=== PATIENT | female | born 1965 | race Caucasian/White ===

== ENCOUNTER → 2017-10-30 14:42 | Outpatient (CLI) | payer BC, SELFPAY ==
[2017-10-30 15:49] LABS: Absolute Lymphocyte Count 0.53 X10^3/ul (0.83-4.51); Absolute Neutrophil Count 2.2 X10^3/uL (2.0-7.7); Basophil# 0.01 X10^3/uL; Basophil% 0.3 % (0-1); Eosinophil# 0.11 X10^3/uL; Eosinophils% 3.4 % (0-5); Hematocrit 33.5 % (37-47); Hemoglobin 11.3 g/dl (12.0-15.0); Lymphocyte # 0.53 X10^3/ul (4.0); Lymphocyte % 16.2 % (19-41); Mean Corp Hgb Conc 33.7 g/gl (32-36); Mean Corpuscular Hgb 33.9 pg (27.0-32.0); Mean Corpuscular Volume 100.6 fL (81-99); Mean Platelet Vol. 9.5 fl (6.2-12.0); Monocyte# 0.46 X10^3/uL; Monocyte% 14.1 % (0-10); Neutrophil # 2.15 X10^3/uL (2.7-7.7); Neutrophil % 65.7 % (47-70); Platelet Count 201 K/mm3 (150-450); RBC Distribution Width CV 12.7 % (11.6-14.6); RBC Distribution Width SD 45.1 fl (35.1-43.9); Red Blood Count 3.33 M/mm3 (4.2-5.4); White Blood Count 3.3 K/mm3 (4.4-11.0)
[2017-10-30 15:51] LABS: Differential Indicated SCAN CRITERIA MET; POSITIVE COUNT NO; POSITIVE DIFFERENTIAL YES; POSITIVE MORPHOLOGY NO
[2017-10-30 15:58] LABS: Color, Urine Yellow (Yellow); Glucose, Dipstick Normal (Normal); Ketone-Dipstick Negative (Negative); Leukocyte Esterase-Dipstick 100 /ul (Negative); Nitrite-Dipstick Negative (Negative); Occult Blood-Urine Negative /ul (Negative); Protein-Dipstick Negative (Negative); Specific Gravity, Urine 1.005 (1.002-1.030); Urine Bilirubin Dipstick Negative (Negative); Urine Clarity Clear (Clear); Urine Urobilinogen Normal (Normal); Urine pH 6.5 (5.0 - 8.0)
[2017-10-30 16:19] LABS: AST(SGOT) 23 U/L (15-37); Alanine Aminotransfer ALT/SGPT 26 U/L (13-56); Albumin, Serum 4.1 g/dL (3.2-5.0); Alkaline Phosphatase 95 U/L (45-117); Anion Gap 8 (5-15); BUN 16 mg/dL (7-18); BUN/Creat Ratio 16.9 RATIO (10-20); Chloride 106 mmol/L (98-107); Creatinine, Serum 0.94 mg/dL (0.55-1.02); EST Glomerular Filtration Rate 66 mL/min (>60); Est Glom Filt Rate - Afr Amer 79 mL/min (>60); Globulin 4.2 g/dL (2.2-4.2); Glucose 93 mg/dL (74-106); Potassium 3.8 mmol/L (3.5-5.1); Protein, Total 8.3 g/dL (6.4-8.2); Rheumatoid Factor < 10.0 IU/mL (<15); Sodium Level 139 mmol/L (136-145)
[2017-10-30 16:35] LABS: Protein, Urine (Random) 7.7 mg/dL (<11.9); Protein:Creat Ratio 344 mg/g CRE (0-200)
[2017-11-03 16:07] LABS: Anti-Centromere B Ab <0.2 AI (0.0-0.9); Anti-Jo <0.2 AI (0.0-0.9); Anti-Scleroderma-70 AB <0.2 AI (0.0-0.9); RNP Ab 7.1 AI (0.0-0.9); SJOGREN'S Anti-SS-A test < 0.2 AI (0.0-0.9); SJOGREN'S Anti-SS-B test < 0.2 AI (0.0-0.9); Smith Ab <0.2 AI (0.0-0.9)
[2017-11-05 07:07] LABS: Complement C3 100 mg/dL (82-167); Dilute Prothrombin Time (dPT) 44.7 sec (0.0-55.0); Dilute Russell Viper Venom 45.8 sec (0.0-47.0); PTT-LA 53.6 sec (0.0-51.9); QNTFERON TB Ag Minus Nil Value 0 IU/mL (.); QNTFERON TB Ag Value 0.04 IU/mL (.); QNTFERON TB Mitogen Value 0.07 IU/mL (.); QNTFERON TB Nil Value 0.04 IU/mL (.); Thrombin Time 16.6 sec (0.0-23.0); dPT Confirm Ratio 1.13 Ratio (0.00-1.40)
[2017-11-05 09:50] LABS: CCP IgG Antibodies 7 units (0-19); HEPATITIS B SURFACE AG Negative (Negative); Hep B Surface Antibodies Non Reactive (.); Hexagonal Phase Phospholipid 2 14 sec (0-11); Interpretation Comment: (.); QNTIFERON TB Gold Indeterminate (Negative)
[2017-11-05 10:35] LABS: ANTINUCLEAR ANTIBODIES DIRECT Positive (Negative); Anti-dsDNA Ab 2 IU/mL (0-9)
== END ==
PROVIDERS: Family Provider Family Medicine; PCP Family Medicine; Visit Provider Internal Medicine Rheumatology
DX: M06.4 Inflammatory polyarthropathy (principal); M79.7 Fibromyalgia; M35.00 Sjogren syndrome, unspecified
CPT/HCPCS: 36415; 80053; 81002; 82570; 84156; 85025; 86038; 86160; 86200; 86225; 86235; 86431; 86480; 86706; 87340

== ENCOUNTER → 2017-11-23 12:37 | Outpatient (CLI) | payer BC, SELFPAY ==
--- NOTE | 2017-11-23 12:39 | BI_ITS ---
MAMMOGRAPHY - BILATERAL SCREENING REASON FOR EXAM: Female, 52 years old. Routine annual screening examination. PERTINENT HISTORY: Non-contributory. TECHNIQUE: Digital bilateral breast zion (3D mammographic acquisition) in the CC and MLO projections. 2-D mediolateral oblique (MLO) and craniocaudad (CC) views of both breasts were obtained. CAD: Full Field Digital Mammography with Computer Added Detection was performed. COMPARISON: Comparison is made with prior study dated October 30, 2016 and October 16, 2015. FINDINGS: Breast Composition: The breasts are heterogeneously dense, which may obscure small masses. There are no dominant masses or suspicious calcifications. There is asymmetry of breast tissue were more breast tissue is seen in the upper aspect of the right breast as compared to the left side. Correlation with ultrasound is recommended. No other significant abnormalities are identified. BI/SCREENING MAMM (CAD), BILAT IMPRESSION: Asymmetry of breast tissue with more breast tissue is seen in the upper outer quadrant of the right breast as compared to the left side. Correlation with ultrasound is recommended. ASSESSMENT CATEGORY: BIRADS Category 0: Incomplete. Need additional imaging evaluation. A letter regarding these results will be sent to the patient by the facility within 30 days. Approximately 10% of breast cancers are not detected by mammography. A normal mammogram should not delay biopsy of a clinically suspicious abnormality. [id number] Electronically Signed: Lior Bronson MD at 10:15 EDT Tel [phone], Service support ,
== END ==
PROVIDERS: Family Provider Family Medicine; PCP Family Medicine; Visit Provider Obstetrics & Gynecology
DX: Z12.31 Encounter for screening mammogram for malignant neoplasm of breast (principal)
CPT/HCPCS: 77063; 77067

== ENCOUNTER → 2017-12-02 13:57 | Outpatient (CLI) | payer BC, SELFPAY ==
--- NOTE | 2017-12-02 14:05 | US_ITS ---
STUDY: ULTRASOUND BREAST - RIGHT REASON FOR EXAM: Female, 52 years old. Abnormal screening mammogram. TECHNIQUE: Axial and longitudinal images of the RIGHT breast were performed with a high resolution ultrasound transducer. COMPARISON: Comparison is made with prior mammogram dated November 23, 2017. FINDINGS: RIGHT Breast: There is a 4 mm x 3 mm x 2 mm cyst at the 11:00 position of the breast at 3 cm from the nipple. This also evidence of a dilated subareolar ducts. US/Breast Limited Unilateral IMPRESSION: 4 mm x 3 mm x 2 mm cyst at the 11:00 position in the breast at 3 cm from nipple. Mild dilatation of the subareolar ducts. ASSESSMENT CATEGORY: BIRADS Category 2: Benign. A letter regarding these results will be sent to the patient by the facility within 30 days. Electronically Signed: Lior Bronson MD at 15:30 EDT Tel [phone], Service support ,
== END ==
PROVIDERS: Family Provider Family Medicine; PCP Family Medicine; Visit Provider Obstetrics & Gynecology
DX: R92.8 Other abnormal and inconclusive findings on diagnostic imaging of breast (principal)
CPT/HCPCS: 76642

== ENCOUNTER 2018-01-20 08:56 | Day surgery (SDC) | payer BC, SELFPAY ==
[2018-01-20] VITALS (7 sets, daily range): BP systolic 92–143; BP diastolic 43–75; PULSE 63–79; RESP 16–18; TEMP 36.3–36.6; O2SAT 95–100; BMI 27.6
--- NOTE | 2018-01-20 10:38 | PCM.OPRPT ---
Report of Operation Date of Procedure: 01/20/18 Pre-Operative Diagnosis: Screening for colon cancer Post-Operative Diagnosis: Internal and external hemorrhoids mild Surgery/Procedure Performed:: Colonoscopy for screening Type of Anesthesia:: MAC Anesthesiologist: Jarocho Stafford Specimen's removed: None Estimated Blood Loss (mL): None Description of Procedure: Procedure: Colonoscopy After reviewing the risks benefits, the patient was deemed in satisfactory condition to undergo procedure. After obtaining informed consent, the scope was passed under direct visualization. Throughout the procedure, the patient's blood pressure pulse and position saturations were monitored continuously anesthesia. The colonoscope was introduced through the anus and advanced to the cecum, identified by the appendiceal orifice, IC valve and transillumination. The colonoscopy was performed without difficulty. The patient tolerated procedure well. Quality of bowel prep was good. Findings: The perianal and digital rectal exam were revealed circumferential external hemorrhoids as well as mild internal hemorrhoids. The colon (entire examined portion) appeared normal. Retroflexed view of the distal rectum and anal verge grade 1 internal hemorrhoids Impression: 1. The entire colon is normal. 2. External hemorrhoids and grade 1 internal hemorrhoids Recommendations: Repeat colonoscopy in 10 years for screening purposes - Complications none
== END 2018-01-20 11:34 | disposition home or self-care (01) ==
LOC: EN 08:56 → AC 08:58
PROVIDERS: Family Provider Family Medicine; PCP Family Medicine; Visit Provider Surgery
PROC: 0DJD8ZZ Inspection of Lower Intestinal Tract, Via Natural or Artificial Opening Endoscopic (ICD-10-PCS; CPT 45378; principal; 2018-01-20 09:55)
DX: Z12.11 Encounter for screening for malignant neoplasm of colon (principal); K21.9 Gastro-esophageal reflux disease without esophagitis; I10 Essential (primary) hypertension; K64.4 Residual hemorrhoidal skin tags; M32.9 Systemic lupus erythematosus, unspecified; F32.9 Major depressive disorder, single episode, unspecified; K64.8 Other hemorrhoids; Z87.891 Personal history of nicotine dependence
CPT/HCPCS: 45378; J7120

== ENCOUNTER → 2018-04-21 12:35 | Outpatient (CLI) | payer BC, SELFPAY ==
[2018-04-21 14:24] LABS: Anion Gap 9 (5-15); BUN 15 mg/dL (7-18); BUN/Creat Ratio 16.3 RATIO (10-20); Calcium,Total 8.7 mg/dL (8.5-10.1); Chloride 105 mmol/L (98-107); Creatinine, Serum 0.92 mg/dL (0.55-1.02); EST Glomerular Filtration Rate 67 mL/min (>60); Est Glom Filt Rate - Afr Amer 82 mL/min (>60); Glucose 72 mg/dL (74-106); Sodium Level 138 mmol/L (136-145)
== END ==
PROVIDERS: Family Provider Family Medicine; PCP Family Medicine; Referring Provider Family Medicine; Visit Provider Family Medicine
DX: E87.5 Hyperkalemia (principal)
CPT/HCPCS: 36415; 80048

== ENCOUNTER → 2018-07-12 13:52 | Outpatient (CLI) | payer BC, SELFPAY ==
[2018-01-20 09:19] VITALS: BMI 27.6
[2018-07-12 15:35] LABS: ALB/GLOB Ratio 1.1 RATIO (0.9-2.4); AST(SGOT) 22 U/L (15-37); Alanine Aminotransfer ALT/SGPT 40 U/L (13-56); Albumin, Serum 3.7 g/dL (3.2-5.0); Alkaline Phosphatase 72 U/L (45-117); Anion Gap 10 (5-15); BUN 13 mg/dL (7-18); BUN/Creat Ratio 12.4 RATIO (10-20); Calcium,Total 8.4 mg/dL (8.5-10.1); Chloride 107 mmol/L (98-107); Creatinine, Serum 1.05 mg/dL (0.55-1.02); EST Glomerular Filtration Rate 58 mL/min (>60); Est Glom Filt Rate - Afr Amer 70 mL/min (>60); Globulin 3.3 g/dL (2.2-4.2); Glucose 93 mg/dL (74-106); Potassium 3.9 mmol/L (3.5-5.1); Sodium Level 143 mmol/L (136-145)
[2018-07-12 15:36] LABS: Absolute Lymphocyte Count 0.38 X10^3/ul (0.83-4.51); Absolute Neutrophil Count 1.7 X10^3/uL (2.0-7.7); Basophil# 0.01 X10^3/uL; Basophil% 0.4 % (0-1); Differential Indicated SCAN CRITERIA MET; Eosinophil# 0.11 X10^3/uL; Eosinophils% 4.2 % (0-5); Hematocrit 26.7 % (37-47); Hemoglobin 8.1 g/dl (12.0-15.0); Lymphocyte # 0.38 X10^3/ul (4.0); Lymphocyte % 14.7 % (19-41); Mean Corp Hgb Conc 30.3 g/gl (32-36); Mean Corpuscular Hgb 33.5 pg (27.0-32.0); Mean Corpuscular Volume 110.3 fL (81-99); Monocyte# 0.42 X10^3/uL; Monocyte% 16.2 % (0-10); Neutrophil # 1.65 X10^3/uL (2.7-7.7); Neutrophil % 63.7 % (47-70); POSITIVE COUNT NO; POSITIVE DIFFERENTIAL YES; POSITIVE MORPHOLOGY NO; Platelet Count 204 K/mm3 (150-450); RBC Distribution Width CV 15.4 % (11.6-14.6); RBC Distribution Width SD 57.2 fl (35.1-43.9); Red Blood Count 2.42 M/mm3 (4.2-5.4); White Blood Count 2.6 K/mm3 (4.4-11.0)
[2018-07-12 15:45] LABS: Differential Comment SCANNED
== END ==
PROVIDERS: Family Provider Family Medicine; PCP Family Medicine; Referring Provider Internal Medicine Rheumatology; Visit Provider Internal Medicine Rheumatology
DX: M06.4 Inflammatory polyarthropathy (principal); Z79.899 Other long term (current) drug therapy; M79.7 Fibromyalgia; M35.00 Sjogren syndrome, unspecified; M35.1 Other overlap syndromes; I10 Essential (primary) hypertension; F32.89 Other specified depressive episodes
CPT/HCPCS: 36415; 80053; 85025

== ENCOUNTER → 2018-10-11 13:08 | Outpatient (CLI) | payer BC, SELFPAY ==
[2018-01-20 09:19] VITALS: BMI 27.6
[2018-10-11 13:55] LABS: Absolute Lymphocyte Count 0.72 X10^3/ul (0.83-4.51); Absolute Neutrophil Count 2.4 X10^3/uL (2.0-7.7); Basophil# 0.01 X10^3/uL; Basophil% 0.3 % (0-1); Eosinophil# 0.07 X10^3/uL; Eosinophils% 1.9 % (0-5); Hematocrit 32.4 % (37-47); Hemoglobin 10.5 g/dl (12.0-15.0); Lymphocyte # 0.72 X10^3/ul (4.0); Lymphocyte % 19.6 % (19-41); Mean Corp Hgb Conc 32.4 g/gl (32-36); Mean Corpuscular Hgb 32.7 pg (27.0-32.0); Mean Corpuscular Volume 100.9 fL (81-99); Mean Platelet Vol. 9.5 fl (6.2-12.0); Monocyte# 0.45 X10^3/uL; Monocyte% 12.3 % (0-10); Neutrophil # 2.41 X10^3/uL (2.7-7.7); Neutrophil % 65.6 % (47-70); Platelet Count 188 K/mm3 (150-450); RBC Distribution Width CV 13.8 % (11.6-14.6); Red Blood Count 3.21 M/mm3 (4.2-5.4); White Blood Count 3.7 K/mm3 (4.4-11.0)
[2018-10-11 14:00] LABS: POSITIVE COUNT NO; POSITIVE DIFFERENTIAL NO; POSITIVE MORPHOLOGY NO
[2018-10-11 14:34] LABS: ALB/GLOB Ratio 1.1 RATIO (0.9-2.4); AST(SGOT) 22 U/L (15-37); Alanine Aminotransfer ALT/SGPT 30 U/L (13-56); Albumin, Serum 3.7 g/dL (3.2-5.0); Alkaline Phosphatase 64 U/L (45-117); Anion Gap 5 (5-15); BUN 16 mg/dL (7-18); BUN/Creat Ratio 16.1 RATIO (10-20); Calcium,Total 8.8 mg/dL (8.5-10.1); Chloride 109 mmol/L (98-107); Creatinine, Serum 0.99 mg/dL (0.55-1.02); EST Glomerular Filtration Rate 62 mL/min (>60); Est Glom Filt Rate - Afr Amer 75 mL/min (>60); Globulin 3.5 g/dL (2.2-4.2); Glucose 70 mg/dL (74-106); Potassium 3.4 mmol/L (3.5-5.1); Protein, Total 7.2 g/dL (6.4-8.2); Sodium Level 141 mmol/L (136-145)
== END ==
LOC: MTRAD 13:10 → MTLAB 13:24
PROVIDERS: Family Provider Family Medicine; PCP Family Medicine; Referring Provider Internal Medicine Rheumatology; Visit Provider Internal Medicine Rheumatology
DX: M06.4 Inflammatory polyarthropathy (principal); Z79.899 Other long term (current) drug therapy; M79.7 Fibromyalgia; M35.00 Sjogren syndrome, unspecified; M35.1 Other overlap syndromes; I10 Essential (primary) hypertension; F32.89 Other specified depressive episodes
CPT/HCPCS: 36415; 80053; 85025

== ENCOUNTER → 2019-02-17 17:11 | Outpatient (CLI) | payer BC, SELFPAY | PROVIDERS: Referring Provider Family Medicine; Visit Provider Family Medicine | DX: R30.0 Dysuria (principal) | CPT/HCPCS: 87077; 87086; 87088; 87186 ==

== ENCOUNTER → 2019-02-24 14:44 | Outpatient (CLI) | payer BC, SELFPAY ==
--- NOTE | 2019-02-24 14:47 | BI_ITS ---
MAMMOGRAPHY - BILATERAL SCREENING REASON FOR EXAM: Female, 53 years old. Routine annual screening examination. PERTINENT HISTORY: Non-contributory. TECHNIQUE: Digital bilateral breast meagan (3D mammographic acquisition) in the CC and MLO projections. 2-D mediolateral oblique (MLO) and craniocaudad (CC) views of both breasts were obtained. CAD: Full Field Digital Mammography with Computer Added Detection was performed. COMPARISON: Comparison is made with prior examination dated November 23, 2017 and October 30, 2016. FINDINGS: Breast Composition: The breasts are heterogeneously dense, which may obscure small masses. There are no dominant masses or suspicious calcifications. Stable appearance of the fat-containing axillary lymph nodes. No other significant abnormalities are identified. There has been no significant change since the prior study. BI/SCREEN MAMM (CAD) W/MEAGAN BILAT IMPRESSION: Stable bilateral screening mammogram. Yearly follow-up mammogram recommended. (A) ASSESSMENT CATEGORY: BIRADS Category 2: Benign. A letter regarding these results will be sent to the patient by the facility within 30 days. Approximately 10% of breast cancers are not detected by mammography. A normal mammogram should not delay biopsy of a clinically suspicious abnormality. [id number] Electronically Signed: Lior Bronson, at 15:29 EDT , Service support ,
== END ==
PROVIDERS: Family Provider Family Medicine; PCP Family Medicine; Referring Provider Family Medicine; Visit Provider Family Medicine
DX: Z12.31 Encounter for screening mammogram for malignant neoplasm of breast (principal)
CPT/HCPCS: 77063; 77067

== ENCOUNTER → 2019-04-05 15:53 | Outpatient (CLI) | payer BC, SELFPAY ==
[2018-01-20 09:19] VITALS: BMI 27.6
== END ==
PROVIDERS: Visit Provider Obstetrics & Gynecology
DX: N39.0 Urinary tract infection, site not specified (principal)
CPT/HCPCS: 87077; 87086; 87088; 87186

== ENCOUNTER → 2019-08-19 09:40 | Outpatient (CLI) | payer BC, SELFPAY ==
[2018-01-20 09:19] VITALS: BMI 27.6
[2019-08-19 12:35] LABS: Absolute Lymphocyte Count 1.04 X10^3/uL (0.83-4.51); Absolute Neutrophil Count 1.1 X10^3/uL (2.0-7.7); Eosinophil# 0.04 X10^3/uL; Eosinophils% 1.5 % (0-5); Hematocrit 26.5 % (37-47); Hemoglobin 7.9 g/dL (12.0-15.0); Lymphocyte # 1.04 X10^3/ul (4.0); Lymphocyte % 39.5 % (19-41); Mean Corp Hgb Conc 29.8 g/dL (32-36); Mean Corpuscular Hgb 29.7 pg (27.0-32.0); Mean Corpuscular Volume 99.6 fL (81-99); Mean Platelet Vol. 9.8 fl (6.2-12.0); Monocyte# 0.43 X10^3/uL; Monocyte% 16.3 % (0-10); NRBC Flagged by Analyzer 0 % (0-5); Neutrophil # 1.09 X10^3/uL (2.7-7.7); Neutrophil % 41.6 % (47-70); POSITIVE MORPHOLOGY YES; Platelet Count 211 K/mm3 (150-450); RBC Distribution Width CV 14.9 % (11.6-14.6); RBC Distribution Width SD 54.1 fl (35.1-43.9); Red Blood Count 2.66 M/mm3 (4.2-5.4); White Blood Count 2.6 K/mm3 (4.4-11.0)
[2019-08-19 12:37] LABS: Differential Indicated SCAN CRITERIA MET
[2019-08-19 13:20] LABS: Anisocytosis 1+; Atypical Lymphocyte 1+ %; Platelet Estimate ADEQUATE (ADEQ); Red Cell Morphology N CHROM NORMAL (NORM C&C)
[2019-08-19 13:24] LABS: ALB/GLOB Ratio 0.8 RATIO (0.9-2.4); AST(SGOT) 25 U/L (15-37); Alanine Aminotransfer ALT/SGPT 23 U/L (13-56); Albumin, Serum 3.6 g/dL (3.2-5.0); Alkaline Phosphatase 78 U/L (45-117); Anion Gap 10 (5-15); BUN 12 mg/dL (7-18); BUN/Creat Ratio 11.8 RATIO (10-20); Calcium,Total 9.1 mg/dL (8.5-10.1); Chloride 107 mmol/L (98-107); Cholesterol 130 mg/dL (200); Creatinine, Serum 1.02 mg/dL (0.55-1.02); EST Glomerular Filtration Rate 60 mL/min (>60); Est Glom Filt Rate - Afr Amer 72 mL/min (>60); Ferritin 11 ng/mL (8-252); Globulin 4.5 g/dL (2.2-4.2); Glucose 63 mg/dL (74-106); High Density Lipoprotein 37 mg/dL; Iron Binding Capacity,Total 367 ug/dL (250-450); Potassium 3.7 mmol/L (3.5-5.1); Protein, Total 8.1 g/dL (6.4-8.2); Sodium Level 139 mmol/L (136-145); Triglycerides 151 mg/dL; Very Low Density Lipoprotein 30 mg/dL (5-40)
== END ==
PROVIDERS: PCP Family Medicine; Referring Provider Family Medicine; Visit Provider Family Medicine
DX: I10 Essential (primary) hypertension (principal); D64.9 Anemia, unspecified
CPT/HCPCS: 36415; 80053; 80061; 82728; 83550; 85025

== ENCOUNTER → 2019-12-08 12:07 | Outpatient (CLI) | payer BC, SELFPAY ==
[2018-01-20 09:19] VITALS: BMI 27.6
[2019-12-08 15:43] LABS: Ferritin 11 ng/mL (8-252); Iron 35 ug/dL (50-170); Iron Binding Capacity,Total 354 ug/dL (250-450); PERCENT IRON SATURATION 9.9 % (15.0-55.0)
[2019-12-08 17:48] LABS: Absolute Lymphocyte Count 0.83 X10^3/uL (0.83-4.51); Absolute Neutrophil Count 1.3 X10^3/uL (2.0-7.7); Basophil# 0.01 X10^3/uL; Basophil% 0.4 % (0-1); Eosinophil# 0.07 X10^3/uL; Eosinophils% 2.7 % (0-5); Hemoglobin 7.6 g/dL (12.0-15.0); Lymphocyte # 0.83 X10^3/ul (4.0); Mean Corp Hgb Conc 29.2 g/dL (32-36); Mean Corpuscular Hgb 28.3 pg (27.0-32.0); Mean Corpuscular Volume 96.7 fL (81-99); Mean Platelet Vol. 9.8 fl (6.2-12.0); Monocyte# 0.33 X10^3/uL; Monocyte% 12.7 % (0-10); NRBC Flagged by Analyzer 0 % (0-5); Neutrophil # 1.34 X10^3/uL (2.7-7.7); Neutrophil % 51.8 % (47-70); Platelet Count 191 K/mm3 (150-450); RBC Distribution Width CV 16.5 % (11.6-14.6); RBC Distribution Width SD 57.5 fl (35.1-43.9); RET-HE 29.6 pg (30-35); Red Blood Count 2.69 M/mm3 (4.2-5.4); Reticulocyte Count 1.91 % (0.5-1.5); White Blood Count 2.6 K/mm3 (4.4-11.0)
== END ==
PROVIDERS: PCP Family Medicine; Visit Provider Internal Medicine Hematology & Oncology
DX: D64.9 Anemia, unspecified (principal)
CPT/HCPCS: 36415; 82728; 83540; 83550; 85025; 85045

== ENCOUNTER → 2019-12-08 12:32 | Outpatient (CLI) | payer BC, SELFPAY ==
[2018-01-20 09:19] VITALS: BMI 27.6
[2019-12-08 12:44] VITALS: BP 111/38; PULSE 66; RESP 16; TEMP 36.8; BMI 26.9
[2019-12-08] MEDS: 0.9% NaCl Peripheral Flush Adult/Peds IV (12:55)
[2019-12-08] MEDS: 0.9% NaCl IVPB Med Flush (250 mL) 15 ML IV (12:55)
== END ==
PROVIDERS: PCP Family Medicine; Referring Provider Family Medicine; Visit Provider Family Medicine
DX: D64.9 Anemia, unspecified (principal)
CPT/HCPCS: 96365; J1756; J7050; A4216

== ENCOUNTER 2020-01-11 09:19 | Day surgery (SDC) | payer BC, SELFPAY ==
--- NOTE | 2020-01-05 04:23 | HP_ITS ---
Intake Vital Signs 01/05/20 Height 5 ft 2 in 01/05/20 Weight: 147 lb 01/05/20 BP 122/73 H 01/05/20 Blood Pressure Location Rt brachial 01/05/20 Position Sitting 01/05/20 Respiration 16 01/05/20 Pulse 76 01/05/20 Pulse Source Monitor 01/05/20 Temp 98.1 F 01/05/20 Temp Source Temporal 01/05/20 Pulse Oximetry (%) 99 01/05/20 Oxygen Delivery Method room air 01/05/20 BMI 26.9 Intake Visit Reasons: EGD Chief Complaint: EGD Coding File Clerk Required: No Is patient in pain?: No Allergies amoxicillin trihydrate [From Augmentin] Allergy (Verified 01/05/20 14:54) Unknown diflunisal [From Dolobid] Allergy (Verified 01/05/20 14:54) Unknown Penicillins Allergy (Verified 01/05/20 14:54) Rash potassium clavulanate [From Augmentin] Allergy (Verified 01/05/20 14:54) Unknown sulfamethoxazole [From Septra] Allergy (Verified 01/05/20 14:54) Rash trimethoprim [From Septra] Allergy (Verified 01/05/20 14:54) Rash aripiprazole [From Abilify] Adverse Reaction (Verified 01/05/20 14:54) Other fluoxetine HCl [From Prozac] Adverse Reaction (Verified 01/05/20 14:54) Other sertraline HCl [From Zoloft] Adverse Reaction (Verified 01/05/20 14:54) Other venlafaxine HCl [From Effexor] Adverse Reaction (Verified 01/05/20 14:54) Other ARTIFICIAL SUGARS Adverse Reaction (Uncoded 01/05/20 14:54) Other Medications Calcium Carb/Vitamin D [Caltrate-600 With Vit D Tab] 1 tab PO DAILY@0800 06/06/14 [History Confirmed 01/05/20] Cholecalciferol (VIT D3) [Vitamin D3] 1,000 unit PO DAILY 06/06/14 [History Confirmed 01/05/20] Duloxetine Hcl [Cymbalta] 120 mg PO DAILY 06/06/14 [History Confirmed 01/05/20] Glucosa Abbasi 2Kcl/Chondroitin Abbasi [Glucosamine-Chondroitin Cap] 1 ea PO BID 06/06/14 [History Confirmed 01/05/20] Lactobacillus Acidophilus [Acidophilus] 1 ea PO DAILY 06/06/14 [History Confirmed 01/05/20] Lisinopril [Zestril] 10 mg PO DAILY 06/06/14 [History Confirmed 01/05/20] Multivitamins,Therapeutic [Multivitamin] 1 tab PO DAILY 06/06/14 [History Confirmed 01/05/20] Omeprazole [Prilosec] 40 mg PO DAILY 06/06/14 [History Confirmed 12/08/19] gabapentin 300 mg capsule 300 mg PO BID cap 01/05/20 [History Confirmed 01/05/20] pantoprazole 40 mg tablet,delayed release 40 mg PO DAILY tab 01/05/20 [History Confirmed 01/05/20] PFSH Medical History Hemorrhoids (Acute) Acid reflux (Acute) Blood in stool (Acute) Constipation (Acute) Abdominal pain (Acute) Anxiety (Acute) Anemia (Acute) Lupus (Acute) Back problem (Acute) Fatigue (Acute) Depression (Chronic) Benign essential HTN (Chronic) Anemia (Chronic) Surgical History Hx of colonoscopy (Acute) Hx of hysterectomy (Acute) History of (Acute) Family History Mother Cancer COPD (chronic obstructive pulmonary disease) Brother Myocardial infarction Social History (Updated 01/05/20 @ 16:[address] Tripp Gilmore MD) Smoking Status: Former smoker second hand exposure: No alcohol intake: never substance use type: does not use caffeine: Yes what type of physical activity do you participate in: none frequency: does not exercise HPI HPI Surgical H&P: Yes HPI: DEMI DEJESUS, is a 54 F who presents to the office today for Evaluation of GERD. Patient has been having problems with GERD over the last 4 to 5 years. Over the last several months it is gotten progressively worse she is currently on omeprazole but at night times many times she needs to take an extra Tagamet. She has a bitter taste in her mouth at nighttime. This is particularly present when she uses an antihistamine or needs to take some form of nonsteroidal anti- inflammatories for discomfort. The patient has no previous EGD. She does not sleep with her head elevated. Patient has had a colonoscopy in 2019 which was negative. In addition the patient does have a diagnosis of anemia ROS General General: Yes fatigue; no weight change, appetite, colon cancer, breast cancer or weakness HEENT HEENT: No difficulty swallowing, eye injury, eye surgery, swollen glands or hoarseness Endo Endocrine: No thyroid disease, diabetes mellitus, thyroid cancer, Hair loss, heat intolerance or cold intolerance Skin Skin: Yes rash; no changing moles Musc Musculoskeletal: Yes back problems; no arthritis, rheumatoid arthritis, gout or joint pain Cardio Cardiovascular: Yes high blood pressure; no murmur, pacemaker, heart disease, atrial fibrillation, heart attack, heart stent, palpitations, shortness of breat with exertion or chest pain Psych Psychiatric: Yes depression and anxiety; no hearing voices Resp Respiratory: No shortness of breath, No sleep apnea, No cough, No COPD, No asthma, No emphysema, No wheezing Gastro Gastrointestinal: Yes abdominal pain, No nausea or vomiting, No diarrhea, Yes constipation, Yes blood in stool, Yes acid reflux, Yes hemorrhoids, No ulcers, No gallbladder problem, No black,tarry stools Jona Hematologic: No blood thinners, Yes blood disorders, Yes bleeding, Yes anemia, No blood clots Neuro Neurologic: No system reviewed and no additional complaints, except as docu, No as per HPI, No abnormal walking, No abnormal hearing, No abnormal movements, No abnormal speech, No behavioral changes, No burning sensations, No confusion, No seizure-like activity, No unsteadiness, No dizziness, No localized weakness, No frequent falls, No headache(s), No lack of coordination, No loss of vision, No memory loss, No numbness, No other visual disturbances, No radiating pain, No restless legs, No sensory deficit, No fainting, No tingling, No tremor(s), No weakness, No other Exam Const General: no acute distress, well developed, well hydrated Orientation: oriented to person, oriented to place, oriented to time [facility] Head: normocephalic, atraumatic Ears: external ears normal Mouth: moist mucous membranes Eyes Sclera: sclerae normal Pupils: normal by confrontation Neck Neck: no lymphadenopathy noted Neck mass: No Thyroid: thyroid normal, symmetrical Chest Chest palpation & inspection: normal inspection of the chest Resp Effort & Inspection: normal respiratory effort Auscultation: clear to auscultation bilaterally Percussion: percussion normal Cardio Rate: regular rate Rhythm: regular rhythm Heart Sounds: no murmurs GI Palpation: soft, no hepatosplenomegaly, no masses, nontender Rectal Exam: other Other: Rectal exam deferred. Extrem General: normal to inspection, no clubbing, cyanosis or edema Assessment & Plan Problems 1. Gastroesophageal reflux disease, esophagitis presence not specified K21.9 2. Anemia, unspecified type D64.9 Plan I have discussed the above with the patient. I have offered the patient esophagogastroduodenoscopy for evaluation. I have explained the risks/benefits of the procedure and described the procedure. I have discussed the risks with the patient, including but not limited to: infection, bleeding, perforation of the GI tract requiring emergency surgery, inability to complete the procedure, injury to any internal organs, complications of anesthesia, etc. - the patient understands and agrees to proceed. I have answered all the patient's questions to the patient's satisfaction and the patient has no further questions. The patient has been given instructions for the colon cleansing preparation. Coding Level of Care Code Off vis,new,level 3 Diagnoses Gastroesophageal reflux disease, esophagitis presence not specified K21.9 ??Esophagitis presence: esophagitis presence not specified Anemia, unspecified type D64.9 ??Anemia type: unspecified type COVID (Procedure Consent) Procedure Criteria Procedure Criteria: Yes Elective The surgeon/proceduralist and patient have discussed in detail the risk of exposure to and/or potential harm posed by the COVID-19 virus with having a surgery/procedure at this time versus the risk of? delaying the surgery/procedure. It is not possible to know either the risk of delaying the surgery or procedure or chance of getting an infection with perfect accuracy, but a joint decision was made between the patient and the surgeon/proceduralist ?to proceed at this time with the scheduled surgery/procedure as indicated on the consent form. 01/05/20 0332 <Electronically signed by Tripp juarez MD> Date _ Tripp Gilmore MD I have re-examined the patient. There are no clinical changes since date of exam.
[2020-01-05 14:53] VITALS: BMI 26.9
[2020-01-06 22:46] LABS: Probe Check PASS; Specimen Processing Control PASS
[2020-01-11] VITALS (9 sets, daily range): BP systolic 93–112; BP diastolic 47–59; PULSE 63–73; RESP 16; TEMP 36.6–37.1; O2SAT 97–100; BMI 27.9
[2020-01-11] MEDS: Lactated Ringers 1,000 ML 100 ML IV (09:50)
--- NOTE | 2020-01-11 10:15 | IMM_PTH ---
PATIENT: DEMI DEJESUS LOC: EN U#:[id number] AGE/SX: 54/F ROOM: RE01/11/[address]: Dr. Tripp Gilmore MD : 1965 BED: DIS: 01/11/2020 SPEC #: [id number] RECD: 01/12/20 09:14 STATUS: MELISSA REGilles #: [id number] HAM: 01/11/20 10:[address]: Tripp Gilmore DEPT: IMMUNOHISTOCHEMISTRY RECD BY: Vida Martinez ENTERED: 01/12/20 09:15 SP TYPE: IMMUNO OTHR DR: Dr. Andres Small MD Tissues: Stomach, NOS Procedures: H Pylori (initial) PHYSICIAN & INSTITUTION [place] [id number] SPECIMEN INFORMATION: Tissue Source: Antrum biopsy Clinical Info: GERD, abdomen pain Specimen Number: [id number] CPT code: 44195 METHODOLOGY: Deparaffinized sections of prefer/formalin-fixed tissue or PAP/DQ stained slides are incubated with monoclonal/polyclonal antibodies/oligonucleotide probes. Localization is made via biotin free immunoperoxidase method. Appropriate controls are performed and reacted as expected. Results on target cell population are indicated in the following table: RESULTS: ANTIBODY / CLONE RESULT H Pylori (polyclonal) negative These tests were developed and their performance characteristics determined by [facility]. They may not have been cleared or approved by the U.S. Food and Drug Administration. The FDA has determined that such clearance or approval is not necessary. INTERPRETATION: Antrum biopsy: Negative for Helicobacter pylori organisms. AM:isabel 01/13/20
--- NOTE | 2020-01-11 10:15 | EGD_PTH ---
PATIENT: DEMI DEJESUS LOC: EN U#:[id number] AGE/SX: 54/F ROOM: RE01/11/[address]: Dr. Tripp Gilmore MD : 1965 BED: DIS: 01/11/2020 SPEC #: [id number] RECD: 01/11/20 12:47 STATUS: MELISSA EZIO #: [id number] HAM: 01/11/20 10:[address]: Tripp Gilmore DEPT: SURGICAL PATHOLOGY RECD BY: Brooke Beltran ENTERED: 01/12/20 09:40 SP TYPE: EGD BIOPSY OTHR DR: Dr. Andres Small MD Tissues: Gastric mucous membrane Procedures: Surgery Specimen Level IV HEADER OPERATION: EGD ([facility] [place]) PRE-OP DIAGNOSIS: GERD, abdomen pain TISSUE SUBMITTED: Antrum biopsy for histo and H. pylori MICROSCOPIC DIAGNOSIS Gastric antrum, biopsy: Mild chronic gastritis. See comment. AM:isabel 01/13/20 COMMENT The results of immunohistochemistry for Helicobacter pylori will be reported separately ([id number]). MICROSCOPIC DESCRIPTION Slides are reviewed. GROSS DESCRIPTION Received in fixative is one container labeled with the patient's name and designated antrum biopsy. The specimen consists of one irregular fragment of light blanchard soft tissue that measures 0.6 x 0.2 x 0.1 cm. The specimen is totally submitted in one cassette. / AM:isabel 01/12/20 TC:3 CPT: 11591
--- NOTE | 2020-01-11 10:22 | OP.CCLET_ITS ---
01/11/2020 Andres Small Md Re : Upper GI endoscopy procedure for Kelsea Field Dear Staci This procedure was performed on Saturday, January 11, 2020. My impressions and recommendations are as follows: Impressions : - Normal esophagus. - Normal stomach. Biopsied. - Normal examined duodenum. No specimens collected. Recommendations : - Discharge patient to home. - Resume previous diet. - Continue present medications. - Await pathology results. - Repeat upper endoscopy (date not yet determined) for surveillance. - Return to my office in 1 week. My findings are described in the full procedure note, which is enclosed. If I can be of further assistance, please feel free to contact me at Doctor phone number(s): , Fax: [phone], Work: . Sincerely, MD Tripp Ceja MD 01/11/2020 10:21:30 AM This report has been signed electronically.
--- NOTE | 2020-01-11 10:22 | OP.EGD_ITS ---
Patient Name: Kelsea Field Procedure Date: 01/11/2020 10:02 AM Date of : 1965 Age: 54 Procedure: Upper GI endoscopy Indications: Iron deficiency anemia, Gastro-esophageal reflux disease Providers: Tirpp Gilmore MD Referring MD: Andres Small Md Medicines: See the Anesthesia note for documentation of the administered medications Patient Profile: This is a 54 year old female. Refer to note in patient chart for documentation of history and physical. Complications: No immediate complications. Procedure: Pre-Anesthesia Assessment: - Prior to the procedure, a History and Physical was performed, and patient medications and allergies were reviewed. The patient's tolerance of previous anesthesia was also reviewed. The risks and benefits of the procedure and the sedation options and risks were discussed with the patient. All questions were answered, and informed consent was obtained. Prior Anticoagulants: The patient has taken no previous anticoagulant or antiplatelet agents. ASA Grade Assessment: II - A patient with mild systemic disease. After reviewing the risks and benefits, the patient was deemed in satisfactory condition to undergo the procedure. After obtaining informed consent, the endoscope was passed under direct vision. Throughout the procedure, the patient's blood pressure, pulse, and oxygen saturations were monitored continuously. The gastroscope was introduced through the mouth, and advanced to the second part of duodenum. The upper GI endoscopy was accomplished without difficulty. The patient tolerated the procedure well. Scope In: 10:12:21 AM Scope Out: 10:15:52 AM Total Procedure Duration Time 0 hours 3 minutes 31 seconds Findings: The examined esophagus was normal. The entire examined stomach was normal. Biopsies were taken with a cold forceps for Helicobacter pylori testing. The examined duodenum was normal. No biopsies or other specimens were collected for this exam. Impression: - Normal esophagus. - Normal stomach. Biopsied. - Normal examined duodenum. No specimens collected. Recommendation: - Discharge patient to home. - Resume previous diet. - Continue present medications. - Await pathology results. - Repeat upper endoscopy (date not yet determined) for surveillance. - Return to my office in 1 week. Procedure Code(s): --- Professional --- 76837, Esophagogastroduodenoscopy, flexible, transoral; with biopsy, single or multiple Diagnosis Code(s): --- Professional --- D50.9, Iron deficiency anemia, unspecified K21.9, Gastro-esophageal reflux disease without esophagitis CPT copyright 2017 [employer]. All rights reserved. The codes documented in this report are preliminary and upon radio communications mechanician review may be revised to meet current compliance requirements. MD Tripp Ceja MD 01/11/2020 10:21:30 AM This report has been signed electronically. Number of Addenda: 0 Note Initiated On: 01/11/2020 10:02 AM
== END 2020-01-11 11:25 | disposition home or self-care (01) ==
LOC: EN 09:19 → AC 09:22
PROVIDERS: Anesthesiology; PCP Family Medicine; Referring Provider Family Medicine; Visit Provider Surgery
PROC: 0DJ08ZZ Inspection of Upper Intestinal Tract, Via Natural or Artificial Opening Endoscopic (ICD-10-PCS; CPT 43235; principal; 2020-01-11 10:10)
DX: D50.9 Iron deficiency anemia, unspecified (principal); K21.9 Gastro-esophageal reflux disease without esophagitis; Z87.891 Personal history of nicotine dependence; Z88.0 Allergy status to penicillin; Z88.1 Allergy status to other antibiotic agents; Z88.2 Allergy status to sulfonamides; I10 Essential (primary) hypertension; F32.9 Major depressive disorder, single episode, unspecified
CPT/HCPCS: 43239; 87635; 88305; 88342; 94799; J7120; U0003

== ENCOUNTER → 2020-03-02 12:32 | Outpatient (CLI) | payer BC, SELFPAY ==
[2020-01-24 16:50] VITALS: BMI 27.9
--- NOTE | 2020-03-02 12:48 | BI_ITS ---
MAMMOGRAPHY - BILATERAL SCREENING REASON FOR EXAM: Female, 54 years old. Routine annual screening examination. PERTINENT HISTORY: Mother with breast cancer. TECHNIQUE: Digital bilateral breast meagan (3D mammographic acquisition) in the CC and MLO projections. 2-D mediolateral oblique (MLO) and craniocaudad (CC) views of both breasts were obtained. CAD: Full Field Digital Mammography with Computer Added Detection was performed. COMPARISON: Comparison is made with prior study dated 02/24/2019 and 11/23/2017. FINDINGS: Breast Composition: The breasts are heterogeneously dense, which may obscure small masses. There are no dominant masses or suspicious calcifications. Stable small benign-appearing bilateral axillary lymph nodes. No other significant abnormalities are identified. There has been no significant change since the prior study. BI/SCREEN MAMM (CAD) W/MEAGAN BILAT IMPRESSION: Stable bilateral screening mammogram. Yearly follow-up mammogram recommended. (A) ASSESSMENT CATEGORY: BIRADS Category 2: Benign. A letter regarding these results will be sent to the patient by the facility within 30 days. Approximately 10% of breast cancers are not detected by mammography. A normal mammogram should not delay biopsy of a clinically suspicious abnormality. [id number] Electronically Signed: Lior Bronson, at 14:23 EDT , Service support ,
== END ==
PROVIDERS: PCP Family Medicine; Referring Provider Family Medicine; Visit Provider Family Medicine
DX: Z12.31 Encounter for screening mammogram for malignant neoplasm of breast (principal); Z80.3 Family history of malignant neoplasm of breast; R30.0 Dysuria
CPT/HCPCS: 77063; 77067; 87077; 87086; 87088; 87186

== ENCOUNTER → 2021-03-04 13:22 | Outpatient (CLI) | payer BC, SELFPAY ==
[2020-01-24 16:50] VITALS: BMI 27.9
--- NOTE | 2021-03-04 13:25 | BI_ITS ---
MAMMOGRAPHY - BILATERAL SCREENING REASON FOR EXAM: Female, 55 years old. Routine annual screening examination. PERTINENT HISTORY: Mother with breast cancer. TECHNIQUE: Digital bilateral breast meagan (3D mammographic acquisition) in the CC and MLO projections. 2-D mediolateral oblique (MLO) and craniocaudad (CC) views of both breasts were obtained. CAD: Full Field Digital Mammography with Computer Added Detection was performed. COMPARISON: Comparison is made with prior examination of 03/02/2020 and 02/24/2019. FINDINGS: Breast Composition: The breasts are heterogeneously dense, which may obscure small masses. There are no dominant masses or suspicious calcifications. Stable benign-appearing bilateral axillary lymph nodes. No other significant abnormalities are identified. There has been no significant change since the prior study. BI/SCRN MAMM (CAD)W/MEAGAN BILAT IMPRESSION: Stable bilateral screening mammogram. Yearly follow-up mammogram recommended. (A) ASSESSMENT CATEGORY: BIRADS Category 2: Benign. A letter regarding these results will be sent to the patient by the facility within 30 days. Approximately 10% of breast cancers are not detected by mammography. A normal mammogram should not delay biopsy of a clinically suspicious abnormality. [id number] Electronically Signed: Lior Bronson MD at 14:27 EDT , Service support ,
== END ==
PROVIDERS: PCP Family Medicine; Referring Provider Family Medicine; Visit Provider Family Medicine
DX: Z12.31 Encounter for screening mammogram for malignant neoplasm of breast (principal); Z80.3 Family history of malignant neoplasm of breast
CPT/HCPCS: 77063; 77067

== ENCOUNTER 2021-07-19 12:22 | Outpatient (CLI) | payer SELFPAY ==
[2021-07-19 15:35] LABS: Anion Gap 5 (5-15); BUN 16 mg/dL (7-18); BUN/Creat Ratio 15.4 RATIO (10-20); Calcium,Total 8.7 mg/dL (8.5-10.1); Chloride 106 mmol/L (98-107); Creatinine, Serum 1.04 mg/dL (0.55-1.02); EST Glomerular Filtration Rate 58 mL/min (>60); Est Glom Filt Rate - Afr Amer 70 mL/min (>60); Glucose 92 mg/dL (74-106); Potassium 4.4 mmol/L (3.5-5.1); Sodium Level 136 mmol/L (136-145)
[2021-07-19 15:59] LABS: Microalbumin,Random Urine 47.1 mg/L (NO RANGE EST.); Microalbumin:Creatinine Ratio 34.6 mg/g CRE (<30 mg/g CRE)
== END 2021-07-19 23:59 | disposition home or self-care (01) ==
PROVIDERS: PCP Family Medicine; Referring Provider Family Medicine; Visit Provider Family Medicine
DX: I10 Essential (primary) hypertension (principal)
CPT/HCPCS: 36415; 80048; 82043; 82570

== ENCOUNTER 2021-09-10 10:40 | Outpatient (CLI) | payer BC, SELFPAY | END 2021-09-10 23:59 | disposition home or self-care (01) | PROVIDERS: PCP Family Medicine; Visit Provider Family Medicine | DX: N39.0 Urinary tract infection, site not specified (principal) | CPT/HCPCS: 87086; 87088; 87186 ==

== ENCOUNTER → 2021-11-28 | Outpatient (CLI) | payer BC, SELFPAY ==
--- NOTE | 2021-11-28 11:50 | RAD_ITS ---
EXAM: XR CHEST, 2 VIEWS CLINICAL INDICATION: COUGH TECHNIQUE: Frontal and lateral views of the chest. This report was created using [employer] report generation technology. COMPARISON: 06/06/2014.. FINDINGS: LUNGS AND PLEURAL SPACES: Unremarkable. No consolidation or edema. No pneumothorax. No effusion. HEART: Unremarkable. Cardiac silhouette not enlarged. MEDIASTINUM: Central airways and mediastinal contour are unremarkable. BONES/JOINTS: Unremarkable. SOFT TISSUES: Unremarkable. RAD/Chest PA and Lateral IMPRESSION: No radiographic evidence of acute cardiopulmonary disease. Electronically Signed: Felipe Weston MD at 3:48 EDT ,
== END | disposition home or self-care (01) ==
PROVIDERS: PCP Family Medicine; Referring Provider Family Medicine; Visit Provider Family Medicine
DX: R05.9 Cough, unspecified (principal)
CPT/HCPCS: 71046

== ENCOUNTER → 2022-02-13 | Outpatient (CLI) | payer SELFPAY | END | disposition home or self-care (01) | LOC: LABSPEC 16:18 | PROVIDERS: PCP Family Medicine; Visit Provider Family Medicine | DX: N39.0 Urinary tract infection, site not specified (principal) | CPT/HCPCS: 87086; 87088; 87186 ==

== ENCOUNTER → 2022-07-28 | Outpatient (CLI) | payer MEDICARE, SELFPAY ==
--- NOTE | 2022-07-28 14:27 | BI_ITS ---
MAMMOGRAPHY - BILATERAL SCREENING REASON FOR EXAM: Female, 57 years old. Routine annual screening examination. PERTINENT HISTORY: Mother with breast cancer. TECHNIQUE: Digital bilateral breast meagan (3D mammographic acquisition) in the CC and MLO projections. 2-D mediolateral oblique (MLO) and craniocaudad (CC) views of both breasts were obtained. CAD: Full Field Digital Mammography with Computer Added Detection was performed. COMPARISON: Comparison is made with prior study dated 03/04/2021 and 03/02/2020. FINDINGS: Breast Composition: The breasts are heterogeneously dense, which may obscure small masses. There are no dominant masses or suspicious calcifications. Stable small benign-appearing bilateral axillary lymph nodes. No other significant abnormalities are identified. There has been no significant change since the prior study. BI/SCRN MAMM (CAD)W/MEAGAN BILAT IMPRESSION: Stable bilateral screening mammogram. Yearly follow-up mammogram recommended. (A) ASSESSMENT CATEGORY: BIRADS Category 2: Benign. A letter regarding these results will be sent to the patient by the facility within 30 days. Approximately 10% of breast cancers are not detected by mammography. A normal mammogram should not delay biopsy of a clinically suspicious abnormality. [id number] Electronically Signed: Lior Bronson MD at 15:34 EST ,
== END | disposition home or self-care (01) ==
PROVIDERS: PCP Family Medicine; Referring Provider Family Medicine; Visit Provider Family Medicine
DX: Z12.31 Encounter for screening mammogram for malignant neoplasm of breast (principal)
CPT/HCPCS: 77063; 77067

== ENCOUNTER → 2022-08-18 | Outpatient (CLI) | payer MEDICARE, SELFPAY ==
[2022-08-18 12:34] LABS: ALB/GLOB Ratio 0.7 RATIO (0.9-2.4); AST(SGOT) 23 U/L (15-37); Alanine Aminotransfer ALT/SGPT 19 U/L (13-56); Albumin, Serum 3.4 g/dL (3.2-5.0); Alkaline Phosphatase 74 U/L (45-117); Anion Gap 5 (5-15); BUN 17 mg/dL (7-18); BUN/Creat Ratio 16.3 RATIO (10-20); Calcium,Total 9.3 mg/dL (8.5-10.1); Chloride 110 mmol/L (98-107); Cholesterol 154 mg/dL (200); Creatinine, Serum 1.04 mg/dL (0.55-1.02); EST Glomerular Filtration Rate 58 mL/min (>60); Est Glom Filt Rate - Afr Amer 70 mL/min (>60); Glucose 105 mg/dL (74-106); High Density Lipoprotein 33 mg/dL; Potassium 4.5 mmol/L (3.5-5.1); Protein, Total 8.4 g/dL (6.4-8.2); Sodium Level 139 mmol/L (136-145); Triglycerides 279 mg/dL; Very Low Density Lipoprotein 56 mg/dL (5-40)
[2022-08-18 12:46] LABS: Hematocrit 31.6 % (37-47); Mean Corp Hgb Conc 31.6 g/dL (32-36); Mean Corpuscular Hgb 33.1 pg (27.0-32.0); Mean Corpuscular Volume 104.6 fL (81-99); Platelet Count 173 K/mm3 (150-450); RBC Distribution Width CV 13.5 % (11.6-14.6); RBC Distribution Width SD 51.8 fl (35.1-43.9); Red Blood Count 3.02 M/mm3 (4.2-5.4); White Blood Count 3.1 K/mm3 (4.4-11.0)
[2022-08-21 10:49] LABS: Hemoglobin A1c 5.1 % (3.8-5.6)
== END | disposition home or self-care (01) ==
LOC: MTLAB 10:37
PROVIDERS: PCP Family Medicine; Referring Provider Nurse Practitioner Family; Visit Provider Nurse Practitioner Family
DX: I10 Essential (primary) hypertension (principal); R73.09 Other abnormal glucose; E78.5 Hyperlipidemia, unspecified
CPT/HCPCS: 36415; 80053; 80061; 83036; 85027

== ENCOUNTER → 2022-09-01 | Outpatient (CLI) | payer MEDICARE, SELFPAY ==
--- NOTE | 2022-09-01 14:47 | CT_ITS ---
STUDY: LOW DOSE CT LUNG CANCER SCREENING REASON FOR EXAM: Female, 57 years old. screening. Former smoker 37 year x 1/2 PPD. Quit Jan 2022. HTN RADIATION DOSAGE (If Supplied By Facility): CTDIvol = ( 1.59 ) mGy, DLP = ( 49.83 ) mGycm TECHNIQUE: No contrast was administered. Low dose technique was utilized (average mAS-38 and kVp 120). 1.25 mm axial source images with a slice interval of 1.25-mm were reconstructed in lung windows. 2.5 mm axial source images with a slice interval of 2.5-mm were reconstructed in lung windows. 5.0 mm axial source images with a slice interval of 5.0-mm were reconstructed in soft tissue windows. COMPARISON: October 04, 2014. NODULES: Nodule #: 1 Density: Solid Lung location: Posterior left upper lobe lobe: 0.5 cm from pleura Location in series: Series Number: 2 Image: 41 Size - D1 x D2 mm: 2.5 mm: average diameter Margin: Circumscribed Shape: round Calcification: None Fat: None Temporal comparison: new from 10/04/2014 Nodule #: 2 Density: Solid Lung location: Posterior medial left upper lobe pleural-based nodule Location in series: Series Number: 2 Image: 50 Size - D1 x D2 mm: 2.5 mm: average diameter Margin: Circumscribed Shape: Round Calcification: None Fat: None Temporal comparison: New from 6 10/04/2014 Nodule #: 3 Density: Solid Lung location: Posterior lateral left lower lobe pleural-based nodule Location in series: Series Number: 2 Image: 138 Size - D1 x D2 mm: 2 mm: average diameter Margin: Circumscribed Shape: Round Calcification: None Fat: None Temporal comparison: Increased from 1 mm 10/04/2014 Total lung nodules (excluding granulomas): 3 Emphysema: Right middle lobe 2.7 cm bulla. Scattered subsegmental atelectasis in lung bases. No focal consolidation effusion or pneumothorax. Endobronchial lesion: None Aorta: No aortic ectasia. CORONARY ARTERIES: Severe multivessel coronary atherosclerosis most prominent in the LAD. Heart: No cardiomegaly or pericardial effusion. Coarse mitral annular calcifications. Pulmonary artery: No gross pulmonary arterial enlargement. Mediastinal nodes: Scattered subcentimeter mediastinal lymph nodes, nonpathologic by size criteria. Other chest and abdominal findings: Chronic layering fluid in the nondistended esophagus suggestive of gastroesophageal reflux. CT/Low Dose CT Lung Screening IMPRESSION: IMPORTANT NOTES FOR USE: ACR Lung-RADS Version 1.1 Assessment Categories Release Date: 2018 Category: Coded 0-4 bases on nodule(s) with highest degree of suspicion. Negative screen is defined as categories 1 and 2; a positive screen is defined as categories 3 and 4. Category 3 and 4A nodules that are unchanged on interval CT should be coded as category 2, and individuals returned to screening in 12 months. Category 4X: Category 3 or 4 nodules with additional imaging findings that increase the suspicion of lung cancer, such as spiculation, GGN that doubles in size in 1 year, enlarged lymph notes, etc. Category Modifiers: S (significant finding unrelated to lung cancer) Electronically Signed: Jonathan Wolfe MD at 12:20 EDT ,
== END | disposition home or self-care (01) ==
LOC: CT 14:46
PROVIDERS: PCP Family Medicine; Referring Provider Nurse Practitioner Family; Visit Provider Nurse Practitioner Family
DX: Z87.891 Personal history of nicotine dependence (principal)
CPT/HCPCS: 71271

== ENCOUNTER 2023-02-24 14:35 | Outpatient (CLI) | payer MEDICARE, SELFPAY ==
[2023-02-24 15:42] LABS: EXAGEN MAILED SPECIMEN
[2023-02-24 17:43] LABS: Absolute Lymphocyte Count 0.73 X10^3/uL (0.83-4.51); Absolute Neutrophil Count 3.3 X10^3/uL (2.0-7.7); Basophil# 0.02 X10^3/uL; Basophil% 0.4 % (0-1); Eosinophil# 0.04 X10^3/uL; Eosinophils% 0.9 % (0-5); Hemoglobin 9.8 g/dL (12.0-15.0); Lymphocyte # 0.73 X10^3/ul (0.83-4.51); Lymphocyte % 15.9 % (19-41); Mean Corp Hgb Conc 30.6 g/dL (32-36); Mean Corpuscular Hgb 31.7 pg (27.0-32.0); Mean Corpuscular Volume 103.6 fL (81-99); Mean Platelet Vol. 9.7 fl (6.2-12.0); Monocyte# 0.45 X10^3/uL; Monocyte% 9.8 % (0-10); NRBC Flagged by Analyzer 0 % (0-5); Neutrophil # 3.33 X10^3/uL (2.7-7.7); Neutrophil % 72.8 % (47-70); Platelet Count 148 K/mm3 (150-450); RBC Distribution Width CV 15.2 % (11.6-14.6); RBC Distribution Width SD 58.4 fl (35.1-43.9); Red Blood Count 3.09 M/mm3 (4.2-5.4); White Blood Count 4.6 K/mm3 (4.4-11.0)
[2023-02-24 17:44] LABS: Color, Urine Yellow (Yellow); Glucose, Dipstick Normal (Normal); Ketone-Dipstick Negative (Negative); Leukocyte Esterase-Dipstick Negative /ul (Negative); Nitrite-Dipstick Negative (Negative); Occult Blood-Urine Negative /ul (Negative); Protein-Dipstick 15 mg/dl (Negative); Urine Bilirubin Dipstick Negative (Negative); Urine Clarity Clear (Clear); Urine Urobilinogen Normal (Normal); Urine pH 6.5 (5.0 - 8.0)
[2023-02-24 18:23] LABS: ALB/GLOB Ratio 0.7 RATIO (0.9-2.4); AST(SGOT) 26 U/L (15-37); Alanine Aminotransfer ALT/SGPT 34 U/L (13-56); Albumin, Serum 2.9 g/dL (3.2-5.0); Alkaline Phosphatase 83 U/L (45-117); Anion Gap 4 (5-15); BUN 18 mg/dL (7-18); Calcium,Total 8.5 mg/dL (8.5-10.1); Chloride 111 mmol/L (98-107); EST Glomerular Filtration Rate 60 mL/min (>60); Est Glom Filt Rate - Afr Amer 73 mL/min (>60); Globulin 4.3 g/dL (2.2-4.2); Glucose 88 mg/dL (74-106); Potassium 4.6 mmol/L (3.5-5.1); Protein, Total 7.2 g/dL (6.4-8.2); Sodium Level 138 mmol/L (136-145)
[2023-02-24 18:38] LABS: Protein, Urine (Random) 19.7 mg/dL (<11.9); Protein:Creat Ratio 706 mg/g CRE (0-200)
[2023-02-24 19:14] LABS: Hepatitis B Surface Antibody Non-Reactive; Hepatitis B Surface Antigen Non-Reactive (Nonreactive); Hepatitis C Antibody Non-Reactive (Nonreactive)
[2023-02-25 08:13] LABS: Erythrocyte Sedimentation Rate 18 mm/hr (0-30)
[2023-03-17 16:26] LABS: Dilute Prothrombin Time (dPT) 55.2 sec (0.0-47.6); Hexagonal Phase Phospholipid 54 sec (0-11); Hexagonal Phase Phospholipid 2 54 sec (0-11); Interpretation Comment: (.); PTT-LA 108.4 sec (0.0-43.5); PTT-LA Mix 100.3 sec (0.0-40.5); Thrombin Time 17.1 sec (0.0-23.0); dPT Confirm Ratio 1.14 Ratio (0.00-1.34)
[2023-03-17 16:28] LABS: Dilute Russell Viper Venom 94.6 sec (0.0-47.0)
== END 2023-02-24 23:59 | disposition home or self-care (01) ==
PROVIDERS: PCP Family Medicine; Referring Provider Internal Medicine Rheumatology; Visit Provider Internal Medicine Rheumatology
DX: R76.8 Other specified abnormal immunological findings in serum (principal); M06.4 Inflammatory polyarthropathy; M35.00 Sjogren syndrome, unspecified; M35.1 Other overlap syndromes; M79.7 Fibromyalgia; I10 Essential (primary) hypertension; F32.89 Other specified depressive episodes
CPT/HCPCS: 36415; 80053; 81002; 82570; 84156; 85025; 85598; 85610; 85652; 85670; 86140; 86706; 86803; 87340

== ENCOUNTER → 2023-02-26 | Outpatient (CLI) | payer MEDICARE, SELFPAY ==
--- NOTE | 2023-02-26 13:55 | RAD_ITS ---
STUDY: X-RAY CHEST REASON FOR EXAM: Female, 57 years old. Eval for PTX TECHNIQUE: Frontal and lateral views of the chest. COMPARISON: 11/28/2021. FINDINGS: Normal lung volumes. No pneumothorax. Streaky density in both lung bases most suggestive of fibrotic changes/scarring. No definite infiltrates. No effusions. Normal size heart. Normal mediastinum and rodger. Normal visualized pulmonary arteries. Normal visualized aortic arch and descending thoracic aorta. Normal visualized thoracic spine. Normal visualized ribs, clavicles, and shoulders. There is no demonstrated abnormality of the visualized soft tissue structures of the upper abdomen. RAD/Chest PA and Lateral IMPRESSION: No pneumothorax. Streaky density in both lung bases most suggestive of fibrotic changes/scarring. Electronically Signed: Didier Chavis MD at 23:02 EDT ,
== END | disposition home or self-care (01) ==
LOC: RAD 13:39
PROVIDERS: PCP Family Medicine; Referring Provider Internal Medicine Critical Care Medicine; Visit Provider Internal Medicine Critical Care Medicine
DX: R06.02 Shortness of breath (principal)
CPT/HCPCS: 71046

== ENCOUNTER → 2023-03-17 | Outpatient (CLI) | payer MEDICARE, SELFPAY ==
--- NOTE | 2023-03-17 12:37 | ECHOD_ITS ---
Reason For Study: PHTN, SOB Procedure This was a 2D Doppler, Color Flow transthoracic echocardiogram. Exam performed in department. Left Ventricle Normal LV size. Mild concentric left ventricular hypertrophy. D shaped septum in systole and diastole. The estimated ejection fraction is 55 %. Stage 1 diastolic dysfunction. No regional wall motion abnormalities noted. Right Ventricle Moderately dilated right ventricle. Moderate global right ventricular systolic dysfunction. Mitral Valve Mild (1+) eccentric mitral valve insufficiency. Tricuspid Valve Normal tricuspid valve. Moderate (2+) tricuspid valve insufficiency. Pulmonary artery systolic pressure is 78 mmHg. Severe pulmonary hypertension. Aortic Valve Trisinus/trileaflet aortic valve. Mild diffuse aortic valve thickening. Mild (1+) aortic valve insufficiency. Pulmonic Valve Normal pulmonic valve. Mild (1+) pulmonic valve insufficiency. Great Vessels Normal aortic root. The pulmonary artery is normal size. Normal inferior vena cava. Pericardium/Pleural No pericardial effusion. MMode/2D Measurements & Calculations LVIDd: 3.9 cm IVSd: 1.3 cm Ao root diam: 2.7 cm LVIDs: 2.7 cm LVPWd: 1.3 cm RVDd: 4.0 cm FS: 30.4 % LAV(MOD-bp): 44.7 ml LVAd ap4: 21.6 cm2 SV(MOD-sp4): 32.7 ml LAV(MOD-bp) Indexed: 26.9 ml/m2 LVLd ap4: 7.6 cm LAV(MOD-sp2): 45.5 ml EDV(MOD-sp4): 50.4 ml LAV(MOD-sp4): 42.4 ml EDV(sp4-el): 52.0 ml LVAs ap4: 11.4 cm2 LVLs ap4: 6.1 cm ESV(MOD-sp4): 17.6 ml ESV(sp4-el): 18.0 ml EF(MOD-sp4): 65.0 % EF(sp4-el): 65.4 % SV(sp4-el): 34.0 ml LA dimension(2D): 3.5 cm LA A4 area: 15.9 cm2 RA A4 area: 17.6 cm2 Time Measurements MV dec time: 0.13 sec Doppler Measurements & Calculations MV E max jose: 70.2 cm/sec Lat Peak E' Jose: 6.0 cm/sec Med Peak E' Jose: 4.6 cm/sec MV A max jose: 156.7 cm/sec E/E' lat: 11.6 E/E' med: 15.2 MV E/A: 0.45 Ao V2 max: 191.5 cm/sec LV V1 max: 124.2 cm/sec PA V2 max: 70.3 cm/sec Ao max P.7 mmHg LV V1 max P.2 mmHg TR max jose: 420.1 cm/sec TR max P.6 mmHg ECHO/Echo Complete Interpretation Summary Normal LV size. Mild concentric left ventricular hypertrophy. The estimated ejection fraction is 55 %. Stage 1 diastolic dysfunction. Pulmonary artery systolic pressure is 78 mmHg. Moderately dilated right ventricle. Severe pulmonary hypertension. Ordering Physician: Siddhartha Evans Referring Physician: TENZIN GILL Performed By: Lalitha Tee RDCS
== END | disposition home or self-care (01) ==
LOC: CVS 12:36
PROVIDERS: PCP Family Medicine; Referring Provider Internal Medicine Critical Care Medicine; Visit Provider Internal Medicine Critical Care Medicine
DX: R06.02 Shortness of breath (principal)
CPT/HCPCS: 93306

== ENCOUNTER → 2023-03-19 | Outpatient (CLI) | payer MEDICARE, SELFPAY ==
[2023-03-19 13:37] VITALS: PULSE 101; PULSE 111; PULSE 113; PULSE 116; PULSE 117; PULSE 88; PULSE 92; PULSE 95; O2SAT 87; O2SAT 88; O2SAT 90; O2SAT 91; O2SAT 93; O2SAT 95; O2SAT 96
--- NOTE | 2023-03-19 13:40 | CPS ---
pt arrived on room air. Pt did complain of SOB before test. At 5 min she dropped to 87%. I placed her on 2L O2. sats increased to 96%. We continued walking sats then dropped to 88% and i placed her on 3L. Sats increased to 93%on 3L . 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
--- NOTE | 2023-03-20 11:30 | PCM.PSN.6M ---
PSN 6 Minute Walk Test 6 Minute Walk Test 6 Minute Walk Test: 6 Minute Walk Test PSN:6-Minute Walk Test Start: 03/19/23 13:37 Freq: Status: Active Protocol: [id number].[id number] Document 03/19/23 13:37 EW (Rec: 03/19/23 13:45 EW Desktop) 6 Minute Walk Test Date Performed 03/19/23 Time Performed 13:00 Height 5 ft 2 in Weight: 65.317 kg Weight in Pounds 144.[address]: Siddhartha Evans Assistive device used: None Pre-test Oxygen Delivery Method Room Air Pulse Ox 96 Pulse Rate (60-100) 88 Dyspnea Blake Scale (0-10) 2 Exertion Blake Scale (6-20) 11 1st minute Oxygen Delivery Method Room Air Pulse Ox 93 Pulse Rate (60-100) 101 H 2nd minute Oxygen Flow Rate (L/min) 2 Oxygen Delivery Method Nasal Cannula Pulse Ox 90 Pulse Rate (60-100) 113 H 3rd minute Oxygen Flow Rate (L/min) 2 Oxygen Delivery Method Nasal Cannula Pulse Ox 91 Pulse Rate (60-100) 116 H 4th minute Oxygen Flow Rate (L/min) 2 Oxygen Delivery Method Nasal Cannula Pulse Ox 90 Pulse Rate (60-100) 111 H 5th minute Oxygen Flow Rate (L/min) 2 Oxygen Delivery Method Nasal Cannula Pulse Ox 87 Pulse Rate (60-100) 117 H 6th minute Oxygen Flow Rate (L/min) 3 Oxygen Delivery Method Nasal Cannula Pulse Ox 88 Pulse Rate (60-100) 95 Reported Symptoms Increased Work of Breathing Post-test Oxygen Flow Rate (L/min) 3 Oxygen Delivery Method Nasal Cannula Pulse Ox 95 Pulse Rate (60-100) 92 Dyspnea Blake Scale (0-10) 5 Exertion Blake Scale (6-20) 14 Reported Symptoms Increased Work of Breathing, Dizziness Full Laps Walked 10 Partial Lap, Number of Tiles Walked 0 Total Distance Walked (ft) 590 03/19/23 13:40 Cardiopulmonary Services by Soni Ayers pt arrived on room air. Pt did complain of SOB before test. At 5 min she dropped to 87%. I placed her on 2L O2. sats increased to 96%. We continued walking sats then dropped to 88% and i placed her on 3L. Sats increased to 93%on 3L . 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 Initialized on 03/19/23 13:40 - END OF NOTE Interpretation Interpretation: The patient was noted to be 96% at rest, but rapidly desaturated down to 87% in the fifth minute requiring 2 L nasal cannula. Patient required up to 3 L/min to maintain saturations throughout testing. Patient did have significant tachycardia as high as 117 bpm. In total, the patient traveled 590 feet over the course of 6 minutes with no assistive devices or breaks. These findings are consistent with pulmonary hypertension as a limitation to exercise tolerance.
== END | disposition home or self-care (01) ==
LOC: PSN 13:00
PROVIDERS: PCP Family Medicine; Referring Provider Internal Medicine Critical Care Medicine; Visit Provider Internal Medicine Critical Care Medicine
DX: R06.02 Shortness of breath (principal)
CPT/HCPCS: 94618

== ENCOUNTER → 2023-03-23 | Outpatient (CLI) | payer MEDICARE, SELFPAY ==
--- NOTE | 2023-03-24 12:22 | PFT ---
INTRODUCTION: The patient is a 58-year-old female who presents for pulmonary function studies secondary to a diagnosis of shortness of breath. Respiratory therapy reported good patient effort. Bronchodilators were used during testing. INTERPRETATION: Forced expiration spirometry demonstrates the presence of a moderate large airways obstructive ventilatory defect. There was no significant response to aerosolized bronchodilators. Body plethysmography was performed and revealed lung volumes to be within normal limits. Diffusing capacity by single breath CO was significantly reduced at 40% of predicted. IMPRESSION: Irreversible moderate large airways obstructive ventilatory defect with preserved lung volumes and disproportionate reduction in diffusing capacity.
== END | disposition home or self-care (01) ==
LOC: PSN 10:15
PROVIDERS: PCP Family Medicine; Referring Provider Family Medicine; Visit Provider Family Medicine
DX: R06.02 Shortness of breath (principal)
CPT/HCPCS: 94060; 94726; 94729

== ENCOUNTER → 2023-04-27 | Outpatient (CLI) | payer MEDICARE, SELFPAY ==
--- NOTE | 2023-04-27 12:57 | NM_ITS ---
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 VENTILATION-PERFUSION LUNG SCINTIGRAPHY COMPARISON: None available FINDINGS: The patient was administered 49.2 mCi 99m Tc DTPA aerosol. The aerosol ventilation study demonstrates heterogeneous ventilation identified throughout the bilateral lung sandoval Central clumping of the aerosol is noted in the bilateral hemithorax. Following the intravenous administration of 5.2 mCi of 99m Tc MAA the pulmonary perfusion study reveals uniform perfusion throughout both lung sandoval. There are no segmental or subsegmental perfusion defects identified. There are no ventilation-perfusion mismatches observed. NM/Quant Lung Vent/Perf Scan IMPRESSION: 1. NORMAL 99m Tc MAA pulmonary perfusion imaging examination, according to PIOPED II interpretive criteria. (Sotsman et al, Radiology 246: 941, 2008 Soreginald et al, J Nucl Med 49: 1741, 2008). 2. Central clumping of the aerosol may be secondary to obstructive airway mechanics and or clinical tachypnea. 3. Patients with documented pulmonary hypertension and the presence of low probability, very low probability and normal ventilation-perfusion lung scintigraphy are associated with a LOW likelihood of thromboembolic pulmonary hypertension. (Zeus et al, Chest 84: 679, 1983 Lisbon[place] et al, AJR 144: 27, 1985). Electronically Signed: Germán Mortensen DO at 15:43 EST ,
== END | disposition home or self-care (01) ==
LOC: NM 12:56
PROVIDERS: PCP Family Medicine; Referring Provider Nurse Practitioner Acute Care; Visit Provider Nurse Practitioner Acute Care
DX: I27.20 Pulmonary hypertension, unspecified (principal)
CPT/HCPCS: 78598; A9540; A9567

== ENCOUNTER → 2023-05-05 | Outpatient (CLI) | payer MEDICARE, SELFPAY ==
[2023-05-05 16:03] LABS: Protein, Urine (Random) 49.3 mg/dL (<11.9); Protein:Creat Ratio 1245 mg/g CRE (0-200)
== END | disposition home or self-care (01) ==
PROVIDERS: PCP Family Medicine; Visit Provider Internal Medicine Nephrology
DX: R80.9 Proteinuria, unspecified (principal)
CPT/HCPCS: 82570; 84156

== ENCOUNTER → 2023-05-11 | Outpatient (CLI) | payer MEDICARE, SELFPAY ==
[2023-05-11 15:35] LABS: Color, Urine Yellow (Yellow); Glucose, Dipstick Normal (Normal); Ketone-Dipstick Negative (Negative); Leukocyte Esterase-Dipstick Negative /ul (Negative); Nitrite-Dipstick Negative (Negative); Occult Blood-Urine Negative /ul (Negative); Protein-Dipstick 100 mg/dl (Negative); Specific Gravity, Urine 1.015 (1.002-1.030); Urine Bilirubin Dipstick Negative (Negative); Urine Clarity Sl. Cloudy (Clear); Urine Urobilinogen Normal (Normal); Urine pH 6.5 (5.0 - 8.0)
[2023-05-11 15:38] LABS: Protein, Urine (Random) 97.5 mg/dL (<11.9); Protein:Creat Ratio 1639 mg/g CRE (0-200)
[2023-05-11 15:45] LABS: Absolute Lymphocyte Count 0.99 X10^3/uL (0.83-4.51); Absolute Neutrophil Count 2.6 X10^3/uL (2.0-7.7); Basophil# 0.03 X10^3/uL; Basophil% 0.7 % (0-1); Eosinophil# 0.02 X10^3/uL; Eosinophils% 0.5 % (0-5); Hematocrit 36.3 % (37-47); Hemoglobin 11.3 g/dL (12.0-15.0); Lymphocyte # 0.99 X10^3/ul (0.83-4.51); Lymphocyte % 23.8 % (19-41); Mean Corp Hgb Conc 31.1 g/dL (32-36); Mean Corpuscular Hgb 31.7 pg (27.0-32.0); Mean Platelet Vol. 10.5 fl (6.2-12.0); NRBC Flagged by Analyzer 0 % (0-5); Neutrophil % 62.5 % (47-70); Platelet Count 208 K/mm3 (150-450); RBC Distribution Width CV 13.8 % (11.6-14.6); RBC Distribution Width SD 51.9 fl (35.1-43.9); Red Blood Count 3.56 M/mm3 (4.2-5.4); White Blood Count 4.2 K/mm3 (4.4-11.0)
[2023-05-11 16:14] LABS: ALB/GLOB Ratio 0.5 RATIO (0.9-2.4); AST(SGOT) 35 U/L (15-37); Alanine Aminotransfer ALT/SGPT 22 U/L (13-56); Albumin, Serum 2.9 g/dL (3.2-5.0); Alkaline Phosphatase 101 U/L (45-117); Anion Gap 5 (5-15); BUN 15 mg/dL (7-18); BUN/Creat Ratio 13.5 RATIO (10-20); Calcium,Total 8.6 mg/dL (8.5-10.1); Chloride 107 mmol/L (98-107); Creatinine, Serum 1.11 mg/dL (0.55-1.02); EST Glomerular Filtration Rate 53 mL/min (>60); Est Glom Filt Rate - Afr Amer 64 mL/min (>60); Globulin 5.8 g/dL (2.2-4.2); Glucose 91 mg/dL (74-106); Phosphorus 3.9 mg/dL (2.5-4.9); Potassium 4.5 mmol/L (3.5-5.1); Protein, Total 8.7 g/dL (6.4-8.2); Sodium Level 136 mmol/L (136-145)
[2023-05-13 12:09] LABS: ANTINUCLEAR ANTIBODIES DIRECT Positive (Negative); Anti-dsDNA Ab 4 IU/mL (0-9)
[2023-05-13 20:07] LABS: Complement C3 76 mg/dL (82-167); QNTFERON TB Mitogen Value 0.24 IU/mL (.); QNTFERON TB Nil Value 0.38 IU/mL (.); QNTFERON TB1+ Ag Value 0.29 IU/mL (.); QNTFERON TB2+ Ag Value 0.33 IU/mL (.); QNTIFERON TB Positive Criteria Indeterminate (Negative)
== END | disposition home or self-care (01) ==
LOC: MTLAB 11:41
PROVIDERS: PCP Family Medicine; Referring Provider Internal Medicine Nephrology; Visit Provider Internal Medicine Nephrology
DX: M06.4 Inflammatory polyarthropathy (principal); M32.9 Systemic lupus erythematosus, unspecified; Z79.899 Other long term (current) drug therapy; M79.7 Fibromyalgia; R80.9 Proteinuria, unspecified; D64.9 Anemia, unspecified
CPT/HCPCS: 36415; 80053; 81002; 82570; 84100; 84156; 85025; 86038; 86160; 86225; 86480

== ENCOUNTER → 2023-05-26 | Outpatient (CLI) | payer MEDICARE, SELFPAY ==
[2023-05-26 17:39] LABS: Color, Urine Yellow (Yellow); Glucose, Dipstick Normal (Normal); Ketone-Dipstick Negative (Negative); Leukocyte Esterase-Dipstick 25 /ul (Negative); Nitrite-Dipstick Negative (Negative); Occult Blood-Urine 10 /ul (Negative); Protein-Dipstick 100 mg/dl (Negative); Specific Gravity, Urine 1.015 (1.002-1.030); Urine Bilirubin Dipstick Negative (Negative); Urine Clarity Clear (Clear); Urine Urobilinogen Normal (Normal)
[2023-05-26 17:46] LABS: Absolute Lymphocyte Count 1.08 X10^3/uL (0.83-4.51); Absolute Neutrophil Count 3.2 X10^3/uL (2.0-7.7); Basophil# 0.02 X10^3/uL; Basophil% 0.4 % (0-1); Eosinophil# 0.02 X10^3/uL; Eosinophils% 0.4 % (0-5); Hematocrit 34.6 % (37-47); Hemoglobin 10.5 g/dL (12.0-15.0); Lymphocyte # 1.08 X10^3/ul (0.83-4.51); Lymphocyte % 21.9 % (19-41); Mean Corp Hgb Conc 30.3 g/dL (32-36); Mean Corpuscular Hgb 30.2 pg (27.0-32.0); Mean Corpuscular Volume 99.4 fL (81-99); Mean Platelet Vol. 10.8 fl (6.2-12.0); Monocyte# 0.57 X10^3/uL; Monocyte% 11.5 % (0-10); NRBC Flagged by Analyzer 0 % (0-5); Neutrophil # 3.23 X10^3/uL (2.7-7.7); Neutrophil % 65.4 % (47-70); Platelet Count 199 K/mm3 (150-450); RBC Distribution Width SD 50.6 fl (35.1-43.9); Red Blood Count 3.48 M/mm3 (4.2-5.4); White Blood Count 4.9 K/mm3 (4.4-11.0)
[2023-05-26 17:48] LABS: Protein, Urine (Random) 204.4 mg/dL (<11.9); Protein:Creat Ratio 2393 mg/g CRE (0-200)
[2023-05-26 17:57] LABS: ALB/GLOB Ratio 0.5 RATIO (0.9-2.4); AST(SGOT) 38 U/L (15-37); Alanine Aminotransfer ALT/SGPT 25 U/L (13-56); Alkaline Phosphatase 91 U/L (45-117); Anion Gap 7 (5-15); BUN 19 mg/dL (7-18); BUN/Creat Ratio 16.4 RATIO (10-20); Calcium,Total 8.9 mg/dL (8.5-10.1); Chloride 108 mmol/L (98-107); Creatinine, Serum 1.16 mg/dL (0.55-1.02); EST Glomerular Filtration Rate 51 mL/min (>60); Est Glom Filt Rate - Afr Amer 61 mL/min (>60); Globulin 5.7 g/dL (2.2-4.2); Glucose 99 mg/dL (74-106); Protein, Total 8.7 g/dL (6.4-8.2); Sodium Level 137 mmol/L (136-145)
[2023-05-28 12:08] LABS: Anti-dsDNA Ab 5 IU/mL (0-9)
[2023-05-28 21:07] LABS: Complement C3 81 mg/dL (82-167); QNTFERON TB Nil Value 1.19 IU/mL (.); QNTFERON TB1+ Ag Value 0.38 IU/mL (.); QNTFERON TB2+ Ag Value 0.42 IU/mL (.); QNTIFERON TB Positive Criteria Indeterminate (Negative)
== END | disposition home or self-care (01) ==
LOC: MTLAB 14:40
PROVIDERS: PCP Family Medicine; Referring Provider Internal Medicine Rheumatology; Visit Provider Internal Medicine Rheumatology
DX: M06.4 Inflammatory polyarthropathy (principal); M35.00 Sjogren syndrome, unspecified; M35.1 Other overlap syndromes; R76.8 Other specified abnormal immunological findings in serum; M79.7 Fibromyalgia
CPT/HCPCS: 36415; 80053; 81002; 82570; 84156; 85025; 86160; 86225; 86480

== ENCOUNTER → 2023-05-29 | Outpatient (CLI) | payer MEDICARE, SELFPAY ==
[2023-06-02 12:07] LABS: Anti-Scleroderma-70 AB <0.2 AI (0.0-0.9)
== END | disposition home or self-care (01) ==
LOC: MTLAB 14:59
PROVIDERS: PCP Family Medicine; Referring Provider Dermatology; Visit Provider Dermatology
DX: I73.00 Raynaud's syndrome without gangrene (principal); L98.499 Non-pressure chronic ulcer of skin of other sites with unspecified severity; K13.0 Diseases of lips
CPT/HCPCS: 36415; 86235

== ENCOUNTER 2023-06-02 14:32 | Emergency (ER) | payer MEDICARE, SELFPAY ==
[2023-06-02 14:34] VITALS: BP 82/47; PULSE 76; RESP 20; TEMP 35.9; O2SAT 92
--- NOTE | 2023-06-02 15:10 | EKG12_ITS ---
Test Reason : DYSRHYTHMIA Blood Pressure : / mmHG Vent. Rate : 088 BPM Atrial Rate : 088 BPM P-R Int : 172 ms QRS Dur : 102 ms QT Int : 384 ms P-R-T Axes : 008 155 -30 degrees QTc Int : 464 ms Normal sinus rhythm Right axis deviation Incomplete right bundle branch block Right ventricular hypertrophy with repolarization abnormality Anterior infarct , age undetermined Abnormal ECG Confirmed by GERRY BLACKWELL MD ([id number]), social media editor ARNALDO HARRIS ([id number]) on 06/09/2023 8:13:51 AM Referred By: INDERJIT Confirmed By:GERRY BLACKWELL MD
--- NOTE | 2023-06-02 15:10 | RAD_ITS ---
STUDY: X-RAY - RIGHT HAND REASON FOR EXAM: Female, 58 years old. Pain. TECHNIQUE: 4 view(s) of the hand. COMPARISON: None. FINDINGS: Osteopenia. Normal radiocarpal articulation. Normal distal radioulnar joint. Normal visualized carpal bones. Normal carpal articulations Mild arthrosis of the radial carpal row. Mild arthrosis of the first CMC joint. Mild arthrosis of the MCP and IP joints. Normal soft tissues. RAD/Hand Min 3 Views IMPRESSION: Osteopenia with mild osteoarthrosis as described. No other abnormality. Electronically Signed: Bon Oliver MD at 15:36 EST ,
--- NOTE | 2023-06-02 15:14 | EX.ED.DYSGE1 ---
HPI History of Present Illness Chief Complaint: Shortness of Breath Narrative Narrative: 58-year-old for male past medical history of lupus, Raynaud's, anemia, presents with multiple somatic complaints, but mainly pain and throbbing of the fingertips on her right hand. She is a former smoker but quit in January of last year. For her Raynaud's, she takes baby aspirin but no other blood thinners. While she states that the tips of her fingers are always discolored, over the last few days, they have been more purple and throbbing, especially the middle finger where she had removed a hangnail, but taken off a large amount of skin. She denies any fevers or chills, no nausea or vomiting, but she has had diarrhea and watery stool without abdominal pain. She has been gabapentin and Tylenol for her pain and throbbing in her fingertips, which has improved. [facility] Medical History Abdominal pain Abnormal echocardiogram Acid reflux Anemia Anxiety Back problem Benign essential HTN Bilateral pneumonia Blood in stool Chronic ITP (idiopathic thrombocytopenia) Constipation COPD (chronic obstructive pulmonary disease) Depression Fatigue Hemorrhoids Lupus Pulmonary hypertension Raynauds disease Wheeze Home Medications calcium carbonate 600 mg-vitamin D3 20 mcg (800 unit) tablet 2 tab PO DAILY@0800 06/06/14 [History Last Taken Unknown] duloxetine 60 mg capsule,delayed release 120 mg PO DAILY 06/06/14 [History Last Taken 01/11/20] multivitamin with folic acid 400 mcg tablet 1 tab PO DAILY 06/06/14 [History Last Taken Unknown] mecobalamin (vitamin B12) 5,000 mcg chewable tablet 5,000 mcg PO DAILY 05/14/23 [History Last Taken Unknown] budesonide-formoterol HFA 160 mcg-4.5 mcg/actuation aerosol inhaler (Symbicort) 2 puff inhalation BID 05/20/23 [History Last Taken Unknown] hydroxychloroquine 200 mg tablet 200 mg PO DAILY 05/20/23 [History Last Taken Unknown] lisinopril 30 mg tablet 30 mg PO DAILY 05/20/23 [History Last Taken Unknown] omeprazole 40 mg capsule,delayed release 40 mg PO DAILY 05/20/23 [History Last Taken Unknown] psyllium husk 0.4 gram capsule (Metamucil) 0.4 g PO QHS 05/20/23 [History Last Taken Unknown] oxycodone-acetaminophen 5 mg-325 mg tablet (Percocet) 1 tab PO Q8H PRN pain 3 days #12 tabs 06/02/23 [Rx Last Taken Unknown] Allergy/AdvReac Type Severity Reaction Status Date / Time amoxicillin trihydrate Allergy Unknown Verified 06/02/23 14:34 [From Augmentin] diflunisal [From Dolobid] Allergy Unknown Verified 06/02/23 14:34 Penicillins Allergy Rash Verified 06/02/23 14:34 potassium clavulanate Allergy Unknown Verified 06/02/23 14:34 [From Augmentin] sulfamethoxazole Allergy Rash Verified 06/02/23 14:34 [From Septra] trimethoprim [From Septra] Allergy Rash Verified 06/02/23 14:34 aripiprazole [From Abilify] AdvReac Other Verified 06/02/23 14:34 fluoxetine HCl [From Prozac] AdvReac Other Verified 06/02/23 14:34 sertraline HCl [From Zoloft] AdvReac Other Verified 06/02/23 14:34 venlafaxine HCl AdvReac Other Verified 06/02/23 14:34 [From Effexor] Family History Mother Cancer Pancreatic COPD (chronic obstructive pulmonary disease) Brother Myocardial infarction CAD (coronary artery disease) Stent Surgical History History of History of hysterectomy Hx of colonoscopy Social History Smoking Status: Former smoker Tobacco: How many years used: 10 second hand exposure: No alcohol intake: never substance use type: does not use caffeine: Yes Type: carbonated beverages and tea what type of physical activity do you participate in: none frequency: does not exercise ROS ROS ED ROS Narrative Constitutional: No fever, no chills. HEENT: No sore throat. No neck pain. No loss of vision. No rhinorrhea. Cardiovascular: No chest pain. No palpitations. No pedal edema. Respiratory: No cough, no shortness of breath. Abdominal: No abdominal pain. No nausea. No vomiting. Positive diarrhea stools. Genitourinary: No dysuria. No hematuria. Musculoskeletal: No myalgias. Discoloration of fingertips on right hand, purple over the last few days. Positive throbbing in fingertips of right hand. Neurologic: No headaches. No dizziness. No lightheadedness. Skin: No rash. No change in color. Psychiatric: No depression. No anxiety. EXAM Physical Exam Narrative Exam Narrative: Afebrile. Vital signs noted. HEENT: Normocephalic. Atraumatic. PERRL, EOMI. Neck soft and supple. No point tenderness or step off. Cardiovascular: Regular rate and rhythm. No murmurs, rubs, or gallops appreciated. Respiratory: No tachypnea. Lungs clear to auscultation bilaterally. Gastrointestinal: Abdomen soft, nontender, with normoactive bowel sounds. No rebound or guarding. Neurological: Awake. Alert. Nonfocal, nonlateralizing. Skin: No rash. Normal color. No pallor. Musculoskeletal: No pedal edema. Full range of motion extremities. Const Vital Signs: 06/02/23 14:34 06/02/23 15:30 06/02/23 15:30 Temperature 96.7 F L Temperature Source Temporal Pulse Rate 76 Respiratory Rate 20 H Respiratory Effort Short of Breath Respiratory Depth Normal Respiratory Pattern Normal Blood Pressure 82/47 L Blood Pressure Mean 58 Pulse Ox 92 Oxygen Delivery Method Room Air Room Air 06/02/23 16:35 Temperature Temperature Source Pulse Rate 84 Respiratory Rate Respiratory Effort Respiratory Depth Respiratory Pattern Blood Pressure 107/73 Blood Pressure Mean Pulse Ox Oxygen Delivery Method MDM MDM MDM Narrative Medical decision making narrative: Comprehensive workup was pursued. Patient is mainly here for the pain in her hand that waxes and wanes. In the differential diagnosis is Raynaud's exacerbation/fingertip ischemia from microvascular occlusion versus vasospasm. I have low concern for necrotizing fasciitis, as there is no crepitance in the fingertips. I do not see signs of infection on the tips of her fingers although there may be more of a larger ulcer from her hangnail as given her history of Raynaud's, I there is prolonged healing time. I reviewed her laboratory work and she has normal white count of 10.6, hemoglobin stable at 10.8, platelet count normal at 197, chloride is slightly elevated at 111 which I think is nonspecific, BUN of 40 with a creatinine of 1.6, but she does have a history of chronic kidney injury. Lactic acid is normal at 1.4, x-rays of the right hand obtained in 3 views and interpreted by myself independently shows no evidence of an acute process, no fracture, no gas in the tissue. Patient began complaining of increased pain and throbbing in her hand. She had been given fentanyl 50 mcg initially. Nitropaste was then applied which controlled her throbbing sensation. I do feel that this is her Raynaud's. She was told to wear gloves at home even inside, and she states that she does. She will continue to refrain from smoking. I referred her to vascular surgery, and she will continue her aspirin. At this point in time, I do not feel she requires admission. I discussed with her the use of narcotic pain medication to help control her pain. She was written a prescription for Percocet which she has taken in the past, and was warned of the risk of nausea, vomiting, constipation, drowsiness, and addiction, and acknowledges an understanding. Additionally, she was told that in the future she may need referral to pain management, and that this may be progression of her Raynaud's leading to continued ischemia of her fingertips. Disposition is discharged home in stable condition. History & Record Review Discussion w/independent historian: Patient and Family Additional record(s) reviewed:: Prior ED visit and Prior labs Lab Data Attestation: I reviewed the patient's lab results. Labs: Laboratory Results - last 24 hr 06/02/23 15:25 WBC 10.6 RBC 3.48 L Hgb 10.8 L Hct 34.5 L MCV 99.1 H MCH 31.0 MCHC 31.3 L RDW Std Deviation 51.6 H RDW Coeff of Tristen 14.6 Plt Count 197 MPV 9.5 Immature Gran % (Auto) 0.400 Neut % (Auto) 83.3 H Lymph % (Auto) 10.6 L [place] % (Auto) 5.5 Eos % (Auto) 0.1 Baso % (Auto) 0.1 Absolute Neuts (auto) 8.8 H Absolute Lymphs (auto) 1.12 Nucleated RBC % 0 Sodium 136 Potassium 4.6 Chloride 111 H Carbon Dioxide 20.0 L Anion Gap 5 BUN 40 H Creatinine 1.63 H Est GFR (MDRD) Af Amer 41 L Est GFR (MDRD) Non-Af 34 L BUN/Creatinine Ratio 24.5 H Glucose 114 H Lactic Acid 1.4 Calcium 8.2 L Radiography Diagnostic Testing: Clinical Impression(s) from Imaging Studies Hand X-Ray 06/02/23 15:10 IMPRESSION: Osteopenia with mild osteoarthrosis as described. No other abnormality. Electronically Signed: Bon Oliver MD at 15:36 EST , Chest X-Ray 06/02/23 15:20 IMPRESSION: Stable borderline cardiomegaly with hyperinflation and no acute or active cardiopulmonary disease. Electronically Signed: Bon Oliver MD at 15:38 EST , Discharge Plan Triage Chief Complaint: Shortness of Breath ED Provider: Juan Norwood Dx/Rx/DC Orders Clinical Impression: Ischemic finger ulcer, Shortness of breath, Raynauds disease Instructions: Raynaud Disease, ED Dyspnea, ED Peripheral Artery Disease (PAD) Prescriptions: New oxycodone-acetaminophen [Percocet] 5-325 mg tablet 1 tab PO Q8H PRN (Reason: pain) 3 Days Qty: 12 0RF No Action hydroxychloroquine 200 mg tablet 200 mg PO DAILY budesonide-formoterol [Symbicort] 160-4.5 mcg/actuation HFA aerosol inhaler 2 puff inhalation BID Rx Instructions: administer with spacer, rinse mouth after each use omeprazole 40 mg capsule,delayed release(DR/EC) 40 mg PO DAILY lisinopril 30 mg tablet 30 mg PO DAILY psyllium husk [Metamucil] 0.4 gram capsule 0.4 g PO QHS mecobalamin (vitamin B12) 5,000 mcg tablet,chewable 5,000 mcg PO DAILY duloxetine 60 MG capsule 120 mg PO DAILY Patient Comments: mood multivitamin with folic acid 1 TABLET tablet 1 tab PO DAILY Patient Comments: supplement calcium carbonate-vitamin D3 1 TAB tablet 2 tab PO DAILY@0800 Patient Comments: supplement Primary Care Provider: Judy Pinto Referrals: Roc Harrison MD [Med Staff - Active Staff] - As soon as possible Judy Pinto, [Primary Care Provider] - 1-2 Days if not improving Activity Restrictions/Additional Instructions: Follow-up with your physicians regarding your Raynaud's disease. Call vascular surgery for an appointment as well. Disposition Disposition: Home, Self Care
--- NOTE | 2023-06-02 15:20 | RAD_ITS ---
STUDY: X-RAY CHEST REASON FOR EXAM: Female, 58 years old. Shortness of breath. TECHNIQUE: Single frontal view of the chest. COMPARISON: February 26, 2023 FINDINGS: Mild hyperinflation unchanged. There is no demonstrated pleural abnormality. Borderline cardiomegaly unchanged. Stable mitral annulus calcification. Normal mediastinum and rodger. Normal visualized pulmonary arteries. Normal visualized aortic arch and descending thoracic aorta. Normal visualized thoracic spine. Normal visualized ribs, clavicles, and shoulders. No abnormality of the visualized soft tissue structures of the upper abdomen. RAD/Chest 1 View (Portable) IMPRESSION: Stable borderline cardiomegaly with hyperinflation and no acute or active cardiopulmonary disease. Electronically Signed: Bon Oliver MD at 15:38 EST ,
[2023-06-02] MEDS: 0.9% Normal Saline (1000mL) 1,000 ML 999 ML IV (15:39)
[2023-06-02 15:46] LABS: Absolute Lymphocyte Count 1.12 X10^3/uL (0.83-4.51); Absolute Neutrophil Count 8.8 X10^3/uL (2.0-7.7); Basophil# 0.01 X10^3/uL; Basophil% 0.1 % (0-1); Eosinophil# 0.01 X10^3/uL; Eosinophils% 0.1 % (0-5); Hematocrit 34.5 % (37-47); Hemoglobin 10.8 g/dL (12.0-15.0); Lymphocyte # 1.12 X10^3/ul (0.83-4.51); Lymphocyte % 10.6 % (19-41); Mean Corp Hgb Conc 31.3 g/dL (32-36); Mean Corpuscular Volume 99.1 fL (81-99); Mean Platelet Vol. 9.5 fl (6.2-12.0); Monocyte# 0.58 X10^3/uL; Monocyte% 5.5 % (0-10); NRBC Flagged by Analyzer 0 % (0-5); Neutrophil % 83.3 % (47-70); Platelet Count 197 K/mm3 (150-450); RBC Distribution Width CV 14.6 % (11.6-14.6); RBC Distribution Width SD 51.6 fl (35.1-43.9); Red Blood Count 3.48 M/mm3 (4.2-5.4); White Blood Count 10.6 K/mm3 (4.4-11.0)
[2023-06-02 16:04] LABS: Anion Gap 5 (5-15); BUN 40 mg/dL (7-18); BUN/Creat Ratio 24.5 RATIO (10-20); Calcium,Total 8.2 mg/dL (8.5-10.1); Chloride 111 mmol/L (98-107); Creatinine, Serum 1.63 mg/dL (0.55-1.02); EST Glomerular Filtration Rate 34 mL/min (>60); Est Glom Filt Rate - Afr Amer 41 mL/min (>60); Glucose 114 mg/dL (74-106); Potassium 4.6 mmol/L (3.5-5.1); Sodium Level 136 mmol/L (136-145)
[2023-06-02 16:13] LABS: Lactic Acid 1.4 mmol/L (0.4-1.9)
[2023-06-02 16:33] VITALS: BP 100/47; PULSE 93; RESP 19; O2SAT 92
[2023-06-02 16:35] VITALS: BP 107/73; PULSE 84
[2023-06-02] MEDS: Nitroglycerin Oint 1 INCH PACKET TD (16:35)
[2023-06-02 17:19] VITALS: BP 107/55; PULSE 92; RESP 15; O2SAT 95
[2023-06-02] MEDS: 0.9% Normal Saline (500mL Bag) 500 ML 999 ML IV (17:26)
== END 2023-06-02 18:06 | disposition home or self-care (01) ==
PROVIDERS: Emergency Provider Emergency Medicine; PCP Family Medicine; Visit Provider Emergency Medicine
DX: L98.499 Non-pressure chronic ulcer of skin of other sites with unspecified severity (principal); J44.9 Chronic obstructive pulmonary disease, unspecified; Z87.891 Personal history of nicotine dependence; I73.00 Raynaud's syndrome without gangrene; Z79.82 Long term (current) use of aspirin; R06.02 Shortness of breath; F32.A Depression, unspecified; F41.9 Anxiety disorder, unspecified; Z90.710 Acquired absence of both cervix and uterus
CPT/HCPCS: 71045; 73130; 80048; 83605; 85025; 93005; 96360; 96361; 99284; J7030; A4216

== ENCOUNTER 2023-06-24 12:48 | Outpatient (CLI) | payer MEDICARE, SELFPAY ==
--- OUTSIDE RECORDS SUMMARY | 2023-06-24 13:13 | XMS RPT_ITS | CCD ---
Author Name Unknown Address [address] [place] [address] Organization [facility] Care Team Providers Care Candy Packer Name Role Phone HOLLAND VILLARREAL MD Unavailable Unavailable HOLLAND VILLARREAL MD Unavailable Unavailable Results Test Name Value Interpretation Reference Range Facil ity Encounters Encounter Date Encounter Type Care Provider Facility Start: 02-02-2017 End: 02-02-2017 Ambulatory HOLLAND VILLARREAL [facility] Start: 12-05-2016 End: 12-05-2016 Ambulatory HOLLAND VILLARREAL [facility] Payers Date Payer Category Payer Policy ID [facility] [id number] Summary Purpose Family History No Family History [...] BE BASED ON THE PRIMARY CLINICAL RECORDS. [email or web address] [facility]. provides no warranty or guarantee of the accuracy or completeness of information in this document.
[2023-06-24 15:20] LABS: Hematocrit 37.5 % (37-47); Hemoglobin 11.7 g/dL (12.0-15.0); Mean Corp Hgb Conc 31.2 g/dL (32-36); Mean Corpuscular Hgb 31.5 pg (27.0-32.0); Mean Corpuscular Volume 101.1 fL (81-99); Mean Platelet Vol. 9.1 fl (6.2-12.0); Platelet Count 318 K/mm3 (150-450); RBC Distribution Width CV 14.1 % (11.6-14.6); RBC Distribution Width SD 52.4 fl (35.1-43.9); Red Blood Count 3.71 M/mm3 (4.2-5.4); White Blood Count 7.9 K/mm3 (4.4-11.0)
[2023-06-24 15:34] LABS: Erythrocyte Sedimentation Rate 11 mm/hr (0-30)
[2023-06-24 15:44] LABS: Partial Thromboplast Time 41.8 Seconds (24.1-36.2)
[2023-06-24 15:49] LABS: Prothrombin Time (Protime)PT. 13.2 SECONDS (11.7-14.9)
[2023-06-24 16:17] LABS: BUN 22 mg/dL (7-18); BUN/Creat Ratio 20.6 RATIO (10-20); Calcium,Total 8.7 mg/dL (8.5-10.1); Chloride 107 mmol/L (98-107); Creatinine, Serum 1.07 mg/dL (0.55-1.02); EST Glomerular Filtration Rate 56 mL/min (>60); Est Glom Filt Rate - Afr Amer 67 mL/min (>60); Glucose 102 mg/dL (74-106); Phosphorus 3.7 mg/dL (2.5-4.9); Potassium 3.7 mmol/L (3.5-5.1); Sodium Level 138 mmol/L (136-145)
== END 2023-06-24 23:59 | disposition home or self-care (01) ==
LOC: MTLAB 12:48
PROVIDERS: PCP Family Medicine; Referring Provider Internal Medicine Nephrology; Visit Provider Internal Medicine Nephrology
DX: Z01.812 Encounter for preprocedural laboratory examination (principal); M32.9 Systemic lupus erythematosus, unspecified
CPT/HCPCS: 36415; 80069; 85027; 85610; 85652; 85730

== ENCOUNTER → 2023-06-29 | Outpatient (CLI) | payer MEDICARE, SELFPAY ==
[2023-06-29] VITALS (16 sets, daily range): BP systolic 80–138; BP diastolic 46–105; PULSE 72–96; RESP 13–116; TEMP 36.5; O2SAT 94–100; BMI 25.2
--- NOTE | 2023-06-29 | KI_PTH ---
PATHOLOGY RESULTS PATIENT: DEMI DEJESUS LOC: [place] U#:[id number] AGE/SX: 58/F ROOM: RE06/29/[address]: Dr. Nahomi Lobato DO : 1965 BED: DIS: 06/29/2023 SPEC #: [id number] RECD: 06/29/23 10:36 STATUS: MELISSA REGilles #: [id number] HAM: 06/29/23 00:[address]: Nahomi Lobato DEPT: SURGICAL PATHOLOGY RECD BY: Jenifer Durand ENTERED: 06/29/23 10:53 SP TYPE: KIDNEY BX OTHR DR: Judy Pinto DO Tissues: Kidney, NOS Procedures: Electron Microscopy (ACH) Fluorescent Antibody (ACH) Sp St Grp II Kidney (ACH) Kidney Biopsy (ACH) Fluorescent antibody (ACH) add'l HEADER OPERATION: CT-guided right kidney biopsy PRE-OP DIAGNOSIS: Lupus TISSUE SUBMITTED: Right kidney 18-gauge x4 MICROSCOPIC DIAGNOSIS Kidney, right, needle biopsy: Hypertensive changes, including moderate arteriosclerosis and severe arteriosclerosis. Extensive thyroidization of tubules. COMMENT Taken together, the light, immunofluorescence and electron microscopy findings highlight hypertensive changes and thyroidization of tubules as the primary findings. The tubular thyroidization is indicative of tubular atrophy, and can also be attributed to chronic vascular changes, amongst others. The pattern of the tubular atrophy seen here is supportive of, but not definitively diagnostic for, a vascular etiology. The trace to 1+ granular membranous staining on immunofluorescence for IgA, IgM, C3 and kappa and lambda light chains is not supported by electron microscopy evidence, and notably IgG and C1q are negative; therefore, the granular staining is interpreted as nonspecific, particular in context of the otherwise relatively unremarkable glomeruli. There is no definitive evidence of immune complex deposition or lupus nephritis. Clinical correlation is recommended. MICROSCOPIC DESCRIPTION A needle biopsy is available for review. There are approximately fifty glomeruli present, two of which are globally sclerotic. Glomeruli show no evidence of crescent formation, segmental scars, necrosis, thrombosis or inflammation. PAS, silver and trichrome stains show no evidence of glomerular basement membrane duplication, spoke or fuchsinophilic immune-type deposits. Trichrome stain highlights minimal interstitial fibrosis. In large, wide portions of the interstitium, tubules show extensive thyroidization with dilation of tubules filled with hyaline casts. Other areas appear relatively unaffected by tubular atrophy. There is mild to focally moderate interstitial inflammation composed predominantly of lymphocytes and plasma cells. A Congo Red stain for amyloid is negative. Arteries show moderate arteriosclerosis and arterioles show severe arteriosclerosis. The tissue submitted for immunofluorescence studies contains seven glomeruli, two of which are globally sclerotic. IgA and kappa and lambda light chains show face granular membranous staining and staining in casts. IgM and C3 show 1+ granular staining and staining in casts. IgG, C1q, albumin, fibrinogen are negative. No mesangial staining is appreciated. The tissue submitted for electron microscopy studies contains two glomeruli, one of which is globally sclerotic. The non-sclerotic glomerulus shows that the glomerular capillary loops are partially compressed by a mild increase in mesangial matrix material and cellularity. The glomerular basement membrane caliber is variable. There is no evidence of basement membrane duplication. The visceral epithelial foot processes show effacement over approximately 25% of the glomerular capillary loop surface area. There is no evidence of electron-dense immune-type deposits either in the mesangium or in subendothelial or subepithelial locations. Tubules appear unremarkable. There is no evidence of tubuloreticular bodies. GROSS DESCRIPTION The specimen is sent entirely to [facility] for diagnosis. Received within transport media labeled with the patient's name and right kidney biopsy are four fragmented cores of blanchard-pink soft tissue, ranging in size from 0.3 to 1.8 cm in length and averaging 0.1 cm in diameter. Tissue is submitted fresh for immunofluorescence, in glutaraldehyde for electron microscopy and the remaining in formalin for light microscopy (cassette A1).
[2023-06-29] MEDS: 0.9% Normal Saline (250mL Bag) 250 ML 15 ML IV (10:00)
[2023-06-29] MEDS: Midazolam 2 MG/2 ML Syringe IV (10:03)
[2023-06-29] MEDS: fentaNYL 100 MCG/2 ML Ampul IV (10:03)
[2023-06-29] MEDS: Lidocaine 2% (20 ml mdv) 20 ML Vial INFILT (10:15)
--- NOTE | 2023-06-29 10:53 | PCM.OP.PRO ---
Procedure Report Date of Procedure: 06/29/23 Assessment & Plan Assessment/Plan (1) Lupus: PLAN: PROCEDURE: CT GUIDED RIGHT PERCUTANEOUS KIDNEY BIOPSY. ORDERING PROVIDER: Dr. Nahomi Lobato INDICATION: Female, 58 years old. Lupus. PROVIDER: ROSE Butt CONSENT: Written informed consent was obtained having explained the risks, benefits and alternatives in detail with the patient. The specific risk of hemorrhage requiring further treatment or intervention was detailed and accepted. The patient accepted the risks and agreed to proceed. Laboratory review and clinical assessment was performed. PRE-PROCEDURE SEDATION ASSESSMENT: Current history and physical dictated by referring provider and reviewed. No clinical changes since date of exam. Patient has an ASA Class of 2. PROCEDURAL SEDATION PROTOCOL: The Drugs used were: 2 mg Versed, IV, and 50 mcg Fentanyl, IV. The sedation time was: 17 minutes, starting at 1003 and terminated at 1020. The procedural sedation protocol was independently monitored by the department nurse. RADIATION DOSAGE (If Supplied By Facility): CTDIvol = 14.46 mGy, DLP = 193.66 mGycm Individualized dose optimization techniques were used for this CT. TECHNIQUE: The patient was placed on the CT table in the prone position. Multiple axial images were obtained from the lung base through the caudal extent of the kidneys. An appropriate entry site was identified and a jazmine made on the skin. The skin overlying the right posterior flank was prepped and draped in sterile fashion. 2% lidocaine was administered subcutaneously for local anesthesia. Using CT guidance, an 18-gauge coaxial biopsy device was advanced to Brodel's avascular plane of the right kidney. A total of 4 core specimens were obtained. Specimens were microscopically reviewed by pathology in the CT suite and placed in formalin solution for further analysis. The needle was withdrawn. Hemostasis was achieved with manual compression and a sterile dressing was applied. The patient tolerated the procedure well without immediate complications. The patient returned to the holding bay in stable condition for nursing monitoring, per protocol. IMPRESSION: 1. Successful CT guided percutaneous right kidney biopsy. Pathology results are pending. 2. Procedural Sedation protocol utilized with independent monitoring by the department nurse. Procedures Radiology Radiology CT Procedures: 13583 Biopsy Kidney
== END | disposition home or self-care (01) ==
PROVIDERS: PCP Family Medicine; Referring Provider Internal Medicine Nephrology; Visit Provider Internal Medicine Nephrology
DX: M32.9 Systemic lupus erythematosus, unspecified (principal)
CPT/HCPCS: 50200; 77012; 88305; 88313; 88346; 88348; 88350; 99156; J7050

== ENCOUNTER → 2023-07-14 | Outpatient (CLI) | payer MEDICARE, SELFPAY ==
[2023-07-14 15:01] LABS: Hematocrit 33.8 % (37-47); Hemoglobin 10.7 g/dL (12.0-15.0); Mean Corp Hgb Conc 31.7 g/dL (32-36); Mean Corpuscular Hgb 31.1 pg (27.0-32.0); Mean Corpuscular Volume 98.3 fL (81-99); Platelet Count 302 K/mm3 (150-450); RBC Distribution Width CV 13.4 % (11.6-14.6); Red Blood Count 3.44 M/mm3 (4.2-5.4); White Blood Count 8.5 K/mm3 (4.4-11.0)
[2023-07-14 15:20] LABS: BUN 20 mg/dL (7-18); BUN/Creat Ratio 20.7 RATIO (10-20); Chloride 107 mmol/L (98-107); Creatinine, Serum 0.96 mg/dL (0.55-1.02); EST Glomerular Filtration Rate 63 mL/min (>60); Est Glom Filt Rate - Afr Amer 76 mL/min (>60); Glucose 109 mg/dL (74-106); Phosphorus 3.2 mg/dL (2.5-4.9); Potassium 3.8 mmol/L (3.5-5.1); Sodium Level 134 mmol/L (136-145)
[2023-07-14 17:42] LABS: Protein, Urine (Random) 52.8 mg/dL (<11.9); Protein:Creat Ratio 3826 mg/g CRE (0-200)
== END | disposition home or self-care (01) ==
LOC: MTLAB 13:10
PROVIDERS: PCP Family Medicine; Referring Provider Internal Medicine Nephrology; Visit Provider Internal Medicine Nephrology
DX: R80.9 Proteinuria, unspecified (principal); D64.9 Anemia, unspecified; R76.8 Other specified abnormal immunological findings in serum
CPT/HCPCS: 36415; 80069; 82570; 84156; 85027

== ENCOUNTER → 2023-07-14 | Outpatient (CLI) | payer MEDICARE, SELFPAY ==
--- OUTSIDE RECORDS SUMMARY | 2023-06-22 07:00 | XMS RPT_ITS | CCD ---
Author Name Unknown Address [address] [place] [address] Organization [facility] Care Team Providers Care Ichthyology Teacher Name Role Phone HOLLAND VILLARREAL MD Unavailable Unavailable HOLLAND VILLARREAL MD Unavailable Unavailable Results Test Name Value Interpretation Reference Range Facil ity Encounters Encounter Date Encounter Type Care Provider Facility Start: 02-02-2017 End: 02-02-2017 Ambulatory HOLLAND VILLARREAL [facility] Start: 12-05-2016 End: 12-05-2016 Ambulatory HOLLAND VILLARREAL [facility] Payers Date Payer Category Payer Policy ID [facility] [id number] Summary Purpose Family History No Family History Records Found Advance Directives No Advanced Directives Records Found Additional Source Comments INFORMATION SOURCE (unrecogn ized section and content) FOR RECORDS PERTAINING TO PATIENTS WHO ARE OR HAVE BEEN ENROLLED IN A CHEMICAL DEPENDENCY/SUBSTANCEABUSE PROGRAM, SOME INFORMATION MAY BE OMITTED. This clinical summary was aggregated from multiple sources. Caution should be exercised in using it in the provision of clinical care. This summary normalizes information from multiple sources, and as a consequence, information in this document may materially change the coding, format and clinical context of patient data. In addition, data may be omitted in some cases. CLINICAL DECISIONS SHOULD BE BASED ON THE PRIMARY CLINICAL RECORDS. [employer] [facility]. provides no warranty or guarantee of the accuracy or completeness of information in this document.
--- OUTSIDE RECORDS SUMMARY | 2023-07-14 06:56 | XMS RPT_ITS | CCD ---
Author Name Unknown Address [address] [place] [address] Organization [facility] Care Team Providers Care Blueprint Cutter Name Role Phone HOLLAND VILLARREAL MD Unavailable Unavailable HOLLAND VILLARREAL MD Unavailable Unavailable Results Test Name Value Interpretation Reference Range Facil ity Encounters Encounter Date Encounter Type Care Provider Facility Start: 02-02-2017 End: 02-02-2017 Ambulatory HOLLAND VILLARREAL [facility] Start: 12-05-2016 End: 12-05-2016 Ambulatory HOLLAND VILLARREAL [facility] Payers Date Payer Category Payer Policy ID [facility] [id number] Summary Purpose Family History No Family History [...] BE BASED ON THE PRIMARY CLINICAL RECORDS. [employer] [facility]. provides no warranty or guarantee of the accuracy or completeness of information in this document.
--- NOTE | 2023-07-14 11:51 | STRESSREP_ITS ---
Stress Test Report Date: 07/14/2023 Procedure: Pharmacologic stress nuclear imaging study Indications: Dyspnea on exertion Consent: Per the patient Procedure: The patient underwent pharmacologic (Regadenoson 0.4mg ) evaluation with a peak heart rate of 100 beats per minute (62%predicted maximal heart rate) and a peak blood pressure of 132/70 mmHg. The baseline ECG demonstrated sinus rhythm. The peak pharmacologic ECG demonstrated no ischemic changes. There were no cardiac dysrhythmias pretest, during pharmacologic infusion, or recovery. There was no complaint of chest discomfort during pharmacologic infusion or recovery. The patient was injected with 11.3 millicuries of technetium 99m Cardiolite and subsequently rest SPECT Cardiolite nuclear imaging was obtained in the horizontal long, vertical long, and short axis views. The patient underwent pharmacologic (Regadenoson) evaluation. The patient was injected with 33.9 millicuries of technetium 99m Cardiolite and subsequently stress SPECT Cardiolite nuclear imaging was obtained in the horizontal long, vertical long, and short axis views. A gated Cardiolite study at peak stress was obtained. The examination was stopped secondary to completion of protocol. Rest and stress SPECT Cardiolite nuclear imaging status post realignment, normalization, and attenuation correction demonstrate reversible perfusion defect of the apex suggestive of ischemia. There is end systolic thickening and brightening. The gated Cardiolite study demonstrates myocardial thickening and inward wall motion. The reported LVEF is 81%. Impression: 1. Pharmacologic (Regadenoson) evaluation 2. Peak pharmacologic ECG with no ischemic changes. 3. There were no cardiac dysrhythmias pretest, during pharmacologic infusion, or recovery. 5. Reversible perfusion defect of the anterior apex suggestive of ischemia. 6. The gated Cardiolite study reports an LVEF of 81%. This note was generated with [employer] software. It may contain incorrect words, spelling, and punctuation that were not noted in checking the note before signing.
== END | disposition home or self-care (01) ==
LOC: CVS 06:54
PROVIDERS: PCP Family Medicine; Referring Provider Internal Medicine Cardiovascular Disease; Visit Provider Internal Medicine Cardiovascular Disease
DX: R06.09 Other forms of dyspnea (principal); I27.20 Pulmonary hypertension, unspecified; D69.3 Immune thrombocytopenic purpura; I73.00 Raynaud's syndrome without gangrene
CPT/HCPCS: 78452; 93017; A9500; A4216; J2785

== ENCOUNTER → 2023-07-29 | Outpatient (CLI) | payer MEDICARE, SELFPAY ==
--- NOTE | 2023-07-29 12:02 | BI_ITS ---
MAMMOGRAPHY - BILATERAL SCREENING REASON FOR EXAM: Female, 58 years old. Routine annual screening examination. PERTINENT HISTORY: Mother with breast cancer. TECHNIQUE: Digital bilateral breast meagan (3D mammographic acquisition) in the CC and MLO projections. 2-D mediolateral oblique (MLO) and craniocaudad (CC) views of both breasts were obtained. CAD: Full Field Digital Mammography with Computer Added Detection was performed. COMPARISON: Comparison is made with prior study dated July 28, 2022 and March 04, 2021. FINDINGS: Breast Composition: The breasts are heterogeneously dense, which may obscure small masses. There are no dominant masses or suspicious calcifications. Stable benign-appearing bilateral axillary lymph nodes. Stable bilateral scattered calcifications. No other significant abnormalities are identified. There has been no significant change since the prior study. BI/SCRN MAMM (CAD)W/MEAGAN BILAT IMPRESSION: Stable bilateral screening mammogram. Yearly follow-up mammogram recommended. (A) ASSESSMENT CATEGORY: BIRADS Category 2: Benign. A letter regarding these results will be sent to the patient by the facility within 30 days. Approximately 10% of breast cancers are not detected by mammography. A normal mammogram should not delay biopsy of a clinically suspicious abnormality. [id number] Electronically Signed: Lior Bronson MD at 13:05 EST ,
== END | disposition home or self-care (01) ==
PROVIDERS: PCP Family Medicine; Referring Provider Family Medicine; Visit Provider Family Medicine
DX: Z12.31 Encounter for screening mammogram for malignant neoplasm of breast (principal); Z80.3 Family history of malignant neoplasm of breast
CPT/HCPCS: 77063; 77067

== ENCOUNTER → 2023-08-03 | Outpatient (CLI) | payer MEDICARE, SELFPAY ==
[2023-08-03 15:33] LABS: Color, Urine Yellow (Yellow); Glucose, Dipstick Normal (Normal); Ketone-Dipstick Negative (Negative); Leukocyte Esterase-Dipstick Negative /ul (Negative); Nitrite-Dipstick Negative (Negative); Occult Blood-Urine Negative /ul (Negative); Protein-Dipstick 100 mg/dl (Negative); Specific Gravity, Urine 1.015 (1.002-1.030); Urine Bilirubin Dipstick Negative (Negative); Urine Clarity Clear (Clear); Urine Urobilinogen Normal (Normal)
[2023-08-03 15:34] LABS: Absolute Lymphocyte Count 0.76 X10^3/uL (0.83-4.51); Absolute Neutrophil Count 3.5 X10^3/uL (2.0-7.7); Basophil# 0.02 X10^3/uL; Basophil% 0.4 % (0-1); Eosinophil# 0.03 X10^3/uL; Eosinophils% 0.6 % (0-5); Hematocrit 33.8 % (37-47); Hemoglobin 10.9 g/dL (12.0-15.0); Lymphocyte # 0.76 X10^3/ul (0.83-4.51); Mean Corp Hgb Conc 32.2 g/dL (32-36); Mean Corpuscular Hgb 31.4 pg (27.0-32.0); Mean Corpuscular Volume 97.4 fL (81-99); Mean Platelet Vol. 9.4 fl (6.2-12.0); Monocyte# 0.72 X10^3/uL; Monocyte% 14.2 % (0-10); NRBC Flagged by Analyzer 0 % (0-5); Neutrophil # 3.51 X10^3/uL (2.7-7.7); Neutrophil % 69.4 % (47-70); Platelet Count 239 K/mm3 (150-450); RBC Distribution Width CV 13.6 % (11.6-14.6); RBC Distribution Width SD 48.2 fl (35.1-43.9); Red Blood Count 3.47 M/mm3 (4.2-5.4); White Blood Count 5.1 K/mm3 (4.4-11.0)
[2023-08-03 15:46] LABS: Protein, Urine (Random) 82.7 mg/dL (<11.9); Protein:Creat Ratio 1066 mg/g CRE (0-200)
[2023-08-03 16:22] LABS: ALB/GLOB Ratio 0.7 RATIO (0.9-2.4); AST(SGOT) 30 U/L (15-37); Alanine Aminotransfer ALT/SGPT 26 U/L (13-56); Albumin, Serum 3.2 g/dL (3.2-5.0); Alkaline Phosphatase 69 U/L (45-117); Anion Gap 5 (5-15); BUN 18 mg/dL (7-18); BUN/Creat Ratio 17.3 RATIO (10-20); Calcium,Total 8.8 mg/dL (8.5-10.1); Chloride 110 mmol/L (98-107); Creatinine, Serum 1.04 mg/dL (0.55-1.02); EST Glomerular Filtration Rate 57 mL/min (>60); Est Glom Filt Rate - Afr Amer 69 mL/min (>60); Globulin 4.4 g/dL (2.2-4.2); Glucose 102 mg/dL (74-106); Potassium 4.1 mmol/L (3.5-5.1); Protein, Total 7.6 g/dL (6.4-8.2); Sodium Level 135 mmol/L (136-145)
[2023-08-05 09:45] LABS: Complement C3 93 mg/dL (82-167)
[2023-08-05 12:09] LABS: Anti-dsDNA Ab 1 IU/mL (0-9)
== END | disposition home or self-care (01) ==
PROVIDERS: PCP Family Medicine; Referring Provider Internal Medicine Rheumatology; Visit Provider Internal Medicine Rheumatology
DX: M06.4 Inflammatory polyarthropathy (principal); M32.9 Systemic lupus erythematosus, unspecified; M35.00 Sjogren syndrome, unspecified; M35.1 Other overlap syndromes; Z79.899 Other long term (current) drug therapy; M79.7 Fibromyalgia
CPT/HCPCS: 36415; 80053; 81002; 82570; 84156; 85025; 86160; 86225

== ENCOUNTER 2023-08-13 14:51 | Observation (INO) | payer MEDICARE, SELFPAY ==
--- NOTE | 2023-08-06 16:33 | PCM.HP.BLA ---
History and Physical Date of Admission: 08/13/23 This is a 58 year old lady who presents for a cardiac catheterization following an abnormal stress test. This lady has history of lupus. She has recently been diagnosed with severe pulmonary hypertension and has been referred to us for possible right heart catheterization. Per patient, she has been particularly feeling short of breath over the last 6 months to a year. Denies any chest pains either at rest or with exertion. Shortness of breath is with mild exertion. Denies any palpitations. No orthopnea. No PND. She has a history of ITP as well as nicotine dependence. She quit smoking in this January. Intake Vital Signs See EMR Allergies See EMR Medications See EMR [facility] Medical History Abdominal pain Abnormal echocardiogram Acid reflux Anemia Anxiety Back problem Benign essential HTN Bilateral pneumonia Blood in stool Chronic ITP (idiopathic thrombocytopenia) Constipation COPD (chronic obstructive pulmonary disease) Depression Fatigue Hemorrhoids Lupus Pulmonary hypertension Raynauds disease Wheeze Surgical History History of History of hysterectomy Hx of colonoscopy Family History Mother Cancer Pancreatic COPD (chronic obstructive pulmonary disease) Brother Myocardial infarction CAD (coronary artery disease) Stent Social History Smoking Status: Former smoker Tobacco: How many years used: 10 second hand exposure: No alcohol intake: never substance use type: does not use caffeine: Yes Type: carbonated beverages and tea what type of physical activity do you participate in: none frequency: does not exercise ROS Const Const: Positive for fatigue, weakness, headache(s) and difficulty sleeping; Negative for frequent falls or excessive sweating Eyes Eyes: Positive for change in vision; Negative for loss of peripheral vision, transient loss of vision, blurry vision, double vision or tunnel vision ENT ENT: Positive for headache(s), dizziness and balance problems; Negative for Nosebleed/epistaxis Cardio Chest Pain: No Palpitations: No Edema: Bilateral (hands) Muscle aches with walking: None Resp Respiratory: Positive for SOB with activity, SOB at rest, SOB orthopnea\SOB lying down (wears oxygen), chest congestion and paroxysmal nocturnal dyspnea; Negative for Cough GI GI: Positive for heartburn; Negative nausea, vomiting or black,tarry stools : Negative for hematuria Musc Musc: Positive for muscle weakness, joint pain and balance problems; Negative for muscle aches/ myalgia Skin Skin: Negative non-healing lesions, rash or unusual bruising Neuro Neuro: Positive for dizziness, lightheadedness, headache(s) and weakness; Negative for near syncope, syncope, frequent falls, blurry vision, double vision or lack of coordination Jona Hematologic/Lymphatic: Negative for easy bleeding or easy bruising Endo Endo: Positive for fatigue; Negative for excessive sweating or increased thirst/drinking Psych Psych: Negative for anxiety or depression Allergy Allergy/Immunology: Negative for hives and Negative for rash Cardiology Exam Const Appearance: comfortable and no acute distress Nutritional Appearance: well nourished Neck Neck: no JVD Carotids: Negative bruit Chest Auscultation: Bilateral: Clear to Auscultation Cardio Rate: regular rate Rhythm: regular rhythm Heart sounds: S1 normal and S2 normal Neuro General: patient alert, patient awake and patient oriented x3 Extremities Lower Extremity Edema: None: Bilateral Supplemental Info Supplemental Information Stress test 07/14/2023: Impression: 1. Pharmacologic (Regadenoson) evaluation 2. Peak pharmacologic ECG with no ischemic changes. 3. There were no cardiac dysrhythmias pretest, during pharmacologic infusion, or recovery. 5. Reversible perfusion defect of the anterior apex suggestive of ischemia. 6. The gated Cardiolite study reports an LVEF of 81%. ECHOCARDIOGRAM 03/17/23: Interpretation Summary Normal LV size. Mild concentric left ventricular hypertrophy. The estimated ejection fraction is 55 %. Stage 1 diastolic dysfunction. Pulmonary artery systolic pressure is 78 mmHg. Moderately dilated right ventricle. Severe pulmonary hypertension. CT CHEST 10/04/14: FINDINGS: There is diffuse parenchymal thinning of both lungs. This finding is consistent for emphysema. There is no demonstrated pleural abnormality. Normal heart and pericardium. Normal mediastinum. Normal hilar regions. Normal enhanced pulmonary arteries. Normal aorta arch and descending thoracic aorta. Normal osseous structures. There is diffuse fatty infiltration of the liver. Hypodensity in the spleen. Fluid-filled esophagus suggesting presbyesophagus. IMPRESSION: There are no acute findings. No arterial dissection Negative for PE Fatty liver Question splenic cyst PULMONARY FUNCTION TEST 03/23/23: INTERPRETATION: Forced expiration spirometry demonstrates the presence of a moderate large airways obstructive ventilatory defect. There was no significant response to aerosolized bronchodilators. Body plethysmography was performed and revealed lung volumes to be within normal limits. Diffusing capacity by single breath CO was significantly reduced at 40% of predicted. IMPRESSION: Irreversible moderate large airways obstructive ventilatory defect with preserved lung volumes and disproportionate reduction in diffusing capacity. Assessment and Plan Assessment and Plan (1) Abnormal Stress Test: Status: Acute Plan: Patients stress test from 07/14/2023 was abnormal, and demonstrated reversible perfusion defect of the anterior apex suggestive of ischemia. She will proceed with a cardiac catheterization to further assess this. Depending on results, further recommendations will be made. (2) Dyspnea on exertion: See #1
[2023-08-12 11:07] VITALS: BMI 32.3
[2023-08-13] VITALS (9 sets, daily range): BP systolic 113–156; BP diastolic 23–99; PULSE 78–88; RESP 16–24; TEMP 36.7; O2SAT 92–100
--- OUTSIDE RECORDS SUMMARY | 2023-08-13 10:50 | XMS RPT_ITS | CCD ---
Author Name Unknown Address [address] [place] [address] Organization [facility] Care Team Providers Care Public Information Coordinator Name Role Phone HOLLAND VILLARREAL MD Unavailable Unavailable HOLLAND VILLARREAL MD Unavailable Unavailable Results Test Name Value Interpretation Reference Range Facil ity Encounters Encounter Date Encounter Type Care Provider Facility Start: 02-02-2017 End: 02-02-2017 Ambulatory HOLLAND VILLARREAL [facility] Start: 12-05-2016 End: 12-05-2016 Ambulatory HOLLAND VILLARREAL [facility] Payers Date Payer Category Payer Policy ID [facility] [id number] Summary Purpose Family History No Family History [...] BE BASED ON THE PRIMARY CLINICAL RECORDS. [employer] [facility]. provides no warranty or guarantee of the accuracy or completeness of information in this document.
[2023-08-13 14:25] LABS: Blood Gas Specimen Type VEN; O2 Delivery Device Not entered; SITE Not entered; VBG BASE EXCESS -9 mmol/L (-1.0-3.5); VBG Bicarbonate 17 mmol/L (22-26); VBG PO2 37 mmHg (25-40); VBG SO2 67 % (50-70); VBG TCO2 18 mmol/L (23-33); VBG pCO2 31.7 mmHg (41-51); VBG pH 7.34 (7.32-7.42)
[2023-08-13 14:26] LABS: Blood Gas Specimen Type VEN; O2 Delivery Device Not entered; SITE Not entered; VBG BASE EXCESS -8 mmol/L (-1.0-3.5); VBG Bicarbonate 18 mmol/L (22-26); VBG PO2 37 mmHg (25-40); VBG SO2 69 % (50-70); VBG TCO2 19 mmol/L (23-33); VBG pCO2 32.1 mmHg (41-51); VBG pH 7.34 (7.32-7.42)
[2023-08-13 14:33] LABS: Base Excess -10 mmol/L (-2 to +2); Bicarbonate 15.8 mmol/L (22-26); Blood Gas Specimen Type ART; Mode Not entered; O2 Delivery Device Not entered; PO2 101 mmHG (75-100); SITE Not entered; SO2 98 % (95-99); Total Carbon Dioxide 17 mmol/L; pCO2 27.5 mmHg (35-45); pH 7.37 (7.35-7.45)
[2023-08-13 14:40] LABS: Blood Gas Specimen Type VEN; O2 Delivery Device Not entered; SITE Not entered; VBG BASE EXCESS -9 mmol/L (-1.0-3.5); VBG Bicarbonate 17 mmol/L (22-26); VBG PO2 37 mmHg (25-40); VBG SO2 68 % (50-70); VBG TCO2 18 mmol/L (23-33); VBG pCO2 30.9 mmHg (41-51); VBG pH 7.34 (7.32-7.42)
--- NOTE | 2023-08-13 14:49 | CL.I_ITS ---
Patient Name: DEMI DEJESUS Study Date: 08/13/2023 Performing: Roosevelt Ahmadi MD Ht: 61.81 inches 157 cm : 1965 Wt: 176 lbs 79.83 kg Age: 58 Gender: female BSA: 1.81 PROCEDURE(S) PERFORMED DC06-(71993)RHC/LHC/COR IC12-(49339/[id number])NIGEL W/WO PTCA, SINGLE CORONARY ARTERY CLINICAL PROFILE AND CO-MORBIDITIES Indications: Suspected CAD Heart Failure: None Stress/Imaging Stress Test w/SPECT MPI: Yes Result: Positive Intermediate Risk Stress Test with SPECT MPI: Positive Intermediate Risk CAD Presentations: Other: Dyspnea CONCLUSIONS 80% Mid LAD Severe miitral annular calcification Severe pulmonary hypertension, PASP 87 mm Hg CO 5.23, CI 2.89 Successful NIGEL Mid LAD using Austin Sandoval 3.0x15 mm RECOMMENDATIONS ASA Indefinitley Plavix for at least 12 months Staged PCI to RCA Continue following with pulmonology for pulmonary hypertension DESCRIPTION OF PROCEDURE The patient arrived to the procedure lab. The risks and benefits of the procedure as well as a full description of our services here and lack of surgical backup were fully explained to the patient and/or their significant other prior to the catheterization. The Timeout was completed, verifying the correct patient and procedure. The patient's procedural site was prepped and draped in the usual fashion. Local anesthetic was given subcutaneously to right radial region with Lidocaine 2%. Using a modified Seldinger technique, arterial access was obtained via the right radial artery, a 6Fr sheath was inserted.. Venous access was obtained via the right brachiocephalic vein, with Micropuncture set Left Coronary Artery selective angiography was performed in multiple views using a 5 Fr. 4.0 [place] catheter. Right Coronary Artery selective angiography was then performed in multiple views using a 5 Fr. 4.0 [place] catheter. A 7Fr thermal dilution catheter was inserted and right heart pressures were recorded, it was then advanced to PA position for cardiac outputs. Thermal dilution cardiac outputs were then recorded. O2 saturations were then obtained. The Thermal dilution catheter was then removedThe images were reviewed and options discussed. A decision was then made to proceed with an Intervention, IVUS or other adjunct procedure. XB 3.0 Guide catheter was inserted and engaged into the LCA. Runthrough Guide wire was advanced to the LAD. Austin Sandoval 3.0 x 15 Drug Eluting stent was inserted. Drug Eluting stent was advanced across the lesion in the LAD, mid. NC Euphora 3.0x 12 Balloon catheter was inserted. Balloon catheter was advanced across lesion in the LAD, mid. Angiogram performed post balloon dilatation. The arterial sheath wasflushed, then pulled and a TR Band was applied for hemostasis. The venous sheath was then pulled and manual compression applied until hemostasis achieved CORONARY ANGIOGRAPHY DOMINANCE: Right Dominant RIGHT HEART ASSESSMENT Toño CO: 5.23 Toño CI: 2.89 PW: PA: 87/39 56 RV: 88/16 25 RA: LEFT MAIN: Angiographically normal LEFT ANTERIOR DESCENDING ARTERY: LAD: Calcified 40% Proximal lesion in LAD Tubular 80% Mid lesion in LAD RAMUS: Luminal Irregularities 20% Proximal lesion in Ramus RIGHT CORONARY ARTERY: RCA: Tubular Calcified 80% Proximal lesion in RCA Tubular 70% Distal lesion in RCA RT PDA: Tubular 70% Ostial lesion in RT PDA INTERVENTION INFORMATION LESION SITE: LAD (Mid) Lesion Complexity: Non-High/Non-C, lesion length: 13 mm Pre Stenosis: 80 % Pre intervention GENEVIEVE flow: 3 PROCEDURE: Drug Eluting Stent with post dilatation Post Stenosis: 0 % Post intervention GENEVIEVE flow: 3 Lesion Devices: Cordis 6 Fr XB3.0 100cm Guide Catheter Terumo .014 180cm Runthrough Extra Floppy straight Medtronic 3.0 x 15 MELLO FRONTIER NIGEL Medtronic NC EUPHORA RX 3.0x12 BALLOON COMPLICATIONS No Complications PROCEDURE MEDICATIONS Fentanyl 50 mcg IV Versed 1 mg IV Versed 1 mg IV Oxygen: 2 % FiO2 via nasal cannula Brilinta 180 mg PO @ 08/13/2023 13:59:30 Heparin given IA 08/13/2023 13:50:20 Heparin 5000 unit(s) IV 08/13/2023 13:57:32 Verapamil 2.5mg, Ntg 200mcgs, 2000 units of Heparin given IA 08/13/2023 13:50:20 SUMMARY OF HEMODYNAMIC DATA Time AIR REST ECG 10:46:25 AO 103/61 (79) SA 13:52:18 RA (19) SV 14:18:21 RV 88/16, 25 14:18:55 PW (20) PV 14:19:29 PA 87/39 (56) PA 14:19:41 PA 89/40 (58) 14:20:44 RV 89/16, 26 14:20:51 RA (20) 14:22:09 Type SV CO (l/m) CI (l/m/ HR Time AIR REST Toño 67.90 5.23 2.89 77 10:46:25 Label % O2 Pres/Loc Time AIR REST PA 67 PA 14:37:54 AO 98 PV 14:38:00 RA 68 14:38:07 RV 69 14:38:18 Signed By Roosevelt Ahmadi MD On 08/13/2023 14:48:54 Roosevelt Ahmadi MD
--- NOTE | 2023-08-13 14:56 | DCINST_ITS ---
Discharge Instructions Diet Discharge Diet: Low fat / Low cholesterol Dressing / Incision Call your doctor if your incision/area has: Continuous Slow Oozing, Sudden Increased Bleeding, Increased Pain/ Swelling, Increased Redness, Foul Smelling Discharge and Swelling at the incision site Call your doctor if you observe: Fever of 101 or Higher, Coldness, Increased Pain, Numbness or Tingling and Change in Color Follow Up Care Please Follow Up With: Roosevelt Ahmadi MD When: 2-4 weeks Test Results: Test results from this visit will be discussed in further detail at your follow- up appointment, if applicable. Discharge Plan Admission Attending Provider: Roosevelt Ahmadi Primary Care Provider: Judy Pinto Discharge Orders/Prescriptions Prescriptions: New atorvastatin 10 mg Tablet 10 mg PO QHS Qty: 30 6RF amlodipine 2.5 mg Tablet 2.5 mg PO DAILY Qty: 30 6RF clopidogrel 75 mg Tablet 75 mg PO DAILY Qty: 30 11RF Continued hydroxychloroquine 200 mg tablet 200 mg PO DAILY trazodone 50 mg tablet 50 mg PO QHS lisinopril 20 mg tablet 20 mg PO BID alendronate 70 mg tablet PO fluticasone propionate 50 mcg/actuation spray,suspension 2 spray intranasal DAILY Qty: 18.2 2RF Rx Instructions: administer into each nostril omeprazole 40 mg capsule,delayed release(DR/EC) 40 mg PO DAILY mecobalamin (vitamin B12) 5,000 mcg tablet,chewable 5,000 mcg PO DAILY prednisone 20 mg tablet 20 mg PO DAILY Rectiv 0.4 % (w/w) ointment 1 inch IN QHS Benlysta 200 mg/mL auto-injector 200 mg subcut QWEEK Rx Instructions: inject into upper thigh or abdomen; rotate sites duloxetine 60 MG capsule 120 mg PO DAILY Patient Comments: mood multivitamin with folic acid 1 TABLET tablet 1 tab PO DAILY Patient Comments: supplement calcium carbonate-vitamin D3 1 TAB tablet 2 tab PO DAILY@0800 Patient Comments: supplement oxycodone-acetaminophen [Percocet] 5-325 mg tablet 1 tab PO Q8H PRN (Reason: pain) 3 Days Qty: 12 0RF gabapentin 300 mg capsule Rx Instructions: bid timolol maleate 0.5 % drops ophthalmic (eye) DAILY PRN (Reason: dry eyes) budesonide-formoterol [Symbicort] 160-4.5 mcg/actuation HFA aerosol inhaler 2 puff inhalation BID Qty: 3 3RF Rx Instructions: administer with spacer, rinse mouth after each use aspirin 81 mg tablet,delayed release (DR/EC) 81 mg PO DAILY Referrals / Follow Up: Judy Pinto DO [Primary Care Provider] - Disposition Disposition (needs filled in before D/C Order can be placed): Home, Self Care
[2023-08-13] MEDS: 0.9% Normal Saline (1000mL) 1,000 ML 150 ML IV (16:36)
--- NOTE | 2023-08-13 16:58 | EKG12_ITS ---
Test Reason : PCI Blood Pressure : / mmHG Vent. Rate : 078 BPM Atrial Rate : 078 BPM P-R Int : 186 ms QRS Dur : 106 ms QT Int : 410 ms P-R-T Axes : 034 219 -06 degrees QTc Int : 467 ms Normal sinus rhythm Right superior axis deviation Possible Anterior infarct (cited on or before 02-JUN-2023) Abnormal ECG When compared with ECG of 02-JUN-2023 15:33, Incomplete right bundle branch block is no longer Present Confirmed by Felipe Caldwell ([id number]), photographic editor ARNALDO HARRIS ([id number]) on 08/18/2023 11:29:04 AM Referred By: Roosevelt Ahmadi Confirmed By:Felipe Caldwell
[2023-08-13] MEDS: Budesonide Respules 0.5 MG/2 ML AMPUL.NEB. INHALATION (19:03)
[2023-08-13] MEDS: Albuterol 2.5 MG/3 ML VIAL.NEB. INHALATION (19:03)
--- OUTSIDE RECORDS SUMMARY | 2023-08-13 20:12 | XMS RPT_ITS | CCD ---
Author Name Unknown Address [address] [place] [address] Organization [facility] Care Team Providers Care Credit Control Officer Name Role Phone HOLLAND VILLARREAL MD Unavailable Unavailable HOLLAND VILLARREAL MD Unavailable Unavailable Results Test Name Value Interpretation Reference Range Facil ity Encounters Encounter Date Encounter Type Care Provider Facility Start: 02-02-2017 End: 02-02-2017 Ambulatory HOLLAND VILLARREAL [facility] Start: 12-05-2016 End: 12-05-2016 Ambulatory HOLLAND VILLARREAL [facility] Payers Date Payer Category Payer Policy ID [facility] [id number] Summary Purpose Family History No Family History [...] BE BASED ON THE PRIMARY CLINICAL RECORDS. [employer] [facility]. provides no warranty or guarantee of the accuracy or completeness of information in this document.
--- OUTSIDE RECORDS SUMMARY | 2023-08-13 21:00 | XMS RPT_ITS | CCD ---
Author Name Unknown Address [address] [place] [address] Organization [facility] Care Team Providers Care Boarding Mother Name Role Phone HOLLAND VILLARREAL MD Unavailable Unavailable HOLLAND VILLARREAL MD Unavailable Unavailable Results Test Name Value Interpretation Reference Range Facil ity Encounters Encounter Date Encounter Type Care Provider Facility Start: 02-02-2017 End: 02-02-2017 Ambulatory HOLLAND VILLARREAL [facility] Start: 12-05-2016 End: 12-05-2016 Ambulatory HOLLAND VILLARREAL [facility] Payers Date Payer Category Payer Policy ID [facility] [id number] Summary Purpose Family History No Family History [...] BE BASED ON THE PRIMARY CLINICAL RECORDS. [employer] [facility]. provides no warranty or guarantee of the accuracy or completeness of information in this document.
[2023-08-13] MEDS: Clopidogrel Bisulfate 300 MG Tablet PO (21:46)
[2023-08-13] MEDS: traZODone 50 MG Tablet PO (21:46)
[2023-08-13] MEDS: Lisinopril 20 MG Tablet PO (21:46)
[2023-08-13] MEDS: Atorvastatin Calcium 10 MG Tablet PO (21:46)
[2023-08-14 04:00] VITALS: BP 148/65; PULSE 60; RESP 18; TEMP 36.7; O2SAT 96
[2023-08-14 06:43] LABS: Hematocrit 34.3 % (37-47); Hemoglobin 11.2 g/dL (12.0-15.0); Mean Corp Hgb Conc 32.7 g/dL (32-36); Mean Corpuscular Hgb 31.4 pg (27.0-32.0); Mean Corpuscular Volume 96.1 fL (81-99); Mean Platelet Vol. 9.5 fl (6.2-12.0); Platelet Count 239 K/mm3 (150-450); RBC Distribution Width CV 13.3 % (11.6-14.6); RBC Distribution Width SD 47.3 fl (35.1-43.9); Red Blood Count 3.57 M/mm3 (4.2-5.4); White Blood Count 4.9 K/mm3 (4.4-11.0)
[2023-08-14 06:45] VITALS: PULSE 88; RESP 16; O2SAT 97
[2023-08-14] MEDS: Albuterol 2.5 MG/3 ML VIAL.NEB. INHALATION (06:45)
[2023-08-14] MEDS: Budesonide Respules 0.5 MG/2 ML AMPUL.NEB. INHALATION (06:45)
[2023-08-14 07:25] LABS: ACT Activated Clotting Time 320 sec (74-137)
[2023-08-14 07:26] LABS: ACT Activated Clotting Time 298 sec (74-137)
[2023-08-14 07:55] LABS: ALB/GLOB Ratio 0.7 RATIO (0.9-2.4); AST(SGOT) 27 U/L (15-37); Alanine Aminotransfer ALT/SGPT 19 U/L (13-56); Albumin, Serum 3.1 g/dL (3.2-5.0); Alkaline Phosphatase 72 U/L (45-117); Anion Gap 8 (5-15); BUN 20 mg/dL (7-18); BUN/Creat Ratio 17.5 RATIO (10-20); Chloride 113 mmol/L (98-107); Cholesterol 126 mg/dL (200); Creatinine, Serum 1.14 mg/dL (0.55-1.02); EST Glomerular Filtration Rate 52 mL/min (>60); Est Glom Filt Rate - Afr Amer 62 mL/min (>60); Estimated Creatinine Clearance 50.22 ml/min; Globulin 4.4 g/dL (2.2-4.2); Glucose 88 mg/dL (74-106); High Density Lipoprotein 30 mg/dL; Potassium 4.6 mmol/L (3.5-5.1); Protein, Total 7.5 g/dL (6.4-8.2); Sodium Level 138 mmol/L (136-145); Triglycerides 155 mg/dL; Very Low Density Lipoprotein 31 mg/dL (5-40)
[2023-08-14 09:23] VITALS: BP 116/57; PULSE 80; RESP 16; TEMP 36.5; O2SAT 100
[2023-08-14] MEDS: Lisinopril 20 MG Tablet PO (09:32)
[2023-08-14] MEDS: Calcium Carb/Vitamin D 1 TABLET Tablet 2 TABLET PO (09:33)
[2023-08-14] MEDS: Hydroxychloroquine 200 MG Tablet PO (09:33)
[2023-08-14] MEDS: Pantoprazole Sodium 40 MG Tablet PO (09:33)
[2023-08-14] MEDS: amLODIPine 2.5 MG Tablet PO (09:33)
[2023-08-14] MEDS: DULoxetine Hcl 60 MG Capsule 120 MG PO (09:33)
[2023-08-14] MEDS: predniSONE 20 MG Tablet PO (09:33)
[2023-08-14] MEDS: Aspirin E.C. 81 MG Tablet PO (09:33)
[2023-08-14] MEDS: Clopidogrel Bisulfate 75 MG Tablet PO (09:33)
--- NOTE | 2023-08-14 10:00 | EKG12_ITS ---
Test Reason : AM EKG Blood Pressure : / mmHG Vent. Rate : 078 BPM Atrial Rate : 078 BPM P-R Int : 202 ms QRS Dur : 108 ms QT Int : 416 ms P-R-T Axes : 058 196 -06 degrees QTc Int : 474 ms Normal sinus rhythm Right superior axis deviation Cannot rule out Anterior infarct , age undetermined Abnormal ECG When compared with ECG of 13-AUG-2023 17:11, MANUAL COMPARISON REQUIRED, DATA IS UNCONFIRMED Confirmed by Felipe Caldwell ([id number]), continuity editor ARNALDO HARRIS ([id number]) on 08/18/2023 11:33:11 AM Referred By: Roosevelt Ahmadi Confirmed By:Felipe Caldwell
--- NOTE | 2023-08-14 10:07 | PHA.DC.MC.R ---
Pharmacy [facility] has performed discharge medication reconciliation and counseling for this patient. The patient's discharge medication list was reviewed for discrepancies and discrepancies were resolved. The patient was counseled on the following discharge medications and changes in medications for homegoing were reviewed. The Reason for Use, instructions for use, and potential side effects were reviewed for all new medications. The patient's questions regarding all of their medications were answered. 1. Amlodipine 2.5 mg PO daily 2. Atorvastatin 10 mg PO QHS 3. Clopidogrel 75 mg PO daily The patient was able to verbally demonstrate an understanding of their discharge medications. Medications at Discharge Home Medications calcium carbonate 600 mg-vitamin D3 20 mcg (800 unit) tablet 2 tab PO DAILY@0800 06/06/14 duloxetine 60 mg capsule,delayed release 120 mg PO DAILY 06/06/14 multivitamin with folic acid 400 mcg tablet 1 tab PO DAILY 06/06/14 mecobalamin (vitamin B12) 5,000 mcg chewable tablet 5,000 mcg PO DAILY 05/14/23 hydroxychloroquine 200 mg tablet 200 mg PO DAILY 05/20/23 omeprazole 40 mg capsule,delayed release 40 mg PO DAILY 05/20/23 oxycodone-acetaminophen 5 mg-325 mg tablet (Percocet) 1 tab PO Q8H PRN pain 3 days #12 tabs 06/02/23 budesonide-formoterol HFA 160 mcg-4.5 mcg/actuation aerosol inhaler (Symbicort) 2 puff inhalation BID #3 ea 06/22/23 belimumab 200 mg/mL subcutaneous auto-injector (Benlysta) 200 mg subcut QWEEK 06/23/23 nitroglycerin 0.4 % (w/w) rectal ointment (Rectiv) 1 inch TX QHS 06/23/23 prednisone 20 mg tablet 20 mg PO DAILY 06/23/23 gabapentin 300 mg capsule 300 mg PO BID PRN 06/29/23 timolol maleate 0.5 % eye drops 1 drp ophthalmic (eye) DAILY PRN raynauds 06/29/23 aspirin 81 mg tablet,delayed release 81 mg PO DAILY 07/24/23 alendronate 70 mg tablet 70 mg PO QWEEK 07/28/23 fluticasone propionate 50 mcg/actuation nasal spray,suspension 2 spray intranasal DAILY #18.2 mL 07/28/23 lisinopril 20 mg tablet 20 mg PO BID 07/28/23 trazodone 50 mg tablet 50 mg PO QHS 07/28/23 amlodipine 2.5 mg tablet 2.5 mg PO DAILY #30 tabs 08/13/23 atorvastatin 10 mg tablet 10 mg PO QHS #30 tabs 08/13/23 clopidogrel 75 mg tablet 75 mg PO DAILY #30 tabs 08/13/23
--- NOTE | 2023-08-14 10:36 | CASEMGMT ---
DENITA CM to pt room at this regarding pt DC. Pt states that she lives at home with her and that her boys work close by our house so I am surrounded by family. Pt denies the need for HHC or OP therapy. Pt states that her will drive her home today and denies further concerns regarding DC.
--- NOTE | 2023-08-14 13:32 | CRPHASE1_ITS ---
Patient Communication Patient Information PHII Cardiac Rehab Discussed with Patient:: Yes Guide to Cardiac Rehab Given to Patient:: Yes Cardiac Rehab Facility Choice List Given to Patient:: Yes Communication to Cardiac Rehab Choice Program [facility] CR PHII:: Communication Given to CR Jive Developer:: Roosevelt Ahmadi Phase II Cardiac Rehab:: Yes Sessions:: 36 sessions - 3 days/wk, 12 weeks Cardiac Rehabilitation Info Program Information Cardiac Rehabilitation Program Information: Cardiac Rehab The cardiac rehab team at [facility] consists of highly skilled exercise physiologists, nurses, respiratory therapists and physicians working together with you. Our purpose is to help you have a full recovery and achieve the goals you set for yourself. Over the years many of our patients have returned to activities they assumed they would never do again! We can help restore your confidence and motivation to make lifestyle changes that can have a significant impact on your health and quality of life! We can help answer questions and concerns you may have about exercise, lifestyle, medications, diet, stress and anxiety which are common following a hospitalization. WE monitor ECG and vital signs during exercise and discuss your progress with you and report to your physician(s). Cardiac Rehab is proven to help reduce readmissions, improve functional capacity and lower recurrence of problems with your heart. Our Cardiac Rehab program is Certified by the [place] Association of Cardio-Vascular and Pulmonary Rehabilitation (AACVPR) and Accredited by the [place] [employer] of [employer] through our [facility]. You can contact us at . We invite you to call us with your questions or to get started in our program. If you have other questions or concerns be sure to ask your physician/provider during your follow-up visit. WE look forward to seeing you!
--- NOTE | 2023-08-14 13:33 | CRPH1.INSTRU ---
General Education Discussed with Patient CAD and cardiac anatomy and function:: Patient communicates acknowledgment Explanation of diagnoses and procedures:: Patient communicates acknowledgment Sign/Symptoms of NV:: Patient communicates acknowledgment Antiplatelet therapy: Patient communicates acknowledgment Proper use of NTG-SL: Patient communicates acknowledgment Emergency procedures and activation of EMS: Patient communicates acknowledgment Compliance of all prescribed medications: Patient communicates acknowledgment Overweight/Obesity Risk Factors Patient Overweight/Obesity Risk Factors Are:: Obesity - > or = 30 Recommendations Recommendations Include:: Weight loss of 5-10%, Reduced calorie diet and Exercise 5-7 times/week Response Code Overweight/Obesity:: Patient communicates acknowledgment Hypertension Recommendations Recommendations Include:: Maintain BP <130/85 Response Code Hypertension:: Patient communicates acknowledgment Sedentary Risk Factors Patient Sedentary Risk Factors Are:: Lack of regular exercise Recommendations Recommendations Include:: Aerobic exercise 5-7 times/week for 20-30 minutes continuously Response Code Sedentary Response Code:: Patient communicates acknowledgment
--- OUTSIDE RECORDS SUMMARY | 2023-09-02 08:37 | XMS RPT_ITS | CCD ---
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 [id number] Summary Purpose Family History No Family History [...] BE BASED ON THE PRIMARY CLINICAL RECORDS. [employer]. provides no warranty or guarantee of the accuracy or completeness of information in this document.
== END 2023-08-14 09:00 | disposition home or self-care (01) ==
LOC: CLSP 14:57 → PCU 15:46
PROVIDERS: Admitting Provider Internal Medicine Cardiovascular Disease; PCP Family Medicine; Referring Provider Internal Medicine Cardiovascular Disease; Visit Provider Internal Medicine Cardiovascular Disease
DX: I25.10 Atherosclerotic heart disease of native coronary artery without angina pectoris (principal); M32.9 Systemic lupus erythematosus, unspecified; J44.9 Chronic obstructive pulmonary disease, unspecified; I27.20 Pulmonary hypertension, unspecified; D69.3 Immune thrombocytopenic purpura; R94.39 Abnormal result of other cardiovascular function study; R06.02 Shortness of breath; K21.9 Gastro-esophageal reflux disease without esophagitis; I10 Essential (primary) hypertension
CPT/HCPCS: 36415; 80053; 80061; 82803; 85027; 85347; 92928; 93005; 93456; 94640; 94762; 96360; 96361; 99152; 99153; 99221; C1894; J7030; J7040; C1751; C1769; C1887; C9600; G0378

== ENCOUNTER → 2023-09-09 | Outpatient (CLI) | payer MEDICARE, SELFPAY ==
--- NOTE | 2023-09-09 12:53 | CR.ITP_ITS ---
Diagnosis General Information Admitting Diagnosis: PCI w/coronary stenting Secondary Diagnosis: HTN, COPD Personal Learning Style:: Audio/Visual and Written Barriers to Learning: No Barriers Stage of change r/t lifestyle modifications:: Action Gave educational material for:: Treating Heart Disease, How The Heart Works, What it means to have Heart Disease, How Coronary Artery Disease is Diagnosed, Heart Procedures, What Heart Medications Do, Risk Factors & Modifications, Living an Active Life, Nutrition, Emotions & Heart Disease, Stress Management & Relaxation and Sleep Disorders & Heart Disease Education/Goals Individual Counseling: Initial Assessment: Abnormal Cholesterol Levels and High Blood Pressure Cardiac Rehabilitation Goals Personal Goals: Initial Assessment: Improve management of stress and emotions, Improve energy level, Improve knowledge of cardiac disease, Improve muscle strength and endurance, Improve diet and eating habits (eat healthier) and Control risk factors (learn risk factor modification) Scale for measuring improvement of personal goals Diagnosis & Disease Process Outcomes/Goals: Pt IDs own risk factors & lifestyle modifications by Session 10, Verbalizes symptoms of angina & response by session 3. and Pt independently manages Plan/Interventions: Assist Pt to ID & engage in lifestyle modification to reduce CVD risk, Instruct on individual risk factors, Review symptoms of angina & emergency actions and Review secondary diagnosis & identify educational needs. Safety Referral to Physical Therapy: No Referral to [facility] Case Management: No Fall Risk Assessed:: Yes Assistive Devices:: None Exercise - Initial Assessment Visit Date of Eval: 09/09/23 Session #:: 0 (Pre-cardiac rehab evaluation) Mets: Pre-: >5 METS for 30 minutes by discharge Physician Prescribed Exercise Modalities: Treadmill, Airdyne and NuStep Frequency: 3x/week for 12 weeks [36 sessions] Intensity: 60-80% of age predicted maximum heart rate reserve Duration: 30 - 45 minutes Current METSs:: 3.0 Target Heart Rate:: 96-112 Resting Blood Pressure: 122/52 EKG Type: Normal Sinus Rhythm Outcomes & Goals Goals:: Verbalizes understanding of THR, RPE & goal METS by session 6, Documents in home exercise log/reports 30 min aerobic 5 day/wk by DC and Demonstrates accurate pulse taking by DC Intervention & Plan Exercise Program Goals: Instruct on personal THR & RPE, Instruct on MET level & personal MET goal, Show patient to take own pulse /validate performance until accurate and Instruct on home exercise Physical Activity Home Exercise Physical Activity - Home Exercise: Safe Exercise, Warm-up, Self-monitoring, Cool-Down, Home Exercise > 30 min Daily and Sitting Time <3 hours/daily Outcomes & Goals Outcomes/Goals: Demonstrates correct Warm-up/exercise Cool-Down (S3) if = 2.5 METs, Verbalizes symptoms of exercise intolerance by Session 3 (S3) and Demonstrate safe equipment use (S3) & follows exercise prescrition (6) Intervention & Plan Plan/Intervention: Instruct warm-up & cool-down if exercising at > 2 METs, Instruct on symptoms of exercise intolerance & actions to take, Instruct & m onitor on saf and Assess intial functional capacity & safety risk Nutrition - Initial Assessment Visit Date of Eval: 09/09/23 Session #:: 0 (Pre-cardiac rehab evaluation) Cholesterol/Lipids (Other Core Measures) Determine presence & major risk factors that modify LDL goal: Hypertension or hypertensive medication and Age men > 45 years; women >/= 55 years Outcomes/Goals: Pt IDs own risk factors & lifestyle modifications by Session 10, Verbalizes symptoms of angina & response by session 3. and Pt independently manages Intervention/Plan: Instruct on personal lipid levels & lipid goals/NCEP guidelines and Instruct on cholesterol Referral to dietitian:: Yes Diabetes (Other Core Measures) Diabetes Type: Not Applicable Weight Mgt (Other Care) Not Applicable: Yes Height: 5 ft 2 in Weight:: 144 lb BMI: 26.3 Diagnosis Overweight/Obesity BMI> 30% ICD-10 E66: No Diagnosis High BMI/Morbid Obesity BMI> 35% ICD-10 Z68: No Outcomes/Goals: Pt sets, maintains & shows weight loss goal & trend during rehab Intervention/Plan: Instruct on ideal BMI & set weight loss goal w/patient Healthy Eating Habits Will attend diet classes:: Yes Outcomes/Goals:: Consume diet rich in vegs,fruits,whole grain/high fiber,fish,lean meat and Limit sat/trans fats,cholesterol & added salts & sugars Intervention/Plan:: Assess current eating habits Education Gave educational materials for:: Signs & symptoms of hypoglycemia, Signs & symptoms of hyperglycemia and Relate diabetes to coronary artery disease Core - Initial Assessment Visit Date of Eval: 09/09/23 Session #:: 0 (Pre-cardiac rehab evaluation) Medication Compliance Preventative Medication(s):: Aspirin, ADRIEL inhibitor, Clopidogrel/P2Y12 inhibit and Statin/lipid H/O mental health issues: depression, anxiety, or addiction?: Yes Doesn?t believe in the benefits of treatment?: No Believes medications are unnecessary or harmful?: No Has a concern about medication side effects?: No Expresses concern over the cost of medications?: No Outcomes/Goals: Verbalizes medications,desired effect & common side effects @ DC, Pt self-reports following medication regimen and Keeps card in wallet w/medications listed by DC Interventions/plans: Instruct on medication effects & side effects, Review medication list w/patient every two weeks and Instruct importance of taking meds as ordered & assist problem solving Tobacco Use Tobacco Use: Non-smoker Hypertension Hypertension Diagnosis:: Hypertension ICD-10 I10 Resting Blood Pressure:: 122/52 [place] [employer] Hypertension Guidelines Outcomes/Goals: Able to verbalize/achieve optimal blood pressure <130/80 and Incorporates diet changes & exercise for blood pressure control by DC Interventions/plan: Instruct on optimal blood pressure, hypertension & medications and Instruct on effects of sodium, alcohol, stress, exercise &hypertension Tobacco Cessation Referral Smoking Cessation Referral:: No Individual Education/Counseling:: No Education Schedule Given:: Yes Psychosocial - Initial Assess VIsit Not Applicable: Yes History of previous Mental disease:: Yes History of Emotional Disorders: Anxious and Depression Target Goals Target Goals Psychosocial Test Tool Used:: [facility] QOL Cardiac and PHQ-9 Questionnaire phq-9 Severity Referral to Behavioral Health PS - Interventions: Yes: Attend Stress Management Classes and No: Referral to Behavioral Health if PHQ-9 score >9:, No: Referral to [facility] and No: Referral to Physician if PHQ-9 if score is 5-9: Outcomes/Goals: See list Psychosocial Outcomes/Goals:: ID's personal stressors & 2 strategies to manage stress by discharge Intervention/Plan: See List Interventions/Plan:: Assess stressors,coping strategies & signs of derpression on admission, Instruct/assist pt to develop coping & personal stress Mgt strategies, Instruct patient to recognize signs & symptoms of depression and Instruct patient to recog Patient Health Questionnaire PHQ-9 Screening Initial Assessment: 1. Little interest or pleasure in doing things: Not at all 2. Feeling down, depressed, or hopeless: Not at all 3. Trouble falling or staying asleep, or sleeping too much: Not at all 4. Feeling tired or having little energy: Not at all 5. Poor appetite or overeating: Not at all 6. Feeling bad about yourself -- or that you are a failure or have let yourself or your family down: Not at all 7. Trouble concentrating on things, such as reading the newspaper or watching television: Not at all 8. Moving or speaking so slowly that other people could have noticed. Or the opposite - being so fidgety or restless that you have been moving around a l ot more than usual: Not at all 9. Thoughts that you would be better off , or of hurting yourself in some way: Not at all How difficult have these problems made it for you to do your work, take care of things at home, or get along with other people?: Not difficult at all Total Score: 0 DILCIA-Q SV Test Statements CAD is a disease of the arteries in the heart: True Examples of risk factors for heart disease: True Angina is chest pain or discomfort: True The benefits of resistance training include: True Eating more meat and dairy products: False Anti-platelet medications such as aspirin are important: True The only effective way to manage stress: True An exercise warm-up slowly increases heart rate: True Prepared, processed foods usually have high sodium: True Depression is common after a heart attack: True The statin medications lower cholesterol: True To control blood pressure, lower the amount of sodium: True If someone gets chest discomfort during walking: True Transfats are partially hydrogenated vegetable oils: True Sleep apnea that is not treated increases the risk: True To control cholesterol, one should become a vegetarian: True Someone knows if he/she is exercising at the right level: True Diabetes cannot be prevented with exercise & health eating: True Stress is a large risk for heart attack: True A diet that can help lower blood pressure is rich in: True Total Score Total Correct Responses: 14 Self-Efficacy 6-Item Scale Initial Assessment: We would like to know how confident you are in doing certain activities. Please select your confidence level for: Fatigue Select Number: 10 Physical Discomfort or Pain Select Number: 10 Emotional Distress Select Number: 10 Other Symptoms or Health Problems Select Number: 10 Different Tasks and Activities Select Number: 10 Medication Select Number: 10 Total Score:: 10 Nutrition Survey Nutrition Survey Instructions Scoring Instructions Nutrition Survey Initial: Have you lost >10 lbs over the past 2 months without trying?: Yes Are you following a special diet at home for diabetes, low fat, or low salt?: Yes Are you interested in meeting with a dietitian for help understanding your diet?: Yes Do you eat less than 3 meals a day?: Yes Do you eat fatty meats (garcia, sausage, ribs, etc), fried foods, desserts, large amounts of salad dressings, margarine, butter, or cheese most days?: No Do you have food allergies? [Enter types in comment field]: No Do you eat in restaurants more than 3 times a week?: No Do you season food with salt, seasoning salt, or garlic salt?: Yes Do you used canned, boxed, frozen meals, or soups, seasoning packets?: No Total Score:: 5 Exercise - Final/Discharge Physician Prescribed Exercise Modalities: Treadmill, Airdyne and NuStep Frequency: 3x/week for 12 weeks [36 sessions] Intensity: 60-80% of age predicted maximum heart rate reserve Current METSs:: 3.0 Target Heart Rate:: 96-112 Nutrition - 30-Day Assessment Weight Mgt (Other Care) Height: 5 ft 2 in Weight:: 144 lb BMI: 26.3 Nutrition - 60-Day Assessment Weight Mgt (Other Care) Height: 5 ft 2 in Weight:: 144 lb BMI: 26.3 Core - 30-Day Assessment Visit Session #:: 0 (Pre-cardiac rehab evaluation) Core - Final Assessment Hypertension Resting Blood Pressure:: 122/52 [place] [employer] Hypertension Guidelines Core - 60-Day Assessment Hypertension Resting Blood Pressure:: 122/52 [place] [employer] Hypertension Guidelines Psychosocial - 30-Day Assess Target Goals Target Goals Referral to Behavioral Health PS - Interventions: Yes: Attend Stress Management Classes and No: Referral to Behavioral Health if PHQ-9 score >9:, No: Referral to [facility] and No: Referral to Physician if PHQ-9 if score is 5-9: Psychosocial - 60-Day Assess Target Goals Target Goals Referral to Behavioral Health PS - Interventions: Yes: Attend Stress Management Classes and No: Referral to Behavioral Health if PHQ-9 score >9:, No: Referral to [facility] and No: Referral to Physician if PHQ-9 if score is 5-9: Psychosocial - 90-Day Assess Target Goals Target Goals Referral to Behavioral Health PS - Interventions: Yes: Attend Stress Management Classes and No: Referral to Behavioral Health if PHQ-9 score >9:, No: Referral to [facility] and No: Referral to Physician if PHQ-9 if score is 5-9: Psychosocial - Final Assessmen Target Goals Target Goals Referral to Behavioral Health PS - Interventions: Yes: Attend Stress Management Classes and No: Referral to Behavioral Health if PHQ-9 score >9:, No: Referral to [facility] and No: Referral to Physician if PHQ-9 if score is 5-9: Nutrition - 90-Day Assessment Weight Mgt (Other Care) Height: 5 ft 2 in Weight:: 144 lb BMI: 26.3 Nutrition - Final Assessment Weight Mgt (Other Care) Height: 5 ft 2 in Weight:: 144 lb BMI: 26.3
--- NOTE | 2023-09-09 12:53 | PCM.CR.HP2 ---
CR - History & Physical General Arrival date:: 09/09/23 Arrival time:: 13:00 Date of Referral:: 08/14/23 Date of CR Evaluation:: 09/09/23 Referring Physician: Dr. Roosevelt Ahmadi Primary Diagnosis: PCI w/coronary stenting History of Present Cardiac Event Onset Date PTCA or coronary stenting:: Yes Type of Symptoms:: Feeling short of breath the past 6 months, she had been referred to cardiology for a possible heart cath. due to recent diagnosis of pulmonary hypertension. Interventions with present event:: right heart cath Medications Ambulatory Orders Medication Instructions Recorded calcium carbonate 600 mg-vitamin 2 tab PO DAILY@0800 06/06/14 D3 20 mcg (800 unit) tablet duloxetine 60 mg capsule,delayed 120 mg PO DAILY 06/06/14 release multivitamin with folic acid 400 1 tab PO DAILY 06/06/14 mcg tablet mecobalamin (vitamin B12) 5,000 5,000 mcg PO DAILY 05/14/23 mcg chewable tablet hydroxychloroquine 200 mg tablet 200 mg PO DAILY 05/20/23 omeprazole 40 mg capsule,delayed 40 mg PO DAILY 05/20/23 release oxycodone-acetaminophen 5 mg-325 1 tab PO Q8H PRN pain 3 days #12 06/02/23 mg tablet (Percocet) tabs budesonide-formoterol HFA 160 2 puff inhalation BID #3 ea 06/22/23 mcg-4.5 mcg/actuation aerosol inhaler (Symbicort) belimumab 200 mg/mL subcutaneous 200 mg subcut QWEEK 06/23/23 auto-injector (Benlysta) nitroglycerin 0.4 % (w/w) rectal 1 inch MS QHS 06/23/23 ointment (Rectiv) prednisone 20 mg tablet 20 mg PO DAILY 06/23/23 gabapentin 300 mg capsule 300 mg PO BID PRN 06/29/23 timolol maleate 0.5 % eye drops 1 drp ophthalmic (eye) DAILY PRN 06/29/23 raynauds aspirin 81 mg tablet,delayed 81 mg PO DAILY 07/24/23 release alendronate 70 mg tablet 70 mg PO QWEEK 07/28/23 fluticasone propionate 50 2 spray intranasal DAILY #18.2 mL 07/28/23 mcg/actuation nasal spray,suspension lisinopril 20 mg tablet 20 mg PO BID 07/28/23 trazodone 50 mg tablet 50 mg PO QHS 07/28/23 amlodipine 2.5 mg tablet 2.5 mg PO DAILY #30 tabs 08/13/23 atorvastatin 10 mg tablet 10 mg PO QHS #30 tabs 08/13/23 clopidogrel 75 mg tablet 75 mg PO DAILY #30 tabs 08/13/23 Allergies Allergies amoxicillin trihydrate [From Augmentin] Allergy (Verified 07/28/23 13:19) Unknown RASH diflunisal [From Dolobid] Allergy (Verified 07/28/23 13:19) Unknown HANDS BURN AND PEEL Penicillins Allergy (Verified 07/28/23 13:19) Rash RASH potassium clavulanate [From Augmentin] Allergy (Verified 07/28/23 13:19) Unknown sulfamethoxazole [From Septra] Allergy (Verified 07/28/23 13:19) Rash trimethoprim [From Septra] Allergy (Verified 07/28/23 13:19) Rash aripiprazole [From Abilify] Adverse Reaction (Verified 07/28/23 13:19) Other LEG TREMORS fluoxetine HCl [From Prozac] Adverse Reaction (Verified 07/28/23 13:19) Other DIDN'T WORK sertraline HCl [From Zoloft] Adverse Reaction (Verified 07/28/23 13:19) Other DIDN'T WORK venlafaxine HCl [From Effexor] Adverse Reaction (Verified 07/28/23 13:19) Other DIDN'T WORK Sleep Disorder Evaluation Hx of Sleep Apnea: No Do you snore loudly (louder than talking or can be heard through closed doors)?: No Do you often feel tired/ fatigued/ sleepy during daytime?: No Has anyone observed you stop breathing during sleep?: No History of Hypertension (for STOP score): Yes STOP Results: Negative Advanced Directives Advanced Directives 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 of Automotive Technician Instructor: Yes Living Will: Yes Advance Directives Information Provided: No Advance Directives on File: No DNR Order?:: No MOLST See MOLST form: No Past Medical History Covid-19 Screening Physicial Symptoms Fever: No Unexplained muscle aches: No Current respiratory symptoms: No Upper respiratory infections symptoms: No Gastro-intestinal symptoms: Yes (Chronic Gastric Acid Reflux, abdominal pain) Zov-Qeye-Lrlorr symptoms: No Other Clinical Concerns Has tested positive for COVID-19 in last 30 days: No Exposure Risk Had contact w/person w/symptoms or Covid-19 (+) last 14 days: No Has High Risk Exposures ID'd by Health dept/Inf Control team: No Pertinent Comorbidities 65 years or older:: No Lives in Assisted Living facility:: No Has a chronic lung disease or moderate to severe asthma:: Yes Has a serious heart condition:: No Immunocompromised:: No Severely obese (Body Mass Index of 40 or higher):: No Diabetic:: No Has chronic kidney disease undergoing dialysis:: No Has liver disease:: No Past Medical Illness Past Medical History (Updated 08/13/23 @ 14:[address] Roosevelt Ahmadi MD) Abdominal pain R10.9 Abnormal echocardiogram R93.1 Abnormal stress test R94.39 Acid reflux K21.9 Anemia D64.9 Anxiety F41.9 Back problem M53.9 Benign essential HTN I10 Bilateral pneumonia J18.9 Blood in stool K92.1 Chronic ITP (idiopathic thrombocytopenia) D69.3 Constipation K59.00 COPD (chronic obstructive pulmonary disease) J44.9 Depression F32.9 Fatigue R53.83 Hemorrhoids K64.9 Lupus M32.9 Pulmonary hypertension I27.20 Raynauds disease I73.00 Sjogren's disease M35.00 Wheeze R06.2 Past Surgical History Past Surgical History (Updated 08/14/23 @ 13:04 by Aliya Lyman) History of Z98.891 x2 History of hysterectomy Z90.710 Hx of colonoscopy Z98.890 01/20/18 Status post biopsy of kidney Z98.890 Stented coronary artery (08/14/23) Z95.5 NIGEL to mid LAD, using [place] 3.0 X 15 mm 08/14/2023 Family History Summary Family History Mother Cancer Pancreatic COPD (chronic obstructive pulmonary disease) Brother Myocardial infarction CAD (coronary artery disease) Stent Social History Smoking History Smoking Status: Former smoker Alcohol Use Alcohol Usage: No Substance Abuse Hx Substance Use: No Occupation Occupation (List type of work in comments):: Unemployed Hobbies, Recreation, Social Activities Hobbies: Reading (Word Search Puzzles; Reading the Bible, Going to denominational) Recreational Activities: I am able to engage in all my recreational activities Social Environment Status Marital Status: Current Living Arrangements Living Environment:: Spouse Children How many children do you have?: 2 Do any of your children live nearby?: Yes Safety Do you feel safe in your surroundings?: Yes Assistance Do you need any assistance at home?: no Review of Systems Review of Systems Hints Review of Present Symptoms: Reports Shortness of Breath with Exertion, Fatigue, Appetite - Normal, Appetite - Special Diet (No Red Meat, low sodium, Low Fats) and Sleep - Normal; Denies PVD, Angina, Wound Healing, Dizziness/Lightheadedness, Heart Arrhythmia/Irregularities or Sexual Changes Pain Is Patient Pain Free?: Yes Risk Factor Assessment Vital Signs Temperature: 98.6 F Respiratory Rate: 11 Pulse Ox: 97 Blood Pressure: 122/52 Pulse Pulse Rate: 85 Pulse Rhythm: Regular Hypertension How long have you been treated?: recently Blood Pressure Sitting - Left Arm: 122/52 Diabetes Nutrition Referral for Diabetes: No Obesity Height: 5 ft 1.81 in Weight:: 144 lb Weight in Pounds: 144.0 lbs Weight Source: Estimated by Patient Body Mass Index (BMI): 26.4 Nutritional Referral for Obesity: No Physical Inactivity Physical Inactivity: Reg Exercise 30 min/day (no regular exercise but active at home.) Risk Stratification Risk Guidelines: Lowest Risk: Risk Factor for Smoking, Risk Factor for Dyslipidemia, Risk Factor for Diabetes, Risk Factor for Obesity, Risk Factor for Hypertension, Risk Factor for Sedentary Lifestyle and Risk Factor for Depression For Smoking Smoking Risk Guidelines For Dyslipidemia Dyslipidemia Risk Guidelines For Diabetes Mellitus Diabetes Risk Guidelines For Obesity/Overweight Obesity/Overweight Risk Guidelines For Hypertension Hypertension Risk Guidelines For Sedentary Lifestyle Sedentary Lifestyle Risk Guidelines For Depression Depression Risk Guidelines Family History Family History Mother Cancer Pancreatic COPD (chronic obstructive pulmonary disease) Brother Myocardial infarction CAD (coronary artery disease) Stent Motivation Motivation to Participate On a scale of 1 to 10, how prepared are you to commit to attending program?: 10 What do you see as barriers to successfully being able to complete the program?: No What do you see as the benefits of succesfully completing the program? In other words, what do you hope to get out of participating in the program?: Better Health Are there issues you are dealing with that will interfere with completing the program?: None Do you have a spouse or signficant other, family or friends who will help support you to complete the program?: Yes, very much so.
[2023-09-09 13:09] VITALS: BP 122/52; BMI 26.3
[2023-09-09 13:17] VITALS: BP 122/52; PULSE 85; RESP 11; TEMP 37; O2SAT 97; BMI 26.4
== END | disposition home or self-care (01) ==
LOC: CR 12:48
PROVIDERS: PCP Family Medicine; Referring Provider Internal Medicine Cardiovascular Disease; Visit Provider Internal Medicine Cardiovascular Disease
DX: Z95.5 Presence of coronary angioplasty implant and graft (principal); I27.20 Pulmonary hypertension, unspecified; J44.9 Chronic obstructive pulmonary disease, unspecified; M32.9 Systemic lupus erythematosus, unspecified; I25.10 Atherosclerotic heart disease of native coronary artery without angina pectoris; K21.9 Gastro-esophageal reflux disease without esophagitis; I10 Essential (primary) hypertension; D64.9 Anemia, unspecified; Z87.891 Personal history of nicotine dependence; R06.02 Shortness of breath; R53.83 Other fatigue

== ENCOUNTER 2023-09-11 14:35 | Outpatient (RCR) | payer MEDICARE, SELFPAY ==
[2023-09-09 13:09] VITALS: BMI 26.3
== END 2023-10-06 23:59 ==
LOC: CR 14:35
PROVIDERS: PCP Family Medicine; Referring Provider Internal Medicine Cardiovascular Disease; Visit Provider Internal Medicine Cardiovascular Disease
DX: Z95.5 Presence of coronary angioplasty implant and graft (principal); I25.10 Atherosclerotic heart disease of native coronary artery without angina pectoris
CPT/HCPCS: 93798

== ENCOUNTER → 2023-09-16 | Outpatient (CLI) | payer MEDICARE, SELFPAY ==
[2023-09-09 13:09] VITALS: BMI 26.3
[2023-09-16 15:12] LABS: Absolute Neutrophil Count 2.2 X10^3/uL (2.0-7.7); Basophil# 0.02 X10^3/uL; Basophil% 0.6 % (0-1); Eosinophil# 0.03 X10^3/uL; Eosinophils% 0.9 % (0-5); Hematocrit 31.6 % (37-47); Hemoglobin 10.4 g/dL (12.0-15.0); Lymphocyte % 17.4 % (19-41); Mean Corp Hgb Conc 32.9 g/dL (32-36); Mean Corpuscular Hgb 31.4 pg (27.0-32.0); Mean Corpuscular Volume 95.5 fL (81-99); Mean Platelet Vol. 9.6 fl (6.2-12.0); Monocyte% 17.4 % (0-10); NRBC Flagged by Analyzer 0 % (0-5); Neutrophil # 2.18 X10^3/uL (2.7-7.7); Neutrophil % 63.4 % (47-70); POSITIVE DIFFERENTIAL YES; Platelet Count 218 K/mm3 (150-450); RBC Distribution Width CV 13.2 % (11.6-14.6); RBC Distribution Width SD 45.5 fl (35.1-43.9); Red Blood Count 3.31 M/mm3 (4.2-5.4); White Blood Count 3.4 K/mm3 (4.4-11.0)
[2023-09-16 15:34] LABS: Albumin, Serum 3.5 g/dL (3.2-5.0); Anion Gap 4 (5-15); BUN 17 mg/dL (7-18); BUN/Creat Ratio 13.7 RATIO (10-20); Calcium,Total 9.1 mg/dL (8.5-10.1); Chloride 106 mmol/L (98-107); Creatinine, Serum 1.24 mg/dL (0.55-1.02); EST Glomerular Filtration Rate 47 mL/min (>60); Est Glom Filt Rate - Afr Amer 57 mL/min (>60); Glucose 83 mg/dL (74-106); Potassium 5.2 mmol/L (3.5-5.1); Sodium Level 131 mmol/L (136-145)
[2023-09-16 15:40] LABS: International Normalized Ratio 1.2
[2023-09-16 15:41] LABS: Partial Thromboplast Time 53.9 Seconds (24.1-36.2)
[2023-09-16 18:21] LABS: Protein, Urine (Random) 62.2 mg/dL (<11.9); Protein:Creat Ratio 660 mg/g CRE (0-200)
[2023-09-16 19:42] LABS: 24 Hour Urine Protein 188.1 mg/24HR (<150 MG/24HR); 24HR. UA Prot. Total Volume 900 mL; Creat.Clear Total Volume 900 mL; Creatinine Clearance 17 ml/min (100-200); Creatinine Serum Creat 1.2 mg/dL (0.6-1.0); Creatinine Urine 33.6 mg/dL (NO RANGE EST.); EST Glomerular Filtration Rate 47 mL/min (>60); Est Glom Filt Rate - Afr Amer 57 mL/min (>60); Urine Protein (24 Hour) 20.9 mg/dL (<11.9)
== END | disposition home or self-care (01) ==
PROVIDERS: Physician Assistant Medical; PCP Family Medicine; Referring Provider Internal Medicine Nephrology; Visit Provider Internal Medicine Nephrology
DX: R80.9 Proteinuria, unspecified (principal); D64.9 Anemia, unspecified; Z95.5 Presence of coronary angioplasty implant and graft; R07.9 Chest pain, unspecified
CPT/HCPCS: 36415; 80048; 81050; 82040; 82570; 82575; 84100; 84156; 85025; 85610; 85730

== ENCOUNTER 2023-09-21 13:43 | Observation (INO) | payer MEDICARE, SELFPAY ==
[2023-09-09 13:09] VITALS: BMI 26.3
[2023-09-18 09:03] VITALS: BMI 26.9
[2023-09-21] VITALS (10 sets, daily range): BP systolic 101–131; BP diastolic 48–93; PULSE 72–85; RESP 16–18; TEMP 36.4–36.8; O2SAT 96–100; BMI 26.9
--- NOTE | 2023-09-21 13:39 | DCINST_ITS ---
Discharge Instructions Diet Discharge Diet: Low fat / Low cholesterol Activity Discharge Activity: Return to Normal Activity May resume sexual activity in: No Restrictions Dressing / Incision Call your doctor if your incision/area has: Continuous Slow Oozing, Sudden Increased Bleeding, Increased Pain/ Swelling, Increased Redness, Foul Smelling Discharge and Swelling at the incision site Call your doctor if you observe: Fever of 101 or Higher, Coldness, Increased Pain, Numbness or Tingling and Change in Color Follow Up Care Please Follow Up With: Roosevelt Ahmadi MD When: 2-4 weeks Test Results: Test results from this visit will be discussed in further detail at your follow- up appointment, if applicable. Discharge Plan Admission Attending Provider: Roosevelt Ahmadi Primary Care Provider: Judy Pinto Discharge Orders/Prescriptions Prescriptions: No Action hydroxychloroquine 200 mg tablet 200 mg PO DAILY lisinopril 20 mg tablet 20 mg PO BID alendronate 70 mg tablet 70 mg PO QWEEK fluticasone propionate 50 mcg/actuation spray,suspension 2 spray intranasal DAILY Qty: 18.2 2RF Rx Instructions: administer into each nostril omeprazole 40 mg capsule,delayed release(DR/EC) 40 mg PO DAILY mecobalamin (vitamin B12) 5,000 mcg tablet,chewable 5,000 mcg PO DAILY Rectiv 0.4 % (w/w) ointment 1 inch OR QHS Benlysta 200 mg/mL auto-injector 200 mg subcut QWEEK Rx Instructions: inject into upper thigh or abdomen; rotate sites duloxetine 60 MG capsule 120 mg PO DAILY Patient Comments: mood multivitamin with folic acid 1 TABLET tablet 1 tab PO DAILY Patient Comments: supplement calcium carbonate-vitamin D3 1 TAB tablet 2 tab PO DAILY@0800 Patient Comments: supplement oxycodone-acetaminophen [Percocet] 5-325 mg tablet 1 tab PO Q8H PRN (Reason: pain) 3 Days Qty: 12 0RF gabapentin 300 mg capsule 300 mg PO BID PRN Rx Instructions: bid timolol maleate 0.5 % drops 1 drp ophthalmic (eye) DAILY PRN (Reason: raynauds) atorvastatin 10 mg Tablet 10 mg PO QHS Qty: 30 6RF amlodipine 2.5 mg Tablet 2.5 mg PO DAILY Qty: 30 6RF clopidogrel 75 mg Tablet 75 mg PO DAILY Qty: 30 11RF budesonide-formoterol [Symbicort] 160-4.5 mcg/actuation HFA aerosol inhaler 2 puff inhalation BID Qty: 3 3RF Rx Instructions: administer with spacer, rinse mouth after each use aspirin 81 mg tablet,delayed release (DR/EC) 81 mg PO DAILY Referrals / Follow Up: Judy Pinto DO [Primary Care Provider] - Disposition Disposition (needs filled in before D/C Order can be placed): Home, Self Care
--- NOTE | 2023-09-21 13:45 | EKG12_ITS ---
Test Reason : PCI Blood Pressure : / mmHG Vent. Rate : 084 BPM Atrial Rate : 084 BPM P-R Int : 206 ms QRS Dur : 110 ms QT Int : 386 ms P-R-T Axes : 054 175 -26 degrees QTc Int : 456 ms Normal sinus rhythm Right bundle branch block Cannot rule out Anterior infarct , age undetermined Abnormal ECG When compared with ECG of 21-SEP-2023 14:23, MANUAL COMPARISON REQUIRED, DATA IS UNCONFIRMED Confirmed by ROSALVA GODFREY, GERRY ([id number]), field map editor MARGARETTE ZEPEDA ([id number]) on 09/23/2023 6:52:19 AM Referred By: Roosevelt Ahmadi Confirmed By:GERRY BLACKWELL MD
[2023-09-21 13:54] LABS: ACT Activated Clotting Time 325 sec (74-137)
--- NOTE | 2023-09-21 14:01 | CL.I_ITS ---
Patient Name: DEMI DEJESUS Study Date: 09/21/2023 Performing: Roosevelt Ahmadi MD Ht: 62 inches 157.48 cm : 1965 Wt: 147.2 lbs 66.68 kg Age: 58 Gender: female BSA: 1.68 PROCEDURE(S) PERFORMED IC12-(70881/C9600)NIGEL W/WO PTCA, SINGLE CORONARY ARTERY CLINICAL PROFILE AND CO-MORBIDITIES Indications: Stable Known CAD Heart Failure: None CONCLUSIONS Successful NIGEL distal RCA into RPDA using [place] Alfalfa 2.5x15 mm, post-dilated using 2.75 mm balloon using 3.5 mm balloon, optimized proximally using 4.0 mm balloon RECOMMENDATIONS ASA Indefinitley Plavix for at least 12 months DESCRIPTION OF PROCEDURE The patient arrived to the procedure lab. The risks and benefits of the procedure as well as a full description of our services here and current unavailability of surgical backup were fully explained to the patient and/or their significant other prior to the catheterization. The Timeout was completed, verifying the correct patient and procedure. The patient's procedural site was prepped and draped in the usual fashion. Local anesthetic was given subcutaneously to right radial region with Lidocaine 2%. Using a modified Seldinger technique, arterial access was obtained via the right radial artery, a 6Fr sheath was inserted.. Right Coronary Artery selective angiography was then performed in multiple views using a jr4 catheterThe images were reviewed and options discussed. A decision was then made to proceed with an Intervention, IVUS or other adjunct procedure. jr4 Guide catheter was inserted and engaged into the RCA. runthrough Guide wire was advanced to the RCA. nelson 2.5 x 15 Drug Eluting stent was advanced across the lesion in the right coronary, mid. choice extra support Guide wire was advanced to the RCA. nc emerge 2.75 x 8 Balloon catheter was inserted post stent. Angiogram performed post balloon dilatation. Drug Eluting stent was advanced across the lesion in the right coronary, mid. Angiogram performed post balloon dilatation. nc emerge 3.5 x 15 Balloon catheter was inserted post stent. Angiogram performed post balloon dilatation. nc euphora Balloon catheter was inserted post stent. Angiogram performed post balloon dilatation. The arterial sheath was pulled and a TR Band was applied for hemostasis INTERVENTION INFORMATION LESION SITE: RCA (Mid) Lesion Complexity: Non-High/Non-C, lesion length: 13 mm Pre Stenosis: 70 % Pre intervention GENEVIEVE flow: 3 PROCEDURE: Drug Eluting Stent with post dilatation Post Stenosis: 0 % Post intervention GENEVIEVE flow: 3 Lesion Devices: Terumo .014 180cm Runthrough Extra Floppy straight Medtronic 2.50 x 15 NELSON FRONTIER NIGEL Cordis 6 Fr JR4 100cm Guide Catheter Antony Sci NC EMERGE MR 2.75x08 BALLOON Medtronic 3.0 x 38 NELSON FRONTIER NIGEL Antony Sci .014 182cm Choice PT Xtra Support wire Antony Sci NC EMERGE MR 3.50x15 BALLOON Medtronic NC EUPHORA RX 4.0x06 BALLOON LESION SITE: RCA (Proximal) Lesion Complexity: High/C, lesion length: 36 mm Pre Stenosis: 80 % Pre intervention GENEVIEVE flow: 3 Post Stenosis: 0 % Post intervention GENEVIEVE flow: 3 COMPLICATIONS No Complications PROCEDURE MEDICATIONS Versed 1 mg IV Fentanyl 50 mcg IV Versed 1 mg IV Fentanyl 50 mcg IV Oxygen: 2 L/min via nasal cannula Heparin 5000 unit(s) IV 09/21/2023 12:50:34 Heparin given IA 09/21/2023 12:52:35 Heparin 2000 unit(s) IV 09/21/2023 13:15:13 Nitro 100 mcg IC 09/21/2023 13:00:06 Plavix 300 mg PO 09/21/2023 13:40:26 IV Bolus: .9 NaCl 250 ml total 09/21/2023 12:53:19 SUMMARY OF HEMODYNAMIC DATA Time AIR REST ECG 09:35:32 AO 116/60 (83) SA 12:53:47 Signed By Roosevelt Ahmadi MD On 09/21/2023 14:00:34 Roosevelt Ahmadi MD
[2023-09-21 14:14] LABS: Anion Gap 7 (5-15); BUN 16 mg/dL (7-18); BUN/Creat Ratio 14.5 RATIO (10-20); Calcium,Total 8.7 mg/dL (8.5-10.1); Chloride 108 mmol/L (98-107); EST Glomerular Filtration Rate 54 mL/min (>60); Est Glom Filt Rate - Afr Amer 65 mL/min (>60); Estimated Creatinine Clearance 48.69 ml/min; Glucose 99 mg/dL (74-106); Potassium 4.7 mmol/L (3.5-5.1); Sodium Level 133 mmol/L (136-145)
[2023-09-21] MEDS: 0.9% Normal Saline (1000mL) 1,000 ML 150 ML IV (14:28)
--- NOTE | 2023-09-21 15:05 | CRPHASE1 ---
Patient Communication Patient Information Former Patient:: Phase I PHII Cardiac Rehab Discussed with Patient:: Yes Communication to Cardiac Rehab Senior Adults Director:: Roosevelt Ahmadi Cardiac Rehabilitation Info Program Information Cardiac Rehabilitation Program Information: Cardiac Rehab The cardiac rehab team at [facility] consists of highly skilled exercise physiologists, nurses, respiratory therapists and physicians working together with you. Our purpose is to help you have a full recovery and achieve the goals you set for yourself. Over the years many of our patients have returned to activities they assumed they would never do again! We can help restore your confidence and motivation to make lifestyle changes that can have a significant impact on your health and quality of life! We can help answer questions and concerns you may have about exercise, lifestyle, medications, diet, stress and anxiety which are common following a hospitalization. WE monitor ECG and vital signs during exercise and discuss your progress with you and report to your physician(s). Cardiac Rehab is proven to help reduce readmissions, improve functional capacity and lower recurrence of problems with your heart. Our Cardiac Rehab program is Certified by the [place] Association of Cardio-Vascular and Pulmonary Rehabilitation (AACVPR) and Accredited by the [place] [employer] through our [facility]. You can contact us at . We invite you to call us with your questions or to get started in our program. If you have other questions or concerns be sure to ask your physician/provider during your follow-up visit. WE look forward to seeing you!
--- NOTE | 2023-09-21 15:27 | NURSING ---
Pt to room from laborer rags. While admitting patient, completing patient belongings list the patient mentions she brought her home medications with her. Pt pulls out a sandwich baggy full of loose pills. This RN educated pt on protocol of home meds; pt has family take home or they have to be locked up in PCU med room in home med box. Pt became very agitated and annoyed with this RN, took bag of pills,tucked them in the bed beside her under the blanket and stated that osmar will take them home then looked at visitor and stated i'm not sending them home with you. This RN obtained bag of pills from patient, educated once again patient and visitors in room on importance of home meds being safely locked up and if pt was to take something we are unaware of it could be dangerous to the patient. This RN and Cheyanne Wynne RN counted bag of pills, placed and sealed in home med bag in front of pt. Pt copy of slip given to pt. Home meds locked in box in med room. Pt also educated multiple times on post heart cath radial recovery, need to keep right arm still and not push/pull. Pt continues to use right wrist despite multiple educations provided. Pt very displeased with how long it is taking dietary to bring her meal. Pt had only placed order 10 minutes prior. This RN had called dietary and asked them to provide meal tad d/t patient having been npo for procedure.
[2023-09-21] MEDS: DULoxetine Hcl 60 MG Capsule 120 MG PO (17:35)
--- NOTE | 2023-09-21 18:50 | NURSING ---
Dressing to right radial changed. Small amount of sanguinous drainage noted on old dressing. No oozing from site noted. Reinforced post cath radial recovery instructions to pt. Pt verbalized understanding.
[2023-09-21] MEDS: Lisinopril 20 MG Tablet PO (19:54)
[2023-09-21] MEDS: Atorvastatin Calcium 10 MG Tablet PO (19:54)
[2023-09-21] MEDS: 0.9% Saline Lock 10 ML Syringe IV (20:01)
[2023-09-22 02:31] VITALS: BMI 26.2
[2023-09-22 04:47] VITALS: BP 107/79; PULSE 77; RESP 14; TEMP 37.4; O2SAT 96
[2023-09-22] MEDS: oxyCODONE 5 MG Tablet PO (04:54)
[2023-09-22 07:46] VITALS: O2SAT 94
[2023-09-22 07:52] LABS: Hematocrit 28.5 % (37-47); Hemoglobin 9.4 g/dL (12.0-15.0); Mean Corpuscular Hgb 31.3 pg (27.0-32.0); Mean Platelet Vol. 9.5 fl (6.2-12.0); Platelet Count 195 K/mm3 (150-450); RBC Distribution Width CV 13.3 % (11.6-14.6); RBC Distribution Width SD 45.6 fl (35.1-43.9); White Blood Count 4.1 K/mm3 (4.4-11.0)
[2023-09-22 08:19] LABS: ALB/GLOB Ratio 0.8 RATIO (0.9-2.4); AST(SGOT) 32 U/L (15-37); Alanine Aminotransfer ALT/SGPT 18 U/L (13-56); Albumin, Serum 3.1 g/dL (3.2-5.0); Alkaline Phosphatase 74 U/L (45-117); Anion Gap 5 (5-15); BUN 21 mg/dL (7-18); BUN/Creat Ratio 17.6 RATIO (10-20); Calcium,Total 8.6 mg/dL (8.5-10.1); Chloride 109 mmol/L (98-107); Creatinine, Serum 1.19 mg/dL (0.55-1.02); EST Glomerular Filtration Rate 49 mL/min (>60); Est Glom Filt Rate - Afr Amer 59 mL/min (>60); Estimated Creatinine Clearance 44.46 ml/min; Glucose 104 mg/dL (74-106); Potassium 4.6 mmol/L (3.5-5.1); Protein, Total 7.1 g/dL (6.4-8.2); Sodium Level 134 mmol/L (136-145)
[2023-09-22 08:55] VITALS: BP 97/56; PULSE 79; RESP 14; TEMP 36.4; O2SAT 95
[2023-09-22] MEDS: Pantoprazole Sodium 40 MG Tablet PO (09:05)
[2023-09-22] MEDS: Hydroxychloroquine 200 MG Tablet PO (09:05)
[2023-09-22] MEDS: Calcium Carb/Vitamin D 1 TABLET Tablet 2 TABLET PO (09:05)
[2023-09-22] MEDS: Aspirin E.C. 81 MG Tablet PO (09:05)
[2023-09-22] MEDS: Multivitamins,Therapeutic Tablet 1 TABLET PO (09:05)
[2023-09-22] MEDS: Clopidogrel Bisulfate 75 MG Tablet PO (09:05)
--- NOTE | 2023-09-22 09:15 | PHA.DC.MR.R ---
Pharmacy [place] Med Reconciliation Pharmacy Service has performed discharge medication reconciliation for this patient. The patient's discharge medication list was reviewed for discrepancies and discrepancies were resolved. Medications at Discharge Home Medications calcium carbonate 600 mg-vitamin D3 20 mcg (800 unit) tablet 2 tab PO DAILY@0800 06/06/14 duloxetine 60 mg capsule,delayed release 120 mg PO DAILY 06/06/14 multivitamin with folic acid 400 mcg tablet 1 tab PO DAILY 06/06/14 mecobalamin (vitamin B12) 5,000 mcg chewable tablet 5,000 mcg PO DAILY 05/14/23 hydroxychloroquine 200 mg tablet 200 mg PO DAILY 05/20/23 omeprazole 40 mg capsule,delayed release 40 mg PO DAILY 05/20/23 budesonide-formoterol HFA 160 mcg-4.5 mcg/actuation aerosol inhaler (Symbicort) 2 puff inhalation BID #3 ea 06/22/23 belimumab 200 mg/mL subcutaneous auto-injector (Benlysta) 200 mg subcut QWEEK 06/23/23 nitroglycerin 0.4 % (w/w) rectal ointment (Rectiv) 1 inch WA QHS 06/23/23 gabapentin 300 mg capsule 300 mg PO BID PRN 06/29/23 timolol maleate 0.5 % eye drops 1 drp ophthalmic (eye) DAILY PRN raynauds 06/29/23 aspirin 81 mg tablet,delayed release 81 mg PO DAILY 07/24/23 alendronate 70 mg tablet 70 mg PO QWEEK 07/28/23 fluticasone propionate 50 mcg/actuation nasal spray,suspension 2 spray intranasal DAILY #18.2 mL 07/28/23 lisinopril 20 mg tablet 20 mg PO BID 07/28/23 amlodipine 2.5 mg tablet 2.5 mg PO DAILY #30 tabs 08/13/23 atorvastatin 10 mg tablet 10 mg PO QHS #30 tabs 08/13/23 clopidogrel 75 mg tablet 75 mg PO DAILY #30 tabs 08/13/23
--- NOTE | 2023-09-22 09:20 | NURSING ---
Pt at nursing desk asking to leave. Redirected back to room to review discharge paperwork and provide instructions.
--- NOTE | 2023-09-22 13:45 | EKG12_ITS ---
Test Reason : Blood Pressure : / mmHG Vent. Rate : 078 BPM Atrial Rate : 078 BPM P-R Int : 204 ms QRS Dur : 116 ms QT Int : 406 ms P-R-T Axes : 050 216 023 degrees QTc Int : 462 ms Normal sinus rhythm Right superior axis deviation Low voltage QRS Cannot rule out Anterior infarct (cited on or before 02-JUN-2023) Abnormal ECG When compared with ECG of 14-AUG-2023 04:32, No significant change was found Confirmed by ROSALVA GODFREY, GERRY ([id number]), publishing editor MARGARETTE ZEPEDA ([id number]) on 09/23/2023 6:52:56 AM Referred By: Roosevelt Ahmadi Confirmed By:GERRY BLACKWELL MD
--- NOTE | 2023-09-23 10:57 | CRPHASE1 ---
Patient Communication Patient Information Former Patient:: Phase I (Previous PCI patient 08/14/2023 and instructed by Lead Database Administrator RN) and Phase II PHII Cardiac Rehab Discussed with Patient:: Yes Guide to Cardiac Rehab Given to Patient:: Yes Cardiac Rehab Facility Choice List Given to Patient:: Yes Communication to Cardiac Rehab Choice Program [facility] CR PHII:: Communication Given to CR Choice Program Other:: Communication Given to CR Prisoner Classification Interviewer:: Roosevelt Ahmadi Phase II Cardiac Rehab:: No (Current Cardiac Rehab Phase II patient.) Orientation Date:: 09/09/23 Start Date:: 09/11/23 Sessions:: 36 sessions - 2 days/wk, 18 weeks Cardiac Rehabilitation Info Program Information Cardiac Rehabilitation Program Information: Cardiac Rehab The cardiac rehab team at [facility] consists of highly skilled exercise physiologists, nurses, respiratory therapists and physicians working together with you. Our purpose is to help you have a full recovery and achieve the goals you set for yourself. Over the years many of our patients have returned to activities they assumed they would never do again! We can help restore your confidence and motivation to make lifestyle changes that can have a significant impact on your health and quality of life! We can help answer questions and concerns you may have about exercise, lifestyle, medications, diet, stress and anxiety which are common following a hospitalization. WE monitor ECG and vital signs during exercise and discuss your progress with you and report to your physician(s). Cardiac Rehab is proven to help reduce readmissions, improve functional capacity and lower recurrence of problems with your heart. Our Cardiac Rehab program is Certified by the [place] [employer] of Cardio-Vascular and Pulmonary Rehabilitation (AACVPR) and Accredited by the [place] [employer] through our [facility]. You can contact us at . We invite you to call us with your questions or to get started in our program. If you have other questions or concerns be sure to ask your physician/provider during your follow-up visit. WE look forward to seeing you!
== END 2023-09-22 09:24 | disposition home or self-care (01) ==
LOC: PCU 14:01
PROVIDERS: Admitting Provider Internal Medicine Cardiovascular Disease; PCP Family Medicine; Referring Provider Internal Medicine Cardiovascular Disease; Visit Provider Internal Medicine Cardiovascular Disease
DX: I25.10 Atherosclerotic heart disease of native coronary artery without angina pectoris (principal); D69.3 Immune thrombocytopenic purpura; I27.20 Pulmonary hypertension, unspecified; R06.02 Shortness of breath; Z95.5 Presence of coronary angioplasty implant and graft; Z79.02 Long term (current) use of antithrombotics/antiplatelets; Z79.899 Other long term (current) drug therapy; Z79.82 Long term (current) use of aspirin; R94.39 Abnormal result of other cardiovascular function study; I10 Essential (primary) hypertension; Z87.891 Personal history of nicotine dependence
CPT/HCPCS: 36415; 80048; 80053; 85027; 85347; 92928; 93005; 96360; 96361; 99152; 99153; 99221; C1725; J7030; J7040; Q9967; A4216; C1769; C1874; C1887; C1894; C9600; G0378; J2405

== ENCOUNTER → 2023-09-23 | Outpatient (CLI) | payer MEDICARE, SELFPAY ==
[2023-09-09 13:09] VITALS: BMI 26.3
[2023-09-23 11:55] LABS: Protein, Urine (Random) 58.4 mg/dL (<11.9); Protein:Creat Ratio 692 mg/g CRE (0-200)
== END | disposition home or self-care (01) ==
LOC: LABSPEC 10:47
PROVIDERS: PCP Family Medicine; Visit Provider Internal Medicine Nephrology
DX: R80.9 Proteinuria, unspecified (principal)
CPT/HCPCS: 82570; 84156

== ENCOUNTER → 2023-11-24 | Outpatient (CLI) | payer MEDICARE, SELFPAY ==
[2023-09-09 13:09] VITALS: BMI 26.3
[2023-11-24 12:28] LABS: Color, Urine Yellow (Yellow); Glucose, Dipstick Normal (Normal); Ketone-Dipstick Negative (Negative); Leukocyte Esterase-Dipstick Negative /ul (Negative); Nitrite-Dipstick Negative (Negative); Occult Blood-Urine Negative /ul (Negative); Protein-Dipstick 30 mg/dl (Negative); Specific Gravity, Urine 1.025 (1.002-1.030); Urine Bilirubin Dipstick Negative (Negative); Urine Clarity Clear (Clear); Urine Urobilinogen Normal (Normal)
[2023-11-24 12:36] LABS: Absolute Lymphocyte Count 0.34 X10^3/uL (0.83-4.51); Absolute Neutrophil Count 2.9 X10^3/uL (2.0-7.7); Basophil# 0.01 X10^3/uL; Basophil% 0.3 % (0-1); Eosinophil# 0.01 X10^3/uL; Eosinophils% 0.3 % (0-5); Hematocrit 32.4 % (37-47); Hemoglobin 10.2 g/dL (12.0-15.0); Lymphocyte # 0.34 X10^3/ul (0.83-4.51); Lymphocyte % 8.9 % (19-41); Mean Corp Hgb Conc 31.5 g/dL (32-36); Mean Corpuscular Hgb 31.3 pg (27.0-32.0); Mean Corpuscular Volume 99.4 fL (81-99); Mean Platelet Vol. 9.5 fl (6.2-12.0); Monocyte# 0.53 X10^3/uL; Monocyte% 13.9 % (0-10); NRBC Flagged by Analyzer 0 % (0-5); Neutrophil # 2.91 X10^3/uL (2.7-7.7); Neutrophil % 76.1 % (47-70); POSITIVE DIFFERENTIAL YES; Platelet Count 245 K/mm3 (150-450); RBC Distribution Width CV 14.5 % (11.6-14.6); RBC Distribution Width SD 52.5 fl (35.1-43.9); Red Blood Count 3.26 M/mm3 (4.2-5.4); White Blood Count 3.8 K/mm3 (4.4-11.0)
[2023-11-24 12:38] LABS: Protein, Urine (Random) 85.2 mg/dL (<11.9); Protein:Creat Ratio 844 mg/g CRE (0-200)
[2023-11-24 12:45] LABS: ALB/GLOB Ratio 0.8 RATIO (0.9-2.4); AST(SGOT) 25 U/L (15-37); Alanine Aminotransfer ALT/SGPT 26 U/L (13-56); Albumin, Serum 3.1 g/dL (3.2-5.0); Alkaline Phosphatase 71 U/L (45-117); Anion Gap 5 (5-15); BUN 10 mg/dL (7-18); BUN/Creat Ratio 9.7 RATIO (10-20); Calcium,Total 8.9 mg/dL (8.5-10.1); Chloride 113 mmol/L (98-107); Creatinine, Serum 1.03 mg/dL (0.55-1.02); EST Glomerular Filtration Rate 58 mL/min (>60); Est Glom Filt Rate - Afr Amer 70 mL/min (>60); Glucose 92 mg/dL (74-106); Potassium 3.6 mmol/L (3.5-5.1); Protein, Total 7.1 g/dL (6.4-8.2); Sodium Level 140 mmol/L (136-145)
[2023-11-25 08:14] LABS: Complement C3 75 mg/dL (82-167)
[2023-11-25 13:09] LABS: Anti-dsDNA Ab 1 IU/mL (0-9)
== END | disposition home or self-care (01) ==
LOC: MTLAB 10:16
PROVIDERS: PCP Family Medicine; Referring Provider Internal Medicine Rheumatology; Visit Provider Internal Medicine Rheumatology
DX: M06.4 Inflammatory polyarthropathy (principal); M32.9 Systemic lupus erythematosus, unspecified; M79.7 Fibromyalgia; Z79.899 Other long term (current) drug therapy
CPT/HCPCS: 36415; 80053; 81002; 82570; 84156; 85025; 86160; 86225

== ENCOUNTER → 2024-02-22 | Outpatient (CLI) | payer MEDICARE, SELFPAY ==
[2023-09-09 13:09] VITALS: BMI 26.3
[2024-02-22 15:01] LABS: Color, Urine Straw (Yellow); Glucose, Dipstick Normal (Normal); Ketone-Dipstick Negative (Negative); Leukocyte Esterase-Dipstick Negative /ul (Negative); Nitrite-Dipstick Negative (Negative); Occult Blood-Urine Negative /ul (Negative); Protein-Dipstick 15 mg/dl (Negative); Urine Bilirubin Dipstick Negative (Negative); Urine Clarity Clear (Clear); Urine Urobilinogen Normal (Normal)
[2024-02-22 15:03] LABS: Absolute Lymphocyte Count 0.43 X10^3/uL (0.83-4.51); Absolute Neutrophil Count 2.8 X10^3/uL (2.0-7.7); Basophil# 0.02 X10^3/uL; Basophil% 0.5 % (0-1); Hematocrit 39.3 % (37-47); Hemoglobin 12.4 g/dL (12.0-15.0); Lymphocyte # 0.43 X10^3/ul (0.83-4.51); Lymphocyte % 11.6 % (19-41); Mean Corp Hgb Conc 31.6 g/dL (32-36); Mean Corpuscular Hgb 31.6 pg (27.0-32.0); Mean Corpuscular Volume 100.3 fL (81-99); Monocyte# 0.43 X10^3/uL; Monocyte% 11.6 % (0-10); NRBC Flagged by Analyzer 0 % (0-5); Neutrophil # 2.82 X10^3/uL (2.7-7.7); Neutrophil % 75.8 % (47-70); POSITIVE DIFFERENTIAL YES; Platelet Count 235 K/mm3 (150-450); RBC Distribution Width CV 13.8 % (11.6-14.6); RBC Distribution Width SD 50.5 fl (35.1-43.9); Red Blood Count 3.92 M/mm3 (4.2-5.4); White Blood Count 3.7 K/mm3 (4.4-11.0)
[2024-02-22 15:40] LABS: ALB/GLOB Ratio 0.7 RATIO (0.9-2.4); AST(SGOT) 26 U/L (15-37); Alanine Aminotransfer ALT/SGPT 22 U/L (13-56); Albumin, Serum 3.2 g/dL (3.2-5.0); Alkaline Phosphatase 127 U/L (45-117); Anion Gap 4 (5-15); BUN 11 mg/dL (7-18); BUN/Creat Ratio 11.1 RATIO (10-20); Chloride 107 mmol/L (98-107); EST Glomerular Filtration Rate 60 mL/min (>60); Est Glom Filt Rate - Afr Amer 73 mL/min (>60); Globulin 4.4 g/dL (2.2-4.2); Glucose 101 mg/dL (74-106); Potassium 4.1 mmol/L (3.5-5.1); Protein, Total 7.6 g/dL (6.4-8.2); Sodium Level 136 mmol/L (136-145)
[2024-02-22 15:54] LABS: Protein, Urine (Random) 16.8 mg/dL (<11.9); Protein:Creat Ratio 923 mg/g CRE (0-200)
[2024-02-24 08:13] LABS: Complement C3 78 mg/dL (82-167)
[2024-02-24 17:08] LABS: Anti-dsDNA Ab 2 IU/mL (0-9)
== END | disposition home or self-care (01) ==
PROVIDERS: PCP Family Medicine; Referring Provider Internal Medicine Rheumatology; Visit Provider Internal Medicine Rheumatology
DX: M06.4 Inflammatory polyarthropathy (principal); I27.20 Pulmonary hypertension, unspecified; M32.9 Systemic lupus erythematosus, unspecified; Z79.899 Other long term (current) drug therapy; M79.7 Fibromyalgia; M35.00 Sjogren syndrome, unspecified
CPT/HCPCS: 36415; 80053; 81002; 82570; 84156; 85025; 86160; 86225

== ENCOUNTER → 2024-05-11 | Outpatient (CLI) | payer MEDICARE, SELFPAY ==
[2023-09-09 13:09] VITALS: BMI 26.3
[2024-05-11 15:28] LABS: Color, Urine Yellow (Yellow); Glucose, Dipstick Normal (Normal); Ketone-Dipstick Negative (Negative); Leukocyte Esterase-Dipstick 25 /ul (Negative); Nitrite-Dipstick Negative (Negative); Occult Blood-Urine Negative /ul (Negative); Protein-Dipstick 100 mg/dl (Negative); Urine Bilirubin Dipstick Negative (Negative); Urine Clarity Clear (Clear); Urine Urobilinogen Normal (Normal); Urine pH 6.5 (5.0 - 8.0)
[2024-05-11 16:00] LABS: ALB/GLOB Ratio 0.8 RATIO (0.9-2.4); AST(SGOT) 30 U/L (15-37); Alanine Aminotransfer ALT/SGPT 20 U/L (13-56); Albumin, Serum 3.2 g/dL (3.2-5.0); Alkaline Phosphatase 110 U/L (45-117); Anion Gap 8 (5-15); BUN 7 mg/dL (7-18); BUN/Creat Ratio 7.5 RATIO (10-20); Calcium,Total 8.7 mg/dL (8.5-10.1); Chloride 109 mmol/L (98-107); Creatinine, Serum 0.94 mg/dL (0.55-1.02); EST Glomerular Filtration Rate 65 mL/min (>60); Est Glom Filt Rate - Afr Amer 78 mL/min (>60); Globulin 4.2 g/dL (2.2-4.2); Glucose 109 mg/dL (74-106); Phosphorus 4.2 mg/dL (2.5-4.9); Potassium 3.3 mmol/L (3.5-5.1); Protein, Total 7.4 g/dL (6.4-8.2); Sodium Level 140 mmol/L (136-145)
[2024-05-11 16:06] LABS: Protein, Urine (Random) 80.6 mg/dL (<11.9); Protein:Creat Ratio 3802 mg/g CRE (0-200)
[2024-05-11 17:53] LABS: Absolute Lymphocyte Count 0.37 X10^3/uL (0.83-4.51); Absolute Neutrophil Count 3.9 X10^3/uL (2.0-7.7); Basophil# 0.01 X10^3/uL; Basophil% 0.2 % (0-1); Eosinophil# 0.01 X10^3/uL; Eosinophils% 0.2 % (0-5); Hematocrit 35.7 % (37-47); Hemoglobin 11.4 g/dL (12.0-15.0); Lymphocyte # 0.37 X10^3/ul (0.83-4.51); Lymphocyte % 7.8 % (19-41); Mean Corp Hgb Conc 31.9 g/dL (32-36); Mean Corpuscular Hgb 32.4 pg (27.0-32.0); Mean Corpuscular Volume 101.4 fL (81-99); Mean Platelet Vol. 10.6 fl (6.2-12.0); Monocyte# 0.46 X10^3/uL; Monocyte% 9.7 % (0-10); NRBC Flagged by Analyzer 0 % (0-5); Neutrophil # 3.88 X10^3/uL (2.7-7.7); Neutrophil % 81.9 % (47-70); POSITIVE DIFFERENTIAL YES; Platelet Count 165 K/mm3 (150-450); RBC Distribution Width CV 15.3 % (11.6-14.6); RBC Distribution Width SD 57.4 fl (35.1-43.9); Red Blood Count 3.52 M/mm3 (4.2-5.4); White Blood Count 4.7 K/mm3 (4.4-11.0)
[2024-05-13 08:14] LABS: Complement C3 84 mg/dL (82-167)
[2024-05-13 10:09] LABS: Anti-dsDNA Ab 2 IU/mL (0-9)
== END | disposition home or self-care (01) ==
LOC: MTLAB 13:43
PROVIDERS: PCP Family Medicine; Referring Provider Internal Medicine Rheumatology; Visit Provider Internal Medicine Nephrology
DX: M32.9 Systemic lupus erythematosus, unspecified (principal); I27.20 Pulmonary hypertension, unspecified; M06.4 Inflammatory polyarthropathy; R80.9 Proteinuria, unspecified; Z79.899 Other long term (current) drug therapy; M35.00 Sjogren syndrome, unspecified
CPT/HCPCS: 36415; 80053; 81002; 82570; 84100; 84156; 85025; 86160; 86225

== ENCOUNTER 2024-06-02 10:35 | Emergency (ER) | payer MEDICARE, SELFPAY ==
[2023-09-09 13:09] VITALS: BMI 26.3
[2024-06-02] VITALS (8 sets, daily range): BP systolic 112–157; BP diastolic 55–98; PULSE 73–84; RESP 15–24; TEMP 36.6–36.8; O2SAT 96–100; BMI 39.1
--- NOTE | 2024-06-02 10:55 | RAD_ITS ---
HISTORY: fall. TECHNIQUE: XR Ankle Min 3 Views. COMPARISON: None. FINDINGS: BONES : Oblique fracture distal fibula with nearly one shaft width lateral and posterior displacement. Comminuted fracture of the distal tibia extending to through the medial malleolus with mild inferomedial displacement. JOINTS: Disruption of the ankle mortise with widening of the anterior tibial talar joint. Joint effusion. SOFT TISSUES: Severe soft tissue swelling. RAD/Ankle min 3 Views IMPRESSION: Bimalleolar fracture-subluxation of the right ankle. Electronically Signed: Joann Sigala MD at 11:23 EST ,
--- NOTE | 2024-06-02 11:47 | ED.VIS.LOWEX ---
HPI History of Present Illness Chief Complaint: Lower Extremity Injury Informant: patient and spouse/S.O. Narrative Narrative: Brought in by his private vehicle all walking down 3 steps pain right ankle. No head injuries. Had to be healthier. No history of fractures. She is on aspirin and Plavix first stent of the heart few months ago. No other anticoagulants. Prior similar symptoms: No PFSH PFSH Medical History Shortness of breath Abnormal stress test Sjogren's disease Abnormal echocardiogram Chronic ITP (idiopathic thrombocytopenia) Bilateral pneumonia Raynauds disease COPD (chronic obstructive pulmonary disease) Wheeze Pulmonary hypertension Hemorrhoids Acid reflux Blood in stool Constipation Abdominal pain Anxiety Lupus Back problem Fatigue Depression Benign essential HTN Anemia Home Medications ?Medication ?Instructions ?Recorded ?Last Taken ?Type duloxetine 60 mg capsule,delayed 120 mg PO DAILY 06/06/14 08/13/23 History release multivitamin with folic acid 400 1 tab PO DAILY 06/06/14 Unknown History mcg tablet hydroxychloroquine 200 mg tablet 200 mg PO DAILY 05/20/23 08/13/23 History omeprazole 40 mg capsule,delayed 40 mg PO DAILY 05/20/23 08/13/23 History release gabapentin 300 mg capsule 300 mg PO BID PRN 06/29/23 Unknown History aspirin 81 mg tablet,delayed 81 mg PO DAILY 07/24/23 09/21/23 History release clopidogrel 75 mg tablet 75 mg PO DAILY #30 tabs 08/13/23 09/21/23 Rx belimumab 200 mg/mL subcutaneous 200 mg subcut .QMO 11/03/23 Unknown History auto-injector (Benlysta) trazodone 100 mg tablet 100 mg PO QHS 11/03/23 Unknown History amlodipine 2.5 mg tablet 2.5 mg PO DAILY #90 tabs 05/09/24 Unknown Rx atorvastatin 10 mg tablet 10 mg PO QHS 05/11/24 Unknown History lisinopril 20 mg tablet 30 mg PO BID 05/24/24 Unknown History docusate sodium 100 mg capsule 100 mg PO BID #60 caps 06/02/24 Unknown Rx (Colace) oxycodone-acetaminophen 5 mg-325 1 tab PO Q6H PRN PRN Pain 5 days 06/02/24 Unknown Rx mg tablet #20 TABLETS Allergy/AdvReac Type Severity Reaction Status Date / Time amoxicillin trihydrate (From Allergy Unknown Verified 06/02/24 10:41 Augmentin) diflunisal (From Dolobid) Allergy Unknown Verified 06/02/24 10:41 Penicillins Allergy Rash Verified 06/02/24 10:41 potassium clavulanate (From Allergy Unknown Verified 06/02/24 10:41 Augmentin) sulfamethoxazole (From Allergy Rash Verified 06/02/24 10:41 Septra) trimethoprim (From Septra) Allergy Rash Verified 06/02/24 10:41 aripiprazole (From Abilify) AdvReac Other Verified 06/02/24 10:41 fluoxetine HCl (From Prozac) AdvReac Other Verified 06/02/24 10:41 sertraline HCl (From Zoloft) AdvReac Other Verified 06/02/24 10:41 venlafaxine HCl (From AdvReac Other Verified 06/02/24 10:41 Effexor) Family History Mother Cancer Pancreatic COPD (chronic obstructive pulmonary disease) Brother Myocardial infarction CAD (coronary artery disease) Stent Surgical History Hx of cardiac catheterization (~09/21/23) Stented coronary artery (09/21/23) Status post biopsy of kidney History of hysterectomy Hx of colonoscopy History of Social History Smoking Status: Former smoker Tobacco: How many years used: 10 second hand exposure: No alcohol intake: never substance use type: does not use caffeine: Yes Type: carbonated beverages and tea what type of physical activity do you participate in: none frequency: does not exercise ROS ROS ED Constitutional Constitutional ED: Denies chills, fever(s) or sweats ENT ENT ED: Denies sore throat Cardiovascular Cardiovascular: Denies chest pain or palpitations Respiratory/Chest Respiratory/Chest: Denies cough Gastrointestinal Gastrointestinal: Denies abdominal pain, diarrhea, nausea or vomiting Musculoskeletal Musculoskeletal: Reports extremity pain; Denies back pain or neck pain Integumentary Denies rash or wounds Neurologic Neurologic: Denies headache(s) or paresthesias EXAM Physical Exam Const Vital Signs: 06/02/24 10:35 06/02/24 12:00 06/02/24 12:01 Temperature 98 F 98 F Temperature Source Temporal Pulse Rate 84 77 Pulse Rate [1 (Initial Baseline)] Pulse Rate [2] Pulse Rate [3] Pulse Rate [4] Pulse Rate [5] Pulse Rate [6] Respiratory Rate 16 24 H Respiratory Rate [1 (Initial Baseline)] Respiratory Rate [2] Respiratory Rate [3] Respiratory Rate [4] Respiratory Rate [5] Respiratory Rate [6] Blood Pressure 157/55 H 149/71 H Blood Pressure [1 (Initial Baseline)] Blood Pressure [2] Blood Pressure [3] Blood Pressure [4] Blood Pressure [5] Blood Pressure [6] Blood Pressure Mean 89 Pulse Ox 97 100 Oxygen Delivery Method Room Air Room Air Oxygen Delivery Method [1 (Initial Baseline)] Oxygen Delivery Method [2] Oxygen Delivery Method [3] Oxygen Delivery Method [4] Oxygen Delivery Method [5] Oxygen Delivery Method [6] Oxygen Flow Rate (L/min) [1 (Initial Baseline)] Oxygen Flow Rate (L/min) [2] Oxygen Flow Rate (L/min) [3] Oxygen Flow Rate (L/min) [4] Oxygen Flow Rate (L/min) [5] Oxygen Flow Rate (L/min) [6] EtCo2 (Normal 35-45 , high quality CPR 10-20 & ROSC>/=40mmHg 27 EtCo2 (Normal 35-45 , high quality CPR 10-20 & ROSC>/=40mmHg [1 (Initial Baseline)] EtCo2 (Normal 35-45 , high quality CPR 10-20 & ROSC>/=40mmHg [2] EtCo2 (Normal 35-45 , high quality CPR 10-20 & ROSC>/=40mmHg [3] EtCo2 (Normal 35-45 , high quality CPR 10-20 & ROSC>/=40mmHg [4] EtCo2 (Normal 35-45 , high quality CPR 10-20 & ROSC>/=40mmHg [5] EtCo2 (Normal 35-45 , high quality CPR 10-20 & ROSC>/=40mmHg [6] 06/02/24 12:17 06/02/24 12:39 06/02/24 12:44 Temperature Temperature Source Pulse Rate Pulse Rate [1 (Initial Baseline)] 79 Pulse Rate [2] 82 Pulse Rate [3] 81 Pulse Rate [4] 79 Pulse Rate [5] 79 Pulse Rate [6] 81 Respiratory Rate Respiratory Rate [1 (Initial Baseline)] 16 Respiratory Rate [2] 19 H Respiratory Rate [3] 23 H Respiratory Rate [4] 18 Respiratory Rate [5] 24 H Respiratory Rate [6] 24 H Blood Pressure Blood Pressure [1 (Initial Baseline)] 135/75 H Blood Pressure [2] 149/74 H Blood Pressure [3] 129/61 H Blood Pressure [4] 120/64 Blood Pressure [5] 126/98 H Blood Pressure [6] 114/56 L Blood Pressure Mean Pulse Ox Oxygen Delivery Method Room Air Room Air Oxygen Delivery Method [1 (Initial Baseline)] Nasal Cannula Oxygen Delivery Method [2] Nasal Cannula Oxygen Delivery Method [3] Nasal Cannula Oxygen Delivery Method [4] Nasal Cannula Oxygen Delivery Method [5] Nasal Cannula Oxygen Delivery Method [6] Nasal Cannula Oxygen Flow Rate (L/min) [1 (Initial Baseline)] 2 Oxygen Flow Rate (L/min) [2] 2 Oxygen Flow Rate (L/min) [3] 2 Oxygen Flow Rate (L/min) [4] 2 Oxygen Flow Rate (L/min) [5] 2 Oxygen Flow Rate (L/min) [6] 2 EtCo2 (Normal 35-45 , high quality CPR 10-20 & ROSC>/=40mmHg EtCo2 (Normal 35-45 , high quality CPR 10-20 & ROSC>/=40mmHg [1 (Initial Baseline)] 33 EtCo2 (Normal 35-45 , high quality CPR 10-20 & ROSC>/=40mmHg [2] 29 EtCo2 (Normal 35-45 , high quality CPR 10-20 & ROSC>/=40mmHg [3] 23 EtCo2 (Normal 35-45 , high quality CPR 10-20 & ROSC>/=40mmHg [4] 21 EtCo2 (Normal 35-45 , high quality CPR 10-20 & ROSC>/=40mmHg [5] 26 EtCo2 (Normal 35-45 , high quality CPR 10-20 & ROSC>/=40mmHg [6] 24 06/02/24 13:56 06/02/24 15:03 Temperature 98.3 F Temperature Source Pulse Rate 78 73 Pulse Rate [1 (Initial Baseline)] Pulse Rate [2] Pulse Rate [3] Pulse Rate [4] Pulse Rate [5] Pulse Rate [6] Respiratory Rate 17 15 Respiratory Rate [1 (Initial Baseline)] Respiratory Rate [2] Respiratory Rate [3] Respiratory Rate [4] Respiratory Rate [5] Respiratory Rate [6] Blood Pressure 121/60 H 127/69 H Blood Pressure [1 (Initial Baseline)] Blood Pressure [2] Blood Pressure [3] Blood Pressure [4] Blood Pressure [5] Blood Pressure [6] Blood Pressure Mean 80 88 Pulse Ox 97 96 Oxygen Delivery Method Room Air Oxygen Delivery Method [1 (Initial Baseline)] Oxygen Delivery Method [2] Oxygen Delivery Method [3] Oxygen Delivery Method [4] Oxygen Delivery Method [5] Oxygen Delivery Method [6] Oxygen Flow Rate (L/min) [1 (Initial Baseline)] Oxygen Flow Rate (L/min) [2] Oxygen Flow Rate (L/min) [3] Oxygen Flow Rate (L/min) [4] Oxygen Flow Rate (L/min) [5] Oxygen Flow Rate (L/min) [6] EtCo2 (Normal 35-45 , high quality CPR 10-20 & ROSC>/=40mmHg EtCo2 (Normal 35-45 , high quality CPR 10-20 & ROSC>/=40mmHg [1 (Initial Baseline)] EtCo2 (Normal 35-45 , high quality CPR 10-20 & ROSC>/=40mmHg [2] EtCo2 (Normal 35-45 , high quality CPR 10-20 & ROSC>/=40mmHg [3] EtCo2 (Normal 35-45 , high quality CPR 10-20 & ROSC>/=40mmHg [4] EtCo2 (Normal 35-45 , high quality CPR 10-20 & ROSC>/=40mmHg [5] EtCo2 (Normal 35-45 , high quality CPR 10-20 & ROSC>/=40mmHg [6] Positive well nourished and well developed Constitutional Narrative: GCS 15. General Appearance ED: well developed HEENT Reports moist mucous membranes normocephalic and atraumatic Eyes General Eye ED: Yes normal appearance of both eyes Neck full ROM Chest Wall inspection of chest normal and palpation of chest normal Chest: Negative for tenderness Resp normal respiratory effort and normal air movement Effort and Inspection: symmetric chest movement; Negative for respiratory distress Cardio regular rate, regular rhythm and no murmurs Peripheral Pulses: pulses 2+ throughout GI normal to inspection, nondistended, normoactive bowel sounds and non-tender Palpation: Negative for guarding or rebound tenderness present Extremity Extremity Narrative: Right lower extremity: No hip pain or knee pain. Deformity of the ankle with bruising medially. Skin intact. Neuro vas intact distally. Left lower extremity: No hip knee or ankle tenderness. There is small ecchymosis noted dorsal foot proximal to the midfoot region. No midfoot or proximal fifth base tenderness. No ankle tenderness. Pulse intact distally. General Extremety ED: Yes tenderness; Negative for edema General Extremity: Negative for edema Neuro oriented x3 and no sensory deficits noted Sensorium / Orientation: awake and alert Skin no rashes or lesions noted and no wounds MDM MDM MDM Narrative Medical decision making narrative: Interventions / MDM: Differential diagnosis: Fracture, contusion Diagnosis considered but do not suspect: N/A My EKG interpretation: N/A Imaging independently reviewed and interpreted by myself: 3 view right ankle: Bimalleolar mall fracture with posterior subluxation of the talus. This also read by radiology. Postreduction 2 view right ankle: Improved alignment of fracture and subluxation. External documents reviewed: N/A Test considered but not ordered:N/A ED course: Patient imaging per nursing protocol bimalleolar fracture with subluxation of the talus. IV be established for planned sedation. Morphine Zofran for symptom control. Consent obtained. Last meal was 8 AM with small biscuit. Procedure sedation with relocation. Consent obtained. See procedure note for medications. IV, pulse ox capnography monitor. Normal sinus rhythm on the monitor blood pressure stable. Given total of 60 mg of propofol, fracture reduced, nylon sleeve Kerlix dressing extra padding at the ankle. A 5 inch posterior splint along with 3 inch stirrups were placed around the ankle. Secured with Olvin wrap. Placed 90 degree position of the foot. Neurovascular intact post splinting. Patient tolerated procedure well. Post films obtained. I spoke with elementary school counselor Dr. Gamino, will maintain nonweightbearing. I requested CT scan lower extremity for surgical planning. Discussed her stenting and dual platelet therapy this past September. She is able to ambulate nonweightbearing with a walker. Prescription for pain medications. Outpatient follow-up with podiatry early next week. Re-evaluation: stable Disposition discussed with patient/family/significant other: Patient and spouse Case discussed with consulting clinician: Podiatry This note was generated with Dragon dictation software. It may contain incorrect words, spelling, and punctuation that were not noted in checking the note before signing. Lab Data Attestation: I reviewed the patient's lab results. Labs: Laboratory Results - last 24 hr 06/02/24 11:50 WBC 5.0 RBC 3.50 L Hgb 11.3 L Hct 35.5 L MCV 101.4 H MCH 32.3 H MCHC 31.8 L RDW Std Deviation 51.7 H RDW Coeff of Tristen 13.9 Plt Count 139 L MPV 10.3 Immature Gran % (Auto) 0.600 Neut % (Auto) 82.7 H Lymph % (Auto) 8.7 L [place] % (Auto) 7.6 Eos % (Auto) 0.0 Baso % (Auto) 0.4 Absolute Neuts (auto) 4.1 Absolute Lymphs (auto) 0.43 L Nucleated RBC % 0 PT 14.7 INR 1.2 APTT 48.5 H Sodium 138 Potassium 3.6 Chloride 110 H Carbon Dioxide 25.0 Anion Gap 4 L BUN 8 Creatinine 0.95 Estim Creat Clear Calc 67.60 Est GFR (MDRD) Af Amer 77 Est GFR (MDRD) Non-Af 63 BUN/Creatinine Ratio 8.4 L Glucose 95 Calcium 9.0 Radiography Diagnostic Testing: Clinical Impression(s) from Imaging Studies Ankle X-Ray 06/02/24 10:55 IMPRESSION: Bimalleolar fracture-subluxation of the right ankle. Electronically Signed: Joann Sigala MD at 11:23 EST , Ankle X-Ray 06/02/24 12:36 IMPRESSION: Improved alignment of right ankle bimalleolar fracture subluxation status post casting. Electronically Signed: Joann Sigala MD at 13:55 EST , Lower Extremity CT 12/26/24 14:24 IMPRESSION: Trimalleolar fracture--subluxation of the right ankle. Electronically Signed: Joann Sigala MD at 15:11 EST , Procedures Procedural Sedation 1 (Initial Baseline): Consent Signed: Yes Any Problems With Anesthesia: No Sedation medication: Propofol Dose: 60 Route: IV Maliampati Score: Class II ASA Classification: II Discharge Plan Triage Chief Complaint: Lower Extremity Injury ED Provider: Fox Tomlinson Dx/Rx/DC Orders Clinical Impression: Closed right ankle fracture, CAD (coronary artery disease), History of conscious sedation Instructions: ED Ankle Dislocation (Adult), ED Ankle Fracture Prescriptions: New oxycodone-acetaminophen 5-325 mg tablet 1 tab PO Q6H PRN PRN (Reason: Pain) 5 Days Qty: 20 0RF docusate sodium [Colace] 100 mg capsule 100 mg PO BID Qty: 60 0RF No Action hydroxychloroquine 200 mg tablet 200 mg PO DAILY lisinopril 20 mg tablet 30 mg PO BID omeprazole 40 mg capsule,delayed release(DR/EC) 40 mg PO DAILY Benlysta 200 mg/mL auto-injector 200 mg subcut .QMO Rx Instructions: inject into upper thigh or abdomen; rotate sites trazodone 100 mg tablet 100 mg PO QHS atorvastatin 10 mg tablet 10 mg PO QHS duloxetine 60 MG capsule 120 mg PO DAILY Patient Comments: mood multivitamin with folic acid 1 TABLET tablet 1 tab PO DAILY Patient Comments: supplement gabapentin 300 mg capsule 300 mg PO BID PRN Rx Instructions: bid clopidogrel 75 mg Tablet 75 mg PO DAILY Qty: 30 11RF aspirin 81 mg tablet,delayed release (DR/EC) 81 mg PO DAILY amlodipine 2.5 mg tablet 2.5 mg PO DAILY Qty: 90 3RF Primary Care Provider: Juice Cochran Referrals: Juice Cochran MD [Primary Care Provider] - Rakan Gamino DPM [Med Staff - Active Staff] - 3-5 Days Activity Restrictions/Additional Instructions: Nonweightbearing right lower extremity. Use the walker. May waste picker a knee scooter at [employer]. Take pain medicines as prescribed. Use dose of prevent constipation. Discussed with Dr. Gamino in the ED. Follow-up with him early next week for discussion for likely surgery. Print Language: Yakut Disposition Disposition: Home, Self Care Discharge Date/Time: 06/02/24 15:05
[2024-06-02] MEDS: Morphine 4 MG/ML Syringe IV (11:56)
[2024-06-02] MEDS: Propofol 200 MG/20 ML Vial IV BOLUS (11:56)
[2024-06-02] MEDS: Ondansetron 4 MG/2 ML Vial IV (11:56)
[2024-06-02 12:14] LABS: Absolute Lymphocyte Count 0.43 X10^3/uL (0.83-4.51); Absolute Neutrophil Count 4.1 X10^3/uL (2.0-7.7); Basophil# 0.02 X10^3/uL; Basophil% 0.4 % (0-1); Hematocrit 35.5 % (37-47); Hemoglobin 11.3 g/dL (12.0-15.0); Lymphocyte # 0.43 X10^3/ul (0.83-4.51); Lymphocyte % 8.7 % (19-41); Mean Corp Hgb Conc 31.8 g/dL (32-36); Mean Corpuscular Hgb 32.3 pg (27.0-32.0); Mean Corpuscular Volume 101.4 fL (81-99); Mean Platelet Vol. 10.3 fl (6.2-12.0); Monocyte# 0.38 X10^3/uL; Monocyte% 7.6 % (0-10); NRBC Flagged by Analyzer 0 % (0-5); Neutrophil # 4.11 X10^3/uL (2.7-7.7); Neutrophil % 82.7 % (47-70); POSITIVE DIFFERENTIAL YES; Platelet Count 139 K/mm3 (150-450); RBC Distribution Width CV 13.9 % (11.6-14.6); RBC Distribution Width SD 51.7 fl (35.1-43.9)
[2024-06-02 12:23] LABS: International Normalized Ratio 1.2; Prothrombin Time (Protime)PT. 14.7 SECONDS (11.7-14.9)
[2024-06-02 12:24] LABS: Partial Thromboplast Time 48.5 Seconds (24.1-36.2)
--- NOTE | 2024-06-02 12:36 | RAD_ITS ---
RAD/Ankle 2 Views IMPRESSION: Improved alignment of right ankle bimalleolar fracture subluxation status post casting. Electronically Signed: Joann Sigala MD at 13:55 EST ,
[2024-06-02 12:41] LABS: Anion Gap 4 (5-15); BUN 8 mg/dL (7-18); BUN/Creat Ratio 8.4 RATIO (10-20); Chloride 110 mmol/L (98-107); Creatinine, Serum 0.95 mg/dL (0.55-1.02); EST Glomerular Filtration Rate 63 mL/min (>60); Est Glom Filt Rate - Afr Amer 77 mL/min (>60); Glucose 95 mg/dL (74-106); Potassium 3.6 mmol/L (3.5-5.1); Sodium Level 138 mmol/L (136-145)
[2024-06-02] MEDS: oxyCODONE 5 MG Tablet PO (14:00)
--- NOTE | 2024-06-02 14:05 | ED.RN ---
PT MAD BECAUSE SHE HAS NOT BEEN DISCHARGED YET. SO WHAT, YOU ONLY HAVE ONE AROUND HERE?!
--- NOTE | 2024-06-02 14:24 | CT_ITS ---
HISTORY: ankle fx. TECHNIQUE: Helically acquired images were obtained of the right ankle without contrast. 2-D reformats were performed by the technologist. A radiation dose optimization technique was used for this scan. 296 images. COMPARISON: XR same day. FINDINGS: BONES: Comminuted oblique fracture distal fibula with posterolateral displacement and overlap comminuted fracture of the distal tibia at the medial malleolus with small intra-articular fracture fragment and mild inferolateral displacement. Mildly displaced fracture of the posterior malleolus. JOINT SPACES: Lateral subluxation of the talus relative to the tibia with widening of the tibiotalar joint anteriorly. Disruption of the ankle mortise . Joint effusion. SOFT TISSUES: During soft tissue swelling. Overlying cast. CT/Extremity Lower without Contra IMPRESSION: Trimalleolar fracture--subluxation of the right ankle. Electronically Signed: Joann Sigala MD at 15:11 EST ,
== END 2024-06-02 15:05 | disposition home or self-care (01) ==
PROVIDERS: Emergency Provider Emergency Medicine; PCP Family Medicine; Visit Provider Emergency Medicine
DX: S82.841A Displaced bimalleolar fracture of right lower leg, initial encounter for closed fracture (principal); D69.3 Immune thrombocytopenic purpura; J44.9 Chronic obstructive pulmonary disease, unspecified; I25.10 Atherosclerotic heart disease of native coronary artery without angina pectoris; Z79.02 Long term (current) use of antithrombotics/antiplatelets; Z79.82 Long term (current) use of aspirin; Z87.891 Personal history of nicotine dependence; I10 Essential (primary) hypertension; Z90.710 Acquired absence of both cervix and uterus; Z95.5 Presence of coronary angioplasty implant and graft; X58.XXXA Exposure to other specified factors, initial encounter
CPT/HCPCS: 27810; 73600; 73610; 73700; 80048; 85025; 85610; 85730; 96374; 96375; 99152; 99283; A4216; J2405

== ENCOUNTER → 2024-06-23 | Outpatient (CLI) | payer MEDICARE, SELFPAY ==
[2023-09-09 13:09] VITALS: BMI 26.3
--- NOTE | 2024-06-23 06:58 | ECHOD_ITS ---
Reason For Study: PHTN Procedure This was a 2D Doppler, Color Flow transthoracic echocardiogram. Exam performed in department. Left Ventricle Normal LV size. Moderate concentric left ventricular hypertrophy. The left ventricular ejection fraction is 55 %. Stage 2 diastolic dysfunction. Right Ventricle Normal right ventricle. Atria There is severe biatrial dilatation. Mitral Valve Moderate mitral annular calcification. Moderate (2+) mitral valve insufficiency. Tricuspid Valve Moderate (2+) tricuspid valve insufficiency. Right ventricular systolic pressure estimated to be 64 mmHg. Aortic Valve Trisinus/trileaflet aortic valve. Moderate (2+) aortic valve insufficiency. Pulmonic Valve The pulmonic valve is not well visualized. Mild (1+) pulmonic valve insufficiency. Great Vessels Normal sized aortic root. Pericardium/Pleural Small loculated posterior pericardial effusion. MMode/2D Measurements & Calculations LVIDd: 4.2 cm IVSd: 1.3 cm Ao root diam: 2.9 cm LVIDs: 3.0 cm LVPWd: 1.4 cm RVDd: 4.7 cm FS: 27.2 % LAV(MOD-bp): 55.0 ml LVAd ap4: 19.3 cm2 SV(MOD-sp4): 25.0 ml LAV(MOD-bp) Indexed: 34.4 ml/m2 LVLd ap4: 6.7 cm SI(MOD-sp4): 15.6 ml/m2 LAV(MOD-sp2): 55.9 ml EDV(MOD-sp4): 46.0 ml LAV(MOD-sp4): 51.2 ml EDV(sp4-el): 47.3 ml LVAs ap4: 12.0 cm2 LVLs ap4: 5.9 cm ESV(MOD-sp4): 21.1 ml ESV(sp4-el): 21.0 ml EF(MOD-sp4): 54.2 % EF(sp4-el): 55.7 % SV(sp4-el): 26.3 ml LA A4 area: 18.1 cm2 RA A4 area: 16.1 cm2 Time Measurements MV dec time: 0.11 sec Doppler Measurements & Calculations MV E max jose: 84.7 cm/sec Lat Peak E' Jose: 10.5 cm/sec Med Peak E' Jose: 6.0 cm/sec MV A max jose: 168.4 cm/sec E/E' lat: 8.0 E/E' med: 14.1 MV E/A: 0.50 Ao V2 max: 202.1 cm/sec AI max jose: 487.6 cm/sec MV dec slope: 808.0 cm/sec2 Ao max P.4 mmHg AI max P.1 mmHg Ao V2 mean: 139.1 cm/sec Ao mean P.6 mmHg AI dec slope: 389.3 cm/sec2 Ao V2 VTI: 38.1 cm AI P1/2t: 366.9 msec AV (velocity ratio): 1.0 LV V1 max: 189.4 cm/sec PA V2 max: 81.3 cm/sec TR max jose: 383.0 cm/sec LV V1 max P.3 mmHg PA V2 mean: 49.6 cm/sec TR max P.7 mmHg LV V1 mean P.4 mmHg LV V1 mean: 123.4 cm/sec LV V1 VTI: 39.5 cm ECHO/Echo Complete Interpretation Summary Moderate concentric left ventricular hypertrophy.The left ventricular ejection fraction is 55 %. Stage 2 diastolic dysfunction. There is severe biatrial dilatation. Moderate mitral annular calcification. Moderate (2+) mitral valve insufficiency. Moderate (2+) tricuspid valve insufficiency. Right ventricular systolic pressure estimated to be 64 mmHg. Moderate (2+) aortic valve insufficiency. Mild (1+) pulmonic valve insufficiency. Small loculated posterior pericardial effusion. Ordering Physician: Andres Aguilar Referring Physician: Andres Aguilar Performed By: Marychuy Hernandez RCS
--- NOTE | 2024-06-23 12:40 | STRESSREP_ITS ---
Stress Test Report Date: 06/23/2024 Procedure: Pharmacologic stress nuclear imaging study Indications: Dyspnea Consent: Per the patient Procedure: The patient underwent pharmacologic (Regadenoson 0.4mg ) evaluation with a peak heart rate of 82 beats per minute (51%predicted maximal heart rate) and a peak blood pressure of 122/82 mmHg. The baseline ECG demonstrated sinus rhythm, right bundle branch block and inferior ST depressions. The peak pharmacologic ECG was nondiagnostic secondary to baseline abnormalities. There were no cardiac dysrhythmias pretest, during pharmacologic infusion, or recovery. There was no complaint of chest discomfort during pharmacologic infusion or recovery. The patient was injected with 11.7 millicuries of technetium 99m Cardiolite and subsequently rest SPECT Cardiolite nuclear imaging was obtained in the horizontal long, vertical long, and short axis views. The patient underwent pharmacologic (Regadenoson) evaluation. The patient was injected with 34.5 millicuries of technetium 99m Cardiolite and subsequently stress SPECT Cardiolite nuclear imaging was obtained in the horizontal long, vertical long, and short axis views. A gated Cardiolite study at peak stress was obtained. The examination was stopped secondary to completion of protocol. Rest and stress SPECT Cardiolite nuclear imaging status post realignment, normalization, and attenuation correction demonstrate no fixed or reversible perfusion defects. There is end systolic thickening and brightening. The gated Cardiolite study demonstrates myocardial thickening and inward wall motion. The reported LVEF is 68%. Impression: 1. Pharmacologic (Regadenoson) evaluation 2. Peak pharmacologic ECG with no diagnostic changes. 3. There were no cardiac dysrhythmias pretest, during pharmacologic infusion, or recovery. 5. Rest and stress SPECT Cardiolite nuclear imaging demonstrate relative uniform tracer uptake and myocardial perfusion appearing within normal limits. 6. The gated Cardiolite study reports an LVEF of 68%. This note was generated with [employer] software. It may contain incorrect words, spelling, and punctuation that were not noted in checking the note before signing.
== END | disposition home or self-care (01) ==
LOC: CVS 06:57
PROVIDERS: PCP Family Medicine; Referring Provider Nurse Practitioner Family; Visit Provider Nurse Practitioner Family
DX: I27.20 Pulmonary hypertension, unspecified (principal); Z95.5 Presence of coronary angioplasty implant and graft; I10 Essential (primary) hypertension; R06.02 Shortness of breath
CPT/HCPCS: 78452; 93017; 93306; A9500; J2785

== ENCOUNTER 2024-07-07 05:24 | Day surgery (SDC) | payer MEDICARE, SELFPAY ==
[2023-09-09 13:09] VITALS: BMI 26.3
--- NOTE | 2024-06-29 08:51 | EKG12_ITS ---
Test Reason : PREOP Blood Pressure : */* mmHG Vent. Rate : 77 BPM Atrial Rate : 77 BPM P-R Int : 198 ms QRS Dur : 122 ms QT Int : 444 ms P-R-T Axes : 44 190 -23 degrees QTcB Int : 502 ms Normal sinus rhythm Right bundle branch block Abnormal ECG When compared with ECG of 22-Sep-2023 05:33, Nonspecific T wave abnormality no longer evident in Lateral leads Confirmed by DANTE GODFREY, JUAN ([id number]), video tape editor ARNALDO HARRIS ([id number]) on 07/04/2024 2:10:17 PM Referred By: Rakan Gamino Confirmed By: JUAN HOWELL MD
--- NOTE | 2024-06-29 12:46 | PAT.ANE_ITS ---
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 When Was Last Pacemaker Check QUESTION #4 FULL TEXT: You/Your Family Experience fever (hyperthermia) with Anesthesia Last Oral Intake Last Oral intake: Last Oral Intake NPO since Meds taken in AM with sips of water? Meds patient instructed to take am of surgery PONV PONV - ocean export coordinator: PONV - ocean export coordinator Female Yes 06/23/24 10:01 HX of Motion Sickness No 06/23/24 10:01 HX of N/V After Surgery No 06/23/24 10:01 Non-Smoker Yes 06/23/24 10:01 Duration of Surgery greater Yes 06/23/24 10:01 than 60 minutes Number of Risk Factors 3 06/23/24 10:01 PONV Score Moderate Risk 06/23/24 10:01 Height & Weight Height & Weight: Anesthesia: Height & Weight Height 5 ft 2 in 06/02/24 10:35 Respiratory Assessment Respiratory Assessment - ocean export coordinator: Respiratory Tract Infection Hx - ocean export coordinator Hx Respiratory Tract Infection No 06/23/24 10:01 STOP Sleep Apnea STOP Sleep Apnea - ocean export coordinator: STOP Sleep Apnea - ocean export coordinator Hx Hypertension Yes: CONTROLLED WITH MED 06/23/24 10:01 Hx Sleep Apnea No 06/23/24 10:01 CPAP No 01/11/20 10:22 BIPAP No 01/06/20 13:41 Do you snore loudly (louder No 06/23/24 10:01 than talking or can be heard Do you often feel tired/ No 06/23/24 10:01 fatigued/ sleepy during daytime? Has anyone observed you stop No 06/23/24 10:01 breathing during sleep? STOP Results Negative 06/23/24 10:01 QUESTION #5 FULL TEXT : Do you snore loudly (louder than talking or can be heard through closed doors)? 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 Specify any problems Hx of Preganancy in last 3 N/A 06/23/24 10:01 Months Nurse Filling Out Transfusion NBUCHER 06/23/24 10:01 & Questions: Date: 06/23/24 06/23/24 10:01 Time: 10:03 06/23/24 10:01 Patient unable to answer at this time (ie. confused, unrespo /Reproduction History /Reproductive History - ocean export coordinator: /Reproductive Hx- ocean export coordinator Hx Now No 06/23/24 10:01 Gestational Age (in weeks): EDC: Hx Hx Para Hx Section SAB No 06/23/24 10:01 [facility] Medical History (Updated 06/23/24 @ 10:25 by Trini Olivarez) Wears glasses History of steroid therapy Low iron High cholesterol Restless legs Former smoker COPD (chronic obstructive pulmonary disease) Shortness of breath on exertion History of edema History of echocardiogram History of stress test Hypertension Cardiology follow-up encounter Abnormal stress test Sjogren's disease Shortness of breath Abnormal echocardiogram Chronic ITP (idiopathic thrombocytopenia) Bilateral pneumonia Raynauds disease COPD (chronic obstructive pulmonary disease) Wheeze Pulmonary hypertension Hemorrhoids Acid reflux Blood in stool Constipation Abdominal pain Anxiety Lupus Back problem Fatigue Depression Benign essential HTN Anemia Home Medications ?Medication ?Instructions ?Recorded ?Last Taken ?Type duloxetine 60 mg capsule,delayed 120 mg PO DAILY 06/06/14 08/13/23 History release multivitamin with folic acid 400 1 tab PO DAILY 06/06/14 Unknown History mcg tablet hydroxychloroquine 200 mg tablet 200 mg PO DAILY 05/20/23 08/13/23 History omeprazole 40 mg capsule,delayed 40 mg PO DAILY 05/20/23 08/13/23 History release gabapentin 300 mg capsule 300 mg PO BID PRN 06/29/23 Unknown History aspirin 81 mg tablet,delayed 81 mg PO DAILY 07/24/23 09/21/23 History release clopidogrel 75 mg tablet 75 mg PO DAILY #30 tabs 08/13/23 09/21/23 Rx belimumab 200 mg/mL subcutaneous 200 mg subcut .QMO 11/03/23 Unknown History auto-injector (Benlysta) trazodone 100 mg tablet 100 mg PO QHS 11/03/23 Unknown History atorvastatin 10 mg tablet 10 mg PO QHS 05/11/24 Unknown History oxycodone-acetaminophen 5 mg-325 1 tab PO Q6H PRN PRN Pain 5 days 06/02/24 Unknown Rx mg tablet #20 TABLETS oxycodone-acetaminophen 5 mg-325 1 tab PO Q6H pain 7 days #28 tabs 06/11/24 Unk nown Rx mg tablet (Endocet) biotin 10 mg tablet 60 mg PO DAILY 06/23/24 Unknown History calcium 250 mg tablet 500 mg PO DAILY 06/23/24 Unknown History lisinopril 30 mg tablet 30 mg PO BID 06/23/24 Unknown History Allergy/AdvReac Type Severity Reaction Status Date / Time amoxicillin trihydrate (From Allergy Unknown Verified 06/23/24 09:54 Augmentin) diflunisal (From Dolobid) Allergy Unknown Verified 06/23/24 09:54 Penicillins Allergy Rash Verified 06/23/24 09:54 potassium clavulanate (From Allergy Unknown Verified 06/23/24 09:54 Augmentin) sulfamethoxazole (From Allergy Rash Verified 06/23/24 09:54 Septra) trimethoprim (From ) Allergy Rash Verified 06/23/24 09:54 aripiprazole (From Abilify) AdvReac Other Verified 06/23/24 09:54 fluoxetine HCl (From Prozac) AdvReac Other Verified 06/23/24 09:54 sertraline HCl (From Zoloft) AdvReac Other Verified 06/23/24 09:54 venlafaxine HCl (From AdvReac Other Verified 06/23/24 09:54 Effexor) Family History Mother Cancer Pancreatic COPD (chronic obstructive pulmonary disease) Brother Myocardial infarction CAD (coronary artery disease) Stent Surgical History History of coronary artery stent placement Hx of cardiac catheterization (~09/21/23) Stented coronary artery (09/21/23) Status post biopsy of kidney History of hysterectomy Hx of colonoscopy History of Social History Smoking Status: Former smoker Tobacco: How many years used: 10 second hand exposure: No alcohol intake: never substance use type: does not use caffeine: Yes Type: carbonated beverages and tea what type of physical activity do you participate in: none frequency: does not exercise Prior Cardiac Testing/Procedures Prior Cardiac Testing/Procedures: Echocardiogram (EF 55%; Stage 2 diastolic dysfunction; Mild/moderate MR; RVSP of 64) and Stress Test (Rest and stress SPECT Cardiolite nuclear imaging demonstrate relative uniform tracer uptake and myocardial perfusion appearing within normal limits.) Audit: Pertinent Findings Pertinent Findings Stress test pertinent findings: Rest and stress SPECT Cardiolite nuclear imaging demonstrate relative uniform tracer uptake and myocardial perfusion appearing within normal limits. Echo (EF%) pertinent findings: EF 55%; Stage 2 diastolic dysfunction; Mild/moderate MR; RVSP 64 Heart catheterization pertinent findings: NIGEL to distal and Mid RCA in 09/29; NIGEL mid LAD 08/29 Recommendation Anesthesia Recommendation Anesthesia recommendation: OPTIMIZED for anesthesia (Can proceed with New EKG. Choudrant Pulminary HTN. Patient would be a high risk surgical/anesthesia candidate ) Follow up Details Cadiac/Pulmonary Imaging Recommendation: Yes Cadiac/Pulmonary Imaging Rec Details: New EKG
[2024-07-07] VITALS (12 sets, daily range): BP systolic 77–131; BP diastolic 46–77; PULSE 76–86; RESP 14–18; TEMP 2.2–37.5; O2SAT 91–99; BMI 24.1
[2024-07-07] MEDS: Acetaminophen 500 MG Tablet 1000 MG PO (06:05)
[2024-07-07] MEDS: Gabapentin 600 MG Tablet PO (06:05)
[2024-07-07] MEDS: 0.9% Normal Saline (1000mL) 1,000 ML 15 ML IV (06:43)
--- NOTE | 2024-07-07 07:04 | PCM.PRE.AN2 ---
ASA Classification* ASA Classification ASA Classification: 3 Assessment & Plan Anesthesia* Anesthesia Assessment Anesthesia Assessment: Discussed sedation and/or anesthesia options, risks, benefits, and alternatives with patient/parents/legal guardian/POA. Questions invited. The patient/parents/legal guardian/POA seems to understand and agrees to proceed with anesthesia plan. Reviewed the physical assessment, medical history, allergy history and patient home medications list prior to surgery/procedure/anesthetic and documented any changes. Performed airway and anesthesia risk assessments. Anesthesia Type Anesthesia Type: General History Source History Obtained from:: Patient and Chart Anesthesia Focused Assessment* Temperature: 98.0 F Pulse Rate: 76 Blood Pressure: 131/77 Respiratory Rate: 16 Pulse Ox: 94 Oxygen Delivery Method: Room Air Airway Assessment Mouth opens: >3 cm Mallampati Score: II Teeth Condition: Caps/Crowns Neck Range of motion (ROM): Full ROM Focused Labs Anesthesia Preop lab: CBC WBC 5.0 K/mm3 (4.4-11.0) 06/02/24 11:50 06/02/24 RBC 3.50 M/mm3 (4.2-5.4) L 06/02/24 11:50 06/02/24 Hgb 11.3 g/dL (12.0-15.0) L 06/02/24 11:50 06/02/24 Hct 35.5 % (37-47) L 06/02/24 11:50 06/02/24 Plt Count 139 K/mm3 (150-450) L 06/02/24 11:50 06/02/24 CHEMISTRY Potassium 3.6 mmol/L (3.5-5.1) 06/02/24 11:50 06/02/24 Sodium 138 mmol/L (136-145) 06/02/24 11:50 06/02/24 Phosphorus 4.2 mg/dL (2.5-4.9) 05/11/24 13:45 05/11/24 BUN 8 mg/dL (7-18) 06/02/24 11:50 06/02/24 Creatinine 0.95 mg/dL (0.55-1.02) 06/02/24 11:50 06/02/24 Glucose 95 mg/dL (74-106) 06/02/24 11:50 06/02/24 TSH 0.73 uIU/mL (0.358-3.74) 03/02/12 14:22 03/02/12 COAG PT 14.7 SECONDS (11.7-14.9) 06/02/24 11:50 06/02/24 Pre-Assessment Diagnosis/Proposed Procedure Planned Operative Procedure(s): (R) Open reduction and internal fixation of Bimalleolar right ankle fracture with stress views, Syndesmotic repair, and Bone Marrow aspirate concentrate Anesthesia History 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 When Was Last Pacemaker Check QUESTION #4 FULL TEXT: You/Your Family Experience fever (hyperthermia) with Anesthesia Last Oral Intake Last Oral intake: Last Oral Intake NPO since 04:45 07/07/24 06:36 Meds taken in AM with sips of Yes 07/07/24 06:36 water? 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 Female Yes 06/23/24 10:01 HX of Motion Sickness No 06/23/24 10:01 HX of N/V After Surgery No 06/23/24 10:01 Non-Smoker Yes 06/23/24 10:01 Duration of Surgery greater Yes 06/23/24 10:01 than 60 minutes Number of Risk Factors 3 06/23/24 10:01 PONV Score Moderate Risk 06/23/24 10:01 Height & Weight Height & Weight: Anesthesia: Height & Weight Height 5 ft 2 in 07/07/24 06:36 Weight: 59.874 kg 07/07/24 06:36 Body Mass Index (BMI) 24.1 07/07/24 06:36 Respiratory Assessment Respiratory Assessment - awning hanger supervisor: Respiratory Tract Infection Hx - awning hanger supervisor Hx Respiratory Tract Infection No 06/23/24 10:01 STOP Sleep Apnea STOP Sleep Apnea - awning hanger supervisor: STOP Sleep Apnea - awning hanger supervisor Hx Hypertension Yes: CONTROLLED WITH MED 06/23/24 10:01 Hx Sleep Apnea No 06/23/24 10:01 CPAP No 01/11/20 10:22 BIPAP No 01/06/20 13:41 Do you snore loudly (louder No 06/23/24 10:01 than talking or can be heard Do you often feel tired/ No 06/23/24 10:01 fatigued/ sleepy during daytime? Has anyone observed you stop No 06/23/24 10:01 breathing during sleep? STOP Results Negative 06/23/24 10:01 QUESTION #5 FULL TEXT : Do you snore loudly (louder than talking or can be heard through closed doors)? 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 Specify any problems Hx of Preganancy in last 3 N/A 06/23/24 10:01 Months Nurse Filling Out Transfusion NBUCHER 06/23/24 10:01 & Questions: Date: 06/23/24 06/23/24 10:01 Time: 10:03 06/23/24 10:01 Patient unable to answer at this time (ie. confused, unrespo /Reproduction History /Reproductive History - awning hanger supervisor: /Reproductive Hx- awning hanger supervisor Hx Now No 06/23/24 10:01 Gestational Age (in weeks): EDC: Hx Hx Para Hx Section SAB No 06/23/24 10:01 Active Medications Active Medications: Current Medications Generic Name Dose Route Start Last Admin Trade Name Freq PRN Reason Stop Dose Admin Acetaminophen 1,000 mg 07/07/24 07:30 07/07/24 06:05 Acetaminophen 500 Mg Tablet PO 07/07/24 07:31 1,000 mg X1 ONE Administration Gabapentin 600 mg 07/07/24 07:30 07/07/24 06:05 Gabapentin 600 Mg Tablet PO 07/07/24 07:31 600 mg X1 ONE Administration Clindamycin Phosphate 900 mg in 50 mls @ 75 mls/hr 07/07/24 07:30 Cleocin IV 07/07/24 08:09 PREOP ONE Sodium Chloride 1,000 mls @ 15 mls/hr 07/07/24 06:45 07/07/24 06:43 IV 07/12/24 20:04 15 mls/hr .Q48H KRISTIAN Administration Protocol Insulin Human Lispro 1 - 6 unit 07/07/24 07:30 Insulin Lispro 100 Unit/Ml Insuln.Pen SC 07/07/24 13:30 Q4H PRN PRN BG>/= 180, SEE PROTOCOL Protocol PFSH Medical History Wears glasses History of steroid therapy Low iron High cholesterol Restless legs Former smoker COPD (chronic obstructive pulmonary disease) Shortness of breath on exertion History of edema History of echocardiogram History of stress test Hypertension Cardiology follow-up encounter Abnormal stress test Sjogren's disease Shortness of breath Abnormal echocardiogram Chronic ITP (idiopathic thrombocytopenia) Bilateral pneumonia Raynauds disease COPD (chronic obstructive pulmonary disease) Wheeze Pulmonary hypertension Hemorrhoids Acid reflux Blood in stool Constipation Abdominal pain Anxiety Lupus Back problem Fatigue Depression Benign essential HTN Anemia Home Medications ?Medication ?Instructions ?Recorded ?Last Taken ?Type duloxetine 60 mg capsule,delayed 120 mg PO DAILY 06/06/14 07/06/24 History release multivitamin with folic acid 400 1 tab PO DAILY 06/06/14 07/06/24 History mcg tablet hydroxychloroquine 200 mg tablet 200 mg PO DAILY 05/20/23 07/06/24 History omeprazole 40 mg capsule,delayed 40 mg PO DAILY 05/20/23 07/07/24 04:45 History release gabapentin 300 mg capsule 300 mg PO BID PRN 06/29/23 Unknown History aspirin 81 mg tablet,delayed 81 mg PO DAILY 07/24/23 07/06/24 History release clopidogrel 75 mg tablet 75 mg PO DAILY #30 tabs 08/13/23 07/06/24 Rx belimumab 200 mg/mL subcutaneous 200 mg subcut .QMO 11/03/23 Unknown History auto-injector (Benlysta) trazodone 100 mg tablet 100 mg PO QHS 11/03/23 07/06/24 History atorvastatin 10 mg tablet 10 mg PO QHS 05/11/24 07/06/24 History oxycodone-acetaminophen 5 mg-325 1 tab PO Q6H PRN PRN Pain 5 days 06/02/24 Unknown Rx mg tablet #20 TABLETS oxycodone-acetaminophen 5 mg-325 1 tab PO Q6H pain 7 days #28 tabs 06/11/24 Unknown Rx mg tablet (Endocet) biotin 10 mg tablet 60 mg PO DAILY 06/23/24 07/06/24 History calcium 250 mg tablet 500 mg PO DAILY 06/23/24 07/06/24 History lisinopril 30 mg tablet 30 mg PO BID 06/23/24 07/06/24 History Allergy/AdvReac Type Severity Reaction Status Date / Time amoxicillin trihydrate (From Allergy Unknown Verified 07/07/24 06:26 Augmentin) diflunisal (From Dolobid) Allergy Unknown Verified 07/07/24 06:26 Penicillins Allergy Rash Verified 07/07/24 06:26 potassium clavulanate (From Allergy Unknown Verified 07/07/24 06:26 Augmentin) sulfamethoxazole (From Allergy Rash Verified 07/07/24 06:26 Septra) trimethoprim (From Septra) Allergy Rash Verified 07/07/24 06:26 aripiprazole (From Abilify) AdvReac Other Verified 07/07/24 06:26 fluoxetine HCl (From Prozac) AdvReac Other Verified 07/07/24 06:26 sertraline HCl (From Zoloft) AdvReac Other Verified 07/07/24 06:26 venlafaxine HCl (From AdvReac Other Verified 07/07/24 06:26 Effexor) Family History Mother Cancer Pancreatic COPD (chronic obstructive pulmonary disease) Brother Myocardial infarction CAD (coronary artery disease) Stent Surgical History History of coronary artery stent placement Hx of cardiac catheterization (~09/21/23) Stented coronary artery (09/21/23) Status post biopsy of kidney History of hysterectomy Hx of colonoscopy History of Social History Smoking Status: Former smoker Tobacco: How many years used: 10 second hand exposure: No alcohol intake: never substance use type: does not use caffeine: Yes Type: carbonated beverages and tea what type of physical activity do you participate in: none frequency: does not exercise Review of Systems (Anesthesia) ROS Narrative System reviewed and no additional complaints, except as documented.
[2024-07-07 07:10] LABS: Bedside Glucose 121 mg/dL (74-106)
--- NOTE | 2024-07-07 07:30 | PCM.OPRPT ---
Problems Associated Problem List Diagnoses (1) Pain in right lower leg: (2) Displaced bimalleolar fracture of right lower leg, initial encounter for closed fracture: (3) Sprain of tibiofibular ligament of right ankle, initial encounter: Operative Report (Standard) Operative Information Date of Procedure: 07/07/24 Pre-Operative Diagnosis: 1. Pain, right lower extremity 2. Bimalleolar ankle fracture, right lower extremity 3. Sprain to the tibiofibular ligament, right lower extremity Post-Operative Diagnosis: 1. Pain, right lower extremity 2. Bimalleolar ankle fracture, right lower extremity 3. Sprain to the tibiofibular ligament, right lower extremity Surgery/Procedure Performed: Procedure #1: Bone marrow aspirate concentrate harvest, right lower extremity Procedure #2: Open reduction internal fixation bimalleolar ankle fracture, right lower extremity Procedure #3: Stress views, right lower extremity Procedure #4: Syndesmotic repair, right lower extremity Procedure #5: Application of posterior splint, right lower extremity engagement lead: Yes International Sales Representative: Arlene Mann PGY3 Tasks completed by embalmer assistant: Opening & closing and Implanting device Additional players assistant?: No Type of Anesthesia: General and Local RN Documented Start/Stop Times: Operation Date: 07/07/24 07:30 Case Time Into Pre-Op 07/07/24 05:40 Out of Pre-Op 07/07/24 07:35 Anesthesia Start 07/07/24 07:42 Into Room 07/07/24 07:42 Procedure Start 07/07/24 08:03 Procedure End 07/07/24 11:13 Anesthesia End 07/07/24 11:16 Out of Room 07/07/24 11:16 Into Recovery 07/07/24 11:20 Procedure Start Time: 08:03 Procedure Stop Time: 11:13 Select all DRAINS/GRAFTS/IMPLANTS that apply: Graft Graft details: PRP injection, bone marrow aspirate concentrate injection, Surgiflo injection and Implanted device Implanted device details: Flip ankle fracture set Special Medications: Per anesthesia Estimated Blood Loss: 80 mL Fluids Replaced: Per anesthesia Specimen collected: No Description of surgery: Indications For Operation: Mrs. Field is a 59-year-old female who was admitted to [facility] for surgery of the right lower extremity secondary to a right ankle fracture. Patient unfortunately sustained a fracture while falling at her house approximately 3 to 4 weeks ago. She was initially seen in the emergency department at [facility] and she was evaluated and treated for her right ankle fracture. She ended up with conscious sedation closed reduction and placed in a splint and followed up in my office for further treatment. She did receive a CT scan that showed evidence of bimalleolar ankle fracture to the right lower extremity. Patient was educated on the treatment plan for her right ankle fracture and was understanding of everything that was explained to her. Per chart review and consent was signed. Due to due to the nature and displacement of the fibula and medial malleolus as well as concern for syndesmotic injury, it was deemed necessary at that time to take the patient to the operating room to perform the above procedure to help reduce the patient's fracture back to anatomical length and help reduce her constant pain so the patient may be ambulatory. The nature of the problem, anticipated procedures, postop recovery/convalences and risk/complications include but not limited to infection, wound healing complications, digital amputation, hypertrophic scarring, numbness, tingling, chronic pain, CRPS, over and under correction, recurrence of deformity, DVT and or PE and the need for further surgery have been discussed in great detail with the patient. All questions have been answered to the patient's satisfaction. There are no guarantees given as to the outcome of the procedure. Description of Procedure: Under mild sedation, the patient was brought into the operating room and placed on the operating table in supine position. Once the patient was under general anesthesia with laryngeal mask airway, the right lower extremity was blocked using approximately 30 cc of a 50-50 mix of 0.5% Marcaine plain and Exparel. Next, a well-padded thigh tourniquet was applied to the right lower extremity. Next, the right lower extremity was prepped and draped in normal aseptic manner. Next, a timeout was then undertaken verifying the correct patient, extremity, visibility of preoperative markings, availability of the equipment. Procedure #1: Bone marrow aspirate concentrate harvest, right lower extremity (CPT code: 91105) Next, attention was directed to the lateral right heel. Using a [employer] needle mallet the trocar was administered and inserted to the lateral right heel. Once secure and bone 2 vials of 30 cc of bone marrow aspirate concentrate were harvested and passed the back table to be spun down for injectable PRP, bone marrow aspirate concentrate and PPP spray to be used at the end of the case. Procedure #2: Open reduction internal fixation bimalleolar ankle fracture, right lower extremity (CPT code: 37162) Next, attention was directed to the right lower extremity. Using a 6 inch Esmarch, right lower extremity was exsanguinated and elevated to 60 degrees for 1 minute. Next, using large C-arm fluoroscopy the ankle joint, syndesmosis and fibula were marked out prior to incision. Using a sterile skin marker the fibular incision was marked out. Using a #15 blade an incision was made down to and including subcutaneous tissue. Continued blunt dissection was carried down to the level of periosteum with a moist Ray-Ari. Using a #15 blade and pickup the periosteum was lifted up off the fibula and the fracture fragment was identified at the distal fibula at the level of the syndesmosis. Using a Mora the fracture was freed from is soft tissue attachments and the hematoma was evacuated. The area was flushed with copious normal saline. There needed to be extra release of the surrounding soft tissue as this was causing a problem with reducing the fibula out to length. The fracture in nature was oblique. The capital fragment of the fibula was distracted out to length and hold in place with [id number] tenaculums. A interfrag screw was placed per AO technique. Once the clamp was released there showed evidence of splintering on the posterior aspect of the fibula that could not be reduced. Over 90% of the fibula was intact except for the splinter. A Flip anatomic plate was placed using C arm fluoroscopy and clinical judgment. The plate was held in place with BB tacks. Additional imaging showed anatomic reduction of the capital fragment as well as good placement of the orthopedic hardware. The plate was secured in place with a combination of 3.5 locking and nonlocking screws. Next, attention was directed to the medial malleolus. The incision was marked out with sterile skin marker. Using a #15 blade a full-thickness vision down to subcutaneous tissue was made. Continued blunt dissection was carried down with moist Ray-Ari. Once the level of periosteum sharp dissection was continued with #15 blade to the level of the fracture. The fracture was identified and freed from its soft tissue attachments. There showed evidence of some comminution the fracture area that was removed. The area was flushed with copious normal saline. Next using the K wires provided by the calender roll press operator, 2 K wires were advanced holding the capital fragment in place followed by 2.7 fully threaded screws per AO technique. AP, medial oblique and lateral view shows evidence of anatomic reduction of both the fracture fragments. Next, both incisions were flushed with copious normal saline. Procedure #3: Stress views, right lower extremity (CPT code: 53389) Next, attention was directed back to the level of the syndesmosis. Using live C arm fluoroscopy a cotton hook test was performed and showed evidence of reduced tib-fib overlap and disruption of the syndesmotic ligament. At this time it was decided to fix the syndesmosis. Procedure #4: Syndesmotic repair, right lower extremity (CPT code: 44432) Using the tight rope provided by [employer], the guidewire was advanced from lateral to medial at 30 degrees from inferior to superior from lateral to medial. Good placement was identified on large joint fluoroscopy. The fibular side was countersunk. The tight rope was secured in place per the calender roll press operator's recommendations with the rep in the room. There showed great anatomical tib-fib overlap after the tight rope was secured in place. At this time the tourniquet was deflated after 2 hours and reperfusion was noted instantly to the right lower extremity. All bleeders were cauterized and ligated as necessary. At the time of surgery and closed the deep layer on the lateral incision there showed evidence of a bleeder which was eventually tied off and Surgiflo was injected into the deep space for continued hemostasis. Procedure #5: Application of posterior splint, right lower extremity (CPT code: 09919) The right lower extremities were cleaned and patted dry. All incisions were closed with a deep layer using 3-0 Monocryl and running locking suture technique, followed by the subcutaneous layer being reapproximated closed using 3-0 Monocryl and running suture technique, followed by the skin was reapproximated and closed with ally. The bone marrow aspirate concentrate harvest site was closed with 3-0 nylon in simple erupted suture technique. Again the right lower extremity was wiped clean and patted dry. The PRP was injected at the level of the deltoid, syndesmosis, and ATFL. The bone marrow aspirate concentrate was injected into the ankle joint. The PPP was sprayed across all incisions. All incisions were dressed with Betadine soaked Adaptic, dry sterile dressing and double or Langston AO splint at 90 degrees was donned to the right lower extremity. The patient tolerated the procedure and anesthesia well and apparent satisfactory condition and was transported to the PACU for further monitoring prior to discharge [home / back to the floor]. Vital signs stable and vascular status intact to all digits bilateral. Post Operative Plan: Weightbearing: Nonweightbearing to right lower extremity. General Farm Hand with knee scooter and or crutches. Full weightbearing left lower extremity. Antibiotics: 900 mg clindamycin through the IV DVT Prophylaxis: 81 mg aspirin. Patient will restart Plavix in 5 days. Marks: None Dressing: PPP, Betadine soaked Adaptic, dry sterile dressing, double layer Langston AO splint at 90 degrees, right lower extremity. X-Rays: Post-operative films taken on the operating room. Pain Medication: Percocet 5/325, Flexeril 10 mg Follow-up: Patient will follow-up in office in 1 week to 10 days for further evaluation and cast change. Surgical Findings: 1. Once the fibula was reduced in anatomical position there showed evidence of a splintering to the posterior medial side of the fibula that could not be reduced. There was grade anatomic reduction with over 90% of the fibula being reduced. This should not be an issue with healing down the road. 2. Good anatomic reduction to the fibula capital fragment as well as the medial malleolus capital fragment. Good anatomic reduction of the syndesmosis with tight rope. Complications Complications: No Admit VTE Documentation VTE Present on Admission: No VTE Mechan Device Prophylaxis: SCD's VTE Pharm Prophylaxis ordered?: Yes
--- NOTE | 2024-07-07 07:35 | RAD_ITS ---
PROCEDURE: ANKLE 2 VIEWS; O.R. FLUORO FOR C-ARM REASON FOR EXAM: Right ankle ORIF, with syndesmosis repair TECHNIQUE: Intraoperative fluoroscopy of the right ankle. Additionally, 3 fluoroscopic images were obtained. COMPARISON: Right ankle study 06/02/2020 RAD/Ankle 2 Views IMPRESSION: Intraoperative fluoroscopy was performed. Additionally, 3 fluoroscopic images were obtained, during the distal tibial and fibular fracture fixation. Reading Location: [id number]
--- NOTE | 2024-07-07 07:35 | RAD_ITS ---
PROCEDURE: ANKLE 2 VIEWS; O.R. FLUORO FOR C-ARM REASON FOR EXAM: Right ankle ORIF, with syndesmosis repair TECHNIQUE: Intraoperative fluoroscopy of the right ankle. Additionally, 3 fluoroscopic images were obtained. COMPARISON: Right ankle study 06/02/2020 RAD/O.R. Fluoro for C-Arm IMPRESSION: Intraoperative fluoroscopy was performed. Additionally, 3 fluoroscopic images were obtained, during the distal tibial and fibular fracture fixation. Reading Location: [id number]
[2024-07-07] MEDS: Clindamycin 900 MG/50 ML BAG 75 MG IV (07:50)
[2024-07-07] MEDS: Calcium Chloride 1 GM/10 ML Syringe (08:29)
[2024-07-07] MEDS: Heparin 10,000 UNITS/10 ML Vial 10000 UNITS (08:29)
[2024-07-07] MEDS: Thrombin 5,000 IU Kit (PSA) 5,000 IU Vial 5000 IU TOPICAL (08:29)
[2024-07-07] MEDS: Bupivacaine Mpf 0.5% 30 ML VIAL (10:33)
[2024-07-07] MEDS: BUPIVACAINE LIPOSOME/PF 20 ML VIAL OPERA.SITE (10:33)
--- NOTE | 2024-07-07 11:23 | PCM.POST.ANE ---
Anesthesia: Postop Eval I Current Vital Signs Temperature: 36 F Pulse Rate: 78 Blood Pressure: 98/56 Respiratory Rate: 18 Pulse Ox: 93 Oxygen Delivery Method: Room Air Assessment Airway patent: Yes Spontaneous unlabored respirations: Yes Mental status: Awake and Calm nausea: No Vomiting: No Anesthesia Complication: No Fluid Hydration Crystalloid volume administer (ml): 1,200 Total IV fluid infused: 1,200 Progress Note Anesthesia document: Postop Eval 1 completed: Yes
--- NOTE | 2024-07-07 20:41 | POSTOPAN2_ITS ---
Anesthesia Postop Eval I Sum Postop Eval Completion status Anesthesia document: Postop Eval 1 completed: Yes Anesthesia Postop Eval I Summary Anesthesia Postop Eval I Summary: Anesthesia Postop Eval I: Assessment Summary Airway patent Yes 07/07/24 11:24 CHEMICAL MILLING [email or web address] Spontaneous unlabored Yes 07/07/24 11:24 CHEMICAL MILLING [email or web address].[email or web address] respirations Mental status Awake,Calm 07/07/24 11:24 CHEMICAL MILLING [email or web address].[email or web address] nausea No 07/07/24 11:24 CHEMICAL MILLING [email or web address].[email or web address] Vomiting No 07/07/24 11:24 CHEMICAL MILLING [email or web address].[email or web address] Anesthesia Postop Eval I: Fluid Summary Crystalloid volume administer 1,200 07/07/24 11:24 CHEMICAL MILLING [email or web address] (ml) Colloids volume administered ( ml) Blood Product volume administered (ml) Total IV fluid infused 1,200 07/07/24 11:24 CHEMICAL MILLING [email or web address].[email or web address] Anesthesia Postop Eval I: Summary Notes Anesthesia Complication No 07/07/24 11:24 CHEMICAL MILLING [email or web address].[email or web address] Anesthesia Complication Comment: Post-operative progress note Anesthesia: Postop Eval II Evaluation Mental status: Awake and Calm Pain Level: 1 nausea: No Vomiting: No Complications Anesthesia Complication: No
--- NOTE | 2024-07-07 20:41 | PCM.POSTANE2 ---
Anesthesia Postop Eval I Sum Postop Eval Completion status Anesthesia document: Postop Eval 1 completed: Yes Anesthesia Postop Eval I Summary Anesthesia Postop Eval I Summary: Anesthesia Postop Eval I: Assessment Summary Airway patent Yes 07/07/24 11:24 [email or web address] Spontaneous unlabored Yes 07/07/24 11:24 GINGER [email or web address] respirations Mental status Awake,Calm 07/07/24 11:24 GINGER [email or web address] nausea No 07/07/24 11:24 GINGER [email or web address].[email or web address] Vomiting No 07/07/24 11:24 GINGER [email or web address] Anesthesia Postop Eval I: Fluid Summary Crystalloid volume administer 1,200 07/07/24 11:24 GINGER [email or web address] (ml) Colloids volume administered ( ml) Blood Product volume administered (ml) Total IV fluid infused 1,200 07/07/24 11:24 GINGER [email or web address].ELINA Anesthesia Postop Eval I: Summary Notes Anesthesia Complication No 07/07/24 11:24 GINGER [email or web address] Anesthesia Complication Comment: Post-operative progress note Anesthesia: Postop Eval II Evaluation Mental status: Awake and Calm Pain Level: 1 nausea: No Vomiting: No Complications Anesthesia Complication: No
== END 2024-07-07 13:30 | disposition home or self-care (01) ==
LOC: SDC 06:19 → AC 06:19
PROVIDERS: PCP Family Medicine; Referring Provider Podiatrist Foot & Ankle Surgery; Visit Provider Podiatrist Foot & Ankle Surgery
PROC: (CPT 27814; principal; 2024-07-07 07:10)
DX: S82.841B Displaced bimalleolar fracture of right lower leg, initial encounter for open fracture type I or II (principal); S93.431A Sprain of tibiofibular ligament of right ankle, initial encounter; Z79.891 Long term (current) use of opiate analgesic; Z90.710 Acquired absence of both cervix and uterus; D64.9 Anemia, unspecified; R01.1 Cardiac murmur, unspecified; I10 Essential (primary) hypertension
CPT/HCPCS: 27814; 38220; 29515; 01480; 73600; 76000; 82962; 93005; C1713; J0666; J2405

== ENCOUNTER → 2024-08-02 | Outpatient (CLI) | payer MEDICARE, SELFPAY ==
[2023-09-09 13:09] VITALS: BMI 26.3
--- NOTE | 2024-08-02 14:04 | BI_ITS ---
PROCEDURE: SCRN MAMM (CAD)W/MEAGAN BILAT REASON FOR EXAM: F, Age 59 y/o, presents for annual screening mammogram. Family history of breast cancer in her mother at age 70 and a maternal cousin at age 58. TECHNIQUE: Bilateral screening digital breast tomosynthesis with 2D and 3D images. Computer aided detection. COMPARISON: 07/29/2023, 07/28/2022 FINDINGS: The breasts are heterogeneously dense which may obscure small masses. The mammogram demonstrates that the patient has dense breasts. Supplemental screening with whole breast ultrasound or MRI may be considered for further evaluation. No suspicious masses, areas of developing architectural distortion, or suspicious calcifications. BI/SCRN MAMM (CAD)W/MEAGAN BILAT IMPRESSION: There is no mammographic evidence of malignancy in either breast. BI-RADS 1: NEGATIVE. RECOMMEND ANNUAL MAMMOGRAPHIC SCREENING. Follow-up code: Routine Follow-up The patient will be notified of the results by letter. Reading Location: [id number]
== END | disposition home or self-care (01) ==
LOC: OPBI 14:03
PROVIDERS: PCP Family Medicine; Referring Provider Family Medicine; Visit Provider Family Medicine
DX: Z12.31 Encounter for screening mammogram for malignant neoplasm of breast (principal); Z80.3 Family history of malignant neoplasm of breast
CPT/HCPCS: 77063; 77067

== ENCOUNTER → 2024-08-02 | Outpatient (CLI) | payer MEDICARE, SELFPAY ==
[2023-09-09 13:09] VITALS: BMI 26.3
[2024-08-02 17:50] LABS: Absolute Lymphocyte Count 0.48 X10^3/uL (0.83-4.51); Absolute Neutrophil Count 2.7 X10^3/uL (2.0-7.7); Basophil# 0.01 X10^3/uL; Basophil% 0.3 % (0-1); Eosinophil# 0.01 X10^3/uL; Eosinophils% 0.3 % (0-5); Hematocrit 28.8 % (37-47); Hemoglobin 8.8 g/dL (12.0-15.0); Lymphocyte # 0.48 X10^3/ul (0.83-4.51); Lymphocyte % 13.1 % (19-41); Mean Corp Hgb Conc 30.6 g/dL (32-36); Mean Corpuscular Hgb 29.1 pg (27.0-32.0); Mean Corpuscular Volume 95.4 fL (81-99); Mean Platelet Vol. 10.6 fl (6.2-12.0); Monocyte% 13.6 % (0-10); NRBC Flagged by Analyzer 0 % (0-5); Neutrophil # 2.66 X10^3/uL (2.7-7.7); Neutrophil % 72.4 % (47-70); POSITIVE DIFFERENTIAL YES; Platelet Count 239 K/mm3 (150-450); RBC Distribution Width CV 13.6 % (11.6-14.6); RBC Distribution Width SD 47.4 fl (35.1-43.9); Red Blood Count 3.02 M/mm3 (4.2-5.4); White Blood Count 3.7 K/mm3 (4.4-11.0)
[2024-08-02 17:57] LABS: Color, Urine Yellow (Yellow); Glucose, Dipstick Normal (Normal); Ketone-Dipstick Negative (Negative); Leukocyte Esterase-Dipstick Negative /ul (Negative); Nitrite-Dipstick Negative (Negative); Occult Blood-Urine Negative /ul (Negative); Protein-Dipstick 100 mg/dl (Negative); Specific Gravity, Urine 1.015 (1.002-1.030); Urine Bilirubin Dipstick Negative (Negative); Urine Clarity Clear (Clear); Urine Urobilinogen Normal (Normal)
[2024-08-02 20:27] LABS: ALB/GLOB Ratio 1.2 RATIO (0.9-2.4); AST(SGOT) 31 U/L (<=31); Alanine Aminotransfer ALT/SGPT 14 U/L (<=34); Albumin, Serum 3.8 g/dL (3.4-4.8); Alkaline Phosphatase 106 U/L (35-104); Anion Gap 12 (5-15); BUN 8 mg/dL (4-19); BUN/Creat Ratio 10.4 RATIO (10-20); Calcium 8.8 mg/dL (7.6-11.0); Chloride 105 mmol/L (96-108); Creatinine, Serum 0.8 mg/dL (0.6-1.0); EST Glomerular Filtration Rate 83 (>60); Globulin 3.2 g/dL (2.2-4.2); Glucose 93 mg/dL (70-99); Potassium 3.4 mmol/L (3.3-5.1); Protein, Total 7.1 g/dL (5.9-8.4); Sodium Level 138 mmol/L (133-145); Total Bilirubin 0.27 mg/dL (0.00-1.30)
[2024-08-03 03:33] LABS: Protein, Urine (Random) 67 mg/dL (<=12); Protein:Creat Ratio 1572 mg/g CRE (0-200)
[2024-08-04 13:08] LABS: Complement C3 92 mg/dL (82-167)
[2024-08-04 14:08] LABS: Anti-dsDNA Ab 1 IU/mL (0-9)
== END | disposition home or self-care (01) ==
LOC: MTLAB 14:45
PROVIDERS: PCP Family Medicine; Referring Provider Internal Medicine Nephrology; Visit Provider Internal Medicine Nephrology
DX: R80.9 Proteinuria, unspecified (principal); I27.20 Pulmonary hypertension, unspecified; M32.9 Systemic lupus erythematosus, unspecified; M06.4 Inflammatory polyarthropathy; Z79.899 Other long term (current) drug therapy; M79.7 Fibromyalgia; M35.00 Sjogren syndrome, unspecified
CPT/HCPCS: 36415; 80053; 81002; 82570; 84156; 85025; 86160; 86225

== ENCOUNTER → 2024-11-07 | Outpatient (CLI) | payer MEDICARE, SELFPAY ==
[2023-09-09 13:09] VITALS: BMI 26.3
[2024-11-07 18:06] LABS: Absolute Lymphocyte Count 0.59 X10^3/uL (0.83-4.51); Absolute Neutrophil Count 4.8 X10^3/uL (2.0-7.7); Basophil# 0.02 X10^3/uL; Basophil% 0.3 % (0-1); Eosinophil# 0.04 X10^3/uL; Eosinophils% 0.6 % (0-5); Hemoglobin 10.7 g/dL (12.0-15.0); Lymphocyte # 0.59 X10^3/ul (0.83-4.51); Lymphocyte % 9.5 % (19-41); Mean Corp Hgb Conc 31.5 g/dL (32-36); Mean Corpuscular Hgb 28.4 pg (27.0-32.0); Mean Corpuscular Volume 90.2 fL (81-99); Mean Platelet Vol. 9.4 fl (6.2-12.0); Monocyte# 0.72 X10^3/uL; Monocyte% 11.6 % (0-10); NRBC Flagged by Analyzer 0 % (0-5); Neutrophil # 4.79 X10^3/uL (2.7-7.7); Neutrophil % 77.5 % (47-70); POSITIVE DIFFERENTIAL YES; Platelet Count 228 K/mm3 (150-450); RBC Distribution Width CV 18.3 % (11.6-14.6); RBC Distribution Width SD 60.5 fl (35.1-43.9); Red Blood Count 3.77 M/mm3 (4.2-5.4); White Blood Count 6.2 K/mm3 (4.4-11.0)
[2024-11-07 18:45] LABS: Color, Urine Yellow (Yellow); Glucose, Dipstick Normal (Normal); Ketone-Dipstick Negative (Negative); Leukocyte Esterase-Dipstick Negative /ul (Negative); Nitrite-Dipstick Negative (Negative); Occult Blood-Urine Negative /ul (Negative); Protein-Dipstick 30 mg/dl (Negative); Specific Gravity, Urine 1.015 (1.002-1.030); Urine Bilirubin Dipstick Negative (Negative); Urine Clarity Clear (Clear); Urine Urobilinogen Normal (Normal)
[2024-11-07 18:51] LABS: Protein, Urine (Random) 33.9 mg/dL (0.0-12.0); Protein:Creat Ratio 580 mg/g CRE (0-200)
[2024-11-07 18:55] LABS: ALB/GLOB Ratio 1.1 RATIO (0.9-2.4); AST(SGOT) 28 U/L (<=31); Alanine Aminotransfer ALT/SGPT 15 U/L (<=34); Alkaline Phosphatase 112 U/L (35-104); Anion Gap 13 (5-15); BUN 14 mg/dL (4-19); BUN/Creat Ratio 13.4 RATIO (10-20); Carbon Dioxide 18.7 mmol/L (21.0-32.0); Chloride 106 mmol/L (98-108); Creatinine, Serum 1.05 mg/dL (0.70-1.20); EST Glomerular Filtration Rate 60 (>60); Globulin 3.7 g/dL (2.2-4.2); Glucose 104 mg/dL (70-99); Potassium 4.1 mmol/L (3.3-5.1); Protein, Total 7.8 g/dL (5.9-8.4); Sodium Level 137 mmol/L (133-145); Total Bilirubin 0.27 mg/dL (0.00-1.30)
[2024-11-09 05:07] LABS: Complement C3 96 mg/dL (82-167)
[2024-11-09 11:08] LABS: Anti-dsDNA Ab 2 IU/mL (0-9)
== END | disposition home or self-care (01) ==
LOC: MTLAB 15:30
PROVIDERS: PCP Family Medicine; Referring Provider Internal Medicine Rheumatology; Visit Provider Internal Medicine Rheumatology
DX: M06.4 Inflammatory polyarthropathy (principal); M32.9 Systemic lupus erythematosus, unspecified; Z79.899 Other long term (current) drug therapy; M79.7 Fibromyalgia; M35.00 Sjogren syndrome, unspecified
CPT/HCPCS: 36415; 80053; 81002; 82570; 84156; 85025; 86160; 86225

== ENCOUNTER → 2024-11-28 | Outpatient (CLI) | payer MEDICARE, SELFPAY ==
[2023-09-09 13:09] VITALS: BMI 26.3
== END | disposition home or self-care (01) ==
LOC: PSN 10:18
PROVIDERS: PCP Family Medicine; Referring Provider Nurse Practitioner Acute Care; Visit Provider Nurse Practitioner Acute Care
DX: R06.02 Shortness of breath (principal)
CPT/HCPCS: 94060; 94726; 94729

== ENCOUNTER → 2024-12-01 | Outpatient (CLI) | payer MEDICARE, SELFPAY ==
[2023-09-09 13:09] VITALS: BMI 26.3
--- NOTE | 2024-12-01 13:30 | CPS ---
Patient came in for a six minute walk test. Resting SpO2 was obtained by an ear probe at 96% room air. Unable to obtain an SpO2 on a finger probe due to Raynaud's. Patient attempted the walk but we were unable to obtain a reliable pulse ox as soon as she started walking. Consulted with Dr. Heaton and he is aware that the six minute walk was unobtainable.
== END | disposition home or self-care (01) ==
LOC: PSN 12:42
PROVIDERS: PCP Family Medicine; Referring Provider Nurse Practitioner Acute Care; Visit Provider Nurse Practitioner Acute Care
DX: R06.02 Shortness of breath (principal)

== ENCOUNTER → 2025-01-30 | Outpatient (CLI) | payer MEDICARE, SELFPAY ==
[2023-09-09 13:09] VITALS: BMI 26.3
[2025-01-30 15:22] LABS: Hematocrit 34.5 % (37-47); Hemoglobin 10.8 g/dL (12.0-15.0); Immature Granulocytes Count 0.020 X10^3/uL (0.0-0.0); Mean Corp Hgb Conc 31.3 g/dL (32-36); Mean Corpuscular Volume 92.5 fL (81-99); Mean Platelet Vol. 9.9 fl (6.2-12.0); NRBC Flagged by Analyzer 0 % (0-5); POSITIVE DIFFERENTIAL YES; Platelet Count 205 K/mm3 (150-450); RBC Distribution Width CV 16.4 % (11.6-14.6); RBC Distribution Width SD 54.8 fl (35.1-43.9); Red Blood Count 3.73 M/mm3 (4.2-5.4); White Blood Count 6.3 K/mm3 (4.4-11.0)
[2025-01-30 16:06] LABS: Color, Urine Yellow (Yellow); Glucose, Dipstick Normal (Normal); Ketone-Dipstick Negative (Negative); Leukocyte Esterase-Dipstick Negative /ul (Negative); Nitrite-Dipstick Negative (Negative); Occult Blood-Urine Negative /ul (Negative); Protein-Dipstick 30 mg/dl (Negative); Specific Gravity, Urine 1.010 (1.002-1.030); Urine Bilirubin Dipstick Negative (Negative)
[2025-01-30 16:09] LABS: AST(SGOT) 28 U/L (<=31); Alanine Aminotransfer ALT/SGPT 16 U/L (<=34); Albumin, Serum 3.8 g/dL (3.4-4.8); Alkaline Phosphatase 120 U/L (35-104); Anion Gap 14 (5-15); BUN 14 mg/dL (4-19); BUN/Creat Ratio 13.6 RATIO (10-20); Calcium,Total 9.1 mg/dL (7.6-11.0); Carbon Dioxide 16.5 mmol/L (21.0-32.0); Chloride 106 mmol/L (98-108); Globulin 3.7 g/dL (2.2-4.2); Glucose 94 mg/dL (70-99); Potassium 3.9 mmol/L (3.3-5.1)
[2025-01-30 16:26] LABS: Creatinine, Urine (random) 32.40 mg/dL (28.00-217.00); Protein, Urine (Random) 30.0 mg/dL (0.0-12.0); Protein:Creat Ratio 926 mg/g CRE (0-200)
[2025-02-01 15:09] LABS: Anti-dsDNA Ab 2 IU/mL (0-9)
== END | disposition home or self-care (01) ==
LOC: MTLAB 13:38
PROVIDERS: PCP Family Medicine; Referring Provider Internal Medicine Rheumatology; Visit Provider Internal Medicine Rheumatology
DX: M06.4 Inflammatory polyarthropathy (principal); M32.9 Systemic lupus erythematosus, unspecified; Z79.899 Other long term (current) drug therapy; M79.7 Fibromyalgia
CPT/HCPCS: 36415; 80053; 81002; 82570; 84156; 85025; 86160; 86225

== ENCOUNTER → 2025-02-20 | Outpatient (CLI) | payer MEDICARE, SELFPAY ==
[2023-09-09 13:09] VITALS: BMI 26.3
[2025-02-20 16:18] LABS: Albumin, Serum 3.7 g/dL (3.4-4.8); Anion Gap 11 (5-15); BUN 15 mg/dL (4-19); BUN/Creat Ratio 16.4 RATIO (10-20); Calcium,Total 9.1 mg/dL (7.6-11.0); Carbon Dioxide 20.0 mmol/L (21.0-32.0); Chloride 104 mmol/L (98-108); Glucose 99 mg/dL (70-99); Potassium 4.0 mmol/L (3.3-5.1)
[2025-02-20 16:50] LABS: Creatinine, Urine (random) 30.30 mg/dL (28.00-217.00)
[2025-02-20 17:23] LABS: Protein, Urine (Random) 17.4 mg/dL (0.0-12.0); Protein:Creat Ratio 574 mg/g CRE (0-200)
== END | disposition home or self-care (01) ==
LOC: MTLAB 12:56
PROVIDERS: PCP Family Medicine; Referring Provider Internal Medicine Nephrology; Visit Provider Internal Medicine Nephrology
DX: M32.9 Systemic lupus erythematosus, unspecified (principal); R80.9 Proteinuria, unspecified
CPT/HCPCS: 36415; 80069; 82570; 84156

== ENCOUNTER → 2025-04-20 | Outpatient (CLI) | payer MEDICARE, SELFPAY ==
[2025-04-19 13:31] VITALS: BMI 26.3
--- NOTE | 2025-04-20 16:37 | RAD_ITS ---
PROCEDURE: L/S SPINE MIN 4 VIEWS 04/20/2025 REASON FOR EXAM: BACK PAIN TECHNIQUE: Procedure Code: [id number] Modality: DX Procedure: L/S SPINE MIN 4 VIEWS COMPARISON: None FINDINGS: Four views of the lumbosacral spine were obtained. The visualized sacrum is intact without evidence of fracture. SI joints are unremarkable. There are 5 lumbar-type vertebral bodies below the last set of paired ribs. The vertebral body heights and alignment are within normal limits. There is no spondylolysis or spondylolisthesis. There is no spondylosis. Intervertebral disc spaces are well-maintained. Arteriosclerotic vascular disease of the aorta is noted. RAD/L/S Spine Min 4 Views IMPRESSION: Unremarkable lumbosacral spine study. Reading Location: [id number]
--- NOTE | 2025-04-20 16:37 | RAD_ITS ---
PROCEDURE: THORACIC SPINE 2 VIEWS 04/20/2025 REASON FOR EXAM: BACK PAIN TECHNIQUE: Procedure Code: [id number] Modality: DX Procedure: THORACIC SPINE 2 VIEWS COMPARISON: None FINDINGS: Vertebrae: There is bony demineralization of the osseous structures of the thoracic spine. There appears to be a very subtle decrease in height of a few of the midthoracic vertebral bodies by approximately 3 %. These may be related to osteoporotic compression fractures. The age of which is indeterminate. Discs: Disc spaces appear to be well-maintained. Alignment: There is no spondylolisthesis. Vertebral body alignments are within normal limits. Other: The paravertebral soft tissue structures are grossly unremarkable. RAD/Thoracic Spine 2 Views IMPRESSION: There is bony demineralization of the osseous structures of the thoracic spine. There appears to be a very subtle decrease in height of a few of the midthoracic vertebral bodies by approximately 3 %. Thes e may be related to osteoporotic compression fractures. The age of which is indeterminate. An MRI examination of the thoracic spine may be of value for further evaluation of the very subtle decrease in height of the mid thoracic vertebral bodies, if clinically warranted. This will also further kristel luate soft tissue structures, disc spaces and nerve roots. Reading Location: [id number]
== END | disposition home or self-care (01) ==
LOC: MTRAD 16:35
PROVIDERS: PCP Nurse Practitioner Family; Referring Provider Nurse Practitioner Family; Visit Provider Nurse Practitioner Family
DX: M54.9 Dorsalgia, unspecified (principal)
CPT/HCPCS: 72070; 72110

== ENCOUNTER → 2025-04-28 | Outpatient (CLI) | payer MEDICARE, SELFPAY ==
[2025-04-19 13:31] VITALS: BMI 26.3
--- OUTSIDE RECORDS SUMMARY | 2025-04-28 15:26 | XMS RPT_ITS | CCD ---
Author Organization [facility] Care Team Providers Care Loaders Name Role Phone HOLLAND VILLARREAL MD Unavailable Unavailable HOLLAND VILLARREAL MD Unavailable Unavailable DO Judy Pinto Primary Care Provider [phone] DO Judy Pinto Referring Provider Dr. Siddhartha Evans Attending Provider Dr. Sadiq Beverly Attending Provider Dr. Siddhartha Evans Referring Provider Dr. Siddhartha Evans Other Provider Dr. Sadiq Beverly Referring Provider DO Judy Pinto Other Provider Dr. Yadiel Heaton Attending Provider DO Judy Pinto Primary Care Provider DO Judy Pinto Referring Provider Dr. Siddhartha Evans Attending Provider Dr. Sadiq Beverly Attending Provider Dr. Sadiq Beverly Referring Provider Dr. Siddhartha Evans Referring Provider Dr. Siddhartha Evans Other Provider DO Judy Pinto Other Provider Dr. Yadiel Heaton Attending Provider Tristan HILL, RESIDENTIAL CAREGIVER-C Kim Attending Provider Yue Rivas Attending Provider Unavailable Dr. Roosevelt Ahmadi Attending Provider Millie, DO Judy M Primary Care Provider Dr. Siddhartha Evans Attending Provider Millie, DO Judy M Referring Provider ILANA Kapadia Attending Provider [phone] Nahomi Lobato Referring Provider Dr. Nahomi Lobato Other Provider GABRIELLA Franklin Attending Provider Millie, DO Judy M Primary Care Provider Galdino, Dr. Albert Referring Provider Dr. Roosevelt Ahmadi Other Provider GABRIELLA Worley NP Attending Provider Millie, DO Judy M Primary Care Provider Millie, DO Judy M Referring Provider Dr. Siddhartha Evans Attending Provider Millie, DO Judy M Primary Care Provider Millie, DO Judy M Referring Provider Millie, DO Judy M Primary Care Provider Millie, DO Judy M Referring Provider Dr. Roosevelt Ahmadi Attending Provider ILANA Kapadia Attending Provider [phone] Nahomi Lobato Referring Provider Dr. Nahomi Lobato Other Provider GABRIELLA Franklin Attending Provider Dr. Roosevelt Ahmadi Referring Provider Dr. Roosevelt Ahmadi Other Provider GABRIELLA Worley NP Attending Provider Dr. Siddhartha Evans Attending Provider Mayelin Awad Attending Provider Unavailable ILANA Evans Attending Provider DO Judy Pinto Primary Care Provider DO Millie Judy M Referring Provider Dr. Roosevelt Ahmadi Attending Provider Dr. Sadiq Beverly Attending Provider Staci GRAY, Andres Young Primary Care Provider Kim Hudson Unavailable Juice Cochran MD Primary Care Provider Dr. Nahomi Lobato DO Attending Provider Marcelle GODFREY, Dr. Kruse Referring Provider Juice Cochran MD Referring Provider Roof RESIDENTIAL CAREGIVER-C, Andres Wynne Attending Provider Hudson RESIDENTIAL CAREGIVER-C, Kim Attending Provider Dr. Fox Tomlinson DO Attending Provider Dr. Fox Tomlinson DO Emergency Provider Roof RESIDENTIAL CAREGIVER-C, Andres Wynne Referring Provider Roof RESIDENTIAL CAREGIVER-C, Andres Wynne Other Provider Galdino GODFREY, Dr. Albert Attending Provider Ravin GODFREY, Dr. Castro Attending Provider Dr. Jarocho Stafford MD Referring Provider Stevenson DPM, Dr. Bledsoe Attending Provider Stevenson DPM, Dr. Bledsoe Referring Provider Juice Cochran MD Attending Provider Dr. Nahomi Lobato DO Referring Provider Marcelle GODFREY, Dr. Kruse Other Provider Juice Cochran MD Primary Care Provider Juice Cochran MD Referring Provider Dr. Nahomi Lobato DO Attending Provider Marcelle GODFREY, Dr. Kruse Attending Provider Marcelle GODFREY, Dr. Kruse Referring Provider Sammie GODFREY, [facility] Primary Care Provider Tristan RESIDENTIAL CAREGIVER-C, Kim Attending Provider Tristan RESIDENTIAL CAREGIVER-C, Kim Referring Provider Sammie GODFREY, Juice Referring Provider [phone] Dereje Alvarado Attending Provider Sammie GODFREY, Juice Primary Care Physician Tristan RESIDENTIAL CAREGIVER-C, Kim Attending Physician Dereje Alvarado Attending Physician Marcelle GODFREY, Dr. Kruse Attending Physician [phone] Marcelle GODFREY, Dr. Kruse Referring Provider Luis Alfredo GRAY, Dr. Comer Attending Physician Luis Aflredo GRAY, Dr. Comer Referring Provider [phone] Sammie, Chalon Primary Care Unavailable Tristan RESIDENTIAL CAREGIVER, Kim Referring Unavailable Yadiel Heaton Attending Unavailable Sammie, Chalon Primary Care Unavailable Sammie, Chalon Referring Unavailable Sammie, Rubaon Attending Unavailable Nahomi Lobato Referring Unavailable Nahomi Lobato Attending Unavailable Sammie, Chalon Primary Care Unavailable Vellanki, Aixa Consulting Unavailable Mahsa Shaw Attending Unavailable Sammie, Chalon Primary Care Unavailable Sammie, Chalon Referring Unavailable Sammie, Chalon Primary Care Unavailable Jarocho Stafford Referring Unavailable Matthew Alicia Attending Unavailabl Nahomi Mena Attending Unavailable Sammie, Chalon Primary Care Unavailable Vellanki, Aixa Referring Unavailable Sammie, Chalon Primary Care Unavailable Fox Tomlinson Attending Unavailable Sammie, Chalon Primary Care Unavailable Tristan RESIDENTIAL CAREGIVER, Kim Attending Unavailable Hudson RESIDENTIAL CAREGIVER, Kim Referring Unavailable Sammie, Chalon Primary Care Unavailable Vellanki, Aixa Referring Unavailable Vellanki, Aixa Attending Unavailable Rakan Gamino Referring Unavailable Rakan Gamino Attending Unavailable Sammie, Chalon Primary Care Unavailable Roosevelt Ahmadi Attending Unavailable Jeff RESIDENTIAL CAREGIVER, Andres Wynne Referring Unavailable Jeff RESIDENTIAL CAREGIVER, Andres Wynne Consulting Unavailable Sammie, Chalon Primary Care Unavailable Tristan RESIDENTIAL CAREGIVER, Kim Attending Unavailable Nahomi Lobato Referring Unavailable Luis AlfredoNahomi Attending Unavailable Sammie, Chalon Primary Care Unavailable Roof RESIDENTIAL CAREGIVER, Andres H Referring Unavailable Roof RESIDENTIAL CAREGIVER, Andres H Attending Unavailable Sammie, Chalon Primary Care Unavailable Sammie, Chalon Primary Care Unavailable Vellanjennifer, Aixa Referring Unavailable Vellanki, Aixa Attending Unavailable Sammie, Chalon Primary Care Unavailable Dereje Hill Attending Unavailable Sammie, Chalon Referring Unavailable Sammie, Chalon Primary Care Unavailable Hudson RESIDENTIAL CAREGIVER, Kim Attending Unavailable Sammie, Chalon Referring Unavailable Sammie, Chalon Primary Care Unavailable Sammie, Chalon Referring Unavailable Hudson RESIDENTIAL CAREGIVER, Kim Attending Unavailable Sammie, Chalon Primary Care Unavailable Rush, Sadiq Attending Unavailable Roof RESIDENTIAL CAREGIVER, Andres H Attending Unavailable Sammie, Chalon Primary Care Unavailable Sammie, Chalon Referring Unavailable Allergies Allergy Classification Reported Allergen(s) Allergy Type Date of Onset Reaction(s) Facility (20 sources) Amoxicillin; Translations: [amoxicillin trihydrate] Drug Allergy 01-11-20 [facility] Comment on above: RASH (20 sources) ARIPiprazole Drug Allergy 04-25-20 14 [facility] Comment on above: LEG TREMORS (20 sources) Diflunisal Drug Allergy 04-25-20 14 [facility] Comment on above: HANDS BURN AND PEEL (20 sources) FLUoxetine; Translations: [fluoxetine HCl] Drug Allergy 04-25-20 14 [facility] Comment on above: DIDN'T WORK (20 sources) Penicillins; Translations: [Penicillins] Allergy to substance 04-25-20 14 [facility] Comment on above: RASH (20 sources) Sertraline; Translations: [sertraline HCl] Drug Allergy 04-25-20 14 [facility] Comment on above: DIDN'T WORK (20 sources) Sulfamethoxazole Drug Allergy 01-11-20 [facility] (20 sources) Trimethoprim Drug Allergy 01-11-20 [facility] (20 sources) venlafaxine; Translations: [venlafaxine HCl] Drug Allergy 01-11-20 [facility] Comment on above: DIDN'T WORK (20 sources) potassium clavulanate; Translations: [potassium clavulanate] Allergy to substance 01-11-20 [facility] (3 sources) ARTIFICIAL SUGARS Propensity to adverse reactions 01-11-20 20 Other [facility] Work Phone: (11 sources) Food Allergies: Uncoded Propensity to adverse reactions 05-19-20 22 BLISTERS IN MOUTH [facility] (2 sources) Amoxicillin / Clavulanate Drug Allergy 04-25-20 14 Unknown [facility] (2 sources) Sulfamethoxazole / Trimethoprim Drug Allergy 04-25-20 14 Unknown [facility] (2 sources) venlafaxine Drug Allergy 04-25-20 14 Unknown [facility] (2 sources) Bee Stings [Other] Propensity to adverse reactions 09-19-19 06 [facility] Work Phone: (1 source) ARIPiprazole Drug Allergy 12-14-19 [facility] Repository (1 source) Diflunisal Drug Allergy 12-14-19 25 [facility] Rep[facility] (1 source) Sulfamethoxazole Drug Allergy 12-14-19 [facility] Repository (1 source) Trimethoprim Drug Allergy 12-14-19 [facility] Repository Medications Current Medications Medication Drug Class(es) Dates Sig (Normalized) Sig (Original) acetaminophen 325 mg / oxyCODONE hydrochloride 5 mg oral tablet (20 sources) Opioid Agonist Start: 06-02-2024 take 1 tablet by mouth every six hours Start: 06-02-2023 End: 09-21-2023 Oxycodone-Acetaminophen (Per cocet) 5-325 mg tablet Discontinued 1 {tbl} PO Q8H as needed for pain 12 3 0 June 02, 2023 September 21, 2023 2:37pm Ischemic ulcer of finger Raynaud's disease Non-pressure chronic ulcer of skin of other sites with unspecified severity Raynaud's syndrome without gangrene acetylcysteine 600 mg oral capsule (4 sources) Antidote, Mucolytic, Antidote for Acetaminophen Overdose Start: 12-12-2024 take 1 capsule by mouth twice daily albuterol 0.833 mg/ml / ipratropium bromide 0.167 mg/ml inhalation solution (2 sources) Anticholinergic, beta2-Adrenergic Agonist Start: 12-30-2024 take 1 mL by inhalation every four hours as needed for wheezing ascorbic acid 1000 mg oral tablet (9 sources) Vitamin C Start: 07-07-2024 take 1 g by mouth once daily aspirin 81 mg delayed release oral tablet (16 sources) Platelet Aggregation Inhibitor, Nonsteroidal Anti-inflammatory Drug Start: 07-24-2023 take 1 tablet by mouth once daily 1 ml belimumab 200 mg/ml auto-injector (20 sources) B Lymphocyte Stimulator-specific Inhibitor Start: 11-03-2023 Start: 06-23-2023 End: 11-03-2023 Belimumab (Benlysta) 200 mg/ mL auto-injector Discontinued 200 mg SC EVERY WEEK June 23, 2023 1:00am November 03, 2023 2:11pm inject into upper thigh or abdomen; rotate sites biotin 10 mg oral tablet (9 sources) Start: 06-23-2024 Calcium (9 sources) Phosphate Binder, Calcium Start: 06-23-2024 take 2 tablets by mouth once daily Start: 06-23-2024 take 2 tablets by mouth once d aily Calcium 250 mg tablet Active 500 mg PO DAILY June 23, 2024 1:00am CALCIUM CARBONATE/VITAMIN D2 (CALCIUM + VITAMIN D ORAL) (2 sources) take 2 tablets by mouth once daily CALCIUM CARBONATE/VITAMIN D2 (CALCIUM + VITAMIN D ORAL) Indications: Anemia , Lupus anticoagulant disorder (HCC) Take 2 tablets by mouth once daily. Active DULoxetine 60 mg delayed release oral capsule (20 sources) Serotonin and Norepinephrine Reuptake Inhibitor Start: 2013 take 2 capsules by mouth once daily Start: 06-06-2014 take 120 mg by mouth once jaan y Duloxetine Active 120 MG PO DAILY June 06, 2014 1:00am FERROUS FUMARATE/VIT BCOMP&C (SUPER B COMPLEX ORAL) (2 sources) take 1 tablet by mouth once daily FERROUS FUMARATE/VIT BCOMP&C (SUPER B COMPLEX ORAL) Indications: Pancytopenia Take 1 tablet by mouth once daily. Active gabapentin 300 mg oral capsule (20 sources) Anti-epileptic Agent Start: 06-29-2023 take 1 capsule by mouth twice daily as needed Start: 06-29-2023 Gabapentin Act ryann MG June 29, 2023 12:00am bid Start: 06-19-2018 End: 02-26-2023 take 1 capsule by mouth twice daily Gabapentin 300 mg capsule Discontinued 300 mg PO TWICE A DAY January 05, 2020 12:00am February 26, 2023 12:40pm hydroxychloroquine sulfate 200 mg oral tablet (20 sources) Antimalarial, Antirheumatic Agent Start: 04-09-2023 End: 05-20-2023 take 1 tablet by mouth once daily Start: 04-09-2023 End: 05-20-2023 Hydroxychloroquine Discontin ued MG PO April 09, 2023 12:00am May 20, 2023 12:09pm hydrOXYzine hydrochloride 25 mg oral tablet (4 sources) Antihistamine Start: 12-12-2024 take 12.5-25 mg by mouth every eight hours as needed Start: 12-12-2024 take 12.5-25 mg by m outh every eight hours as needed Hydroxyzine Hcl 25 mg tablet Active 12.5 - 25 mg PO EVERY 8 HOURS as needed December 12, 2024 12:00am Lactobacillus acidophilus (2 sources) take 1 capsule by mouth once daily lactobacillus acidophilus (ACIDOPHILUS) cap Indications: Anemia , Lupus anticoagulant disorder (HCC) Take 1 capsule by mouth once daily. Active lisinopril 30 mg oral tablet (20 sources) Angiotensin Converting Enzyme Inhibitor Start: 06-23-19 take 1 tablet by mouth twice daily Start: 06-14-2024 End: 06-23-2024 take 1 tablet by mouth twice daily Lisinopril 20 mg tablet Discontinued 20 mg PO TWICE A DAY June 14, 2024 10:49am June 23, 2024 10:57am Start: 05-24-2024 End: 06-14-2024 Lisinopril 20 mg tablet Disc ontinued 30 mg PO TWICE A DAY May 24, 2024 3:54pm June 14, 2024 10:49am Start: 07-28-2023 End: 05-24-2024 take 1 tablet by mouth twice daily Lisinopril 20 mg tablet Discontinued 20 mg PO TWICE A DAY July 28, 2023 1:00am May 24, 2024 3:55pm Start: 05-20-2023 End: 07-28-2023 take 1 tablet by mouth once daily Lisinopril 30 mg tablet Discontinued 30 mg PO DAILY May 20, 2023 1:00am July 28, 2023 2:20pm Start: 02-26-2023 End: 05-20-2023 take 2 tablets by mouth once daily Lisinopril 10 mg tablet Discontinued 20 mg PO DAILY February 26, 2023 12:40pm May 20, 2023 12:07pm Start: 02-26-2023 End: 05-20-2023 take 20 mg by mouth once daily Lisinopril Discontinued 20 MG PO DAILY February 26, 2023 12:40pm May 20, 2023 12:07pm Start: 10-03-2005 End: 02-26-2023 take 1 tablet by mouth once daily Lisinopril 10 MG tablet Discontinued 10 mg PO DAILY June 06, 2014 1:00am February 26, 2023 12:40pm multivitamin ORAL tablet (2 sources) Start: 12-26-2019 take 1 tablet by mouth twice daily multivitamin ORAL tablet Indications: Pancytopenia Take 1 tablet by mouth twice daily. 12/26/2019 Active Multivitamin With Folic Acid (20 sources) Start: 06-06-2014 take 1 tablet by mouth once daily Multivitamin With Folic Acid Active 1 TABLET PO DAILY June 06, 2014 11:24am Start: 06-06-2014 take 1 tablet by junior th once daily Multivitamin With Folic Acid Active 1 TABLET PO DAILY June 06, 2014 12:00am Start: 06-06-2014 take 1 tablet by junior th once daily Multivitamin With Folic Acid Active 1 TABLET PO DAILY June 06, 2014 1:00am Multivitamin With Folic Acid 1 TABLET tablet (9 sources) Start: 06-06-2014 take 1 tablet by junior th once daily Start: 06-06-2014 take 1 tablet by junior th once daily Multivitamin With Folic Acid 1 TABLET tablet Active 1 {tbl} PO DAILY June 06, 2014 1:00am omeprazole 40 mg delayed release oral capsule (20 sources) Proton Pump Inhibitor Start: 06-06-2014 End: 05-20-2023 take 1 capsule by mouth once daily traZODone hydrochloride 100 mg oral tablet (20 sources) Serotonin Reuptake Inhibitor Start: 11-03-2023 take 1 tablet by mouth at bedtime Start: 07-28-2023 End: 09-11-2023 take 1 tablet by mouth at bedtime Trazodone 50 mg tablet Discontinued 50 mg PO AT BEDTIME July 28, 2023 1:00am September 11, 2023 10:24am Completed/Discontinued Medications Medication Drug Class(es) Dates Sig (Normalized) Sig (Original) [id number] 200 actuat albuterol 0.09 mg/actuat metered dose inhaler (20 sources) beta2-Adrenergic Agonist Start: 05-14-2023 End: 05-20-2023 Albuterol Sulfate 90 mcg/actuation HFA aerosol inhaler Discontinued INHALATION May 14, 2023 1:00am May 20, 2023 12:06pm Start: 05-14-2023 End: 05-20-2023 Albuterol Sulfate Discontinu ed INHALATION May 14, 2023 1:00am May 20, 2023 12:06pm alendronic acid 70 mg oral tablet (16 sources) Bisphosphonate Start: 07-28-2023 End: 05-11-2024 take 1 tablet by mouth every week Alendronate 70 mg tablet Discontinued 70 mg PO EVERY WEEK July 28, 2023 1:00am May 11, 2024 3:16pm Start: 07-28-2023 Alendronate Ac tive MG PO July 28, 2023 12:00am amLODIPine 2.5 mg oral tablet (20 sources) Dihydropyridine Calcium Channel Batsheva Start: 08-13-2023 End: 06-14-2024 take 1 tablet by mouth once daily Amlodipine 2.5 mg tablet Discontinued 2.5 mg PO DAILY 90 May 09, 2024 12:30pm June 14, 2024 10:48am atorvastatin 10 mg oral tablet (20 sources) HMG-CoA Reductase Inhibitor Start: 08-13-2023 End: 05-11-2024 take 1 tablet by mouth at bedtime Atorvastatin 10 mg tablet Discontinued 10 mg PO AT BEDTIME 90 May 09, 2024 12:30pm May 11, 2024 3:21pm Budesonide-Formote rol (20 sources) Corticosteroid, beta2-Adrenergic Agonist Start: 06-22-2023 End: 05-24-2024 Budesonide-Formot lucia (Symbicort) 160-4.5 mcg/actuation HFA aerosol inhaler Discontinued 2 NMA INHALATION TWICE A DAY 3 June 22, 2023 1:16pm May 24, 2024 3:53pm administer with spacer, rinse mouth after each use Start: 06-22-2023 End: 05-24-2024 Budesonide-Formoterol (Symbi shilpa) 160-4.5 mcg/actuation HFA aerosol inhaler Discontinued 2 NMA INHALATION TWICE A DAY June 22, 2023 1:16pm May 24, 2024 3:53pm administer with spacer, rinse mouth after each use Start: 06-22-2023 take 1 puff(s) by [facility] twice daily Budesonide-Formoterol (Symbicort) 160-4. 5 mcg/actuation HFA aerosol inhaler Active 2 PUFF INHALATION TWICE A DAY 3 June 22, 2023 1:16pm administer with spacer, rinse mouth after each use Start: 06-22-2023 take 1 puff(s) by [facility] twice daily Budesonide-Formoterol (Symbicort) 160-4. 5 mcg/actuation HFA aerosol inhaler Active 2 PUFF INHALATION TWICE A DAY 3 June 22, 2023 12:16pm administer with spacer, rinse mouth after each use Start: 05-20-2023 End: 06-22-2023 Budesonide-Formoterol (Symbi shipla) 160-4.5 mcg/actuation HFA aerosol inhaler Discontinued 2 NMA INHALATION TWICE A DAY May 20, 2023 12:05pm June 22, 2023 1:22pm administer with spacer, rinse mouth after each use Start: 05-20-2023 End: 06-22-2023 take 1 puff(s) by mouth twice daily Budesonide-Formoterol (Symbicort) 160-4. 5 mcg/actuation HFA aerosol inhaler Discontinued 2 PUFF INHALATION TWICE A DAY May 20, 2023 12:05pm June 22, 2023 1:22pm administer with spacer, rinse mouth after each use Start: 05-20-2023 End: 06-22-2023 take 1 puff(s) by mouth twice daily Budesonide-Formoterol (Symbicort) 160-4. 5 mcg/actuation HFA aerosol inhaler Discontinued 2 PUFF INHALATION TWICE A DAY May 20, 2023 11:05am June 22, 2023 12:22pm administer with spacer, rinse mouth after each use Start: 05-20-2023 take 1 puff(s) by [facility] twice daily Budesonide-Formoterol (Symbicort) 160-4. 5 mcg/actuation HFA aerosol inhaler Active 2 PUFF INHALATION TWICE A DAY May 20, 2023 11:05am administer with spacer, rinse mouth after each use Start: 05-11-2023 End: 05-20-2023 Budesonide-Formoterol (Symbi shilpa) 160-4.5 mcg/actuation HFA aerosol inhaler Discontinued 2 NMA INHALATION TWICE A DAY 1 May 11, 2023 1:00am May 20, 2023 12:09pm administer with spacer, rinse mouth after each use Start: 05-11-2023 End: 05-20-2023 Budesonide-Formoterol (Symbi shilpa) 160-4.5 mcg/actuation HFA aerosol inhaler Discontinued 2 NMA INHALATION TWICE A DAY May 11, 2023 1:00am May 20, 2023 12:09pm administer with spacer, rinse mouth after each use Start: 05-11-2023 End: 05-20-2023 take 1 puff(s) by mouth twice daily Budesonide-Formoterol (Symbicort) 160-4. 5 mcg/actuation HFA aerosol inhaler Discontinued 2 PUFF INHALATION TWICE A DAY May 11, 2023 1:00am May 20, 2023 12:09pm administer with spacer, rinse mouth after each use Start: 05-11-2023 End: 05-20-2023 take 1 puff(s) by mouth twice daily Budesonide-Formoterol (Symbicort) 160-4. 5 mcg/actuation HFA aerosol inhaler Discontinued 2 PUFF INHALATION TWICE A DAY May 11, 2023 12:00am May 20, 2023 11:09am administer with spacer, rinse mouth after each use Start: 05-11-2023 take 1 puff(s) by mo uth twice daily Budesonide-Formoterol (Symbicort) 160-4. 5 mcg/actuation HFA aerosol inhaler Active 2 PUFF INHALATION TWICE A DAY May 11, 2023 12:00am administer with spacer, rinse mouth after each use calcium carbonate 1250 mg / cholecalciferol 600 unt oral tablet (20 sources) Vitamin D Start: 07-07-2024 End: 12-13-2024 Calcium Carbonate-Vitamin D3 (Os-Suresh 500 + D3) 500 mg-15 mcg (600 unit) tablet Discontinued 1 {tbl} PO DAILY 90 90 0 July 07, 2024 1:00am December 13, 2024 1:06pm Start: 06-06-2014 End: 05-24-2024 Calcium Carbonate-Vitamin D3 1 TAB tablet Discontinued 2 {tbl} PO DAILY@799June 06, 2014 1:00am May 24, 2024 3:53pm Start: 06-06-2014 take 2 tablets by mo ut once daily Calcium Carbonate-Vitamin D3 Active 2 TABLET PO DAILY@799June 06, 2014 1:00am clopidogrel 75 mg oral tablet (20 sources) [id number] Platelet Inhibitor Start: 08-13-2023 End: 12-13-2024 take 1 tablet by mouth once daily Clopidogrel 75 mg tablet Discontinued 75 mg PO DAILY 30 October 10, 2024 8:15am December 13, 2024 1:40pm cyclobenzaprine hydrochloride 10 mg oral tablet (9 sources) Muscle Relaxant Start: 07-07-2024 End: 12-13-2024 take 1 tablet by mouth three times daily Cyclobenzaprine 10 mg tablet Discontinued 10 mg PO THREE TIMES A DAY 21 7 July 07, 2024 1:00am December 13, 2024 1:07pm muscle spasm docusate sodium 100 mg oral capsule (20 sources) Start: 07-10-2024 End: 12-13-2024 take 1 capsule by mouth three times daily Docusate Sodium (Colace) 100 mg capsule Discontinued 100 mg PO THREE TIMES A DAY 30 10 July 10, 2024 1:00am December 13, 2024 1:07pm Start: 07-07-2024 End: 12-13-2024 take 1 capsule by mouth once daily Docusate Sodium (Colace) 100 mg capsule Discontinued 100 mg PO DAILY 10 10 July 07, 2024 1:00am December 13, 2024 1:07pm Start: 06-02-2024 End: 06-23-2024 take 1 capsule by mouth twice daily Docusate Sodium (Colace) 100 mg capsule Discontinued 100 mg PO TWICE A DAY 60 June 02, 2024 1:00am June 23, 2024 10:56am doxycycline hyclate 100 mg oral tablet (20 sources) Tetracycline-class Drug Start: 03-02-2023 End: 04-09-2023 take 1 tablet by mouth twice daily Doxycycline Hyclate 100 mg tablet Discontinued 100 mg PO TWICE A DAY 20 March 02, 2023 12:00am April 09, 2023 1:41pm fluticasone propionate 0.05 mg/actuat metered dose nasal spray (16 sources) Corticosteroid Start: 07-28-2023 End: 05-11-2024 Fluticasone Propionate 50 mcg/actuation spray,suspension Discontinued 2 NMA INTRANASAL DAILY 18.2 2 July 28, 2023 1:00am May 11, 2024 3:19pm administer into each nostril Start: 07-28-2023 take 1 spray(s) nasa l route once daily Fluticasone Propionate Active 2 SPRAY INTRANASAL DAILY 18.2 July 28, 2023 1:00am administer into each nostril mecobalamin (20 sources) Start: 05-14-2023 End: 05-11-2024 take 1 tablet by mouth once daily Mecobalamin (Vitamin B12) 5,000 mcg tablet,chewable Discontinued 5000 ug PO DAILY May 14, 2023 1:00am May 11, 2024 3:20pm Start: 05-14-2023 take 5000 ug by mout h once daily Mecobalamin (Vitamin B12) Active 5000 MCG PO DAILY May 14, 2023 1:00am Start: 05-14-2023 take 5000 ug by mout h once daily Mecobalamin (Vitamin B12) Active 5000 MCG PO DAILY May 14, 2023 12:00am melatonin 10 mg oral capsule (20 sources) Start: 05-14-2023 End: 05-20-2023 take 1 capsule by mouth at bedtime as needed Melatonin 10 mg capsule Discontinued 10 mg PO BEDTIME as needed May 14, 2023 1:00am May 20, 2023 12:07pm methylPREDNISolone 4 mg oral tablet (9 sources) Corticosteroid Start: 07-09-2024 End: 12-13-2024 Methylprednisolone (Medrol (Philip)) 4 mg tablets,dose pack Discontinued 0 PO .COMPLEX 21 0 July 09, 2024 1:00am December 13, 2024 1:08pm for 6 days naproxen 250 mg oral tablet (20 sources) Nonsteroidal Anti-inflammatory Drug Start: 06-06-2014 End: 06-16-2014 take 2 tablets by mouth three times daily as needed for pain Naproxen 250 MG tablet Discontinued 500 mg PO 3 TIMES DAILY NEEDED as needed for Pain June 06, 2014 1:00am June 16, 2014 1:38pm Start: 06-06-2014 End: 06-16-2014 take 500 mg by mouth three times daily as needed Naproxen Discontinued 500 MG PO 3 TIMES DAILY NEEDED June 06, 2014 1:00am June 16, 2014 1:38pm take 4 capsules by m outh once daily naproxen sodium 220 mg ORAL Cap Indications: Pancytopenia Take 4 capsules by mouth once daily. Active nitroglycerin 0.004 mg/mg rectal ointment (20 sources) Nitrate Vasodilator Start: 06-23-2023 End: 05-11-2024 Nitroglycerin (Rectiv) 0.4 % (w/w) ointment Discontinued 1 [in_us] RC AT BEDTIME June 23, 2023 1:00am May 11, 2024 3:20pm Start: 06-23-2023 Nitroglycerin (Rectiv) 0.4 % (w/w) ointment Active 1 INCH RC AT BEDTIME June 23, 2023 1:00am Tiotropium-Olodaterol (20 sources) Anticholinergic, beta2-Adrenergic Agonist Start: 05-06-2023 End: 05-11-2023 Tiotropium-Olodaterol (Stiolto Respimat) 2.5-2.5 mcg/actuation mist Discontinued 2 NMA INHALATION DAILY 4 May 06, 2023 11:34am May 11, 2023 1:13pm Start: 05-06-2023 End: 05-11-2023 Tiotropium-Olodaterol (Stiol to Respimat) 2.5-2.5 mcg/actuation mist Discontinued 2 NMA INHALATION DAILY May 06, 2023 11:34am May 11, 2023 1:13pm Start: 05-06-2023 End: 05-11-2023 Tiotropium-Olodaterol (Stiol to Respimat) 2.5-2.5 mcg/actuation mist Discontinued 2 INH INHALATION DAILY May 06, 2023 11:34am May 11, 2023 1:13pm Start: 05-06-2023 End: 05-11-2023 Tiotropium-Olodaterol (Stiol to Respimat) 2.5-2.5 mcg/actuation mist Discontinued 2 INH INHALATION DAILY May 06, 2023 10:34am May 11, 2023 12:13pm Start: 05-06-2023 Tiotropium-Olo daterol (Stiolto Respimat) 2.5-2.5 mcg/actuation mist Active 2 INH INHALATION DAILY May 06, 2023 10:34am Start: 04-10-2023 End: 05-06-2023 Tiotropium-Olodaterol (Stiol to Respimat) 2.5-2.5 mcg/actuation mist Discontinued 2 NMA INHALATION DAILY 4 April 10, 2023 12:00am May 06, 2023 11:35am Start: 04-10-2023 End: 05-06-2023 Tiotropium-Olodaterol (Stiol to Respimat) 2.5-2.5 mcg/actuation mist Discontinued 2 NMA INHALATION DAILY April 10, 2023 12:00am May 06, 2023 11:35am Start: 04-10-2023 End: 05-06-2023 Tiotropium-Olodaterol (Stiol to Respimat) 2.5-2.5 mcg/actuation mist Discontinued 2 INH INHALATION DAILY April 10, 2023 12:00am May 06, 2023 11:35am Start: 04-10-2023 End: 05-06-2023 Tiotropium-Olodaterol (Stiol to Respimat) 2.5-2.5 mcg/actuation mist Discontinued 2 INH INHALATION DAILY April 09, 2023 11:00pm May 06, 2023 10:35am Start: 04-10-2023 Tiotropium-Olo daterol (Stiolto Respimat) 2.5-2.5 mcg/actuation mist Active 2 INH INHALATION DAILY April 09, 2023 11:00pm predniSONE 20 mg oral tablet (20 sources) Start: 06-23-2023 End: 09-11-2023 take 1 tablet by mouth once daily Prednisone 20 mg tablet Discontinued 20 mg PO DAILY June 23, 2023 1:00am September 11, 2023 10:22am Start: 03-02-2023 End: 04-09-2023 take 3 tablets by mouth once daily at mealtime Prednisone 20 mg tablet Discontinued 60 mg PO daily March 02, 2023 12:00am April 09, 2023 1:42pm administer with food or milk Start: 03-02-2023 End: 04-09-2023 take 60 mg by mouth once daily at mealtime Prednisone Discontinued 60 MG PO daily March 02, 2023 12:00am April 09, 2023 1:42pm administer with food or milk psyllium 400 mg oral capsule (20 sources) Start: 05-20-2023 End: 06-23-2023 Psyllium Husk (Metamucil) 0.4 gram capsule Discontinued 0.4 g PO AT BEDTIME May 20, 2023 1:00am June 23, 2023 2:52pm Timolol Maleate (20 sources) beta-Adrenergic Batsheva Start: 06-29-2023 End: 05-11-2024 Timolol Maleate 0.5 % drops Discontinued 1 NMA OPHTHALMIC DAILY as needed for raynauds June 29, 2023 1:00am May 11, 2024 3:21pm Start: 06-29-2023 Timolol Maleat e Active 1 DRP OPHTHALMIC DAILY June 29, 2023 1:00am Start: 06-29-2023 Timolol Maleat e Active 1 DRP OPHTHALMIC DAILY June 29, 2023 12:00am Start: 06-29-2023 Timolol Maleat e Active DRP June 29, 2023 12:00am 7 actuat umeclidinium 0.0625 mg/actuat / vilanterol 0.025 mg/actuat dry powder inhaler (20 sources) Anticholinergic, beta2-Adrenergic Agonist Start: 04-09-2023 End: 04-10-2023 Umeclidinium-Vilanterol (Anoro Ellipta) 62.5-25 mcg/actuation blister with device Discontinued 1 NMA INHALATION daily 60 3 April 09, 2023 12:00am April 10, 2023 2:36pm Start: 04-09-2023 End: 04-10-2023 Umeclidinium-Vilanterol (Ano ro Ellipta) 62.5-25 mcg/actuation blister with device Discontinued 1 INH INHALATION daily 60 April 09, 2023 12:00am April 10, 2023 2:36pm Problems Active Problems Problem Classification Problem Date Documented Da te Episodic/Chronic Abdominal pain (20 sources) Abdominal pain; Translations: [Unspecified abdominal pain] 01-05-2020 Episodic Anxiety disorders (20 sources) Anxiety; Translations: [Anxiety disorder, unspecified] 01-05-2020 Chronic Chronic obstructive pulmonary disease and bronchiectasis (20 sources) Chronic obstructive lung disease; Translations: [Chronic obstructive pulmonary disease, unspecified] Onset: 5 04-09-2023 Chronic Comment on above: FEV1 66% predicted o n PFT from January 2023 FEV1 73% predicted Chronic ulcer of skin (20 sources) Ischemic ulcer; Translations: [Non-pressure chronic ulcer of skin of other sites with unspecified severity] 06-02-2023 Chronic Coagulation and hemorrhagic disorders (20 sources) Chronic idiopathic thrombocytopenic purpura; Translations: [Immune thrombocytopenic purpura] Onset: 9 05-20-2023 Chronic Coronary atherosclerosis and other heart disease (18 sources) Coronary arteriosclerosis; Translations: [Atherosclerotic heart disease of [place] coronary artery without angina pectoris] Onset: 5 08-13-2023 Chronic Deficiency and other anemia (2 sources) Iron deficiency anemia due to blood loss; Translations: [Iron deficiency anemia secondary to blood loss (chronic)] Onset: 0 12-26-2019 Chronic Deficiency and other anemia (20 sources) Anemia; Translations: [Anemia, unspecified] Onset: 9 01-05-2020 Episodic Diseases of white blood cells (2 sources) Neutropenia; Translations: [Neutropenia, unspecified] Onset: 9 07-30-2018 Chronic Esophageal disorders (20 sources) Gastroesophageal reflux disease; Translations: [Gastro-esophageal reflux disease without esophagitis] 01-05-2020 Chronic Essential hypertension (20 sources) Benign essential hypertension; Translations: [Essential (primary) hypertension] Onset: 4 01-05-2020 Chronic Gastrointestinal hemorrhage (20 sources) Hematochezia; Translations: [Melena] 01-05-2020 Episodic Hemorrhoids (20 sources) Hemorrhoids; Translations: [Unspecified hemorrhoids] 01-05-2020 Episodic Malaise and fatigue (20 sources) Fatigue; Translations: [Other fatigue] 01-05-2020 Episodic Mood disorders (20 sources) Depressive disorder; Translations: [Depression] 01-05-2020 Chronic Other circulatory disease (20 sources) Raynaud's disease; Translations: [Raynaud's syndrome without gangrene] 05-14-2023 Chronic Other circulatory disease (19 sources) Raynaud's syndrome without gangrene; Translations: [Raynaud's syndrome] Onset: 5 06-23-2023 Chronic Other connective tissue disease (11 sources) Pain of right lower leg; Translations: [Pain in right lower leg] 07-07-2024 Episodic Other connective tissue disease (8 sources) Foot pain; Translations: [Pain in right foot] 07-07-2024 Episodic Other connective tissue disease (1 source) Pain in right foot; Translations: [Pain in right foot] 07-07-2024 Episodic Other gastrointestinal disorders (2 sources) Malabsorption - iron; Translations: [Intestinal malabsorption, unspecified] Onset: 0 12-26-2019 Chronic Other gastrointestinal disorders (20 sources) Constipation; Translations: [Constipation, unspecified] 01-05-2020 Episodic Other lower respiratory disease (12 sources) Shortness of breath; Translations: [Shortness of breath] Onset: 5 02-26-2023 Episodic Other lower respiratory disease (20 sources) Wheezing; Translations: [Wheezing] 04-09-2023 Episodic Other lower respiratory disease (2 sources) Wheezing; Translations: [Wheezing] 04-09-2023 Episodic Other lower respiratory disease (20 sources) Dyspnea on exertion; Translations: [Other forms of dyspnea] 05-20-2023 Episodic Other lower respiratory disease (9 sources) Other forms of dyspnea; Translations: [Other respiratory abnormalities] 05-20-2023 Episodic Other lower respiratory disease (20 sources) Dyspnea; Translations: [Shortness of breath] 06-02-2023 Episodic Other nervous system disorders (9 sources) Acute postoperative pain; Translations: [Other acute postprocedural pain] 07-07-2024 Episodic Other non-traumatic joint disorders (9 sources) Ankle pain; Translations: [Pain in right ankle and joints of right foot] 06-11-2024 Episodic Pulmonary heart disease (20 sources) Pulmonary hypertension; Translations: [Pulmonary hypertension, unspecified] Onset: 5 04-09-2023 Chronic Comment on above: RVSP 78 mmHg from ec hocardiogram March 2023 Residual codes; unclassified (20 sources) History of colonoscopy; Translations: [Other specified postprocedural states] 01-05-2020 Episodic Comment on above: 01/20/18 Residual codes; unclassified (9 sources) History of drug therapy; Translations: [Other specified postprocedural states] 06-10-2024 Episodic Rheumatoid arthritis and related disease (1 source) Inflammatory polyarthropathy; Translations: [Inflammatory polyarthropathy] Onset: Chronic Spondylosis; intervertebral disc disorders; other back problems (20 sources) Back problem; Translations: [Dorsopathy, unspecified] Onset: 5 01-05-2020 Episodic Sprains and strains (11 sources) Sprain of distal tibiofibular ligament; Translations: [Sprain of tibiofibular ligament of right ankle, initial encounter] 07-07-2024 Episodic Systemic lupus erythematosus and connective tissue disorders (20 sources) Lupus erythematosus; Translations: [Systemic lupus erythematosus, unspecified] Onset: 5 01-05-2020 Chronic Unclassified (1 source) OPENED IN ERROR 05-31-2024 Unclassified (2 sources) I27.20 - Pulmonary hypertension, unspecified Past or Other Problems Problem Classification Problem Date Documented Da te Episodic/Chronic Coronary atherosclerosis and other heart disease (20 sources) Stented coronary artery; Translations: [Presence of coronary angioplasty implant and graft] Onset: 08-14-2023 08-14-2023 Episodic Comment on above: NIGEL to mid LAD, usin g Jj Coleridge 3.0 X 15 mm 08/14/2023, NIGEL distal RCA into RPDA using Gifford Coleridge 2.5x15 mm and 3.0 x 38 Jj Coleridge NIGEL (09/21/23) Deficiency and other anemia (2 sources) Pancytopenia; Translations: [Other pancytopenia] Onset: 01-09-2011 Resolved: 07-30-2018 07-30-2018 Chronic Fracture of lower limb (20 sources) Closed bimalleolar fracture; Translations: [Displaced bimalleolar fracture of right lower leg, initial encounter for closed fracture] Onset: 06-29-2024 07-07-2024 Episodic Genitourinary symptoms and ill-defined conditions (1 source) Proteinuria, unspecified; Translations: [Proteinuria, unspecified] Onset: 08-16-2024 Episodic Other screening for suspected conditions (not mental disorders or infectious disease) (17 sources) Cardiovascular stress test abnormal; Translations: [Abnormal result of other cardiovascular function study] Onset: 08-16-2024 07-24-2023 Episodic Results Test Name Value Interpretation Reference Range Facility Anion gap in Serum or Plasma Ordered By: Nahomi Lobato on 02-20-2025 Anion gap [Moles/Vol] 11 mmol/L 5- [facility] BUN/creatinine ratioOrdered By: Nahomi Lobato on 02-20-2025 Urea nitrogen/Creatinine [Mass ratio] 16.4 mg/mg 10-20 [facility] Carbon dioxide, total [Moles /volume] in Central venous bloodOrdered By: Nahomi Lobato on 02-20-2025 CO2 [Moles/Vol] 20.0 mmol/L Low 21.0-32.0 [facility] Chloride assayOrdered By: Cody Lobato on 02-20-2025 Chloride [Moles/Vol] 104 mmol/L 98-108 [facility] Glomerular filtration rate ( GFR) estimation/1.73 sq m using serum, plasma, or whole bOrdered By: Nahomi Lobato on 02-20-2025 GFR/1.73 sq M.predicted among non-blacks MDRD (S/P/Bld) [Vol rate/Area] 70 mL/min/{1.73_m2} >60 [facility] Comment on above: mL/min/1.73m2 CKD-EP I Creatinine Equation (2020) Potassium measurement (mass/ volume)Ordered By: Nahomi Lobato on 02-20-2025 Potassium (Unsp spec) [Mass/Vol] 4.0 mmol/L 3.3-5.1 [facility] Protein+Creatinine Ratio,Uri neon 02-20-2025 PROT:CRE RATIO 574 mg/g CRE High 0-200 [facility] Comment on above: Performed By: #### L 500.3600, L501.0900 ####[facility] [address] [place], [address] Protein (U) [Mass/Vol] 17.4 mg/dL High 0.0-12.0 [facility] Comment on above: Performed By: #### L 500.3600, L501.0900 ####[facility] [address] [place], [address] Random urine creatinine leona urement (mass/volume)Ordered By: Nahomi Lobato on 02-20-2025 Creatinine Unsp time (U) [Mass/Vol] 30.30 mg/dL 28.00-217.00 [facility] Renal Profileon 02-20-2025 Albumin [Mass/Vol] 3.7 g/dL Normal 3.4-4.8 [facility] Comment on above: Performed By: #### L 500.3600, L501.0900 ####[facility] [address] [place], [address] BUN/CRE 16.4 RATIO Normal 10-20 [facility] Comment on above: Performed By: #### L 500.3600, L501.0900 ####[facility] [address] [place], [address] Calcium [Mass/Vol] 9.1 mg/dL Normal 7.6-11.0 [facility] Comment on above: Performed By: #### L 500.3600, L501.0900 ####[facility] [address] [place], [address] Chloride [Moles/Vol] 104 mmol/L Normal 98-108 [facility] Comment on above: Performed By: #### L 500.3600, L501.0900 ####[facility] [address] [place], [address] CO2 [Moles/Vol] 20.0 mmol/L Low 21.0-32.0 [facility] Comment on above: Performed By: #### L 500.3600, L501.0900 ####[facility] [address] [place], [address] Creatinine [Mass/Vol] 0.93 mg/dL Normal 0.70-1.20 [facility] Comment on above: Performed By: #### L 500.3600, L501.0900 ####[facility] [address] [place], [address] GAP 11 Normal 5-15 [facility] Comment on above: Performed By: #### L 500.3600, L501.0900 ####[facility] [address] [place], [address] GFR/1.73 sq M.predicted among non-blacks MDRD (S/P/Bld) [Vol rate/Area] 70 mL/min/{1.73_m2} Normal >60 [facility] Comment on above: Result Comment: mL/m in/1.73m2 CKD-EPI Creatinine Equation (2020) Performed By: #### L 500.3600, L501.0900 ####[facility] [address] [place], [address] Glucose [Mass/Vol] 99 mg/dL Normal 70-99 [facility] Comment on above: Performed By: #### L 500.3600, L501.0900 ####[facility] [address] [place], [address] Phosphate [Mass/Vol] 3.9 mg/dL Normal 2.7-4.5 [facility] Comment on above: Performed By: #### L 500.3600, L501.0900 ####[facility] [address] [place], [address] Potassium [Moles/Vol] 4.0 mmol/L Normal 3.3-5.1 [facility] Comment on above: Performed By: #### L 500.3600, L501.0900 ####[facility] [address] [place], [address] Sodium [Moles/Vol] 135 mmol/L Normal 133-145 [facility] Comment on above: Performed By: #### L 500.3600, L501.0900 ####[facility] [address] [place], [address] Urea nitrogen [Mass/Vol] 15 mg/dL Normal 4-19 [facility] Comment on above: Performed By: #### L 500.3600, L501.0900 ####[facility] [address] [place], [address] Serum creatinine measurement (mass/volume)Ordered By: Nahomi Lobato on 02-20-2025 Creatinine [Mass/Vol] 0.93 mg/dL 0.70-1.20 [facility] Serum glucose measurement (m ass/volume)Ordered By: Nahomi Lobato on 02-20-2025 Glucose [Mass/Vol] 99 mg/dL 70-99 [facility] Serum or plasma albumin leona urement (mass/volume)Ordered By: Nahomi Lobato on 02-20-2025 Albumin [Mass/Vol] 3.7 g/dL 3.4-4.8 [facility] Serum or plasma calcium leona urement (mass/volume)Ordered By: Nahomi Lobato on 02-20-2025 Calcium [Mass/Vol] 9.1 mg/dL 7.6-11.0 [facility] Serum or plasma urea nitroge n measurement (mass/volume)Ordered By: Nahomi Lobato on 02-20-2025 Urea nitrogen [Mass/Vol] 15 mg/dL 4-19 [facility] Sodium levelOrdered By: Tawanda Lobato on 02-20-2025 Sodium [Moles/Vol] 135 mmol/L 133-145 [facility] Urine protein measurement (m ass/volume)Ordered By: Nahomi Lobato on 02-20-2025 Protein (U) [Mass/Vol] 17.4 mg/dL High 0.0-12.0 [facility] Urine protein/creatinine mas s ratioOrdered By: Nahomi Lobato on 02-20-2025 Protein/Creatinine (U) [Mass ratio] 574 mg/g CRE High 0-200 [facility] Anti-dsDNA Abon 02-01-2025 ANTI-DNA (DS)AB 2 IU/mL Normal 0-9 [facility] Comment on above: Result Comment: Nega tive <5 Equivocal 5 - 9 Positive >9 Performed at: [address] [id number] [employer]: Moreno Marroquin PhD, Phone: [phone] Performed By: #### L 501.0900, L3100.5800, L3100.5500, L3100.5700, L400.2010, L100.0100, L500.4050 ####[facility] [address] [place], [place], [id number] Complement C3on 02-01-2025 COMP C3 80 mg/dL Low 82-167 [facility] Comment on above: Result Comment: Perf ormed at: [address] [id number] [employer]: Moreno Marroquin PhD, Phone: [phone] Performed By: #### L 501.0900, L3100.5800, L3100.5500, L3100.5700, L400.2010, L100.0100, L500.4050 #### [facility] [address] [place], [place], [id number] Complement C4on 02-01-2025 COMPLEMENT, C4 25 mg/dL Normal 12-38 [facility] Comment on above: Performed By: #### L 501.0900, L3100.5800, L3100.5500, L3100.5700, L400.2010, L100.0100, L500.4050 ####[facility] [address] [place], [place], [id number] Absolute lymphocyte countOrd ered By: Aixa Ibanez on 01-30-2025 Lymphocytes Auto (Unsp spec) [#/Vol] 0.46 10*3/uL Low 0.83-4.51 [facility] Absolute neutrophil countOrd ered By: Aixa Ibanez on 01-30-2025 Neutrophils (Bld) [#/Vol] 5.3 10*3/uL 2.0-7.7 [facility] Anion gap in Serum or Plasma Ordered By: Aixa Ibanez on 01-30-2025 Anion gap [Moles/Vol] 14 mmol/L 10-20 [facility] Automated lymphocyte count a s percentage of total leukocytesOrdered By: Aixa Ibanez on 01-30-2025 Lymphocytes/100 WBC Auto (Unsp spec) 7.3 % Low - [facility] BUN/creatinine ratioOrdered By: Aixasoto Ibanez on 01-30-2025 Urea nitrogen/Creatinine [Mass ratio] 13.6 mg/mg 10- [facility] Basophil percentageOrdered B y: Aixa Ibanez on 01-30-2025 Basophils/100 WBC (Bld) 0.3 % 0-1 [facility] Bilirubin Test strip Ql (U)O rdered By: Aixa Ibanez on 01-30-2025 Bilirubin Ql (U) Negative Negative [facility] Bilirubin, totalOrdered By: Aixa Ibanez on 01-30-2025 Bilirubin [Mass/Vol] 0.30 mg/dL 0.00-1.30 [facility] CBC W/Diff, Automatedon 01-07 Absolute Lymph 0.46 X10 3/uL Low 0.83-4.51 [facility] Comment on above: Performed By: #### L 501.0900, L3100.5800, L3100.5500, L3100.5700, L400.2010, L100.0100, L500.4050 #### [facility] [address] [place], [address] Absolute Neut 5.3 X10 3/uL Normal 2.0-7.7 [facility] Comment on above: Performed By: #### L 501.0900, L3100.5800, L3100.5500, L3100.5700, L400.2010, L100.0100, L500.4050 #### [facility] [address] [place], [address] Basophils/100 WBC (Bld) 0.3 % Normal 0-1 [facility] Comment on above: Performed By: #### L 501.0900, L3100.5800, L3100.5500, L3100.5700, L400.2010, L100.0100, L500.4050 #### [facility] [address] [place], [address] Eosinophils/100 WBC (Bld) 0.3 % Normal 0-5 [facility] Comment on above: Performed By: #### L 501.0900, L3100.5800, L3100.5500, L3100.5700, L400.2010, L100.0100, L500.4050 #### [facility] [address] [place], [address] Erythrocyte distribution width (RBC) [Ratio] 16.4 % High 11.6-14.6 [facility] Comment on above: Performed By: #### L 501.0900, L3100.5800, L3100.5500, L3100.5700, L400.2010, L100.0100, L500.4050 #### [facility] [address] [place], [address] Hematocrit (Bld) [Volume fraction] 34.5 % Low 37-47 [facility] Comment on above: Performed By: #### L 501.0900, L3100.5800, L3100.5500, L3100.5700, L400.2010, L100.0100, L500.4050 #### [facility] [address] [place], [address] Hemoglobin (Bld) [Mass/Vol] 10.8 g/dL Low 12.0-15.0 [facility] Comment on above: Performed By: #### L 501.0900, L3100.5800, L3100.5500, L3100.5700, L400.2010, L100.0100, L500.4050 #### [facility] [address] [place], [address] IG% 0.300 Normal 0.0-0.9 [facility] Comment on above: Result Comment: IG% - Immature Granulocytes (promyelocytes, myelocytes and metamyelocytes) > 1% indicates that a LEFT SHIFT is Present. Performed By: #### L 501.0900, L3100.5800, L3100.5500, L3100.5700, L400.2011, L100.0100, L500.4050 #### [facility] [address] [place], [address] Lymphocytes/100 WBC (Bld) 7.3 % Low 19-41 [facility] Comment on above: Performed By: #### L 501.0900, L3100.5800, L3100.5500, L3100.5700, L400.2010, L100.0100, L500.4050 #### [facility] [address] [place], [address] MCH (RBC) [Entitic mass] 29.0 pg Normal 27.0-32.0 [facility] Comment on above: Performed By: #### L 501.0900, L3100.5800, L3100.5500, L3100.5700, L400.2010, L100.0100, L500.4050 #### [facility] [address] [place], [address] MCHC (RBC) [Mass/Vol] 31.3 g/dL Low 32-36 [facility] Comment on above: Performed By: #### L 501.0900, L3100.5800, L3100.5500, L3100.5700, L400.2010, L100.0100, L500.4050 #### [facility] [address] [place], [address] MCV (RBC) [Entitic vol] 92.5 fL Normal 81-99 [facility] Comment on above: Performed By: #### L 501.0900, L3100.5800, L3100.5500, L3100.5700, L400.2011, L100.0100, L500.4050 #### [facility] [address] [place] [place], [address] Monocytes/100 WBC (Bld) 7.3 % Normal 0-10 [facility] Comment on above: Performed By: #### L 501.0900, L3100.5800, L3100.5500, L3100.5700, L400.2010, L100.0100, L500.4050 #### [facility] [address] [place], [address] Neutrophils/100 WBC (Bld) 84.5 % High 47-70 [facility] Comment on above: Performed By: #### L 501.0900, L3100.5800, L3100.5500, L3100.5700, L400.2010, L100.0100, L500.4050 #### [facility] [address] [place], [address] Nucleated RBC (Bld) [#/Vol] 0 10*3/uL Normal 0-5 [facility] Comment on above: Performed By: #### L 501.0900, L3100.5800, L3100.5500, L3100.5700, L400.2010, L100.0100, L500.4050 #### [facility] [address] [place] [place], [address] Platelet mean volume (Bld) [Entitic vol] 9.9 fL Normal 6.2-12.0 [facility] Comment on above: Performed By: #### L 501.0900, L3100.5800, L3100.5500, L3100.5700, L400.2010, L100.0100, L500.4050 #### [facility] [address] [place], [address] Platelets (Bld) [#/Vol] 205 10*3/uL Normal 150-450 [facility] Comment on above: Performed By: #### L 501.0900, L3100.5800, L3100.5500, L3100.5700, L400.2011, L100.0100, L500.4050 #### [facility] [address] [place], [address] RBC (Bld) [#/Vol] 3.73 10*6/uL Low 4.2-5.4 [facility] Comment on above: Performed By: #### L 501.0900, L3100.5800, L3100.5500, L3100.5700, L400.2010, L100.0100, L500.4050 #### [facility] [address] [place], [address] RDW SD 54.8 fl High 35.1-43.9 [facility] Comment on above: Performed By: #### L 501.0900, L3100.5800, L3100.5500, L3100.5700, L400.2010, L100.0100, L500.4050 #### [facility] [address] [place], [address] WBC (Bld) [#/Vol] 6.3 10*3/uL Normal 4.4-11.0 [facility] Comment on above: Performed By: #### L 501.0900, L3100.5800, L3100.5500, L3100.5700, L400.2010, L100.0100, L500.4050 #### [facility] [address] [place], [address] Carbon dioxide, total [Moles /volume] in Central venous bloodOrdered By: Aixa Ibanez on 01-30-2025 CO2 [Moles/Vol] 16.5 mmol/L Low 21.0-32.0 [facility] Chloride assayOrdered By: Ilana Ibanez on 01-30-2025 Chloride [Moles/Vol] 106 mmol/L 98-108 [facility] Metabolic Prof ilon 01-30-2025 Albumin [Mass/Vol] 3.8 g/dL Normal 3.4-4.8 [facility] Comment on above: Performed By: #### L 501.0900, L3100.5800, L3100.5500, L3100.5700, L400.2011, L100.0100, L500.4050 #### [facility] [address] [place], [address] Albumin/Globulin [Mass ratio] 1.0 {ratio} Normal 0.9-2.4 [facility] Comment on above: Performed By: #### L 501.0900, L3100.5800, L3100.5500, L3100.5700, L400.2010, L100.0100, L500.4050 #### [facility] [address] [place], [address] ALK PHOS 120 U/L High 35-104 [facility] Comment on above: Performed By: #### L 501.0900, L3100.5800, L3100.5500, L3100.5700, L400.2010, L100.0100, L500.4050 #### [facility] [address] [place], [address] ALT [Catalytic activity/Vol] 16 U/L Normal <=34 [facility] Comment on above: Performed By: #### L 501.0900, L3100.5800, L3100.5500, L3100.5700, L400.2010, L100.0100, L500.4050 #### [facility] [address] [place], [address] AST [Catalytic activity/Vol] 28 U/L Normal <=31 [facility] Comment on above: Performed By: #### L 501.0900, L3100.5800, L3100.5500, L3100.5700, L400.2010, L100.0100, L500.4050 #### [facility] [address] [place], [address] Bilirubin [Mass/Vol] 0.30 mg/dL Normal 0.00-1.30 [facility] Comment on above: Performed By: #### L 501.0900, L3100.5800, L3100.5500, L3100.5700, L400.2010, L100.0100, L500.4050 #### [facility] [address] [place], [address] BUN/CRE 13.6 RATIO Normal 10-20 [facility] Comment on above: Performed By: #### L 501.0900, L3100.5800, L3100.5500, L3100.5700, L400.2010, L100.0100, L500.4050 #### [facility] [address] [place], [address] Calcium [Mass/Vol] 9.1 mg/dL Normal 7.6-11.0 [facility] Comment on above: Performed By: #### L 501.0900, L3100.5800, L3100.5500, L3100.5700, L400.2010, L100.0100, L500.4050 #### [facility] [address] [place], [address] Chloride [Moles/Vol] 106 mmol/L Normal 98-108 [facility] Comment on above: Performed By: #### L 501.0900, L3100.5800, L3100.5500, L3100.5700, L400.2010, L100.0100, L500.4050 #### [facility] [address] [place], [address] CO2 [Moles/Vol] 16.5 mmol/L Low 21.0-32.0 [facility] Comment on above: Performed By: #### L 501.0900, L3100.5800, L3100.5500, L3100.5700, L400.2010, L100.0100, L500.4050 #### [facility] [address] [place], [address] Creatinine [Mass/Vol] 1.01 mg/dL Normal 0.70-1.20 [facility] Comment on above: Performed By: #### L 501.0900, L3100.5800, L3100.5500, L3100.5700, L400.2010, L100.0100, L500.4050 #### [facility] [address] [place], [address] GAP 14 Normal 5-15 [facility] Comment on above: Performed By: #### L 501.0900, L3100.5800, L3100.5500, L3100.5700, L400.2010, L100.0100, L500.4050 #### [facility] [address] [place], [address] GFR/1.73 sq M.predicted among non-blacks MDRD (S/P/Bld) [Vol rate/Area] 63 mL/min/{1.73_m2} Normal >60 [facility] Comment on above: Result Comment: mL/m in/1.73m2 CKD-EPI Creatinine Equation (2020) Performed By: #### L 501.0900, L3100.5800, L3100.5500, L3100.5700, L400.2010, L100.0100, L500.4050 #### [facility] [address] [place], [address] Globulin (S) [Mass/Vol] 3.7 g/dL Normal 2.2-4.2 [facility] Comment on above: Performed By: #### L 501.0900, L3100.5800, L3100.5500, L3100.5700, L400.2010, L100.0100, L500.4050 #### [facility] [address] [place], [address] Glucose [Mass/Vol] 94 mg/dL Normal 70-99 [facility] Comment on above: Performed By: #### L 501.0900, L3100.5800, L3100.5500, L3100.5700, L400.2010, L100.0100, L500.4050 #### [facility] [address] [place], [address] Potassium [Moles/Vol] 3.9 mmol/L Normal 3.3-5.1 [facility] Comment on above: Performed By: #### L 501.0900, L3100.5800, L3100.5500, L3100.5700, L400.2010, L100.0100, L500.4050 #### [facility] [address] [place], [address] Sodium [Moles/Vol] 137 mmol/L Normal 133-145 [facility] Comment on above: Performed By: #### L 501.0900, L3100.5800, L3100.5500, L3100.5700, L400.2010, L100.0100, L500.4050 #### [facility] [address] [place], [address] T PROT 7.5 g/dL Normal 5.9-8.4 [facility] Comment on above: Performed By: #### L 501.0900, L3100.5800, L3100.5500, L3100.5700, L400.2010, L100.0100, L500.4050 #### [facility] [address] [place], [address] Urea nitrogen [Mass/Vol] 14 mg/dL Normal 4-19 [facility] Comment on above: Performed By: #### L 501.0900, L3100.5800, L3100.5500, L3100.5700, L400.2010, L100.0100, L500.4050 #### [facility] [address] [place], [address] Eosinophil percentageOrdered By: Aixa Ibanez on 01-30-2025 Eosinophils/100 WBC (Bld) 0.3 % 0-5 [facility] Erythrocyte distribution wid th ratioOrdered By: Aixa Ibanez on 01-30-2025 Erythrocyte distribution width (RBC) [Ratio] 16.4 % High 11.6-14.6 [facility] Erythrocyte distribution wid th standard deviationOrdered By: Aixa Ibanez on 01-30-2025 Erythrocyte distribution width (RBC) [Ratio] 54.8 fl High 35.1-43.9 [facility] Glomerular filtration rate ( GFR) estimation/1.73 sq m using serum, plasma, or whole bOrdered By: Aixasoto Ibanez on 01-30-2025 GFR/1.73 sq M.predicted among non-blacks MDRD (S/P/Bld) [Vol rate/Area] 63 mL/min/{1.73_m2} >60 [facility] Comment on above: mL/min/1.73m2 CKD-EP I Creatinine Equation (2020) Hematocrit Auto (Bld) [Volum e fraction]Ordered By: Aixasoto Ibanez on 01-30-2025 Hematocrit (Bld) [Volume fraction] 34.5 % Low 37-47 [facility] Hemoglobin measurementOrdere d By: Aixa Ibanez on 01-30-2025 Hemoglobin (Bld) [Mass/Vol] 10.8 g/dL Low 12.0-15.0 [facility] Immature granulocytes/100 WB C Auto (Bld)Ordered By: Aixa Ibanez on 01-30-2025 Immature granulocytes/100 WBC (Bld) 0.300 % 0.0-0.9 [facility] Comment on above: IG% - Immature Granu locytes (promyelocytes, myelocytes and metamyelocytes) > 1% indicates that a LEFT SHIFT is Present. Ketones Test strip Ql (U)Ord ered By: Aixa Ibanez on 01-30-2025 Ketones Ql (U) Negative Negative [facility] - Chemistry and C hemistry - challengeOrdered By: Aixa Ibanez on 01-30-2025 AST [Catalytic activity/Vol] 28 U/L <32 [facility] MCV (mean corpuscular volume ) determinationOrdered By: Aixa Ibanez on 01-30-2025 MCV (RBC) [Entitic vol] 92.5 fL 81-99 [facility] Mean corpuscular hemoglobin (MCH) determinationOrdered By: Aixa Ibanez on 01-30-2025 MCH (RBC) [Entitic mass] 29.0 pg 27.0-32.0 [facility] Mean corpuscular hemoglobin concentration (MCHC) determinationOrdered By: Aixa Ibanez on 01-30-2025 MCHC (RBC) [Mass/Vol] 31.3 g/dL Low 32-36 [facility] Mean platelet volume determi nationOrdered By: Aixa Ibanez on 01-30-2025 Platelet mean volume (Bld) [Entitic vol] 9.9 fL 6.2-12.0 [facility] Monocyte percentageOrdered B y: Aixa Ibanez on 01-30-2025 Monocytes/100 WBC (Bld) 7.3 % 0-10 [facility] Neutrophil percentageOrdered By: Aixa Ibanez on 01-30-2025 Neutrophils/100 WBC (Bld) 84.5 % High 47-70 [facility] Nitrite Test strip Ql (U)Ord ered By: Aixa Ibanez on 01-30-2025 Nitrite Ql (U) Negative Negative [facility] Nucleated red blood cell per centageOrdered By: Aixa Ibanez on 01-30-2025 Nucleated RBC/100 WBC (Bld) [Ratio] 0 % 0-5 [facility] Platelet countOrdered By: Ilana Ibanez on 01-30-2025 Platelets (Bld) [#/Vol] 205 10*3/uL 150-450 [facility] Potassium measurement (mass/ volume)Ordered By: Aixa Ibanez on 01-30-2025 Potassium (Unsp spec) [Mass/Vol] 3.9 mmol/L 3.3-5.1 [facility] Protein Test strip Ql (U)Ord ered By: Aixa Ibanez on 01-30-2025 Protein Ql (U) 30 mg/dl High Negative [facility] Protein+Creatinine Ratio,Uri neon 01-30-2025 PROT:CRE RATIO 926 mg/g CRE High 0-200 [facility] Comment on above: Performed By: #### L 501.0900, L3100.5800, L3100.5500, L3100.5700, L400.2011, L100.0100, L500.4050 #### [facility] [address] [place], [address] Protein (U) [Mass/Vol] 30.0 mg/dL High 0.0-12.0 [facility] Comment on above: Performed By: #### L 501.0900, L3100.5800, L3100.5500, L3100.5700, L400.2010, L100.0100, L500.4050 #### [facility] [address] [place], [address] UR CREAT 32.40 mg/dL Normal 28.00-217.00 [facility] Comment on above: Performed By: #### L 501.0900, L3100.5800, L3100.5500, L3100.5700, L400.2010, L100.0100, L500.4050 #### [facility] [address] [place], [address] RBC Auto (Bld) [#/Vol]Ordere d By: Aixa Ibanez on 01-30-2025 RBC (Bld) [#/Vol] 3.73 10*6/uL Low 4.2-5.4 [facility] Random urine creatinine leona urement (mass/volume)Ordered By: Aixa Ibanez on 01-30-2025 Creatinine Unsp time (U) [Mass/Vol] 32.40 mg/dL 28.00-217.00 [facility] Serum DNA double strand anti body assay (units/volume)Ordered By: Aixa Ibanez on 01-30-2025 DNA double strand Ab Qn (S) 2 [IU]/mL 0-9 [facility] Comment on above: Negative <5 Equivoca l 5 - 9 Positive >9Performed at: [facility] - [facility] [id number] [place], [place] [id number] Director: Moreon Marroquin PhD, Phone: [phone] Serum creatinine measurement (mass/volume)Ordered By: Aixa Ibanez on 01-30-2025 Creatinine [Mass/Vol] 1.01 mg/dL 0.70-1.20 [facility] Serum globulin measurementOr dered By: Aixa Ibanez on 01-30-2025 Globulin (S) [Mass/Vol] 3.7 g/dL 2.2-4.2 [facility] Serum glucose measurement (m ass/volume)Ordered By: Aixa Ibanez on 01-30-2025 Glucose [Mass/Vol] 94 mg/dL 70-99 [facility] Serum or plasma alanine oconnor otransferase (ALT) measurementOrdered By: Aixa Ibanez on 01-30-2025 ALT [Catalytic activity/Vol] 16 U/L <35 [facility] Serum or plasma albumin leona urement (mass/volume)Ordered By: Aixa Ibanez on 01-30-2025 Albumin [Mass/Vol] 3.8 g/dL 3.4-4.8 [facility] Serum or plasma albumin/glob ulin mass ratioOrdered By: Aixa Ibanez on 01-30-2025 Albumin/Globulin [Mass ratio] 1.0 {ratio} 0.9-2.4 [facility] Serum or plasma alkaline [place] sphatase measurementOrdered By: Aixa Ibanez on 01-30-2025 ALP [Catalytic activity/Vol] 120 U/L High 35-104 [facility] Serum or plasma calcium leona urement (mass/volume)Ordered By: Aixa Ibanez on 01-30-2025 Calcium [Mass/Vol] 9.1 mg/dL 7.6-11.0 [facility] Serum or plasma complement C 4 measurement (mass/volume)Ordered By: Aixa Ibanez on 01-30-2025 Complement C4 [Mass/Vol] 25 mg/dL 12-38 [facility] Serum or plasma urea nitroge n measurement (mass/volume)Ordered By: Aixa Ibanez on 01-30-2025 Urea nitrogen [Mass/Vol] 14 mg/dL 4-19 [facility] Sodium levelOrdered By: Courtney cardona Marcelle on 01-30-2025 Sodium [Moles/Vol] 137 mmol/L 133-145 [facility] Total proteinOrdered By: Kingsley valera Marcelle on 01-30-2025 Protein [Mass/Vol] 7.5 g/dL 5.9-8.4 [facility] Urinalysis, Routine (Dipstic k)on 01-30-2025 BILIRUBIN URINE Negative Normal Negative [facility] Comment on above: Order Comment: CLEAN CATCH Performed By: #### L 501.0900, L3100.5800, L3100.5500, L3100.5700, L400.2011, L100.0100, L500.4050 #### [facility] [address] [place], [address] Clarity (U) Clear Normal Clear [facility] Comment on above: Order Comment: CLEAN CATCH Performed By: #### L 501.0900, L3100.5800, L3100.5500, L3100.5700, L400.2010, L100.0100, L500.4050 #### [facility] [address] [place], [address] Color (U) Yellow Normal Yellow [facility] Comment on above: Order Comment: CLEAN CATCH Performed By: #### L 501.0900, L3100.5800, L3100.5500, L3100.5700, L400.2010, L100.0100, L500.4050 #### [facility] [address] [place], [address] GLUCOSE, UR Normal Normal Normal [facility] Comment on above: Order Comment: CLEAN CATCH Performed By: #### L 501.0900, L3100.5800, L3100.5500, L3100.5700, L400.2010, L100.0100, L500.4050 #### [facility] [address] [place], [address] KETONE UR Negative Normal Negative [facility] Comment on above: Order Comment: CLEAN CATCH Performed By: #### L 501.0900, L3100.5800, L3100.5500, L3100.5700, L400.2010, L100.0100, L500.4050 #### [facility] [address] [place], [address] LEUK ESTERASE Negative Normal Negative [facility] Comment on above: Order Comment: CLEAN CATCH Performed By: #### L 501.0900, L3100.5800, L3100.5500, L3100.5700, L400.2010, L100.0100, L500.4050 #### [facility] [address] [place], [address] Nitrite Ql (U) Negative Normal Negative [facility] Comment on above: Order Comment: CLEAN CATCH Performed By: #### L 501.0900, L3100.5800, L3100.5500, L3100.5700, L400.2010, L100.0100, L500.4050 #### [facility] [address] [place], [address] OCCULT BLOOD-UR Negative Normal Negative [facility] Comment on above: Order Comment: CLEAN CATCH Performed By: #### L 501.0900, L3100.5800, L3100.5500, L3100.5700, L400.2010, L100.0100, L500.4050 #### [facility] [address] [place], [address] pH UR 6.0 Normal 5.0 - 8.0 [facility] Comment on above: Order Comment: CLEAN CATCH Performed By: #### L 501.0900, L3100.5800, L3100.5500, L3100.5700, L400.2010, L100.0100, L500.4050 #### [facility] [address] [place], [address] PROT DIPSTX 30 mg/dl Abnormal Negative [facility] Comment on above: Order Comment: CLEAN CATCH Performed By: #### L 501.0900, L3100.5800, L3100.5500, L3100.5700, L400.2011, L100.0100, L500.4050 #### [facility] [address] [place], [address] SP.GR. DIPSTX 1.010 Normal 1.002-1.030 [facility] Comment on above: Order Comment: CLEAN CATCH Performed By: #### L 501.0900, L3100.5800, L3100.5500, L3100.5700, L400.2011, L100.0100, L500.4050 #### [facility] [address] [place], [address] UROBILI Normal Normal Normal [facility] Comment on above: Order Comment: CLEAN CATCH Performed By: #### L 501.0900, L3100.5800, L3100.5500, L3100.5700, L400.2010, L100.0100, L500.4050 #### [facility] [address] [place], [address] Urine clarityOrdered By: Kingsley Ibanez on 01-30-2025 Clarity (U) Clear Clear [facility] Urine color determinationOrd ered By: Aixa Ibanez on 01-30-2025 Color (U) Yellow Yellow [facility] Urine glucose detectionOrder ed By: Aixa Ibaenz on 01-30-2025 Glucose Ql (U) Normal mg/dl Normal [facility] Urine leukocyte esterase det ection by dipstickOrdered By: Aixa Ibanez on 01-30-2025 Leukocyte esterase Test strip Ql (U) Negative Negative [facility] Urine pHOrdered By: Aixa fang on 01-30-2025 pH (U) 6.0 [pH] 5.0 - 8.0 [facility] Urine protein measurement (m ass/volume)Ordered By: Aixa Ibanez on 01-30-2025 Protein (U) [Mass/Vol] 30.0 mg/dL High 0.0-12.0 [facility] Urine protein/creatinine mas s ratioOrdered By: Aixa Ibanez on 01-30-2025 Protein/Creatinine (U) [Mass ratio] 926 mg/g CRE High 0-200 [facility] Urine specific gravity measu rementOrdered By: [facility] Marcelle on 01-30-2025 Specific gravity (U) [Rel density] 1.010 1.002-1.030 [facility] Urine urobilinogen measureme ntOrdered By: Aixa Ibanez on 01-30-2025 Urobilinogen Ql (U) Normal mg/dl Normal [facility] White blood cell (WBC) count Ordered By: Aixasoto Ibanez on 01-30-2025 WBC (Bld) [#/Vol] 6.3 10*3/uL 4.4-11.0 [facility] Cardiology Visit Reporton Cardiology Visit Report [facility] [place] [id number] [facility] [place] [address] OFFICE VISIT Date of Service: 12/13/24 MR#: [id number] Acct: [id number] Name: DEMI DEJESUS Rep #: [id number] : 1965 Provider: ILANA Arriaza Age/Sex: 59/F [place] [facility] [place] Status: Signed HPI HPI History of Present Illness Details: Demi Dejesus is a 59-year-old female who presents to office today for follow-up for monitoring her cardiovascular health. In 2023, patient had been evaluated via stress test and this returned as abnormal. She underwent heart catheterization 08/13/2023 that demonstrated 40% proximal lesion in the LAD, tubular 80% mid lesion in the LAD, tubular calcified 80% proximal lesion in the RCA, tubular to 70% distal lesion in the RCA, tubular 70% ostial lesion in the PDA and luminal irregularities 20% in the proximal ramus. She was noted to have severe mitral annular calcification. She underwent successful NIGEL to the mid LAD using Jj frontier 3.0 x 15 mm with recommendations of aspirin indefinitely and Plavix for at least 12 months. It was recommended she undergo staged PCI to the RCA. She underwent successful NIGEL to the distal RCA and proximal and mid RCA 09/21/2023. Upon presentation to office today, patient reports her fatigue is chronic and is unchanged. Her SOB is improved from prior. She is able to tolerate walking; however, has difficulties with brisk walking and becomes SOB. She reports nausea with current antibiotics she is on for staph infection. She reports easy bleeding and difficulties stopping bleeding. Further ROS below. Intake Vital Signs 07/07/24 06:36 12/12/24 09:05 12/13/24 13:03 Height 5 ft 2 in 5 ft 2 in 5 ft 2 in Weight: 140 lb BMI 25.6 BP 129/61 H Blood Pressure Location Lt brachial Position Sitting Respiration 18 Pulse 78 Pulse Source Monitor Intake Visit Reasons: 6 M FU General Superintendent Required: No Accompanied by: Self Is patient in pain?: No Allergies amoxicillin trihydrate (From Augmentin) Allergy (Verified 12/13/24 13:04) Unknown diflunisal (From Dolobid) Allergy (Verified 12/13/24 13:04) Unknown Penicillins Allergy (Verified 12/13/24 13:04) Rash potassium clavulanate (From Augmentin) Allergy (Verified 12/13/24 13:04) Unknown sulfamethoxazole (From Septra) Allergy (Verified 12/13/24 13:04) Rash trimethoprim (From Septra) Allergy (Verified 12/13/24 13:04) Rash aripiprazole (From Abilify) Adverse Reaction (Verified 12/13/24 13:04) Other fluoxetine HCl (From Prozac) Adverse Reaction (Verified 12/13/24 13:04) Other sertraline HCl (From Zoloft) Adverse Reaction (Verified 12/13/24 13:04) Other venlafaxine HCl (From Effexor) Adverse Reaction (Verified 12/13/24 13:04) Other Medications ???Medication ???Instructions ???Recorded ???Confirmed ???Type duloxetine 60 mg capsule,delayed 120 mg PO DAILY 06/06/14 12/12/24 History release multivitamin with folic acid 400 1 tab PO DAILY 06/06/14 12/12/24 H istory mcg tablet hydroxychloroquine 200 mg tablet 200 mg PO DAILY 05/20/23 12/12/24 History omeprazole 40 mg capsule,delayed 40 mg PO DAILY 05/20/23 12/12/24 H istory release gabapentin 300 mg capsule 300 mg PO BID PRN 06/29/23 5 History aspirin 81 mg tablet,delayed 81 mg PO DAILY 07/24/23 12/12/24 H istory release belimumab 200 mg/mL subcutaneous 200 mg subcut .QMO 11/03/23 History auto-injector (Benlysta) trazodone 100 mg tablet 100 mg PO QHS 11/03/23 12/12/24 Hi story atorvastatin 10 mg tablet 10 mg PO QHS 05/11/24 12/12/24 His tory oxycodone-acetaminophen 5 mg-325 1 tab PO Q6H PRN PRN Pain 5 days 1 08/03/23 12/12/24 Rx mg tablet #20 TABLETS oxycodone-acetaminophen 5 mg-325 1 tab PO Q6H pain 7 days #28 tabs 06/11/24 12/12/24 Rx mg tablet (Endocet) biotin 10 mg tablet 60 mg PO DAILY 06/23/24 12/12/24 H istory calcium 250 mg tablet 500 mg PO DAILY 06/23/24 12/12/24 History lisinopril 30 mg tablet 30 mg PO BID 06/23/24 12/12/24 His tory ascorbic acid (vitamin C) 1,000 mg 1 g PO DAILY 90 days #90 tabs 12/12/24 Rx tablet (Vitamin C) oxycodone-acetaminophen 5 mg-325 1 tab PO Q6H 7 days #28 tabs 07/0712/12/24 Rx mg tablet (Endocet) acetylcysteine 600 mg capsule 600 mg PO BID 12/12/24 12/13/24 Hi story hydroxyzine HCl 25 mg tablet 12.5 - 25 mg PO Q8 PRN 12/12/24 History Have you fallen in the past year?: Yes (1 fall down stairs) [facility] Medical History Wears glasses History of steroid therapy Low iron High cholesterol Restless legs Former smoker COPD (chronic obstructive pulmonary disease) Shortness of breath on exertion History of edema History of echocardiogram History of stress test H (more content not included)... Normal [facility] Pulmonary Visit Reporton Pulmonary Visit Report [facility] [address] [place] [address] OFFICE VISIT Date of Service: 12/12/24 MR#: [id number] Acct: [id number] Name: DEMI DEJESUS Rep #: [id number] : 1965 Provider: GABRIELLA Hudson Age/Sex: 59/F [place] [facility] Status: Signed Assessment and Plan Assessment and Plan (1) Pulmonary hypertension: Status: Chronic Comment: RVSP 78 mmHg from echocardiogram March 2023 Plan: Asymptomatic at this time. Unable to accurately assess supplemental oxygen needs secondary to Raynaud's phenomenon. The patient does have supplemental oxygen available to use as needed. She has requested to follow-up as needed. (2) Raynauds disease: Status: Chronic Qualifiers: Raynaud?s-associated gangrene presence: without gangrene Qualified Code(s): I73.00 - Raynaud's syndrome without gangrene Plan: Complicates exam, plan, care and prognosis. We were unable to obtain the walking oximetry. (3) Lupus: Status: Chronic Plan: Complicates exam, plan, care and prognosis. Likely the etiology behind the pulmonary hypertension. Currently being managed by rheumatology. (4) Moderate COPD (chronic obstructive pulmonary disease): Status: Chronic Comment: FEV1 73% predicted Plan: Recent PFT suggest only mild COPD without the presence of hyperinflation or air trapping. Therefore, I do not believe that any maintenance inhalers are necessary. The patient has never found them to be effective. She would like to follow-up as needed. Plan Details Additional Comments: This note was generated with [email or web address] dictation software. It may contain incorrect words, spelling, and punctuation that were not noted in checking the note before signing. HPI follow up from testing Chief Complaint: Test results HPI Comments Details: This patient presents to the office today for follow-up of her pulmonary hypertension with lupus and to discuss test results. She is ambulatory and on room air. She has not recently been seen in the ED or urgent care for any respiratory illness. She has not required any antibiotics or prednisone for any breathing problems. She has not recently needed to use her albuterol rescue inhaler. She is supplied with a Medrol Dosepak to be used as needed for her lupus. The patient does have supplemental oxygen at home. She has not recently utilize supplemental oxygen at all. She has shortness of breath on exertion. She also reports a daily cough productive of pale yellow- colored sputum, which is normal for her. She denies any hemoptysis. She denies any wheezing, chest tightness, chest pain or palpitations. She denies any fever, chills or body aches. Test results personally reviewed with patient: Pulmonary function test completed on November 28, 2024. Impression is irreversible mild large airway obstructive ventilatory defect with preserved lung volumes and a moderate reduction in diffusing capacity. FEV1 73% of predicted. Walking oximetry attempted on December 01, 2024. Unfortunately, the patient required the use of an ear probe due to unable to locate pulse ox meter on finger secondary to Raynaud's phenomenon. The ear probe was unreliable during ambulation and the test was not able to be performed Intake Vital Signs 07/07/24 06:36 12/12/24 09:05 Height 5 ft 2 in 5 ft 2 in Weight: 145 lb BMI 26.5 BP 125/54 H Blood Pressure Location Lt brachial Position Sitting Respiration 16 Pulse 80 Pulse Source Palpation Temp 97.5 F L Temperature Source Temporal Artery Pulse Oximetry (%) 100 Oxygen Delivery Method room air Intake Visit Reasons: follow up from testing General Superintendent Required: No DME Vendor: N/a Accompanied by: Self Is patient in pain?: No Allergies amoxicillin trihydrate (From Augmentin) Allergy (Verified 07/07/24 06:26) Unknown diflunisal (From Dolobid) Allergy (Verified 07/07/24 06:26) Unknown Penicillins Allergy (Verified 07/07/24 06:26) Rash potassium clavulanate (From Augmentin) Allergy (Verified 07/07/24 06:26) Unknown sulfamethoxazole (From Septra) Allergy (Verified 07/07/24 06:26) Rash trimethoprim (From Septra) Allergy (Verified 07/07/24 06:26) Rash aripiprazole (From Abilify) Adverse Reaction (Verified 07/07/24 06:26) Other fluoxetine HCl (From Prozac) Adverse Reaction (Verified 07/07/24 06:26) Other sertraline HCl (From Zoloft) Adverse Reaction (Verified 07/07/24 06:26) Other venlafaxine HCl (From Effexor) Adverse Reaction (Verified 07/07/24 06:26) Other Medications ???Medication ???Instructions ???Recorded ???Confirmed ???Type duloxetine 60 mg capsule,delayed 120 mg PO DAILY 06/06/14 12/12/24 History release multivitamin with folic acid 400 1 tab PO DAILY 06/06/14 12/12/24 H istory mcg tablet hydroxychloroquine 200 mg (more content not included)... Normal [facility] Anti-dsDNA Abon 11-09-2024 ANTI-DNA (DS)AB 2 IU/mL Normal 0-9 [facility] Comment on above: Result Comment: Nega tive <5 Equivocal 5 - 9 Positive >9 Performed at: [address] [id number] [employer]: Moreno Marroquin PhD, Phone: [phone] Performed By: #### L 500.4050, L3100.5700, L400.2010, L3100.5800, L100.0100, L3100.5500, L501.0900 ####[facility] [address] [place], [place], [id number] Complement C3on 11-09-2024 COMP C3 96 mg/dL Normal 82-167 [facility] Comment on above: Result Comment: Perf ormed at: [address] [id number] [employer]: Moreno Marroquin PhD, Phone: [phone] Performed By: #### L 500.4050, L3100.5700, L400.2010, L3100.5800, L100.0100, L3100.5500, L501.0900 ####[facility] [address] [place], [place], [id number] Complement C4on 11-09-2024 COMPLEMENT, C4 27 mg/dL Normal 12-38 [facility] Comment on above: Performed By: #### L 500.4050, L3100.5700, L400.2010, L3100.5800, L100.0100, L3100.5500, L501.0900 ####[facility] [address] [place], [address] Absolute lymphocyte countOrd ered By: Aixa Ibanez on 11-07-2024 Lymphocytes Auto (Unsp spec) [#/Vol] 0.59 10*3/uL Low 0.83-4.51 [facility] Absolute neutrophil countOrd ered By: [facility] Marcelle on 11-07-2024 Neutrophils (Bld) [#/Vol] 4.8 10*3/uL 2.0-7.7 [facility] Anion gap in Serum or Plasma Ordered By: Aixa Ibanez on 11-07-2024 Anion gap [Moles/Vol] 13 mmol/L 5-15 [facility] Automated lymphocyte count a s percentage of total leukocytesOrdered By: Aixa Ibanez on 11-07-2024 Lymphocytes/100 WBC Auto (Unsp spec) 9.5 % Low 19-41 [facility] BUN/creatinine ratioOrdered By: Aixasoto Ibanez on 11-07-2024 Urea nitrogen/Creatinine [Mass ratio] 13.4 mg/mg 10-20 [facility] Basophil percentageOrdered B y: Aixa Ibanez on 11-07-2024 Basophils/100 WBC (Bld) 0.3 % 0-1 [facility] Bilirubin Test strip Ql (U)O rdered By: Aixa Ibanez on 11-07-2024 Bilirubin Ql (U) Negative Negative [facility] Bilirubin, totalOrdered By: Aixa [facility] 11-07-2024 Bilirubin [Mass/Vol] 0.27 mg/dL 0.00-1.30 [facility] CBC W/Diff, Automatedon Absolute Lymph 0.59 X10 3/uL Low 0.83-4.51 [facility] Comment on above: Performed By: #### L 500.4050, L3100.5700, L400.2010, L3100.5800, L100.0100, L3100.5500, L501.0900 ####[facility] [address] [place], [address] Absolute Neut 4.8 X10 3/uL Normal 2.0-7.7 [facility] Comment on above: Performed By: #### L 500.4050, L3100.5700, L400.2010, L3100.5800, L100.0100, L3100.5500, L501.0900 ####[facility] [address] [place], [address] Basophils/100 WBC (Bld) 0.3 % Normal 0-1 [facility] Comment on above: Performed By: #### L 500.4050, L3100.5700, L400.2010, L3100.5800, L100.0100, L3100.5500, L501.0900 ####[facility] [address] [place], [address] Eosinophils/100 WBC (Bld) 0.6 % Normal 0-5 [facility] Comment on above: Performed By: #### L 500.4050, L3100.5700, L400.2010, L3100.5800, L100.0100, L3100.5500, L501.0900 ####[facility] [address] [place], [address] Erythrocyte distribution width (RBC) [Ratio] 18.3 % High 11.6-14.6 [facility] Comment on above: Performed By: #### L 500.4050, L3100.5700, L400.2010, L3100.5800, L100.0100, L3100.5500, L501.0900 ####[facility] [address] [place], [address] Hematocrit (Bld) [Volume fraction] 34.0 % Low 37-47 [facility] Comment on above: Performed By: #### L 500.4050, L3100.5700, L400.2010, L3100.5800, L100.0100, L3100.5500, L501.0900 ####[facility] [address] [place], [address] Hemoglobin (Bld) [Mass/Vol] 10.7 g/dL Low 12.0-15.0 [facility] Comment on above: Performed By: #### L 500.4050, L3100.5700, L400.2010, L3100.5800, L100.0100, L3100.5500, L501.0900 ####[facility] [address] [place], [address] IG% 0.500 Normal 0.0-0.9 [facility] Comment on above: Result Comment: IG% - Immature Granulocytes (promyelocytes, myelocytes and metamyelocytes) > 1% indicates that a LEFT SHIFT is Present. Performed By: #### L 500.4050, L3100.5700, L400.2010, L3100.5800, L100.0100, L3100.5500, L501.0900 ####[facility] [address] [place], [address] Lymphocytes/100 WBC (Bld) 9.5 % Low 19-41 [facility] Comment on above: Performed By: #### L 500.4050, L3100.5700, L400.2010, L3100.5800, L100.0100, L3100.5500, L501.0900 ####[facility] [address] [place], [address] MCH (RBC) [Entitic mass] 28.4 pg Normal 27.0-32.0 [facility] Comment on above: Performed By: #### L 500.4050, L3100.5700, L400.2010, L3100.5800, L100.0100, L3100.5500, L501.0900 ####[facility] [address] [place], [address] MCHC (RBC) [Mass/Vol] 31.5 g/dL Low 32-36 [facility] Comment on above: Performed By: #### L 500.4050, L3100.5700, L400.2011, L3100.5800, L100.0100, L3100.5500, L501.0900 ####[facility] [address] [place], [address] MCV (RBC) [Entitic vol] 90.2 fL Normal 81-99 [facility] Comment on above: Performed By: #### L 500.4050, L3100.5700, L400.2010, L3100.5800, L100.0100, L3100.5500, L501.0900 ####[facility] [address] [place], [address] Monocytes/100 WBC (Bld) 11.6 % High 0-10 [facility] Comment on above: Performed By: #### L 500.4050, L3100.5700, L400.2010, L3100.5800, L100.0100, L3100.5500, L501.0900 ####[facility] [address] [place], [address] Neutrophils/100 WBC (Bld) 77.5 % High 47-70 [facility] Comment on above: Performed By: #### L 500.4050, L3100.5700, L400.2010, L3100.5800, L100.0100, L3100.5500, L501.0900 ####[facility] [address] [place], [address] Nucleated RBC (Bld) [#/Vol] 0 10*3/uL Normal 0-5 [facility] Comment on above: Performed By: #### L 500.4050, L3100.5700, L400.2010, L3100.5800, L100.0100, L3100.5500, L501.0900 ####[facility] [address] [place], [address] Platelet mean volume (Bld) [Entitic vol] 9.4 fL Normal 6.2-12.0 [facility] Comment on above: Performed By: #### L 500.4050, L3100.5700, L400.2011, L3100.5800, L100.0100, L3100.5500, L501.0900 ####[facility] [address] [place], [address] Platelets (Bld) [#/Vol] 228 10*3/uL Normal 150-450 [facility] Comment on above: Performed By: #### L 500.4050, L3100.5700, L400.2010, L3100.5800, L100.0100, L3100.5500, L501.0900 ####[facility] [address] [place], [address] RBC (Bld) [#/Vol] 3.77 10*6/uL Low 4.2-5.4 [facility] Comment on above: Performed By: #### L 500.4050, L3100.5700, L400.2010, L3100.5800, L100.0100, L3100.5500, L501.0900 ####[facility] [address] [place], [address] RDW SD 60.5 fl High 35.1-43.9 [facility] Comment on above: Performed By: #### L 500.4050, L3100.5700, L400.2011, L3100.5800, L100.0100, L3100.5500, L501.0900 ####[facility] [address] [place], [address] WBC (Bld) [#/Vol] 6.2 10*3/uL Normal 4.4-11.0 [facility] Comment on above: Performed By: #### L 500.4050, L3100.5700, L400.2011, L3100.5800, L100.0100, L3100.5500, L501.0900 ####[facility] [address] [place], [address] Carbon dioxide, total [Moles /volume] in Central venous bloodOrdered By: Aixa Ibanez on 11-07-2024 CO2 [Moles/Vol] 18.7 mmol/L Low 21.0-32.0 [facility] Chloride assayOrdered By: Ilana Ibanez on 11-07-2024 Chloride [Moles/Vol] 106 mmol/L 98-108 [facility] Comprehensive Metabolic Prof ilon 11-07-2024 Albumin [Mass/Vol] 4.0 g/dL Normal 3.4-4.8 [facility] Comment on above: Performed By: #### L 500.4050, L3100.5700, L400.2010, L3100.5800, L100.0100, L3100.5500, L501.0900 ####[facility] [address] [place], [address] Albumin/Globulin [Mass ratio] 1.1 {ratio} Normal 0.9-2.4 [facility] Comment on above: Performed By: #### L 500.4050, L3100.5700, L400.2010, L3100.5800, L100.0100, L3100.5500, L501.0900 ####[facility] [address] [place], [address] ALK PHOS 112 U/L High 35-104 [facility] Comment on above: Performed By: #### L 500.4050, L3100.5700, L400.2010, L3100.5800, L100.0100, L3100.5500, L501.0900 ####[facility] [address] [place], [address] ALT [Catalytic activity/Vol] 15 U/L Normal <=34 [facility] Comment on above: Performed By: #### L 500.4050, L3100.5700, L400.2010, L3100.5800, L100.0100, L3100.5500, L501.0900 ####[facility] [address] [place], [address] AST [Catalytic activity/Vol] 28 U/L Normal <=31 [facility] Comment on above: Performed By: #### L 500.4050, L3100.5700, L400.2010, L3100.5800, L100.0100, L3100.5500, L501.0900 ####[facility] [address] [place], [address] Bilirubin [Mass/Vol] 0.27 mg/dL Normal 0.00-1.30 [facility] Comment on above: Performed By: #### L 500.4050, L3100.5700, L400.2010, L3100.5800, L100.0100, L3100.5500, L501.0900 ####[facility] [address] [place], [address] BUN/CRE 13.4 RATIO Normal 10-20 [facility] Comment on above: Performed By: #### L 500.4050, L3100.5700, L400.2010, L3100.5800, L100.0100, L3100.5500, L501.0900 ####[facility] [address] [place], [address] Calcium [Mass/Vol] 9.0 mg/dL Normal 7.6-11.0 [facility] Comment on above: Performed By: #### L 500.4050, L3100.5700, L400.2010, L3100.5800, L100.0100, L3100.5500, L501.0900 ####[facility] [address] [place], [address] Chloride [Moles/Vol] 106 mmol/L Normal 98-108 [facility] Comment on above: Performed By: #### L 500.4050, L3100.5700, L400.2010, L3100.5800, L100.0100, L3100.5500, L501.0900 ####[facility] [address] [place], [address] CO2 [Moles/Vol] 18.7 mmol/L Low 21.0-32.0 [facility] Comment on above: Performed By: #### L 500.4050, L3100.5700, L400.2010, L3100.5800, L100.0100, L3100.5500, L501.0900 ####[facility] [address] [place], [address] Creatinine [Mass/Vol] 1.05 mg/dL Normal 0.70-1.20 [facility] Comment on above: Performed By: #### L 500.4050, L3100.5700, L400.2010, L3100.5800, L100.0100, L3100.5500, L501.0900 ####[facility] [address] [place], [address] GAP 13 Normal 5-15 [facility] Comment on above: Performed By: #### L 500.4050, L3100.5700, L400.2010, L3100.5800, L100.0100, L3100.5500, L501.0900 ####[facility] [address] [place], [address] GFR/1.73 sq M.predicted among non-blacks MDRD (S/P/Bld) [Vol rate/Area] 60 mL/min/{1.73_m2} Normal >60 [facility] Comment on above: Result Comment: mL/m in/1.73m2 CKD-EPI Creatinine Equation (2020) Performed By: #### L 500.4050, L3100.5700, L400.2011, L3100.5800, L100.0100, L3100.5500, L501.0900 ####[facility] [address] [place], [address] Globulin (S) [Mass/Vol] 3.7 g/dL Normal 2.2-4.2 [facility] Comment on above: Performed By: #### L 500.4050, L3100.5700, L400.2010, L3100.5800, L100.0100, L3100.5500, L501.0900 ####[facility] [address] [place], [address] Glucose [Mass/Vol] 104 mg/dL High 70-99 [facility] Comment on above: Performed By: #### L 500.4050, L3100.5700, L400.2010, L3100.5800, L100.0100, L3100.5500, L501.0900 ####[facility] [address] [place], [address] Potassium [Moles/Vol] 4.1 mmol/L Normal 3.3-5.1 [facility] Comment on above: Performed By: #### L 500.4050, L3100.5700, L400.2010, L3100.5800, L100.0100, L3100.5500, L501.0900 ####[facility] [address] [place], [address] Sodium [Moles/Vol] 137 mmol/L Normal 133-145 [facility] Comment on above: Performed By: #### L 500.4050, L3100.5700, L400.2010, L3100.5800, L100.0100, L3100.5500, L501.0900 ####[facility] [address] [place], [address] T PROT 7.8 g/dL Normal 5.9-8.4 [facility] Comment on above: Performed By: #### L 500.4050, L3100.5700, L400.2011, L3100.5800, L100.0100, L3100.5500, L501.0900 ####[facility] [address] [place], [address] Urea nitrogen [Mass/Vol] 14 mg/dL Normal 4-19 [facility] Comment on above: Performed By: #### L 500.4050, L3100.5700, L400.2011, L3100.5800, L100.0100, L3100.5500, L501.0900 ####[facility] [address] [place], [address] Eosinophil percentageOrdered By: Aixa Ibanez on 11-07-2024 Eosinophils/100 WBC (Bld) 0.6 % 0-5 [facility] Erythrocyte distribution wid th ratioOrdered By: Aixa Ibanez on 11-07-2024 Erythrocyte distribution width (RBC) [Ratio] 18.3 % High 11.6-14.6 [facility] Erythrocyte distribution wid th standard deviationOrdered By: Aixa Ibanez on 11-07-2024 Erythrocyte distribution width (RBC) [Ratio] 60.5 fl High 35.1-43.9 [facility] Glomerular filtration rate ( GFR) estimation/1.73 sq m using serum, plasma, or whole bOrdered By: Aixa Ibanez on 11-07-2024 GFR/1.73 sq M.predicted among non-blacks MDRD (S/P/Bld) [Vol rate/Area] 60 mL/min/{1.73_m2} >60 [facility] Comment on above: mL/min/1.73m2 CKD-EP I Creatinine Equation (2020) Hematocrit Auto (Bld) [Volum e fraction]Ordered By: Aixa Ibanez on 11-07-2024 Hematocrit (Bld) [Volume fraction] 34.0 % Low 37-47 [facility] Hemoglobin measurementOrdere d By: Aixa Ibanez on 11-07-2024 Hemoglobin (Bld) [Mass/Vol] 10.7 g/dL Low 12.0-15.0 [facility] Immature granulocytes/100 WB C Auto (Bld)Ordered By: Aixa Ibanez on 11-07-2024 Immature granulocytes/100 WBC (Bld) 0.500 % 0.0-0.9 [facility] Comment on above: IG% - Immature Granu locytes (promyelocytes, myelocytes and metamyelocytes) > 1% indicates that a LEFT SHIFT is Present. Ketones Test strip Ql (U)Ord ered By: Aixa Ibanez on 11-07-2024 Ketones Ql (U) Negative Negative [facility] Laboratory - Chemistry and C hemistry - challengeOrdered By: Aixa Ibanez on 11-07-2024 AST [Catalytic activity/Vol] 28 U/L <32 [facility] MCV (mean corpuscular volume ) determinationOrdered By: Aixa Ibanez on 11-07-2024 MCV (RBC) [Entitic vol] 90.2 fL 81-99 [facility] Mean corpuscular hemoglobin (MCH) determinationOrdered By: Aixa Ibanez on 11-07-2024 MCH (RBC) [Entitic mass] 28.4 pg 27.0-32.0 [facility] Mean corpuscular hemoglobin concentration (MCHC) determinationOrdered By: Aixa Ibanez on 11-07-2024 MCHC (RBC) [Mass/Vol] 31.5 g/dL Low 32-36 [facility] Mean platelet volume determi nationOrdered By: iAxa Ibanez on 11-07-2024 Platelet mean volume (Bld) [Entitic vol] 9.4 fL 6.2-12.0 [facility] Monocyte percentageOrdered B y: Aixa Ibanez on 11-07-2024 Monocytes/100 WBC (Bld) 11.6 % High 0-10 [facility] Neutrophil percentageOrdered By: Aixa Ibanez on 11-07-2024 Neutrophils/100 WBC (Bld) 77.5 % High 47-70 [facility] Nitrite Test strip Ql (U)Ord ered By: Aixa Ibanez on 11-07-2024 Nitrite Ql (U) Negative Negative [facility] Nucleated red blood cell per centageOrdered By: Aixa Ibanez on 11-07-2024 Nucleated RBC/100 WBC (Bld) [Ratio] 0 % 0-5 [facility] Platelet countOrdered By: Ilana Ibanez on 11-07-2024 Platelets (Bld) [#/Vol] 228 10*3/uL 150-450 [facility] Potassium measurement (mass/ volume)Ordered By: Aixa Ibanez on 11-07-2024 Potassium (Unsp spec) [Mass/Vol] 4.1 mmol/L 3.3-5.1 [facility] Protein Test strip Ql (U)Ord ered By: Aixa Ibanez on 11-07-2024 Protein Ql (U) 30 mg/dl High Negative [facility] Protein+Creatinine Ratio,Uri neon 11-07-2024 PROT:CRE RATIO 580 mg/g CRE High 0-200 [facility] Comment on above: Performed By: #### L 500.4050, L3100.5700, L400.2010, L3100.5800, L100.0100, L3100.5500, L501.0900 ####[facility] [address] [place], [address] Protein (U) [Mass/Vol] 33.9 mg/dL High 0.0-12.0 [facility] Comment on above: Performed By: #### L 500.4050, L3100.5700, L400.2010, L3100.5800, L100.0100, L3100.5500, L501.0900 ####[facility] [address] [place], [address] UR CREAT 58.40 mg/dL Normal 28.00-217.00 [facility] Comment on above: Performed By: #### L 500.4050, L3100.5700, L400.2010, L3100.5800, L100.0100, L3100.5500, L501.0900 ####[facility] [address] [place], [address] RBC Auto (Bld) [#/Vol]Ordere d By: Aixa Ibanez on 11-07-2024 RBC (Bld) [#/Vol] 3.77 10*6/uL Low 4.2-5.4 [facility] Random urine creatinine leona urement (mass/volume)Ordered By: Aixa Ibanez on 11-07-2024 Creatinine Unsp time (U) [Mass/Vol] 58.40 mg/dL 28.00-217.00 [facility] Serum DNA double strand anti body assay (units/volume)Ordered By: Aixa Ibanez on 11-07-2024 DNA double strand Ab Qn (S) 2 [IU]/mL 0-9 [facility] Comment on above: Negative <5 Equivoca l 5 - 9 Positive >9Performed at: [facility] [id number] Director: Moreno Marroquin PhD, Phone: [phone] Serum creatinine measurement (mass/volume)Ordered By: Aixa Ibanez on 11-07-2024 Creatinine [Mass/Vol] 1.05 mg/dL 0.70-1.20 [facility] Serum globulin measurementOr dered By: Aixa Ibanez on 11-07-2024 Globulin (S) [Mass/Vol] 3.7 g/dL 2.2-4.2 [facility] Serum glucose measurement (m ass/volume)Ordered By: Aixa Ibanez on 11-07-2024 Glucose [Mass/Vol] 104 mg/dL High 70-99 [facility] Serum or plasma alanine oconnor otransferase (ALT) measurementOrdered By: Aixa Ibanez on 11-07-2024 ALT [Catalytic activity/Vol] 15 U/L <35 [facility] Serum or plasma albumin leona urement (mass/volume)Ordered By: Aixa Ibanez on 11-07-2024 Albumin [Mass/Vol] 4.0 g/dL 3.4-4.8 [facility] Serum or plasma albumin/glob ulin mass ratioOrdered By: Aixa Ibanez on 11-07-2024 Albumin/Globulin [Mass ratio] 1.1 {ratio} 0.9-2.4 [facility] Serum or plasma alkaline [place]in[place] sphatase measurementOrdered By: Aixa Ibanez on 11-07-2024 ALP [Catalytic activity/Vol] 112 U/L High 35-104 [facility] Serum or plasma calcium leona urement (mass/volume)Ordered By: Aixa Ibanez on 11-07-2024 Calcium [Mass/Vol] 9.0 mg/dL 7.6-11.0 [facility] Serum or plasma complement C 4 measurement (mass/volume)Ordered By: Aixa Ibanez on 11-07-2024 Complement C4 [Mass/Vol] 27 mg/dL 12-38 [facility] Serum or plasma urea nitroge n measurement (mass/volume)Ordered By: Aixa Ibanez on 11-07-2024 Urea nitrogen [Mass/Vol] 14 mg/dL 4-19 [facility] Sodium levelOrdered By: Courtney Ibanez on 11-07-2024 Sodium [Moles/Vol] 137 mmol/L 133-145 [facility] Total proteinOrdered By: Kingsley Ibanez on 11-07-2024 Protein [Mass/Vol] 7.8 g/dL 5.9-8.4 [facility] Urinalysis, Routine (Dipstic k)on 11-07-2024 BILIRUBIN URINE Negative Normal Negative [facility] Comment on above: Order Comment: Urine , Random Performed By: #### L 500.4050, L3100.5700, L400.2010, L3100.5800, L100.0100, L3100.5500, L501.0900 ####[facility] [address] [place], [place], [id number] Clarity (U) Clear Normal Clear [facility] Comment on above: Order Comment: Urine , Random Performed By: #### L 500.4050, L3100.5700, L400.2010, L3100.5800, L100.0100, L3100.5500, L501.0900 ####[facility] [address] [place], [place], [id number] Color (U) Yellow Normal Yellow [facility] Comment on above: Order Comment: Urine , Random Performed By: #### L 500.4050, L3100.5700, L400.2011, L3100.5800, L100.0100, L3100.5500, L501.0900 ####[facility] [address] [place], [address] GLUCOSE, UR Normal Normal Normal [facility] Comment on above: Order Comment: Urine , Random Performed By: #### L 500.4050, L3100.5700, L400.2010, L3100.5800, L100.0100, L3100.5500, L501.0900 ####[facility] [address] [place], [address] KETONE UR Negative Normal Negative [facility] Comment on above: Order Comment: Urine , Random Performed By: #### L 500.4050, L3100.5700, L400.2010, L3100.5800, L100.0100, L3100.5500, L501.0900 ####[facility] [address] [place], [address] LEUK ESTERASE Negative Normal Negative [facility] Comment on above: Order Comment: Urine , Random Performed By: #### L 500.4050, L3100.5700, L400.2010, L3100.5800, L100.0100, L3100.5500, L501.0900 ####[facility] [address] [place], [address] Nitrite Ql (U) Negative Normal Negative [facility] Comment on above: Order Comment: Urine , Random Performed By: #### L 500.4050, L3100.5700, L400.2010, L3100.5800, L100.0100, L3100.5500, L501.0900 ####[facility] [address] [place], [address] OCCULT BLOOD-UR Negative Normal Negative [facility] Comment on above: Order Comment: Urine , Random Performed By: #### L 500.4050, L3100.5700, L400.2011, L3100.5800, L100.0100, L3100.5500, L501.0900 ####[facility] [address] [place], [address] pH UR 6.0 Normal 5.0 - 8.0 [facility] Comment on above: Order Comment: Urine , Random Performed By: #### L 500.4050, L3100.5700, L400.2010, L3100.5800, L100.0100, L3100.5500, L501.0900 ####[facility] [address] [place], [address] PROT DIPSTX 30 mg/dl Abnormal Negative [facility] Comment on above: Order Comment: Urine , Random Performed By: #### L 500.4050, L3100.5700, L400.2010, L3100.5800, L100.0100, L3100.5500, L501.0900 ####[facility] [address] [place], [address] SP.GR. DIPSTX 1.015 Normal 1.002-1.030 [facility] Comment on above: Order Comment: Urine , Random Performed By: #### L 500.4050, L3100.5700, L400.2010, L3100.5800, L100.0100, L3100.5500, L501.0900 ####[facility] [address] [place], [address] UROBILI Normal Normal Normal [facility] Comment on above: Order Comment: Urine , Random Performed By: #### L 500.4050, L3100.5700, L400.2011, L3100.5800, L100.0100, L3100.5500, L501.0900 ####[facility] [address] [place], [address] Urine clarityOrdered By: Kingsley Ibanez on 06-02-2025 Clarity (U) Clear Clear [facility] Urine color determinationOrd ered By: Aixa Ibanez on 11-07-2024 Color (U) Yellow Yellow [facility] Urine glucose detectionOrder ed By: Aixa Ibanez on 11-07-2024 Glucose Ql (U) Normal mg/dl Normal [facility] Urine leukocyte esterase det ection by dipstickOrdered By: Aixa Ibanez on 11-07-2024 Leukocyte esterase Test strip Ql (U) Negative Negative [facility] Urine pHOrdered By: Aixa fang on 11-07-2024 pH (U) 6.0 [pH] 5.0 - 8.0 [facility] Urine protein measurement (m ass/volume)Ordered By: Aixa Ibanez on 11-07-2024 Protein (U) [Mass/Vol] 33.9 mg/dL High 0.0-12.0 [facility] Urine protein/creatinine mas s ratioOrdered By: Aixa Ibanez on 11-07-2024 Protein/Creatinine (U) [Mass ratio] 580 mg/g CRE High 0-200 [facility] Urine specific gravity measu rementOrdered By: Aixa Ibanez on 11-07-2024 Specific gravity (U) [Rel density] 1.015 1.002-1.030 [facility] Urine urobilinogen measureme ntOrdered By: Aixa Ibanez on 11-07-2024 Urobilinogen Ql (U) Normal mg/dl Normal [facility] White blood cell (WBC) count Ordered By: Aixa Ibanez on 11-07-2024 WBC (Bld) [#/Vol] 6.2 10*3/uL 4.4-11.0 [facility] Anti-dsDNA Abon 08-04-2024 ANTI-DNA (DS)AB 1 IU/mL Normal 0-9 [facility] Comment on above: Result Comment: Nega tive <5 Equivocal 5 - 9 Positive >9 Performed at: [facility] [id number] [employer]: Moreno Marroquin PhD, Phone: [phone] Performed By: #### L 3100.6040, L400.2010, L500.4050, L3100.5500, L100.0100, L3100.5800, L501.0900 ####[facility] [address] [place], [address] Complement C3on 08-04-2024 COMP C3 92 mg/dL Normal 82-167 [facility] Comment on above: Result Comment: Perf ormed at: [facility] [id number] [employer]: Moreno Marroquin PhD, Phone: [phone] Performed By: #### L 3100.5700, L400.2010, L500.4050, L3100.5500, L100.0100, L3100.5800, L501.0900 ####[facility] [address] [place], [address] Complement C4on 08-04-2024 COMPLEMENT, C4 26 mg/dL Normal 12-38 [facility] Comment on above: Performed By: #### L 3100.5700, L400.2010, L500.4050, L3100.5500, L100.0100, L3100.5800, L501.0900 ####[facility] [address] [place] [place], [address] Protein+Creatinine Ratio,Uri neon 08-03-2024 PROT:CRE RATIO 1572 mg/g CRE High 0-200 [facility] Comment on above: Performed By: #### L 3100.5700, L400.2010, L500.4050, L3100.5500, L100.0100, L3100.5800, L501.0900 ####[facility] [address] [place], [address] Protein (U) [Mass/Vol] 67 mg/dL Normal <=12 [facility] Comment on above: Performed By: #### L 3100.5700, L400.2010, L500.4050, L3100.5500, L100.0100, L3100.5800, L501.0900 ####[facility] [address] [place], [address] UR CREAT 42.80 mg/dL Normal NO RANGE EST. [facility] Comment on above: Performed By: #### L 3100.5700, L400.2011, L500.4050, L3100.5500, L100.0100, L3100.5800, L501.0900 ####[facility] [address] [place], [address] Absolute lymphocyte countOrd ered By: Nahomi Lobato on 08-02-2024 Lymphocytes Auto (Unsp spec) [#/Vol] 0.48 10*3/uL Low 0.83-4.51 [facility] Absolute neutrophil countOrd ered By: Nahomi Lobato on 08-02-2024 Neutrophils (Bld) [#/Vol] 2.7 10*3/uL 2.0-7.7 [facility] Automated lymphocyte count a s percentage of total leukocytesOrdered By: Nahomi Lobato on 08-02-2024 Lymphocytes/100 WBC Auto (Unsp spec) 13.1 % Low 19-41 [facility] BUN/creatinine ratioOrdered By: Nahomi Lobato on 08-02-2024 Urea nitrogen/Creatinine [Mass ratio] 10.4 mg/mg 10-20 [facility] Basophil percentageOrdered B y: Nahomi Lobato on 08-02-2024 Basophils/100 WBC (Bld) 0.3 % 0-1 [facility] Bilirubin Test strip Ql (U)O rdered By: Nahomi Lobato on 08-02-2024 Bilirubin Ql (U) Negative Negative [facility] Bilirubin, totalOrdered By: Nahomi Lobato on 08-02-2024 Bilirubin [Mass/Vol] 0.27 mg/dL 0.00-1.30 [facility] Breast imaging reportOrdered By: Saida Leonardo on 08-02-2024 Study report [facility] Imaging Services [address] [place] [address] SCRN MAMM (CAD)W/MEAGAN BILAT MR#: [id number] Acct: [id number] Name: DEMI DEJESUS Rep #: [id number] : 1965 F 59 From: Sary Leonardo MD PCP: Dr. Juice Cochran MD Status: REG CL I Study:SCRN MAMM (CAD)W/MEAGAN BILAT Date of Exa m: 08/02/24 Exam# [id number] Ordering Dr: Awilda Cochran MD PROCEDURE: SCRN MAMM (CAD)W/MEAGAN BILAT REASON FOR EXAM: F, Age 59 y/o, presents for annual screening mammogram. Family history of breast cancer in her mother at age 70 and a maternal cousin at age 58. TECHNIQUE: Bilateral screening digital breast tomosynthesis with 2D and 3D images. Computeraided detection. COMPARISON: 07/29/2023, 07/28/2022 FINDINGS: The breasts are heterogeneously dense which may obscure small masses. The mammogram demonstrates that the patient has dense breasts. Supplemental screening with whole breast ultrasound or MRI may be considered for further evaluation. No suspicious masses, areas of developing architectural distortion, or suspicious calcifications. BI/SCRN MAMM (CAD)W/MEAGAN BILAT IMPRESSION: There is no mammographic evidence of malignancy in either breast. BI-RADS 1: NEGATIVE. RECOMMEND ANNUAL MAMMOGRAPHIC SCREENING. Follow-up code: Routine Follow-up The patient will be notified of the results by letter. Reading Location: [facility] CC: Dr. Juice Cochran MD ~ Icing Mixer: Signed [facility] CBC W/Diff, Automatedon 07-10 Absolute Lymph 0.48 X10 3/uL Low 0.83-4.51 [facility] Comment on above: Performed By: #### L 3100.5700, L400.2010, L500.4050, L3100.5500, L100.0100, L3100.5800, L501.0900 ####[facility] [address] [place], [address] Absolute Neut 2.7 X10 3/uL Normal 2.0-7.7 [facility] Comment on above: Performed By: #### L 3100.5700, L400.2010, L500.4050, L3100.5500, L100.0100, L3100.5800, L501.0900 ####[facility] [address] [place], [address] Basophils/100 WBC (Bld) 0.3 % Normal 0-1 [facility] Comment on above: Performed By: #### L 3100.5700, L400.2010, L500.4050, L3100.5500, L100.0100, L3100.5800, L501.0900 ####[facility] [address] [place], [address] Eosinophils/100 WBC (Bld) 0.3 % Normal 0-5 [facility] Comment on above: Performed By: #### L 3100.5700, , L500.4050, L3100.5500, L100.0100, L3100.5800, L501.0900 ####[facility] [address] [place], [address] Erythrocyte distribution width (RBC) [Ratio] 13.6 % Normal 11.6-14.6 [facility] Comment on above: Performed By: #### L 3100.5700, L4, L500.4050, L3100.5500, L100.0100, L3100.5800, L501.0900 ####[facility] [address] [place], [address] Hematocrit (Bld) [Volume fraction] 28.8 % Low 37-47 [facility] Comment on above: Performed By: #### L 3100.5700, L4, L500.4050, L3100.5500, L100.0100, L3100.5800, L501.0900 ####[facility] [address] [place], [address] Hemoglobin (Bld) [Mass/Vol] 8.8 g/dL Low 12.0-15.0 [facility] Comment on above: Performed By: #### L 3100.5700, L400.2010, L500.4050, L3100.5500, L100.0100, L3100.5800, L501.0900 ####[facility] [address] [place], [address] IG% 0.300 Normal 0.0-0.9 [facility] Comment on above: Result Comment: IG% - Immature Granulocytes (promyelocytes, myelocytes and metamyelocytes) > 1% indicates that a LEFT SHIFT is Present. Performed By: #### L 3100.5700, L400.2010, L500.4050, L3100.5500, L100.0100, L3100.5800, L501.0900 ####[facility] [address] [place], [address] Lymphocytes/100 WBC (Bld) 13.1 % Low 19-41 [facility] Comment on above: Performed By: #### L 3100.5700, L400.2010, L500.4050, L3100.5500, L100.0100, L3100.5800, L501.0900 ####[facility] [address] [place], [address] MCH (RBC) [Entitic mass] 29.1 pg Normal 27.0-32.0 [facility] Comment on above: Performed By: #### L 3100.5700, L400.2010, L500.4050, L3100.5500, L100.0100, L3100.5800, L501.0900 ####[facility] [address] [place], [address] MCHC (RBC) [Mass/Vol] 30.6 g/dL Low 32-36 [facility] Comment on above: Performed By: #### L 3100.5700, L400.2010, L500.4050, L3100.5500, L100.0100, L3100.5800, L501.0900 ####[facility] [address] [place], [address] MCV (RBC) [Entitic vol] 95.4 fL Normal 81-99 [facility] Comment on above: Performed By: #### L 3100.5700, L400.2010, L500.4050, L3100.5500, L100.0100, L3100.5800, L501.0900 ####[facility] [address] [place], [address] Monocytes/100 WBC (Bld) 13.6 % High 0-10 [facility] Comment on above: Performed By: #### L 3100.5700, L400.2010, L500.4050, L3100.5500, L100.0100, L3100.5800, L501.0900 ####[facility] [address] [place], [address] Neutrophils/100 WBC (Bld) 72.4 % High 47-70 [facility] Comment on above: Performed By: #### L 3100.5700, L400.2010, L500.4050, L3100.5500, L100.0100, L3100.5800, L501.0900 ####[facility] [address] [place], [address] Nucleated RBC (Bld) [#/Vol] 0 10*3/uL Normal 0-5 [facility] Comment on above: Performed By: #### L 3100.5700, L400.2010, L500.4050, L3100.5500, L100.0100, L3100.5800, L501.0900 ####[facility] [address] [place], [address] Platelet mean volume (Bld) [Entitic vol] 10.6 fL Normal 6.2-12.0 [facility] Comment on above: Performed By: #### L 3100.5700, L400.2010, L500.4050, L3100.5500, L100.0100, L3100.5800, L501.0900 ####[facility] [address] [place], [address] Platelets (Bld) [#/Vol] 239 10*3/uL Normal 150-450 [facility] Comment on above: Performed By: #### L 3100.5700, L400.2010, L500.4050, L3100.5500, L100.0100, L3100.5800, L501.0900 ####[facility] [address] [place], [address] RBC (Bld) [#/Vol] 3.02 10*6/uL Low 4.2-5.4 [facility] Comment on above: Performed By: #### L 3100.5700, L400.2010, L500.4050, L3100.5500, L100.0100, L3100.5800, L501.0900 ####[facility] [address] [place], [address] RDW SD 47.4 fl High 35.1-43.9 [facility] Comment on above: Performed By: #### L 3100.5700, L400.2010, L500.4050, L3100.5500, L100.0100, L3100.5800, L501.0900 ####[facility] [address] [place], [address] WBC (Bld) [#/Vol] 3.7 10*3/uL Low 4.4-11.0 [facility] Comment on above: Performed By: #### L 3100.5700, L400.2010, L500.4050, L3100.5500, L100.0100, L3100.5800, L501.0900 ####[facility] [address] [place], [address] Complement C3 assayOrdered B y: Nahomi Lobato on 08-02-2024 Complement C3 92 mg/dL 82-167 [facility] Comment on above: Performed at: [address] [id number] Director: Moreno Marroquin PhD, Phone: [phone] Complement C4 [Mass/Vol]Orde red By: Nahomi Lobato on 08-02-2024 Complement C4 26 mg/dL 12-38 [facility] Comprehensive Metabolic Prof ilon 08-02-2024 Albumin [Mass/Vol] 3.8 g/dL Normal 3.4-4.8 [facility] Comment on above: Performed By: #### L 3100.5700, L400.2010, L500.4050, L3100.5500, L100.0100, L3100.5800, L501.0900 ####[facility] [address] [place], [address] Albumin/Globulin [Mass ratio] 1.2 {ratio} Normal 0.9-2.4 [facility] Comment on above: Performed By: #### L 3100.5700, L400.2010, L500.4050, L3100.5500, L100.0100, L3100.5800, L501.0900 ####[facility] [address] [place], [address] ALK PHOS 106 U/L High 35-104 [facility] Comment on above: Performed By: #### L 3100.5700, L400.2010, L500.4050, L3100.5500, L100.0100, L3100.5800, L501.0900 ####[facility] [address] [place], [address] ALT [Catalytic activity/Vol] 14 U/L Normal <=34 [facility] Comment on above: Performed By: #### L 3100.5700, L400.2010, L500.4050, L3100.5500, L100.0100, L3100.5800, L501.0900 ####[facility] [address] [place], [address] Anion gap [Moles/Vol] 12 mmol/L Normal 5-15 [facility] Comment on above: Performed By: #### L 3100.5700, L4, L500.4050, L3100.5500, L100.0100, L3100.5800, L501.0900 ####[facility] [address] [place], [address] AST [Catalytic activity/Vol] 31 U/L Normal <=31 [facility] Comment on above: Performed By: #### L 3100.5700, L4, L500.4050, L3100.5500, L100.0100, L3100.5800, L501.0900 ####[facility] [address] [place], [address] Bilirubin [Mass/Vol] 0.27 mg/dL Normal 0.00-1.30 [facility] Comment on above: Performed By: #### L 3100.5700, L4, L500.4050, L3100.5500, L100.0100, L3100.5800, L501.0900 ####[facility] [address] [place], [address] BUN/CRE 10.4 RATIO Normal 10-20 [facility] Comment on above: Performed By: #### L 3100.5700, L400, L500.4050, L3100.5500, L100.0100, L3100.5800, L501.0900 ####[facility] [address] [place], [address] Calcium [Mass/Vol] 8.8 mg/dL Normal 7.6-11.0 [facility] Comment on above: Performed By: #### L 3100.5700, L400.2010, L500.4050, L3100.5500, L100.0100, L3100.5800, L501.0900 ####[facility] [address] [place], [address] Chloride [Moles/Vol] 105 mmol/L Normal 96-108 [facility] Comment on above: Performed By: #### L 3100.5700, L400, L500.4050, L3100.5500, L100.0100, L3100.5800, L501.0900 ####[facility] [address] [place], [address] CO2 [Moles/Vol] 21.0 mmol/L Low 22.0-29.0 [facility] Comment on above: Performed By: #### L 3100.5700, L4, L500.4050, L3100.5500, L100.0100, L3100.5800, L501.0900 ####[facility] [address] [place], [address] Creatinine [Mass/Vol] 0.8 mg/dL Normal 0.6-1.0 [facility] Comment on above: Performed By: #### L 3100.5700, L4, L500.4050, L3100.5500, L100.0100, L3100.5800, L501.0900 ####[facility] [address] [place], [address] GFR/1.73 sq M.predicted among non-blacks MDRD (S/P/Bld) [Vol rate/Area] 83 mL/min/{1.73_m2} Normal >60 [facility] Comment on above: Result Comment: mL/m in/1.73m2 CKD-EPI Creatinine Equation (2020) Performed By: #### L 3100.5700, L4, L500.4050, L3100.5500, L100.0100, L3100.5800, L501.0900 ####[facility] [address] [place], [address] Globulin (S) [Mass/Vol] 3.2 g/dL Normal 2.2-4.2 [facility] Comment on above: Performed By: #### L 3100.5700, L400.2010, L500.4050, L3100.5500, L100.0100, L3100.5800, L501.0900 ####[facility] [address] [place], [address] Glucose [Mass/Vol] 93 mg/dL Normal 70-99 [facility] Comment on above: Performed By: #### L 3100.5700, L400.2010, L500.4050, L3100.5500, L100.0100, L3100.5800, L501.0900 ####[facility] [address] [place], [address] Potassium [Moles/Vol] 3.4 mmol/L Normal 3.3-5.1 [facility] Comment on above: Performed By: #### L 3100.5700, L400.2010, L500.4050, L3100.5500, L100.0100, L3100.5800, L501.0900 ####[facility] [address] [place], [address] Sodium [Moles/Vol] 138 mmol/L Normal 133-145 [facility] Comment on above: Performed By: #### L 3100.5700, L400.2010, L500.4050, L3100.5500, L100.0100, L3100.5800, L501.0900 ####[facility] [address] [place], [address] T PROT 7.1 g/dL Normal 5.9-8.4 [facility] Comment on above: Performed By: #### L 3100.5700, L400.2011, L500.4050, L3100.5500, L100.0100, L3100.5800, L501.0900 ####[facility] [address] [place], [address] Urea nitrogen [Mass/Vol] 8 mg/dL Normal 4-19 [facility] Comment on above: Performed By: #### L 3100.5700, L400.2010, L500.4050, L3100.5500, L100.0100, L3100.5800, L501.0900 ####[facility] [address] [place], [address] Creatinine Unsp time (U) [Ma ss/Vol]Ordered By: Nahomi Lobato on 08-02-2024 Creatinine (U) [Mass/Vol] 42.80 mg/dL NO RANGE EST. [facility] Creatinine [Moles/Vol]Ordere d By: Nahomi Lobato on 08-02-2024 Creatinine [Mass/Vol] 0.8 mg/dL 0.6-1.0 [facility] DNA double strand Ab Qn (S)O rdered By: Nahomi Lobato on 08-02-2024 Anti-Double Strand DNA Antibody 1 IU/mL 0-9 [facility] Comment on above: Negative <5 Equivoca l 5 - 9 Positive >9Performed at: [facility] [id number] Director: Moreno Marroquin PhD, Phone: [phone] Eosinophil percentageOrdered By: Nahomi Lobato on 08-02-2024 Eosinophils/100 WBC (Bld) 0.3 % 0-5 [facility] Erythrocyte distribution wid th ratioOrdered By: Nahomi Lobato on 08-02-2024 Erythrocyte distribution width (RBC) [Ratio] 13.6 % 11.6-14.6 [facility] Erythrocyte distribution wid th standard deviationOrdered By: Nahomi Lobato on 08-02-2024 Erythrocyte distribution width (RBC) [Entitic vol] 47.4 fL High 35.1-43.9 [facility] Erythrocyte distribution width (RBC) [Ratio] 47.4 fl High 35.1-43.9 [facility] GFR/1.73 sq M.predicted tristian g non-blacks MDRD (S/P/Bld) [Vol rate/Area]Ordered By: Nahomi Lobato on 08-02-2024 Estimated GFR (MDRD) Non-Af Amer 83 >60 [facility] Comment on above: mL/min/1.73m2 CKD-EP I Creatinine Equation (2020) Glomerular filtration rate ( GFR) estimation/1.73 sq m using serum, plasma, or whole bOrdered By: Nahomi Lobato on 08-02-2024 GFR/1.73 sq M.predicted among non-blacks MDRD (S/P/Bld) [Vol rate/Area] 83 mL/min/{1.73_m2} >60 [facility] Comment on above: mL/min/1.73m2 CKD-EP I Creatinine Equation (2020) Glucose Ql (U)Ordered By: Cody Lobato on 08-02-2024 Urine Glucose (UA) Normal mg/dl Normal [facility] Hematocrit Auto (Bld) [Volum e fraction]Ordered By: Nahomi Lobato on 08-02-2024 Hematocrit (Bld) [Volume fraction] 28.8 % Low 37-47 [facility] Hemoglobin measurementOrdere d By: Nahomi Lobato on 08-02-2024 Hemoglobin (Bld) [Mass/Vol] 8.8 g/dL Low 12.0-15.0 [facility] Immature granulocytes/100 WB C Auto (Bld)Ordered By: Nahomi Lobato on 08-02-2024 Immature granulocytes/100 WBC (Bld) 0.300 % 0.0-0.9 [facility] Comment on above: IG% - Immature Granu locytes (promyelocytes, myelocytes and metamyelocytes) > 1% indicates that a LEFT SHIFT is Present. Ketones Test strip Ql (U)Ord ered By: Nahomi Lobato on 08-02-2024 Ketones Ql (U) Negative Negative [facility] Laboratory - Chemistry and C hemistry - challengeOrdered By: Nahomi Lobato on 08-02-2024 AST [Catalytic activity/Vol] 31 U/L <32 [facility] Lymphocytes Auto (Unsp spec) [#/Vol]Ordered By: Nahomi Lobato on 08-02-2024 Lymphocytes (Bld) [#/Vol] 0.48 10*3/uL Low 0.83-4.51 [facility] Lymphocytes/100 WBC Auto (Un sp spec)Ordered By: Nahomi Lobato on 08-02-2024 Lymphocytes/100 WBC (Bld) 13.1 % Low 19-41 [facility] MCV (mean corpuscular volume ) determinationOrdered By: Nahomi Lobato on 08-02-2024 MCV (RBC) [Entitic vol] 95.4 fL 81-99 [facility] Mean corpuscular hemoglobin (MCH) determinationOrdered By: Nahomi Lobato on 08-02-2024 MCH (RBC) [Entitic mass] 29.1 pg 27.0-32.0 [facility] Mean corpuscular hemoglobin concentration (MCHC) determinationOrdered By: Nahomi Lobato on 08-02-2024 MCHC (RBC) [Mass/Vol] 30.6 g/dL Low 32-36 [facility] Mean platelet volume determi nationOrdered By: Nahomi Lobato on 08-02-2024 Platelet mean volume (Bld) [Entitic vol] 10.6 fL 6.2-12.0 [facility] Monocyte percentageOrdered B y: Nahomi Lobato on 08-02-2024 Monocytes/100 WBC (Bld) 13.6 % High 0-10 [facility] Neutrophil percentageOrdered By: Nahomi Lobato on 08-02-2024 Neutrophils/100 WBC (Bld) 72.4 % High 47-70 [facility] Nitrite Test strip Ql (U)Ord ered By: Nahomi Lobato on 08-02-2024 Nitrite Ql (U) Negative Negative [facility] Nucleated red blood cell per centageOrdered By: Nahomi Lobato on 08-02-2024 Nucleated RBC/100 WBC (Bld) [Ratio] 0 % 0-5 [facility] Platelet countOrdered By: Cody Lobato on 08-02-2024 Platelets (Bld) [#/Vol] 239 10*3/uL 150-450 [facility] Protein Test strip Ql (U)Ord ered By: Nahomi Lobato on 08-02-2024 Protein Ql (U) 100 mg/dl High Negative [facility] Protein/Creatinine (U) [Mass ratio]Ordered By: Nahomi Lobato on 08-02-2024 Urine Protein/Creatinine Ratio 1572 mg/g CRE High 0-200 [facility] RBC Auto (Bld) [#/Vol]Ordere d By: Nahomi Lobato on 08-02-2024 RBC (Bld) [#/Vol] 3.02 10*6/uL Low 4.2-5.4 [facility] Random urine creatinine leona urement (mass/volume)Ordered By: Nahomi Lobato on 08-02-2024 Creatinine Unsp time (U) [Mass/Vol] 42.80 mg/dL NO RANGE EST. [facility] SCRN MAMM (CAD)W/MEAGAN BILATo n 08-02-2024 SCRN MAMM (CAD)W/MEAGAN BILAT [facility] Imaging Services [address] [place] [id number] SCRN MAMM (CAD)W/MEAGAN BILAT MR#: [id number] Acct: [id number] Name: DEMI DEJESUS Rep #: [id number] : 1965 F 59 From: Saida Leonardo MD PCP: Dr. Juice Cochran MD Status: [facility] Study: SCRN MAMM (CAD)W/MEAGAN BILAT Date of Exam: 07/10 10/30 Exam# [id number] Ordering Dr: Juice Cochran MD PROCEDURE: SCRN MAMM (CAD)W/MEAGAN BILAT REASON FOR EXAM: F, Age 59 y/o, presents for annual screening mammogram. Family history of breast cancer in her mother at age 70 and a maternal cousin at age 58. TECHNIQUE: Bilateral screening digital breast tomosynthesis with 2D and 3D images. Computer aided detection. COMPARISON: 07/29/2023, 07/28/2022 FINDINGS: The breasts are heterogeneously dense which may obscure small masses. The mammogram demonstrates that the patient has dense breasts. Supplemental screening with whole breast ultrasound or MRI may be considered for further evaluation. No suspicious masses, areas of developing architectural distortion, or suspicious calcifications. BI/SCRN MAMM (CAD)W/MEAGAN BILAT IMPRESSION: There is no mammographic evidence of malignancy in either breast. BI-RADS 1: NEGATIVE. RECOMMEND ANNUAL MAMMOGRAPHIC SCREENING. Follow-up code: Routine Follow-up The patient will be notified of the results by letter. Reading Location: [facility] CC: Dr. Juice Cochran MD Icing Mixer: Signed Normal [facility] Serum DNA double strand anti body assay (units/volume)Ordered By: Nahomi Lobato on 08-02-2024 DNA double strand Ab Qn (S) 1 [IU]/mL 0-9 [facility] Comment on above: Negative <5 Equivoca l 5 - 9 Positive >9Performed at: [facility] [id number] Director: Moreno Marroquin PhD, Phone: [phone] Serum globulin measurementOr dered By: Nahomi Lobato on 08-02-2024 Globulin (S) [Mass/Vol] 3.2 g/dL 2.2-4.2 [facility] Serum glucose measurement (m ass/volume)Ordered By: Nahomi Lobato on 08-02-2024 Glucose [Mass/Vol] 93 mg/dL 70-99 [facility] Serum or plasma alanine oconnor otransferase (ALT) measurementOrdered By: Nahomi Lobato on 08-02-2024 ALT [Catalytic activity/Vol] 14 U/L <35 [facility] Serum or plasma albumin leona urement (mass/volume)Ordered By: Nahomi Lobato on 08-02-2024 Albumin [Mass/Vol] 3.8 g/dL 3.4-4.8 [facility] Serum or plasma albumin/glob ulin mass ratioOrdered By: Nahomi Lobato on 08-02-2024 Albumin/Globulin [Mass ratio] 1.2 {ratio} 0.9-2.4 [facility] Serum or plasma alkaline trinidad sphatase measurementOrdered By: Nahomi Lobato on 08-02-2024 ALP [Catalytic activity/Vol] 106 U/L High 35-104 [facility] Serum or plasma anion gap de termination (moles/volume)Ordered By: Nahomi Lobato on 08-02-2024 Anion gap [Moles/Vol] 12 mmol/L 5-15 [facility] Serum or plasma calcium leona urement (mass/volume)Ordered By: Nahomi Lobato on 08-02-2024 Calcium [Mass/Vol] 8.8 mg/dL 7.6-11.0 [facility] Serum or plasma complement C 4 measurement (mass/volume)Ordered By: Nahomi Lobato on 08-02-2024 Complement C4 [Mass/Vol] 26 mg/dL 12- [facility] Serum or plasma creatinine m easurement (moles/volume)Ordered By: Nahomi Lobato on 08-02-2024 Creatinine [Moles/Vol] 0.8 mg/dL 0.6-1.0 [facility] Serum or plasma potassium me asurementOrdered By: Nahomi Lobato on 08-02-2024 Potassium [Moles/Vol] 3.4 mmol/L 3.3-5.1 [facility] Serum or plasma sodium measu rement (moles/volume)Ordered By: Nahomi Lobato on 08-02-2024 Sodium [Moles/Vol] 138 mmol/L 133-145 [facility] Serum or plasma urea nitroge n measurement (mass/volume)Ordered By: Nahomi Lobato on 08-02-2024 Urea nitrogen [Mass/Vol] 8 mg/dL 4-19 [facility] Total proteinOrdered By: Melo Lobato on 08-02-2024 Protein [Mass/Vol] 7.1 g/dL 5.9-8.4 [facility] Urinalysis, Routine (Dipstic k)on 08-02-2024 BILIRUBIN URINE Negative Normal Negative [facility] Comment on above: Order Comment: Urine , Random Performed By: #### L 3100.5700, L400.2010, L500.4050, L3100.5500, L100.0100, L3100.5800, L501.0900 ####[facility] [address] [place] [place], [address] Clarity (U) Clear Normal Clear [facility] Comment on above: Order Comment: Urine , Random Performed By: #### L 3100.5700, L400.2010, L500.4050, L3100.5500, L100.0100, L3100.5800, L501.0900 ####[facility] [address] [place], [address] Color (U) Yellow Normal Yellow [facility] Comment on above: Order Comment: Urine , Random Performed By: #### L 3100.5700, L400.2010, L500.4050, L3100.5500, L100.0100, L3100.5800, L501.0900 ####[facility] [address] [place], [address] GLUCOSE, UR Normal Normal Normal [facility] Comment on above: Order Comment: Urine , Random Performed By: #### L 3100.5700, L4.2010, L500.4050, L3100.5500, L100.0100, L3100.5800, L501.0900 ####[facility] [address] [place], [address] KETONE UR Negative Normal Negative [facility] Comment on above: Order Comment: Urine , Random Performed By: #### L 3100.5700, L400.2010, L500.4050, L3100.5500, L100.0100, L3100.5800, L501.0900 ####[facility] [address] [place], [address] LEUK ESTERASE Negative Normal Negative [facility] Comment on above: Order Comment: Urine , Random Performed By: #### L 3100.5700, L400.2010, L500.4050, L3100.5500, L100.0100, L3100.5800, L501.0900 ####[facility] [address] [place], [address] Nitrite Ql (U) Negative Normal Negative [facility] Comment on above: Order Comment: Urine , Random Performed By: #### L 3100.5700, L400.2010, L500.4050, L3100.5500, L100.0100, L3100.5800, L501.0900 ####[facility] [address] [place], [address] OCCULT BLOOD-UR Negative Normal Negative [facility] Comment on above: Order Comment: Urine , Random Performed By: #### L 3100.5700, L400.2010, L500.4050, L3100.5500, L100.0100, L3100.5800, L501.0900 ####[facility] [address] [place], [address] pH UR 6.0 Normal 5.0 - 8.0 [facility] Comment on above: Order Comment: Urine , Random Performed By: #### L 3100.5700, L400.2010, L500.4050, L3100.5500, L100.0100, L3100.5800, L501.0900 ####[facility] [address] [place], [address] PROT DIPSTX 100 mg/dl Abnormal Negative [facility] Comment on above: Order Comment: Urine , Random Performed By: #### L 3100.5700, L400.2010, L500.4050, L3100.5500, L100.0100, L3100.5800, L501.0900 ####[facility] [address] [place], [address] SP.GR. DIPSTX 1.015 Normal 1.002-1.030 [facility] Comment on above: Order Comment: Urine , Random Performed By: #### L 3100.5700, L400.2010, L500.4050, L3100.5500, L100.0100, L3100.5800, L501.0900 ####[facility] [address] [place], [address] UROBILI Normal Normal Normal [facility] Comment on above: Order Comment: Urine , Random Performed By: #### L 3100.5700, L400.2011, L500.4050, L3100.5500, L100.0100, L3100.5800, L501.0900 ####[facility] [address] [place], [address] Urine blood detectionOrdered By: Nahomi Lobato on 08-02-2024 Urine Occult Blood Negative Negative [facility] Urine clarityOrdered By: Melo Lobato on 08-02-2024 Clarity (U) Clear Clear [facility] Urine color determinationOrd ered By: Nahomi Lobato on 08-02-2024 Color (U) Yellow Yellow [facility] Urine glucose detectionOrder ed By: Nahomi Lobato on 08-02-2024 Glucose Ql (U) Normal mg/dl Normal [facility] Urine leukocyte esterase det ection by dipstickOrdered By: Nahomi Lobato on 08-02-2024 Leukocyte esterase Test strip Ql (U) Negative Negative [facility] Urine pHOrdered By: Tila Lobato on 08-02-2024 pH (U) 6.0 [pH] 5.0 - 8.0 [facility] Urine protein measurement (m ass/volume)Ordered By: Nahomi Lobato on 08-02-2024 Protein (U) [Mass/Vol] 67 mg/dL <=12 [facility] Urine protein/creatinine mas s ratioOrdered By: Nahomi oLbato on 08-02-2024 Protein/Creatinine (U) [Mass ratio] 1572 mg/g CRE High 0-200 [facility] Urine specific gravity measu rementOrdered By: Nahomi Lobato on 08-02-2024 Specific gravity (U) [Rel density] 1.015 1.002-1.030 [facility] Urine urobilinogen measureme ntOrdered By: Nahomi Lobato on 08-02-2024 Urobilinogen Ql (U) Normal mg/dl Normal [facility] Urobilinogen Ql (U)Ordered B y: Nahomi Lobato on 08-02-2024 Urine Urobilinogen Normal mg/dl Normal [facility] White blood cell (WBC) count Ordered By: Nahomi Loabto on 08-02-2024 WBC (Bld) [#/Vol] 3.7 10*3/uL Low 4.4-11.0 [facility] Ankle 2 Viewson 07-07-2024 Ankle 2 Views [facility] Imaging Services [address] [place], [place] [id number] Ankle 2 Views MR#: [id number] Acct: [id number] Name: DEMI DEJESUS Rep #: [id number] : 1965 F 59 From: Carl Randhawa PCP: Dr. Juice Cochran MD Status: [facility] Study: Ankle 2 Views Date of Exam: 07/07/24 Exam# [id number] Ordering Dr: Rakan Gamino DPM PROCEDURE: ANKLE 2 VIEWS; O.R. FLUORO FOR C-ARM REASON FOR EXAM: Right ankle ORIF, with syndesmosis repair TECHNIQUE: Intraoperative fluoroscopy of the right ankle. Additionally, 3 fluoroscopic images were obtained. COMPARISON: Right ankle study 06/02/2020 RAD/Ankle 2 Views IMPRESSION: Intraoperative fluoroscopy was performed. Additionally, 3 fluoroscopic images were obtained, during the distal tibial and fibular fracture fixation. Reading Location: [address] CC: DPM Dr. Rakan Gamino; Dr. Juice Cochran MD Icing Mixer: Signed Normal [facility] Bedside Glucoseon 07-07-2024 FINGERSTICK GLU 121 mg/dL High 74-106 [facility] Comment on above: Result Comment: AL GEMENT OF PATIENT CARE PER NURSING PROTOCOL Performed By: #### L 501.080 ####[facility] [place] [id number] [place], [place], [id number] Gl[facility] at [facility] deOrdered By: Rakan Gamino on 07-07-2024 Bedside Glucose ([facility] [place] 121 mg/dL High 74-106 [facility] Comment on above: MANAGEMENT OF PATIEN T CARE PER NURSING PROTOCOL MR/POSTOP.ANEon 07-07-2024 MR/POSTOP.[facility] Medical Records Department [address] [place] [address] Anesthesia Postop Eval I 07/07/24 1123 MR#: [id number] Acct: [id number] Name: DEMI DEJESUS Rep #: [id number] : 1965 59 From: Lance Reeves CRNA PCP: Dr. Juice Cochran MD Status:[facility] Y Race: C Location: [place] [address] Anesthesia: Postop Eval I Current Vital Signs Temperature: 36 F Pulse Rate: 78 Blood Pressure: 98/56 Respiratory Rate: 18 Pulse Ox: 93 Oxygen Delivery Method: Room Air Assessment Airway patent: Yes Spontaneous unlabored respirations: Yes Mental status: Awake and Calm nausea: No Vomiting: No Anesthesia Complication: No Fluid Hydration Crystalloid volume administer (ml): 1,200 Total IV fluid infused: 1,200 Progress Note Anesthesia document: Postop Eval 1 completed: Yes 07/07/24 1124 Date Lance Reeves GRINDING ROOM INSPECTOR Cosigner Signature: Date CC: Signed Normal [facility] MR/PNEVVORR2zn 07-07-2024 [facility] Medical Records Department [address] [place] [address] Anesthesia Postop Eval II 07/07/24 2041 MR#: [id number] Acct: [id number] Name: DEMI DEJESUS Rep #: [id number] : 1965 59 From: David Hernandez MD PCP: Dr. 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 ROOM INSPECTOR.JCLI Spontaneous unlabored Yes 07/07/24 11:24 GRINDING ROOM INSPECTOR.JCLI respirations Mental status Awake,Calm 07/07/24 11:24 GRINDING ROOM INSPECTOR.JCLI nausea No 07/07/24 11:24 GRINDING ROOM INSPECTOR.JCLI Vomiting No 07/07/24 11:24 GRINDING ROOM INSPECTOR.JCLI Anesthesia Postop Eval I: Fluid Summary Crystalloid volume administer 1,200 07/07/24 11:24 GRINDING ROOM INSPECTOR.JCLI (ml) Colloids volume administered ( ml) Blood Product volume administered (ml) Total IV fluid infused 1,200 07/07/24 11:24 GRINDING ROOM INSPECTOR.JCLI Anesthesia Postop Eval I: Summary Notes Anesthesia Complication No 07/07/24 11:24 GRINDING ROOM INSPECTOR.JCLI Anesthesia Complication Comment: Post-operative progress note Anesthesia: Postop Eval II Evaluation Mental status: Awake and Calm Pain Level: 1 nausea: No Vomiting: No Complications Anesthesia Complication: No 07/07/242040 Date David Hernandez MD Cosigner Signature: Date CC: Signed Normal [facility] O.R. Fluoro for C-Fuad 06-10 O.R. Fluoro for C-Arm [facility] Imaging Services [address] [place] [id number] O.R. Fluoro for C-Arm MR#: [id number] Acct: [id number] Name: DEMI DEJESUS Rep #: [id number] : 1965 F 59 From: Carl Randhawa PCP: Dr. Juice Cochran MD Status: [facility] Study: O.R. Fluoro for C-Arm Date of Exam: 07/07/24 Exam# [id number] Ordering Dr: Rakan Gamino DPM PROCEDURE: ANKLE 2 VIEWS; O.R. FLUORO FOR C-ARM REASON FOR EXAM: Right ankle ORIF, with syndesmosis repair TECHNIQUE: Intraoperative fluoroscopy of the right ankle. Additionally, 3 fluoroscopic images were obtained. COMPARISON: Right ankle study 06/02/2020 RAD/O.R. Fluoro for C-Arm IMPRESSION: Intraoperative fluoroscopy was performed. Additionally, 3 fluoroscopic images were obtained, during the distal tibial and fibular fracture fixation. Reading Location: [id number] CC: MAYO Gamino; Dr. Juice Cochran MD Icing Mixer: Signed Normal [facility] Operative Reporton Operative Report [facility] Medical Records Department [address] [place] [address] Operative Report 07/07/24 0730 MR#: [id number] Acct: [id number] Name: DEMI DEJESUS Rep #: [id number] : 1965 59 From: Rakan Gamino DPM PCP: Dr. Juice Cochran MD Status:REG [facility] Location: [place] [address] Problems Associated Problem List Diagnoses (1) Pain in right lower leg: (2) Displaced bimalleolar fracture of right lower leg, initial encounter for closed fracture: (3) Sprain of tibiofibular ligament of right ankle, initial encounter: Operative Report (Standard) Operative Information Date of Procedure: 07/07/24 Pre-Operative Diagnosis: 1. Pain, right lower extremity 2. Bimalleolar ankle fracture, right lower extremity 3. Sprain to the tibiofibular ligament, right lower extremity Post-Operative Diagnosis: 1. Pain, right lower extremity 2. Bimalleolar ankle fracture, right lower extremity 3. Sprain to the tibiofibular ligament, right lower extremity Surgery/Procedure Performed: Procedure #1: Bone marrow aspirate concentrate harvest, right lower extremity Procedure #2: Open reduction internal fixation bimalleolar ankle fracture, right lower extremity Procedure #3: Stress views, right lower extremity Procedure #4: Syndesmotic repair, right lower extremity Procedure #5: Application of posterior splint, right lower extremity thread pulling machine attendant: Yes Food Production Machine Operator: Arlene Mann PGY3 Tasks completed by assistant family teacher: Opening closing and Implanting device Additional assistant corporation counsel?: No Type of Anesthesia: General and Local RN Documented Start/Stop Times: Operation Date: 07/07/24 07:30 Case Time Into Pre-Op 07/07/24 05:40 Out of Pre-Op 07/07/24 07:35 Anesthesia Start 07/07/24 07:42 Into Room 07/07/24 07:42 Procedure Start 07/07/24 08:03 Procedure End 07/07/24 11:13 Anesthesia End 07/07/24 11:16 Out of Room 07/07/24 11:16 Into Recovery 07/07/24 11:20 Procedure Start Time: 08:03 Procedure Stop Time: 11:13 Select all DRAINS/GRAFTS/IMPLANTS that apply: Graft Graft details: PRP injection, bone marrow aspirate concentrate injection, Surgiflo injection and Implanted device Implanted device details: Flip ankle fracture set Special Medications: Per anesthesia Estimated Blood Loss: 80 mL Fluids Replaced: Per anesthesia Specimen collected: No Description of surgery: Indications For Operation: Mrs. Dejesus is a 59-year-old female who was admitted to [facility] for surgery of the right lower extremity secondary to a right ankle fracture. Patient unfortunately sustained a fracture while falling at her house approximately 3 to 4 weeks ago. She was initially seen in the emergency department at [facility] and she was evaluated and treated for her right ankle fracture. She ended up with conscious sedation closed reduction and placed in a splint and followed up in my office for further treatment. She did receive a CT scan that showed evidence of bimalleolar ankle fracture to the right lower extremity. Patient was educated on the treatment plan for her right ankle fracture and was understanding of everything that was explained to her. Per chart review and consent was signed. Due to due to the nature and displacement of the fibula and medial malleolus as well as concern for syndesmotic injury, it was deemed necessary at that time to take the patient to the operating room to perform the above procedure to help reduce the patient's fracture back to anatomical length and help reduce her constant pain so the patient may be ambulatory. The nature of the problem, anticipated procedures, postop recovery/convalences and risk/complications include but not limited to infection, wound healing complications, digital amputation, hypertrophic scarring, numbness, tingling, chronic pain, CRPS, over and under correction, recurrence of deformity, DVT and or PE and the need for further surgery have been discussed in great detail with the patient. All questions have been answered to the patient's satisfaction. There are no guarantees given as to the outcome of the procedure. Description of Procedure: Under mild sedation, the patient was brought into the operating room and placed on the operating table in supine position. Once the patient was under general anesthesia with laryngeal mask airway, the right lower extremity was blocked using approximately 30 cc of a 50-50 mix of 0.5% Marcaine plain and Exparel. Next, a well-padded thigh tourniquet was applied to the right lower extremity. Next, the right lower extremity was prepped and draped in normal aseptic manner. Next, a timeout was then undertaken verifying the correct patient, extremity, visibility of preoperative markings, availability of the equipment. Procedure #1: Bone marrow aspirate concentrate harvest, right lower extremity (CPT code: 25939) Next, a (more content not included)... Normal [facility] 12 Lead EKGon 06-29-2024 12 Lead EKG [facility] Cardiovascular Services [address] [place] [address] 12 Lead EKG 06/29/24 0859 MR#: [id number] Acct: [id number] Name: DEMI DEJESUS Rep #: [id number] : 1965 59 From: Matthew Alicia MD Attending Dr: Dr. Rakan Gamino, DPM Status: LA E SDC Ordering Dr: David Hernandez MD Date: 06/29/24 Location: [facility] Sex: F C Admitted: Test Reason : PREOP Blood Pressure : */* mmHG Vent. Rate : 77 BPM Atrial Rate : 77 BPM P-R Int : 198 ms QRS Dur : 122 ms QT Int : 444 ms P-R-T Axes : 44 190 -23 degrees QTcB Int : 502 ms Normal sinus rhythm Right bundle branch block Abnormal ECG When compared with ECG of 22-Sep-2023 05:33, Nonspecific T wave abnormality no longer evident in Lateral leads Confirmed by RAVIN GODFREY, JUAN ([id number]), legal editor ARNALDO HARRIS ([id number]) on 07/04/2024 2:10:17 PM Referred By: Rakan Gamino Confirmed By: JUAN ALICIA MD 07/04/24 1410 Date Matthew Alicia MD CC: DPM Dr. Rakan Gamino; Dr. David Hernandez MD; Dr. Juice Cochran MD Signed [facility] MR/PATManish 06-29-2024 MR/PAT.[facility] Medical Records Department [address] [place] [address] PAT - Anesthesia 06/29/24 1246 MR#: [id number] Acct: [id number] Name: DEMI DEJESUS Rep #: [id number] : 1965 59 From: Tripp Bryant MD PCP: Dr. Juice Cochran MD Status:PRE [facility] Y Race: C Location: [facility] Pre-Assessment Diagnosis/Proposed Procedure Planned Operative Procedure(s): (R) Open reduction and internal fixation of Bimalleolar right ankle fracture with stress views, Syndesmotic repair, and Bone Marrow aspirate concentrate Anesthesia History Anesthesia History - vp director of creative strategy: Anesthesia History - vp director of creative strategy Hx Hospitalization Yes: 09/2023 CARDIAC CATH 06/23/24 10:01 WITH STENTS Any Problems With Anesthesia [ No 06/02/24 22:17 1 (Initial Baseline)] Any Problems With Anesthesia No 06/23/24 10:01 Cholinesterase deficiency No 06/23/24 10:01 You/Your Family Experience No 06/23/24 10:01 fever (hyperthermia) with Relationship Recent Exposure to Contagious No 01/11/20 09:38 Disease Does patient have nerve No 06/23/24 10:01 stimulator Patient instructed to have device shut off --Does patient have Pacemaker or ICD? When Was Last Pacemaker Check QUESTION #4 FULL TEXT: You/Your Family Experience fever (hyperthermia) with Anesthesia Last Oral Intake Last Oral intake: Last Oral Intake NPO since Meds taken in AM with sips of water? Meds patient instructed to take am of surgery PONV PONV - vp director of creative strategy: PONV - vp director of creative strategy Female Yes 06/23/24 10:01 HX of Motion Sickness No 06/23/24 10:01 HX of N/V After Surgery No 06/23/24 10:01 Non-Smoker Yes 06/23/24 10:01 Duration of Surgery greater Yes 06/23/24 10:01 than 60 minutes Number of Risk Factors 3 06/23/24 10:01 PONV Score Moderate Risk 06/23/24 10:01 Height Weight Height Weight: Anesthesia: Height Weight Height 5 ft 2 in 06/02/24 10:35 Respiratory Assessment Respiratory Assessment - vp director of creative strategy: Respiratory Tract Infection Hx - vp director of creative strategy Hx Respiratory Tract Infection No 06/23/24 10:01 STOP Sleep Apnea STOP Sleep Apnea - vp director of creative strategy: STOP Sleep Apnea - vp director of creative strategy Hx Hypertension Yes: CONTROLLED WITH MED 06/23/24 10:01 Hx Sleep Apnea No 06/23/24 10:01 CPAP No 01/11/20 10:22 BIPAP No 01/06/20 13:41 Do you snore loudly (louder No 06/23/24 10:01 than talking or can be heard Do you often feel tired/ No 06/23/24 10:01 fatigued/ sleepy during daytime? Has anyone observed you stop No 06/23/24 10:01 breathing during sleep? STOP Results Negative 06/23/24 10:01 QUESTION #5 FULL TEXT : Do you snore loudly (louder than talking or can be heard through closed doors)? 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 Specify any problems Hx of Preganancy in last 3 N/A 06/23/24 10:01 Months Nurse Filling Out Transfusion NBUCHER 06/23/24 10:01 Questions: Date: 06/23/24 06/23/24 10:01 Time: 10:03 06/23/24 10:01 Patient unable to answer at this time (ie. confused, unrespo /Reproduction History /Reproductive History - vp director of creative strategy: /Reproductive Hx- vp director of creative strategy Hx Now No 06/23/24 10:01 Gestational Age (in weeks): EDC: Hx Hx Para Hx Section SAB No 06/23/24 10:01 [facility] Medical History (Updated 06/23/24 @ 10:25 by Trini Olivarez) Wears glasses History of steroid therapy Low iron High cholesterol Restless legs Former smoker COPD (chronic obstructive pulmonary disease) Shortness of breath on exertion History of edema History of echocardiogram History of stress test Hypertension Cardiology follow-up encounter Abnormal stress test Sjogren's disease Shortness of breath Abnormal echocardiogram Chronic ITP (idiopathic thrombocytopenia) Bilateral pneumonia Raynauds disease COPD (chronic obstructive pulm (more content not included)... Normal [facility] Echo Completeon 06-23-2024 Echo Complete [facility] Cardiovascular Services [address] [place] [address] Echo Complete 06/23/24 0824 MR#: [id number] Acct: [id number] Name: DEMI DEJESUS Rep #: [id number] : 1965 59 From: Roosevelt Ahmadi MD Attending Dr: GABRIELLA Sims Status: REG I Ordering Dr: Andres Aguilar RESIDENTIAL CAREGIVER RESIDENTIAL CAREGIVER-C Date: 06/23/24 Location: [facility] Sex: F C Admitted: Reason For Study: PHTN Procedure This was a 2D Doppler, Color Flow transthoracic echocardiogram. Exam performed in department. Left Ventricle Normal LV size. Moderate concentric left ventricular hypertrophy. The left ventricular ejection fraction is 55 %. Stage 2 diastolic dysfunction. Right Ventricle Normal right ventricle. Atria There is severe biatrial dilatation. Mitral Valve Moderate mitral annular calcification. Moderate (2+) mitral valve insufficiency. Tricuspid Valve Moderate (2+) tricuspid valve insufficiency. Right ventricular systolic pressure estimated to be 64 mmHg. Aortic Valve Trisinus/trileaflet aortic valve. Moderate (2+) aortic valve insufficiency. Pulmonic Valve The pulmonic valve is not well visualized. Mild (1+) pulmonic valve insufficiency. Great Vessels Normal sized aortic root. Pericardium/Pleural Small loculated posterior pericardial effusion. MMode/2D Measurements Calculations LVIDd: 4.2 cm IVSd: 1.3 cm Ao root diam: 2.9 cm LVIDs: 3.0 cm LVPWd: 1.4 cm RVDd: 4.7 cm FS: 27.2 % LAV(MOD-bp): 55.0 ml LVAd ap4: 19.3 cm2 SV(MOD-sp4): 25.0 ml LAV(MOD-bp) Indexed: 34.4 ml/m2 LVLd ap4: 6.7 cm SI(MOD-sp4): 15.6 ml/m2 LAV(MOD-sp2): 55.9 ml EDV(MOD-sp4): 46.0 ml LAV(MOD-sp4): 51.2 ml EDV(sp4-el): 47.3 ml LVAs ap4: 12.0 cm2 LVLs ap4: 5.9 cm ESV(MOD-sp4): 21.1 ml ESV(sp4-el): 21.0 ml EF(MOD-sp4): 54.2 % EF(sp4-el): 55.7 % SV(sp4-el): 26.3 ml LA A4 area: 18.1 cm2 RA A4 area: 16.1 cm2 Time Measurements MV dec time: 0.11 sec Doppler Measurements Calculations MV E max sakina: 84.7 cm/sec Lat Peak E' Sakina: 10.5 cm/sec Med Peak E' Sakina: 6.0 cm/sec MV A max sakina: 168.4 cm/sec E/E' lat: 8.0 E/E' med: 14.1 MV E/A: 0.50 Ao V2 max: 202.1 cm/sec AI max sakina: 487.6 cm/sec MV dec slope: 808.0 cm/sec2 Ao max P.4 mmHg AI max P.1 mmHg Ao V2 mean: 139.1 cm/sec Ao mean P.6 mmHg AI dec slope: 389.3 cm/sec2 Ao V2 VTI: 38.1 cm AI P1/2t: 366.9 msec AV (velocity ratio): 1.0 LV V1 max: 189.4 cm/sec PA V2 max: 81.3 cm/sec TR max sakina: 383.0 cm/sec LV V1 max P.3 mmHg PA V2 mean: 49.6 cm/sec TR max P.7 mmHg LV V1 mean P.4 mmHg LV V1 mean: 123.4 cm/sec LV V1 VTI: 39.5 cm ECHO/Echo Complete Interpretation Summary Moderate concentric left ventricular hypertrophy.The left ventricular ejection fraction is 55 %. Stage 2 diastolic dysfunction. There is severe biatrial dilatation. Moderate mitral annular calcification. Moderate (2+) mitral valve insufficiency. Moderate (2+) tricuspid valve insufficiency. Right ventricular systolic pressure estimated to be 64 mmHg. Moderate (2+) aortic valve insufficiency. Mild (1+) pulmonic valve insufficiency. Small loculated posterior pericardial effusion. Ordering Physician: Andres Aguilar Referring Physician: Andres Aguilar Performed By: Marychuy Hernandez RCS 06/23/24 1255 Date Roosevelt Ahmadi MD CC: RESIDENTIAL CAREGIVER-Vazquez Aguilar; Dr. Juice Cochran MD Date Dictated: 06/23/24823 Date Transcribed: 06/23/241254 Icing Mixer: Signed Normal [facility] Stress Reporton 06-23-[address] [facility] Cardiovascular Services [address] [place] [address] MR#: [id number] Acct: [id number] Name: DEMI DEJESUS Rep #: [id number] : 1965 59 From: Roosevelt Ahmadi MD Primary Care: Dr. Juice Cochran MD Status: REG CLI Referring Dr: Andres Aguilar NP RESIDENTIAL CAREGIVER-C Sex: F C Stress Test Report Date: 06/23/2024 Procedure: Pharmacologic stress nuclear imaging study Indications: Dyspnea Consent: Per the patient Procedure: The patient underwent pharmacologic (Regadenoson 0.4mg ) evaluation with a peak heart rate of 82 beats per minute (51%predicted maximal heart rate) and a peak blood pressure of 122/82 mmHg. The baseline ECG demonstrated sinus rhythm, right bundle branch block and inferior ST depressions. The peak pharmacologic ECG was nondiagnostic secondary to baseline abnormalities. There were no cardiac dysrhythmias pretest, during pharmacologic infusion, or recovery. There was no complaint of chest discomfort during pharmacologic infusion or recovery. The patient was injected with 11.7 millicuries of technetium 99m Cardiolite and subsequently rest SPECT Cardiolite nuclear imaging was obtained in the horizontal long, vertical long, and short axis views. The patient underwent pharmacologic (Regadenoson) evaluation. The patient was injected with 34.5 millicuries of technetium 99m Cardiolite and subsequently stress SPECT Cardiolite nuclear imaging was obtained in the horizontal long, vertical long, and short axis views. A gated Cardiolite study at peak stress was obtained. The examination was stopped secondary to completion of protocol. Rest and stress SPECT Cardiolite nuclear imaging status post realignment, normalization, and attenuation correction demonstrate no fixed or reversible perfusion defects. There is end systolic thickening and brightening. The gated Cardiolite study demonstrates myocardial thickening and inward wall motion. The reported LVEF is 68%. Impression: 1. Pharmacologic (Regadenoson) evaluation 2. Peak pharmacologic ECG with no diagnostic changes. 3. There were no cardiac dysrhythmias pretest, during pharmacologic infusion, or recovery. 5. Rest and stress SPECT Cardiolite nuclear imaging demonstrate relative uniform tracer uptake and myocardial perfusion appearing within normal limits. 6. The gated Cardiolite study reports an LVEF of 68%. This note was generated with Redicamation software. It may contain incorrect words, spelling, and punctuation that were not noted in checking the note before signing. 06/23/24 1241 Date Roosevelt Ahmadi MD CC: GABRIELLA Aguilar; Dr. Juice Cochran MD Date Dictated: 06/23/24 1240 Date Transcribed: 06/23/241239 Icing Mixer: INDERJIT Signed Normal [facility] Absolute neutrophil countOrd ered By: Fox Tomlinson on 06-02-2024 Neutrophils (Bld) [#/Vol] 4.1 10*3/uL 2.0-7.7 [facility] Ankle 2 Viewson 06-02-2024 Ankle 2 Views [facility] Imaging Services [address] [place] [address] Ankle 2 Views MR#: [id number] Acct: [id number] Name: DEMI DEJESUS Rep #: [id number] : 1965 F 59 From: Joann maynard MD PCP: Dr. Juice Cochran MD Status: REG ER Study: Ankle 2 Views Date of Exam: 06/02/24 Exam# [id number] Ordering Dr: Fox Tomlinson DO [id number] HISTORY: post reduction. TECHNIQUE: XR Ankle 2 Views. COMPARISON: 10:54. FINDINGS: BONES : Oblique fracture of the distal fibula with decreased lateral and posterior displacement. Transverse fracture of the medial malleolus with mildly improved alignment. JOINTS: Decreased asymmetry of the ankle mortise. SOFT TISSUES: Soft tissue swelling with overlying cast obscuring osseous detail. RAD/Ankle 2 Views IMPRESSION: Improved alignment of right ankle bimalleolar fracture subluxation status post casting. Electronically Signed: Joann Sigala MD at 13:55 EST Reading Location ID and State: [facility] / [place] Tel , Service support , CC: Dr. Juice Cochran MD; Dr. Fox Tomlinson DO Icing Mixer: Signed Normal [facility] Ankle min 3 Viewson 06-02-20 Ankle min 3 Views [facility] Imaging Services [address] [place], [place] [address] Ankle min 3 Views MR#: [id number] Acct: [id number] Name: DEMI DEJESUS Rep #: [id number] : 1965 F 59 From: Joann maynard MD PCP: Dr. Juice Cochran MD Status: PRE ER Study: Ankle min 3 Views Date of Exam: 06/02/24 Exam# [id number] Ordering Dr: Travis Gonzalez. [id number] HISTORY: fall. TECHNIQUE: XR Ankle Min 3 Views. COMPARISON: None. FINDINGS: BONES : Oblique fracture distal fibula with nearly one shaft width lateral and posterior displacement. Comminuted fracture of the distal tibia extending to through the medial malleolus with mild inferomedial displacement. JOINTS: Disruption of the ankle mortise with widening of the anterior tibial talar joint. Joint effusion. SOFT TISSUES: Severe soft tissue swelling. RAD/Ankle min 3 Views IMPRESSION: Bimalleolar fracture-subluxation of the right ankle. Electronically Signed: Joann Sigala MD at 11:23 EST , CC: Dr. Juice Cochran MD; ED PHYSICIAN PROVIDER Icing Mixer: Signed Normal [facility] Basic Metabolic Profile (BMP )on 06-02-2024 BUN/CRE 8.4 RATIO Low 10-20 [facility] Comment on above: Performed By: #### L 500.2500, L300.4310, L300.3900, L100.0100 ####[facility] [id number] [place], [address] [place],Total 9.0 mg/dL Normal 8.5-10.1 [facility] Comment on above: Performed By: #### L 500.2500, L300.4310, L300.3900, L100.0100 ####[facility] [address] [place], [address] Chloride [Moles/Vol] 110 mmol/L High 98-107 [facility] Comment on above: Performed By: #### L 500.2500, L300.4310, L300.3900, L100.0100 ####[facility] [address] [place], [address] CO2 [Moles/Vol] 25.0 mmol/L Normal 21.0-32.0 [facility] Comment on above: Performed By: #### L 500.2500, L300.4310, L300.3900, L100.0100 ####[facility] [address] [place], [address] Creatinine [Mass/Vol] 0.95 mg/dL Normal 0.55-1.02 [facility] Comment on above: Result Comment: The validity of the calculated GFR GFRAA in patients over 70 years has not been determined. Clinical correlation is essential. Performed By: #### L 500.2500, L300.4310, L300.3900, L100.0100 ####[facility] [address] [place], [address] ECRCL 67.60 ml/min Normal [facility] Comment on above: Performed By: #### L 500.2500, L300.4310, L300.3900, L100.0100 ####[facility] [address] [place], [address] EST GFR - AA 77 mL/min Normal >60 [facility] Comment on above: Result Comment: Afri can Bhutanese GFR Calc Performed By: #### L 500.2500, L300.4310, L300.3900, L100.0100 ####[facility] [address] [place], [address] GAP 4 Low 5-15 [facility] Comment on above: Performed By: #### L 500.2500, L300.4310, L300.3900, L100.0100 ####[facility] [address] [place], [address] GFR/1.73 sq M.predicted among non-blacks MDRD (S/P/Bld) [Vol rate/Area] 63 mL/min/{1.73_m2} Normal >60 [facility] Comment on above: Result Comment: Non- GFR Calc Performed By: #### L 500.2500, L300.4310, L300.3900, L100.0100 ####[facility] [address] [place], [address] Glucose [Mass/Vol] 95 mg/dL Normal 74-106 [facility] Comment on above: Performed By: #### L 500.2500, L300.4310, L300.3900, L100.0100 ####[facility] [address] [place], [address] Potassium [Moles/Vol] 3.6 mmol/L Normal 3.5-5.1 [facility] Comment on above: Performed By: #### L 500.2500, L300.4310, L300.3900, L100.0100 ####[facility] [address] [place], [address] Sodium [Moles/Vol] 138 mmol/L Normal 136-145 [facility] Comment on above: Performed By: #### L 500.2500, L300.4310, L300.3900, L100.0100 ####[facility] [address] [place], [address] Urea nitrogen [Mass/Vol] 8 mg/dL Normal 7-18 [facility] Comment on above: Performed By: #### L 500.2500, L300.4310, L300.3900, L100.0100 ####[facility] [address] [place], [address] Basophil percentageOrdered B y: Fox Tomlinson on 06-02-2024 Basophils/100 WBC (Bld) 0.4 % 0-1 [facility] Blood urea nitrogen (BUN)/cr eatinine ratioOrdered By: Fox Tomlinson on 06-02-2024 Urea nitrogen/Creatinine [Mass ratio] 8.4 mg/mg Low 10-20 [facility] CBC W/Diff, Automatedon 12- Absolute Lymph 0.43 X10 3/uL Low 0.83-4.51 [facility] Comment on above: Performed By: #### L 500.2500, L300.4310, L300.3900, L100.0100 ####[facility] [address] [place], [address] Absolute Neut 4.1 X10 3/uL Normal 2.0-7.7 [facility] Comment on above: Performed By: #### L 500.2500, L300.4310, L300.3900, L100.0100 ####[facility] [address] [place], [address] Basophils/100 WBC (Bld) 0.4 % Normal 0-1 [facility] Comment on above: Performed By: #### L 500.2500, L300.4310, L300.3900, L100.0100 ####[facility] [address] [place], [address] Eosinophils/100 WBC (Bld) 0.0 % Normal 0-5 [facility] Comment on above: Performed By: #### L 500.2500, L300.4310, L300.3900, L100.0100 ####[facility] [address] [place], [address] Erythrocyte distribution width (RBC) [Ratio] 13.9 % Normal 11.6-14.6 [facility] Comment on above: Performed By: #### L 500.2500, L300.4310, L300.3900, L100.0100 ####[facility] [address] [place], [address] Hematocrit (Bld) [Volume fraction] 35.5 % Low 37-47 [facility] Comment on above: Performed By: #### L 500.2500, L300.4310, L300.3900, L100.0100 ####[facility] [address] [place], [address] Hemoglobin (Bld) [Mass/Vol] 11.3 g/dL Low 12.0-15.0 [facility] Comment on above: Performed By: #### L 500.2500, L300.4310, L300.3900, L100.0100 ####[facility] [address] [place], [address] IG% 0.600 Normal 0.0-0.9 [facility] Comment on above: Result Comment: IG% - Immature Granulocytes (promyelocytes, myelocytes and metamyelocytes) > 1% indicates that a LEFT SHIFT is Present. Performed By: #### L 500.2500, L300.4310, L300.3900, L100.0100 ####[facility] [address] [place], [address] Lymphocytes/100 WBC (Bld) 8.7 % Low 19-41 [facility] Comment on above: Performed By: #### L 500.2500, L300.4310, L300.3900, L100.0100 ####[facility] [address] [place], [address] MCH (RBC) [Entitic mass] 32.3 pg High 27.0-32.0 [facility] Comment on above: Performed By: #### L 500.2500, L300.4310, L300.3900, L100.0100 ####[facility] [address] [place], [address] MCHC (RBC) [Mass/Vol] 31.8 g/dL Low 32-36 [facility] Comment on above: Performed By: #### L 500.2500, L300.4310, L300.3900, L100.0100 ####[facility] [address] [place], [address] MCV (RBC) [Entitic vol] 101.4 fL High 81-99 [facility] Comment on above: Performed By: #### L 500.2500, L300.4310, L300.3900, L100.0100 ####[facility] [address] [place], [address] Monocytes/100 WBC (Bld) 7.6 % Normal 0-10 [facility] Comment on above: Performed By: #### L 500.2500, L300.4310, L300.3900, L100.0100 ####[facility] [address] [place], [address] Neutrophils/100 WBC (Bld) 82.7 % High 47-70 [facility] Comment on above: Performed By: #### L 500.2500, L300.4310, L300.3900, L100.0100 ####[facility] [address] [place], [address] Nucleated RBC (Bld) [#/Vol] 0 10*3/uL Normal 0-5 [facility] Comment on above: Performed By: #### L 500.2500, L300.4310, L300.3900, L100.0100 ####[facility] [address] [place], [address] Platelet mean volume (Bld) [Entitic vol] 10.3 fL Normal 6.2-12.0 [facility] Comment on above: Performed By: #### L 500.2500, L300.4310, L300.3900, L100.0100 ####[facility] [address] [place], [address] Platelets (Bld) [#/Vol] 139 10*3/uL Low 150-450 [facility] Comment on above: Performed By: #### L 500.2500, L300.4310, L300.3900, L100.0100 ####[facility] [address] [place], [address] RBC (Bld) [#/Vol] 3.50 10*6/uL Low 4.2-5.4 [facility] Comment on above: Performed By: #### L 500.2500, L300.4310, L300.3900, L100.0100 ####[facility] [address] [place], [address] RDW SD 51.7 fl High 35.1-43.9 [facility] Comment on above: Performed By: #### L 500.2500, L300.4310, L300.3900, L100.0100 ####[facility] [address] [place], [address] WBC (Bld) [#/Vol] 5.0 10*3/uL Normal 4.4-11.0 [facility] Comment on above: Performed By: #### L 500.2500, L300.4310, L300.3900, L100.0100 ####[facility] [address] [place], [address] Carbon dioxide measurementOr dered By: Fox Tomlinson on 06-02-2024 CO2 [Moles/Vol] 25.0 mmol/L 21.0-32.0 [facility] Chloride measurementOrdered By: Fox Tomlinson on 06-02-2024 Chloride [Moles/Vol] 110 mmol/L High 98-107 [facility] Emergency Department Summary on 06-02-2024 Emergency Department Summary [facility] Medical Records Department [address] [place] [address] Emergency Department Summary 06/02/24 MR#: [id number] Acct: [id number] Name: DEMI DEJESUS Rep #: [id number] : 1965 59 From: Fox De La Fuente PCP: Dr. Juice Cochran MD Status:DEP ER Location: ED HPI History of Present Illness Chief Complaint: Lower Extremity Injury Informant: patient and spouse/S.O. Narrative Narrative: Brought in by his private vehicle all walking down 3 steps pain right ankle. No head injuries. Had to be healthier. No history of fractures. She is on aspirin and Plavix first stent of the heart few months ago. No other anticoagulants. Prior similar symptoms: No PFSH PFS Medical History Shortness of breath Abnormal stress test Sjogren's disease Abnormal echocardiogram Chronic ITP (idiopathic thrombocytopenia) Bilateral pneumonia Raynauds disease COPD (chronic obstructive pulmonary disease) Wheeze Pulmonary hypertension Hemorrhoids Acid reflux Blood in stool Constipation Abdominal pain Anxiety Lupus Back problem Fatigue Depression Benign essential HTN Anemia Home Medications ???Medication ???Instructions ???Recorded ???Last Taken ???Type duloxetine 60 mg capsule,delayed 120 mg PO DAILY 06/06/14 08/13/23 History release multivitamin with folic acid 400 1 tab PO DAILY 06/06/14 Unknown History mcg tablet hydroxychloroquine 200 mg tablet 200 mg PO DAILY 05/20/23 08/13/23 History omeprazole 40 mg capsule,delayed 40 mg PO DAILY 05/20/23 08/13/23 History release gabapentin 300 mg capsule 300 mg PO BID PRN 06/29/23 Unknown History aspirin 81 mg tablet,delayed 81 mg PO DAILY 07/24/23 09/21/23 History release clopidogrel 75 mg tablet 75 mg PO DAILY #30 tabs 08/13/23 09/21/23 Rx belimumab 200 mg/mL subcutaneous 200 mg subcut .QMO 11/03/23 Unknown History auto-injector (Benlysta) trazodone 100 mg tablet 100 mg PO QHS 11/03/23 Unknown History amlodipine 2.5 mg tablet 2.5 mg PO DAILY #90 tabs 05/09/24 Unknown Rx atorvastatin 10 mg tablet 10 mg PO QHS 05/11/24 Unknown History lisinopril 20 mg tablet 30 mg PO BID 05/24/24 Unknown History docusate sodium 100 mg capsule 100 mg PO BID #60 caps 06/02/24 Unknown Rx (Colace) oxycodone-acetaminophen 5 mg-325 1 tab PO Q6H PRN PRN Pain 5 days 06/02/24 Unknown Rx mg tablet #20 TABLETS Allergy/AdvReac Type Severity Reaction Status Date / Time amoxicillin trihydrate (From Allergy Unknown Verified 06/02/24 10:41 Augmentin) diflunisal (From Dolobid) Allergy Unknown Verified 06/02/24 10:41 Penicillins Allergy Rash Verified 06/02/24 10:41 potassium clavulanate (From Allergy Unknown Verified 06/02/24 10:41 Augmentin) sulfamethoxazole (From Allergy Rash Verified 06/02/24 10:41 Septra) trimethoprim (From Septra) Allergy Rash Verified 06/02/24 10:41 aripiprazole (From Abilify) AdvReac Other Verified 06/02/24 10:41 fluoxetine HCl (From Prozac) AdvReac Other Verified 06/02/24 10:41 sertraline HCl (From Zoloft) AdvReac Other Verified 06/02/24 10:41 venlafaxine HCl (From AdvReac Other Verified 06/02/24 10:41 Effexor) Family History Mother Cancer Pancreatic COPD (chronic obstructive pulmonary disease) Brother Myocardial infarction CAD (coronary artery disease) Stent Surgical History Hx of cardiac catheterization ( 09/21/23) Stented coronary artery (09/21/23) Status post biopsy of kidney History of hysterectomy Hx of colonoscopy History of Social History Smoking Status: Former smoker Tobacco: How many years used: 10 second hand exposure: No alcohol intake: never substance use type: does not use caffeine: Yes Type: carbonated beverages and tea what type of physical activity do you participate in: none frequency: does not exercise ROS ROS ED Constitutional Constitutional ED: Denies chills, fever(s) or sweats ENT ENT ED: Denies sore throat Cardiovascular Cardiovascular: Denies chest pain or palpitations Respiratory/Chest Respiratory/Chest: Denies cough Gastrointestinal Gastrointestinal: Denies abdominal pain, diarrhea, nausea or vomiting Musculoskeletal Musculoskeletal: Reports extremity pain; Denies back pain or neck pain Integumentary Denies rash or wounds Neurologic Neurologic: Denies headache(s) or paresthesias EXAM Physical Exam Const Vital Signs: 06/02/24 10:35 06/02/24 12:00 06/02/24 12:01 Temperature 98 F 98 F Temperature Source Temporal Pulse Rate 84 77 Pulse Rate [1 (Initial Baseline)] Pulse Rate [2] Pulse Rate [3] Pulse Rate [4] Pulse Rate [5] (more content not included)... Normal [facility] Eosinophil percentageOrdered By: Fox Tomlinson on 06-02-2024 Eosinophils/100 WBC (Bld) 0.0 % 0-5 [facility] Erythrocyte distribution wid th ratioOrdered By: Fox Bushra on 06-02-2024 Erythrocyte distribution width (RBC) [Ratio] 13.9 % 11.6-14.6 [facility] Erythrocyte distribution wid th standard deviationOrdered By: Fox Tomlinson on 06-02-2024 Erythrocyte distribution width (RBC) [Entitic vol] 51.7 fL High 35.1-43.9 [facility] Estimated glomerular filtrat ion rate (GFR) AmericanOrdered By: Fox Le on 06-02-2024 Estimated GFR (MDRD) Amer 77 mL/min >60 [facility] Comment on above: GFR Calc Estimation of creatinine krissy aranceOrdered By: Fox Tomlinson on 06-02-2024 Estimated Creatinine Clearance Calc 67.60 ml/min [facility] Extremity Lower without Cont raon 06-02-2024 Extremity Lower without Contra [facility] Imaging Services [facility] [place], [place] [address] Extremity Lower without Contra MR#: [id number] Acct: [id number] Name: DEMI DEJESUS Rep #: [id number] : 1965 F 59 From: Joann maynard MD PCP: Dr. Juice Cochran MD Status: DEP ER Study: Extremity Lower without Contra Date of Exam: 08/03/23 Exam# [id number] Ordering Dr: Fox Tomlinson DO [id number] HISTORY: ankle fx. TECHNIQUE: Helically acquired images were obtained of the right ankle without contrast. 2-D reformats were performed by the technologist. A radiation dose optimization technique was used for this scan. 296 images. COMPARISON: XR same day. FINDINGS: BONES: Comminuted oblique fracture distal fibula with posterolateral displacement and overlap comminuted fracture of the distal tibia at the medial malleolus with small intra-articular fracture fragment and mild inferolateral displacement. Mildly displaced fracture of the posterior malleolus. JOINT SPACES: Lateral subluxation of the talus relative to the tibia with widening of the tibiotalar joint anteriorly. Disruption of the ankle mortise . Joint effusion. SOFT TISSUES: During soft tissue swelling. Overlying cast. CT/Extremity Lower without Contra IMPRESSION: Trimalleolar fracture--subluxation of the right ankle. Electronically Signed: Joann Sigala MD at 15:11 EST , CC: Dr. Juice Cochran MD; Dr. Fox Tomlinson DO Icing Mixer: Signed Normal [facility] Glomerular filtration rate ( GFR) estimationOrdered By: Fox Tomlinson on 06-02-2024 Estimated GFR (MDRD) Non-Af Amer 63 mL/min >60 [facility] Comment on above: Non- GFR Calc Glucose measurementOrdered B y: Fox Tomlinson on 06-02-2024 Glucose [Mass/Vol] 95 mg/dL 74-106 [facility] Hematocrit Auto (Bld) [Volum e fraction]Ordered By: Fox Tomlinson on 06-02-2024 Hematocrit (Bld) [Volume fraction] 35.5 % Low 37-47 [facility] Hemoglobin measurementOrdere d By: Fox Tomlinson on 06-02-2024 Hemoglobin (Bld) [Mass/Vol] 11.3 g/dL Low 12.0-15.0 [facility] Immature granulocytes/100 WB C Auto (Bld)Ordered By: Fox Tomlinson on 06-02-2024 Immature granulocytes/100 WBC (Bld) 0.600 % 0.0-0.9 [facility] Comment on above: IG% - Immature Granu locytes (promyelocytes, myelocytes and metamyelocytes) > 1% indicates that a LEFT SHIFT is Present. International normalized rat io (INR) calculationOrdered By: Fox Tomlinson on 06-02-2024 INR Coag (Bld) [Relative time] 1.2 {INR} [facility] Lymphocytes Auto (Unsp spec) [#/Vol]Ordered By: Fox Tomlinson on 06-02-2024 Lymphocytes (Bld) [#/Vol] 0.43 10*3/uL Low 0.83-4.51 [facility] Lymphocytes/100 WBC Auto (Un sp spec)Ordered By: Fox Tomlinson on 06-02-2024 Lymphocytes/100 WBC (Bld) 8.7 % Low 19-41 [facility] MCV (mean corpuscular volume ) determinationOrdered By: Fox Tomlinson on 06-02-2024 MCV (RBC) [Entitic vol] 101.4 fL High 81-99 [facility] Mean corpuscular hemoglobin (MCH) determinationOrdered By: Fox Tomlinson on 06-02-2024 MCH (RBC) [Entitic mass] 32.3 pg High 27.0-32.0 [facility] Mean corpuscular hemoglobin concentration (MCHC) determinationOrdered By: Fox Tomlinson on 06-02-2024 MCHC (RBC) [Mass/Vol] 31.8 g/dL Low 32-36 [facility] Mean platelet volume determi nationOrdered By: Fox Tomlinson on 06-02-2024 Platelet mean volume (Bld) [Entitic vol] 10.3 fL 6.2-12.0 [facility] Monocyte percentageOrdered B y: Fox Tomlinson on 06-02-2024 Monocytes/100 WBC (Bld) 7.6 % 0-10 [facility] Neutrophil percentageOrdered By: Fox Tomlinson on 06-02-2024 Neutrophils/100 WBC (Bld) 82.7 % High 47-70 [facility] Nucleated red blood cell per centageOrdered By: Fox Tomlinson on 06-02-2024 Nucleated RBC/100 WBC (Bld) [Ratio] 0 % 0-5 [facility] Partial Thromboplast Timeon 06-02-2024 aPTT Coag (Bld) [Time] 48.5 s High 24.1-36.2 [facility] Comment on above: Performed By: #### L 500.2500, L300.4310, L300.3900, L100.0100 ####[facility] [address] [place], [address] Platelet countOrdered By: Sy Tomlinson on 06-02-2024 Platelets (Bld) [#/Vol] 139 10*3/uL Low 150-450 [facility] Potassium measurementOrdered By: Fox Tomlinson on 06-02-2024 Potassium [Moles/Vol] 3.6 mmol/L 3.5-5.1 [facility] Prothrombin Time w/INRon INR Coag (PPP) [Relative time] 1.2 {INR} Normal [facility] Comment on above: Performed By: #### L 500.2500, L300.4310, L300.3900, L100.0100 ####[facility] [address] [place], [address] PT Coag (PPP) [Time] 14.7 s Normal 11.7-14.9 [facility] Comment on above: Performed By: #### L 500.2500, L300.4310, L300.3900, L100.0100 ####[facility] [address] [place], [address] Prothrombin timeOrdered By: Fox Tomlinson on 06-02-2024 PT Coag (PPP) [Time] 14.7 s 11.7-14.9 [facility] RBC Auto (Bld) [#/Vol]Ordere d By: Fox Tomlinson on 06-02-2024 RBC (Bld) [#/Vol] 3.50 10*6/uL Low 4.2-5.4 [facility] Serum anion gap measurementO rdered By: Fox Tomlinson on 06-02-2024 Anion gap [Moles/Vol] 4 mmol/L Low 5-15 [facility] Serum or plasma calcium leona urement (mass/volume)Ordered By: Fox Tomlinson on 06-02-2024 Calcium [Mass/Vol] 9.0 mg/dL 8.5-10.1 [facility] Serum or plasma creatinine m easurement (mass/volume)Ordered By: Fox Tomlinson on 06-02-2024 Creatinine [Mass/Vol] 0.95 mg/dL 0.55-1.02 [facility] Comment on above: The validity of the calculated GFR & GFRAA in patients over 70 years has not been determined. Clinical correlation is essential. Serum or plasma urea nitroge n measurement (mass/volume)Ordered By: Fox Le on 06-02-2024 Urea nitrogen [Mass/Vol] 8 mg/dL 7- [facility] Sodium levelOrdered By: Fox Tomlinson on 06-02-2024 Sodium [Moles/Vol] 138 mmol/L 136-145 [facility] White blood cell (WBC) count Ordered By: Fox Tomlinson on 06-02-2024 WBC (Bld) [#/Vol] 5.0 10*3/uL 4.4-11.0 [facility] aPTT Coag (PPP) [Time]Ordere d By: Fox Tomlinson on 06-02-2024 aPTT Coag (Bld) [Time] 48.5 s High 24.1-36.2 [facility] CNPNon 05-30-2024 CNPN Telephone (PMNA11) -------- DEMI DEJESUS ([id number]) 1965 F Date Time Provider Department 05/30/24 AMANDA BATES PMNA11 During your visit today, we recorded the following information about you: Amanda Bates 05/30/2024 10:11 AM Signed Referral requests Dr. Urbina Referring physician: Nahomi Hudson NP Address: [address] [place] [address], [address] [place] [address] Phone: [phone] Diagnosis: PH Are there epic records: No Are there care everywhere records: No Has a referral form been faxed: Yes Has patient been added to spreadsheet: No Routing: If records complete - route to [facility] for clinical team review. If records incomplete - please route to administrative services assistant. Allergies As of Date: 05/30/2024 Noted Allergy Reaction ABILIFY (ARIPIPRAZOLE) 04/25/2014 16 - Unknown AUGMENTIN (AMOXICILLIN-POT CLAVUL*04/25/2014 16 - Unknown Bee Stings [Other] 09/18/2005 DOLOBID (DIFLUNISAL) 04/25/2014 16 - Unknown EFFEXOR (VENLAFAXINE ANALOGUES) 04/25/2014 16 - Unknown PENICILLINS 04/25/2014 16 - Unknown PROZAC (FLUOXETINE HCL) 04/25/2014 16 - Unknown SEPTRA (SULFAMETHOXAZOLE-TRIMET HO*04/25/2014 16 - Unknown ZOLOFT (SERTRALINE HCL) 04/25/2014 16 - Unknown Date Reviewed: 01/10/2020 Reviewed by: Kallie Mederos (Rn), RN - Fully Assessed Reason for Visit: New PH Referral [Other] Prescriptions as of 05/30/2024 - gabapentin (NEURONTIN) 300 mg capsule 1 capsule twice daily. - lactobacillus acidophilus (ACIDOPHILUS) cap Take 1 capsule by mouth once daily. - CALCIUM CARBONATE/VITAMIN D2 (CALCIUM + VITAMIN D ORAL) Take 2 tablets by mouth once daily. - Omeprazole (PRILOSEC) 40 mg capsule Take 40 mg by mouth once daily. - duloxetine (CYMBALTA) 60 mg ORAL capsule Take 120 mg by mouth once daily. - FERROUS FUMARATE/VIT BCOMPANDC (SUPER B COMPLEX ORAL) Take 1 tablet by mouth once daily. - multivitamin ORAL tablet Take 1 tablet by mouth twice daily. - naproxen sodium 220 mg ORAL Cap Take 4 capsules by mouth once daily. - LISINOPRIL 10 MG TAB Take one(1) tablet daily. 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 [place] [address] [place] [address] OFFICE VISIT Date of Service: 05/24/24 MR#: [id number] Acct: [id number] Name: DEMI DEJESUS Rep #: [id number] : 1965 Provider: GABRIELLA Hudson Age/Sex: 59/F [place] [facility] Status: Signed Assessment and Plan Assessment and Plan (1) Pulmonary hypertension: Status: Chronic Comment: RVSP 78 mmHg from echocardiogram March 2023 Plan: Deteriorated. The patient is reporting progression shortness of breath. She has not been compliant with supplemental oxygen. I suspect that pulmonary hypertension has progressed. Pulmonary hypertension is likely secondary to lupus, currently managed by rheumatology on hydroxychloroquine and Benlysta. The patient is agreeable to repeating a pulmonary function test and a pulmonary stress test. Return to the office in the next 2 to 3 weeks to discuss test results. She is also agreeable to referral to tertiary center for evaluation and management of her severe pulmonary hypertension. Repeat echocardiogram pending. Highly encouraged the patient to be compliant with supplemental oxygen in the meantime. She states I am embarrassed to wear that. Lengthy discussion about the deleterious effects of hypoxia on the body and increased risk of mortality. Not sure if the patient is really grasping the gravity of the situation. (2) Raynauds disease: Status: Chronic Qualifiers: Raynaud?s-associated gangrene presence: without gangrene Qualified Code(s): I73.00 - Raynaud's syndrome without gangrene Plan: Complicates exam, plan, care and prognosis. Will attempt to obtain a walking oximetry. However, if unable to have the pulmonary stress test completed could proceed with ordering arterial blood gas. (3) Lupus: Status: Chronic Plan: Complicates exam, plan, care and prognosis. Likely the etiology behind the pulmonary hypertension. Currently being managed by rheumatology. (4) Moderate COPD (chronic obstructive pulmonary disease): Status: Chronic Comment: FEV1 66% predicted on PFT from January 2023 Plan: The patient stopped taking Symbicort in September 2023. She did not feel that it was necessary. Not going to order any maintenance medications until PFT is available for review. Orders: Orders PFT Complete: DLCO, Spirometry b/a bronchodilators, lung volumes 06/16/24 R06.02 - Shortness of breath Simple Pulmonary Exercise Test 06/13/24 R06.02 - Shortness of breath Referrals Pulmonary Medicine I27.20 - Pulmonary hypertension, unspecified Plan Details [facility] HPI 6 M FU Chief Complaint: Shortness of breath HPI Comments Details: This patient presents to the office today for follow-up of her pulmonary hypertension with lupus. She is ambulatory and currently on room air. She has not recently been seen in the ED or urgent care for any respiratory illness. She has not required any antibiotics or prednisone for any breathing problems. Stopped Symbicort in September. 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 She has not recently needed to use her albuterol rescue inhaler. The patient does have supplemental oxygen at home. She has not recently utilize supplemental oxygen at all. She states I will have to get that back out. She also reports that she does not like to wear supplemental oxygen as it is embarrassing. She does have shortness of breath on exertion, that she describes as my heart. She also reports a daily cough. The cough can be productive of pale yellow-colored sputum, this is not new and not concerning to her. She denies any hemoptysis or sputum production. She denies any wheezing, chest tightness, chest pain or palpitations. She also denies any fever, chills or body aches. Intake Vital Signs 11/03/23 08:25 05/11/24 13:53 05/24/24 08:04 Height 5 ft 2 in 5 ft 2 in 5 ft 2 in Weight: 135 lb BMI 24.7 BP 151/78 H Blood Pressure Location Lt brachial Position Sitting Respiration 16 Pulse 86 Pulse Source Monitor Temp 97.2 F L Temperature Source Temporal Artery Pulse Oximetry (%) 98 Oxygen Delivery Method room air Intake Visit Reasons: 6 M FU Chief Complaint: establish care General Superintendent Required: No Allergies amoxicillin trihydrate (From Augmentin) Allergy (Verified 05/24/24 14:53) Unknown diflunisal (From Dolobid) Allergy (Verified 05/24/24 14:53) Unknown Penicillins Allergy (Verified 05/24/24 14:53) Rash potassium clavulanate (From Augmentin) Allergy (Verified 05/24/24 14:53) Unknown sulfamethoxazole (From Septra) Allergy (Verified 05/24/24 14:53) Rash trimethoprim (From Septra) Allergy (Verified 05/24/24 14:53) (more content not included)... Normal [facility] Anti-dsDNA Abon 05-13-2024 ANTI-DNA (DS)AB 2 IU/mL Normal 0-9 [facility] Comment on above: Order Comment: DR. Nusrat UPTON GETS CBCD CMP PROCRE UA C3 C4 DNADR. LUIS ALFREDO GETS RENAL PROCRE Result Comment: Nega tive <5 Equivocal 5 - 9 Positive >9 Performed at: [facility] [id number] [employer]: Moreno Marroquin PhD, Phone: [phone] Performed By: #### L 3100.5700, L501.2300, L100.0100, L501.0900, L500.4050, L3100.5800, L3100.5500, L400.2010 ####[facility] [address] [place], [address] Complement C3on 05-13-2024 COMP C3 84 mg/dL Normal 82-167 [facility] Comment on above: Order Comment: DR. Nusrat UPTON GETS CBCD CMP PROCRE UA C3 C4 DNADR. LUIS ALFREDO GETS RENAL PROCRE Result Comment: Perf ormed at: [facility] [id number] [employer]: Moreno Marroquin PhD, Phone: [phone] Performed By: #### L 3100.5700, L501.2300, L100.0100, L501.0900, L500.4050, L3100.5800, L3100.5500, L400.2010 ####[facility] [address] [place], [address] Complement C4on 05-13-2024 COMPLEMENT, C4 28 mg/dL Normal 12-38 [facility] Comment on above: Order Comment: DR. Nusrat UPTON GETS CBCD CMP PROCRE UA C3 C4 DNADRHenny LOBATO GETS RENAL PROCRE Performed By: #### L 3100.5700, L501.2300, L100.0100, L501.0900, L500.4050, L3100.5800, L3100.5500, L400.2010 ####[facility] [address] [place], [place], [address] Absolute neutrophil countOrd ered By: Nahomi Lobato on 05-11-2024 Neutrophils (Bld) [#/Vol] 3.9 10*3/uL 2.0-7.7 [facility] Albumin to globulin ratioOrd ered By: Nahomi Lobato on 05-11-2024 Albumin/Globulin [Mass ratio] 0.8 {ratio} Low 0.9-2.4 [facility] Comment on above: Order Comment: DR. Nusrat UPTON GETS CBCD CMP PROCRE UA C3 C4 DNADR. LUIS ALFREDO GETS RENAL PROCRE Performed By: #### L 3100.5700, L501.2300, L100.0100, L501.0900, L500.4050, L3100.5800, L3100.5500, L400.2010 ####[facility] [address] [place], [place], [id number] Basophil percentageOrdered B y: Nahomi Lobato on 05-11-2024 Basophils/100 WBC (Bld) 0.2 % 0-1 [facility] Bilirubin Test strip Ql (U)O rdered By: Nahomi Lobato on 05-11-2024 Bilirubin Ql (U) Negative Negative [facility] Bilirubin, totalOrdered By: Nahomi Lobato on 05-11-2024 Bilirubin [Mass/Vol] 0.40 mg/dL Normal 0.20-1.00 [facility] Comment on above: For patients on eltr ombopag therapy, use of Dimension Hunker TBIL is not recommended. Order Comment: DR. Nusrat UPTON GETS CBCD CMP PROCRE UA C3 C4 DNADR. LUIS ALFREDO GETS RENAL PROCRE Result Comment: For patients on eltrombopag therapy, use of Dimension Hunker TBIL is not recommended. Performed By: #### L 3100.5700, L501.2300, L100.0100, L501.0900, L500.4050, L3100.5800, L3100.5500, L400.2010 ####[facility] [address] [place], [place], [id number] Blood urea nitrogen (BUN)/cr eatinine ratioOrdered By: Nahomi Lobato on 05-11-2024 Urea nitrogen/Creatinine [Mass ratio] 7.5 mg/mg Low 10-20 [facility] CBC W/Diff, Automatedon 12-0 Absolute Lymph 0.37 X10 3/uL Low 0.83-4.51 [facility] Comment on above: Order Comment: DR. Nusrat UPTON GETS CBCD CMP PROCRE UA C3 C4 DNADR. LUIS ALFREDO GETS RENAL PROCRE Performed By: #### L 3100.5700, L501.2300, L100.0100, L501.0900, L500.4050, L3100.5800, L3100.5500, L400.2010 ####[facility] [address] [place], [address] Absolute Neut 3.9 X10 3/uL Normal 2.0-7.7 [facility] Comment on above: Order Comment: DR. Nusrat UPTON GETS CBCD CMP PROCRE UA C3 C4 DNADR. LUIS ALFREDO GETS RENAL PROCRE Performed By: #### L 3100.5700, L501.2300, L100.0100, L501.0900, L500.4050, L3100.5800, L3100.5500, L400.2010 ####[facility] [address] [place], [address] Basophils/100 WBC (Bld) 0.2 % Normal 0-1 [facility] Comment on above: Order Comment: DR. Nusrat UPTON GETS CBCD CMP PROCRE UA C3 C4 DNADR. LUIS ALFREDO GETS RENAL PROCRE Performed By: #### L 3100.5700, L501.2300, L100.0100, L501.0900, L500.4050, L3100.5800, L3100.5500, L400.2010 ####[facility] [address] [place], [address] Eosinophils/100 WBC (Bld) 0.2 % Normal 0-5 [facility] Comment on above: Order Comment: DR. Nusrat UPTON GETS CBCD CMP PROCRE UA C3 C4 DNADR. LUIS ALFREDO GETS RENAL PROCRE Performed By: #### L 3100.5700, L501.2300, L100.0100, L501.0900, L500.4050, L3100.5800, L3100.5500, L400.2010 ####[facility] [address] [place], [address] Erythrocyte distribution width (RBC) [Ratio] 15.3 % High 11.6-14.6 [facility] Comment on above: Order Comment: DR. Nusrat UPTON GETS CBCD CMP PROCRE UA C3 C4 DNADR. LUIS ALFREDO GETS RENAL PROCRE Performed By: #### L 3100.5700, L501.2300, L100.0100, L501.0900, L500.4050, L3100.5800, L3100.5500, L400.2010 ####[facility] [address] [place], [address] Hematocrit (Bld) [Volume fraction] 35.7 % Low 37-47 [facility] Comment on above: Order Comment: DR. Nusrat UPTON GETS CBCD CMP PROCRE UA C3 C4 DNADRHenny LOBATO GETS RENAL PROCRE Performed By: #### L 3100.5700, L501.2300, L100.0100, L501.0900, L500.4050, L3100.5800, L3100.5500, L400.2010 ####[facility] [address] [facility] [address] [place] [place], [address] Hemoglobin (Bld) [Mass/Vol] 11.4 g/dL Low 12.0-15.0 [facility] Comment on above: Order Comment: DR. Nusrat UPTON GETS CBCD CMP PROCRE UA C3 C4 DNADRHenny LOBATO GETS RENAL PROCRE Performed By: #### L 3100.5700, L501.2300, L100.0100, L501.0900, L500.4050, L3100.5800, L3100.5500, L400.2010 ####[facility] [address] [place], [address] IG% 0.200 Normal 0.0-0.9 [facility] Comment on above: Order Comment: DR. Nusrat UPTON GETS CBCD CMP PROCRE UA C3 C4 DNADR. LUIS ALFREDO GETS RENAL PROCRE Result Comment: IG% - Immature Granulocytes (promyelocytes, myelocytes and metamyelocytes) > 1% indicates that a LEFT SHIFT is Present. Performed By: #### L 3100.5700, L501.2300, L100.0100, L501.0900, L500.4050, L3100.5800, L3100.5500, L400.2010 ####[facility] [address] [place], [address] Lymphocytes/100 WBC (Bld) 7.8 % Low 19-41 [facility] Comment on above: Order Comment: DR. Nusrat UPTON GETS CBCD CMP PROCRE UA C3 C4 DNADR. LUIS ALFREDO GETS RENAL PROCRE Performed By: #### L 3100.5700, L501.2300, L100.0100, L501.0900, L500.4050, L3100.5800, L3100.5500, L400.2010 ####[facility] [address] [place], [address] MCH (RBC) [Entitic mass] 32.4 pg High 27.0-32.0 [facility] Comment on above: Order Comment: DR. Nusrat UPTON GETS CBCD CMP PROCRE UA C3 C4 DNADR. LUIS ALFREDO GETS RENAL PROCRE Performed By: #### L 3100.5700, L501.2300, L100.0100, L501.0900, L500.4050, L3100.5800, L3100.5500, L400.2010 ####[facility] [address] [place], [address] MCHC (RBC) [Mass/Vol] 31.9 g/dL Low 32-36 [facility] Comment on above: Order Comment: DR. Nusrat UPTON GETS CBCD CMP PROCRE UA C3 C4 DNADR. LUIS ALFREDO GETS RENAL PROCRE Performed By: #### L 3100.5700, L501.2300, L100.0100, L501.0900, L500.4050, L3100.5800, L3100.5500, L400.2010 ####[facility] [address] [place], [address] MCV (RBC) [Entitic vol] 101.4 fL High 81-99 [facility] Comment on above: Order Comment: DR. Nusrat UPTON GETS CBCD CMP PROCRE UA C3 C4 DNADR. LUIS ALFREDO GETS RENAL PROCRE Performed By: #### L 3100.5700, L501.2300, L100.0100, L501.0900, L500.4050, L3100.5800, L3100.5500, L400.2010 ####[facility] [address] [place], [address] Monocytes/100 WBC (Bld) 9.7 % Normal 0-10 [facility] Comment on above: Order Comment: DR. Nusrat UPTON GETS CBCD CMP PROCRE UA C3 C4 DNADR. LUIS ALFREDO GETS RENAL PROCRE Performed By: #### L 3100.5700, L501.2300, L100.0100, L501.0900, L500.4050, L3100.5800, L3100.5500, L400.2010 ####[facility] [address] [place], [address] Neutrophils/100 WBC (Bld) 81.9 % High 47-70 [facility] Comment on above: Order Comment: DR. Nusrat UPTON GETS CBCD CMP PROCRE UA C3 C4 DNADR. LUIS ALFREDO GETS RENAL PROCRE Performed By: #### L 3100.5700, L501.2300, L100.0100, L501.0900, L500.4050, L3100.5800, L3100.5500, L400.2010 ####[facility] [address] [place] [place], [address] Nucleated RBC (Bld) [#/Vol] 0 10*3/uL Normal 0-5 [facility] Comment on above: Order Comment: DR. Nusrat UPTON GETS CBCD CMP PROCRE UA C3 C4 DNADR. LUIS ALFREDO GETS RENAL PROCRE Performed By: #### L 3100.5700, L501.2300, L100.0100, L501.0900, L500.4050, L3100.5800, L3100.5500, L400.2010 ####[facility] [address] [place], [address] Platelet mean volume (Bld) [Entitic vol] 10.6 fL Normal 6.2-12.0 [facility] Comment on above: Order Comment: DR. Nusrat UPTON GETS CBCD CMP PROCRE UA C3 C4 DNADRHenny LOBATO GETS RENAL PROCRE Performed By: #### L 3100.5700, L501.2300, L100.0100, L501.0900, L500.4050, L3100.5800, L3100.5500, L400.2010 ####[facility] [address] [place], [address] Platelets (Bld) [#/Vol] 165 10*3/uL Normal 150-450 [facility] Comment on above: Order Comment: DR. Nusrat UPTON GETS CBCD CMP PROCRE UA C3 C4 DNADR. LUIS ALFREDO GETS RENAL PROCRE Performed By: #### L 3100.5700, L501.2300, L100.0100, L501.0900, L500.4050, L3100.5800, L3100.5500, L400.2010 ####[facility] [address] [place], [address] RBC (Bld) [#/Vol] 3.52 10*6/uL Low 4.2-5.4 [facility] Comment on above: Order Comment: DR. Nusrat UPTON GETS CBCD CMP PROCRE UA C3 C4 DNADR. LUIS ALFREDO GETS RENAL PROCRE Performed By: #### L 3100.5700, L501.2300, L100.0100, L501.0900, L500.4050, L3100.5800, L3100.5500, L400.2010 ####[facility] [address] [place], [address] RDW SD 57.4 fl High 35.1-43.9 [facility] Comment on above: Order Comment: DR. Nusrat UPTON GETS CBCD CMP PROCRE UA C3 C4 DNADR. LUIS ALFREDO GETS RENAL PROCRE Performed By: #### L 3100.5700, L501.2300, L100.0100, L501.0900, L500.4050, L3100.5800, L3100.5500, L400.2010 ####[facility] [address] [place], [address] WBC (Bld) [#/Vol] 4.7 10*3/uL Normal 4.4-11.0 [facility] Comment on above: Order Comment: DR. Nusrat UPTON GETS CBCD CMP PROCRE UA C3 C4 DNADR. LUIS ALFREDO GETS RENAL PROCRE Performed By: #### L 3100.5700, L501.2300, L100.0100, L501.0900, L500.4050, L3100.5800, L3100.5500, L400.2010 ####[facility] [address] [place], [address] Carbon dioxide measurementOr dered By: Nahomi Lobato on 05-11-2024 CO2 [Moles/Vol] 23.0 mmol/L Normal 21.0-32.0 [facility] Comment on above: Order Comment: DR. Nusrat UPTON GETS CBCD CMP PROCRE UA C3 C4 DNADRHenny LOBATO GETS RENAL PROCRE Performed By: #### L 3100.5700, L501.2300, L100.0100, L501.0900, L500.4050, L3100.5800, L3100.5500, L400.2010 ####[facility] [address] [place], [address] Cardiology Visit Reporton Cardiology Visit Report [facility] [address] [place] [address] OFFICE VISIT Date of Service: 05/11/24 MR#: [id number] Acct: [id number] Name: DEMI DEJESUS Rep #: [id number] : 1965 Provider: GABRIELLA young Age/Sex: 59/F Location: [facility] Status: Signed HPI HPI History of Present Illness Details: Demi Dejesus is a 59 year old female that established with us for a right heart cath with her history of severe pulmonary hypertension. She also has a hx of lupus. She did undergo a stress test which demonstrated Reversible perfusion defect of the anterior apex suggestive of ischemia. She underwent a diagnostic heart cath on 08/13/2023. This demonstrated LAD: Calcified 40% Proximal lesion in LAD, Tubular 80% Mid lesion in LAD RCA: Tubular Calcified 80% Proximal lesion in RCA, Tubular 70% Distal lesion in RCA, RT PDA: Tubular 70% Ostial lesion, RAMUS: Luminal Irregularities 20% Proximal lesion in Ramus. Severe mitral annular calcification, Severe pulmonary hypertension, PASP 87 mm Hg. Successful NIGEL Mid LAD using Jj Coleridge 3.0x15 mm. RECOMMENDATIONS: ASA Indefinitely, Plavix for at least 12 month, Staged PCI to RCA Pt notes that she feels much better since her stenting. She is less SOB. Before she was SOB with everything. She has started cardiac rehab. She does not have any chest discomfort/heaviness/tig htness. She does not have any symptoms of congestive heart failure. She does not have any palpitations that she is aware of. She does not have any lightheadedness or dizziness. She does not have any near-syncope or syncope. She does not have any lower extremity edema. She does not have any symptoms of claudication. Intake Vital Signs 11/03/23 08:25 05/11/24 13:53 Height 5 ft 2 in 5 ft 2 in Weight: 138 lb 142 lb BMI 25.2 25.9 BP 93/61 157/79 H Blood Pressure Location Lt brachial Lt brachial Position Sitting Sitting Respiration 20 H 16 Pulse 83 81 Pulse Source Monitor NIBP Temp 97.8 F Temperature Source Temporal Artery Pulse Oximetry (%) 82 Oxygen Delivery Method room air Comment applied Oxygen 2LPM o2 increased to 100% Intake Visit Reasons: Shortness of breath General Superintendent Required: No Is patient in pain?: No Allergies amoxicillin trihydrate (From Augmentin) Allergy (Verified 05/11/24 14:16) Unknown diflunisal (From Dolobid) Allergy (Verified 05/11/24 14:16) Unknown Penicillins Allergy (Verified 05/11/24 14:16) Rash potassium clavulanate (From Augmentin) Allergy (Verified 05/11/24 14:16) Unknown sulfamethoxazole (From Septra) Allergy (Verified 05/11/24 14:16) Rash trimethoprim (From Septra) Allergy (Verified 05/11/24 14:16) Rash aripiprazole (From Abilify) Adverse Reaction (Verified 05/11/24 14:16) Other fluoxetine HCl (From Prozac) Adverse Reaction (Verified 05/11/24 14:16) Other sertraline HCl (From Zoloft) Adverse Reaction (Verified 05/11/24 14:16) Other venlafaxine HCl (From Effexor) Adverse Reaction (Verified 05/11/24 14:16) Other Medications ???Medication ???Instructions ???Recorded ???Confirmed ???Type calcium 600 mg (as 2 tab PO DAILY@0800 06/06/14 05/11/24 History carbonate)-vitamin D3 20 mcg (800 unit) tablet duloxetine 60 mg capsule,delayed 120 mg PO DAILY 06/06/14 05/11/24 History release multivitamin with folic acid 400 1 tab PO DAILY 06/06/14 05/11/24 History mcg tablet hydroxychloroquine 200 mg tablet 200 mg PO DAILY 05/20/23 05/11/24 History omeprazole 40 mg capsule,delayed 40 mg PO DAILY 05/20/23 05/11/24 History release budesonide-formoterol HFA 160 2 puff inhalation BID #3 ea 06/22/23 05/11/24 Rx mcg-4.5 mcg/actuation aerosol inhaler (Symbicort) gabapentin 300 mg capsule 300 mg PO BID PRN 06/29/23 05/11/24 History aspirin 81 mg tablet,delayed 81 mg PO DAILY 07/24/23 05/11/24 History release lisinopril 20 mg tablet 20 mg PO BID 07/28/23 05/11/24 History clopidogrel 75 mg tablet 75 mg PO DAILY #30 tabs 08/13/23 05/11/24 Rx belimumab 200 mg/mL subcutaneous 200 mg subcut .QMO 11/03/23 05/11/24 History auto-injector (Benlysta) trazodone 100 mg tablet 100 mg PO QHS 11/03/23 05/11/24 History amlodipine 2.5 mg tablet 2.5 mg PO DAILY #90 tabs 05/09/24 05/11/24 Rx atorvastatin 10 mg tablet 10 mg PO QHS 05/11/24 History Ejection fraction %: 55 Have you fallen in the past year?: No [facility] Abnormal stress test Sjogren's disease Abnormal echocardiogram Chronic ITP (idiopathic thrombocytopenia) Bilateral pneumonia Raynauds disease COPD (chronic obstructive pulmonary disease) Wheeze Pulmonary hypertension Hemorrhoids Acid reflux Blood in stool Constipation Abdominal pain Anxiety Lupus Back problem Fatigue Depression Benign esse (more content not included)... Normal [facility] Chloride measurementOrdered By: Nahomi Lobato on 05-11-2024 Chloride [Moles/Vol] 109 mmol/L High 98-107 [facility] Comment on above: Order Comment: DR. Nusrat UPTON GETS CBCD CMP PROCRE UA C3 C4 DNADR. LOBATO GETS RENAL PROCRE Performed By: #### L 3100.5700, L501.2300, L100.0100, L501.0900, L500.4050, L3100.5800, L3100.5500, L400.2010 ####[facility] [address] [place], [address] Complement C3 assayOrdered B y: Nahomi Lobato on 05-11-2024 Complement C3 84 mg/dL 82-167 [facility] Comment on above: Performed at: [facility] [address] [id number] Director: Moreno Marroquin PhD, Phone: [phone] Complement C4 [Mass/Vol]Orde red By: Nahomi Lobato on 05-11-2024 Complement C4 28 mg/dL 12-38 [facility] Comprehensive Metabolic Prof ilon 05-11-2024 ALK P 110 U/L Normal 45-117 [facility] Comment on above: Order Comment: DR. Nusrat UPTON GETS CBCD CMP PROCRE UA C3 C4 DNADR. LUIS ALFREDO GETS RENAL PROCRE Performed By: #### L 3100.5700, L501.2300, L100.0100, L501.0900, L500.4050, L3100.5800, L3100.5500, L400.2010 ####[facility] [address] [place], [place], [phone] BUN/CRE 7.5 RATIO Low 10-20 [facility] Comment on above: Order Comment: DR. Nusrat UPTON GETS CBCD CMP PROCRE UA C3 C4 DNADR. LUIS ALFREDO GETS RENAL PROCRE Performed By: #### L 3100.5700, L501.2300, L100.0100, L501.0900, L500.4050, L3100.5800, L3100.5500, L400.2010 ####[facility] [address] [place], [address] CA,Total 8.7 mg/dL Normal 8.5-10.1 [facility] Comment on above: Order Comment: DR. Nusrat UPTON GETS CBCD CMP PROCRE UA C3 C4 DNADR. LUIS ALFREDO GETS RENAL PROCRE Performed By: #### L 3100.5700, L501.2300, L100.0100, L501.0900, L500.4050, L3100.5800, L3100.5500, L400.2010 ####[facility] [address] [place], [place], [phone] EST GFR - AA 78 mL/min Normal >60 [facility] Comment on above: Order Comment: DR. Nusrat UPTON GETS CBCD CMP PROCRE UA C3 C4 DNADR. LUIS ALFREDO GETS RENAL PROCRE Result Comment: Afri can Bhutanese GFR Calc Performed By: #### L 3100.5700, L501.2300, L100.0100, L501.0900, L500.4050, L3100.5800, L3100.5500, L400.2010 ####[facility] [address] [place], [address] GAP 8 Normal 5-15 [facility] Comment on above: Order Comment: DR. Nusrat UPTON GETS CBCD CMP PROCRE UA C3 C4 DNADRHenny LOBATO GETS RENAL PROCRE Performed By: #### L 3100.5700, L501.2300, L100.0100, L501.0900, L500.4050, L3100.5800, L3100.5500, L400.2010 ####[facility] [address] [place], [address] GFR/1.73 sq M.predicted among non-blacks MDRD (S/P/Bld) [Vol rate/Area] 65 mL/min/{1.73_m2} Normal >60 [facility] Comment on above: Order Comment: DR. Nusrat UPTON GETS CBCD CMP PROCRE UA C3 C4 DNADR. LUIS ALFREDO GETS RENAL PROCRE Result Comment: Non- GFR Calc Performed By: #### L 3100.5700, L501.2300, L100.0100, L501.0900, L500.4050, L3100.5800, L3100.5500, L400.2010 ####[facility] [address] [place], [address] T PROT 7.4 g/dL Normal 6.4-8.2 [facility] Comment on above: Order Comment: DR. Nusrat UPTON GETS CBCD CMP PROCRE UA C3 C4 DNADR. LUIS ALFREDO GETS RENAL PROCRE Performed By: #### L 3100.5700, L501.2300, L100.0100, L501.0900, L500.4050, L3100.5800, L3100.5500, L400.2010 ####[facility] [address] [place], [place], [phone] Comprehensive Metabolic Prof ilOrdered By: Nahomi Lobato on 05-11-2024 AST [Catalytic activity/Vol] 30 U/L Normal 15-37 [facility] Comment on above: Order Comment: DR. Nusrat UPTON GETS CBCD CMP PROCRE UA C3 C4 DNADR. LUIS ALFREDO GETS RENAL PROCRE Performed By: #### L 3100.5700, L501.2300, L100.0100, L501.0900, L500.4050, L3100.5800, L3100.5500, L400.2010 ####[facility] [address] [place], [place], [phone] DNA double strand Ab Qn (S)O rdered By: Nahomi Lobato on 05-11-2024 Anti-Double Strand DNA Antibody 2 IU/mL 0-9 [facility] Comment on above: Negative <5 Equivoca l 5 - 9 Positive >9Performed at: [facility] [id number] Director: Moreno Marroquin PhD, Phone: [phone] Eosinophil percentageOrdered By: Nahomi Lobato on 05-11-2024 Eosinophils/100 WBC (Bld) 0.2 % 0-5 [facility] Erythrocyte distribution wid th ratioOrdered By: Nahomi Lobato on 05-11-2024 Erythrocyte distribution width (RBC) [Ratio] 15.3 % High 11.6-14.6 [facility] Erythrocyte distribution wid th standard deviationOrdered By: Nahomi Lobato on 05-11-2024 Erythrocyte distribution width (RBC) [Entitic vol] 57.4 fL High 35.1-43.9 [facility] Estimated glomerular filtrat ion rate (GFR) AmericanOrdered By: Nahomi Lobato on 05-11-2024 Estimated GFR (MDRD) Amer 78 mL/min >60 [facility] Comment on above: GFR Calc Glomerular filtration rate ( GFR) estimationOrdered By: Nahomi Lobato on 05-11-2024 Estimated GFR (MDRD) Non-Af Amer 65 mL/min >60 [facility] Comment on above: Non- GFR Calc Glucose Ql (U)Ordered By: Cody Lobato on 05-11-2024 Urine Glucose (UA) Normal mg/dl Normal [facility] Glucose measurementOrdered B y: Nahomi Lobato on 05-11-2024 Glucose [Mass/Vol] 109 mg/dL High 74-106 [facility] Comment on above: Fasting Glucose resu lt from 100 to 125 mg/dL suggests IMPAIRED HOMEOSTASIS per A.D.A. criteria. Order Comment: DR. Nusrat UPTON GETS CBCD CMP PROCRE UA C3 C4 DNADR. LUIS ALFREDO GETS RENAL PROCRE Result Comment: Fast ing Glucose result from 100 to 125 mg/dL suggests IMPAIRED HOMEOSTASIS per A.D.A. criteria. Performed By: #### L 3100.5700, L501.2300, L100.0100, L501.0900, L500.4050, L3100.5800, L3100.5500, L400.2010 ####[facility] [address] [place], [address] Hematocrit Auto (Bld) [Volum e fraction]Ordered By: Nahomi Lobato on 05-11-2024 Hematocrit (Bld) [Volume fraction] 35.7 % Low 37-47 [facility] Hemoglobin measurementOrdere d By: Nahomi Lobato on 05-11-2024 Hemoglobin (Bld) [Mass/Vol] 11.4 g/dL Low 12.0-15.0 [facility] Immature granulocytes/100 WB C Auto (Bld)Ordered By: Nahomi Lobato on 05-11-2024 Immature granulocytes/100 WBC (Bld) 0.200 % 0.0-0.9 [facility] Comment on above: IG% - Immature Granu locytes (promyelocytes, myelocytes and metamyelocytes) > 1% indicates that a LEFT SHIFT is Present. Ketones Test strip Ql (U)Ord ered By: Nahomi Lobato on 05-11-2024 Ketones Ql (U) Negative Negative [facility] Lymphocytes Auto (Unsp spec) [#/Vol]Ordered By: Nahomi Lobato on 05-11-2024 Lymphocytes (Bld) [#/Vol] 0.37 10*3/uL Low 0.83-4.51 [facility] Lymphocytes/100 WBC Auto (Un sp spec)Ordered By: Nahomi Lobato on 05-11-2024 Lymphocytes/100 WBC (Bld) 7.8 % Low 19-41 [facility] MCV (mean corpuscular volume ) determinationOrdered By: Nahomi Lobato on 05-11-2024 MCV (RBC) [Entitic vol] 101.4 fL High 81-99 [facility] Mean corpuscular hemoglobin (MCH) determinationOrdered By: Nahomi Lobato on 05-11-2024 MCH (RBC) [Entitic mass] 32.4 pg High 27.0-32.0 [facility] Mean corpuscular hemoglobin concentration (MCHC) determinationOrdered By: Nahomi Lobato on 05-11-2024 MCHC (RBC) [Mass/Vol] 31.9 g/dL Low 32-36 [facility] Mean platelet volume determi nationOrdered By: Nahomi Lobato on 05-11-2024 Platelet mean volume (Bld) [Entitic vol] 10.6 fL 6.2-12.0 [facility] Monocyte percentageOrdered B y: Nahomi Lobato on 05-11-2024 Monocytes/100 WBC (Bld) 9.7 % 0-10 [facility] Neutrophil percentageOrdered By: Nahomi Lobato on 05-11-2024 Neutrophils/100 WBC (Bld) 81.9 % High 47-70 [facility] Nitrite Test strip Ql (U)Ord ered By: Nahomi Lobato on 05-11-2024 Nitrite Ql (U) Negative Negative [facility] Nucleated red blood cell per centageOrdered By: Nahomi Lobato on 05-11-2024 Nucleated RBC/100 WBC (Bld) [Ratio] 0 % 0-5 [facility] Phosphoruson 05-11-2024 Phosphate [Mass/Vol] 4.2 mg/dL Normal 2.5-4.9 [facility] Comment on above: Order Comment: DR. Nusrat UPTON GETS CBCD CMP PROCRE UA C3 C4 DNADR. LOBATO GETS RENAL PROCRE Performed By: #### L 3100.5700, L501.2300, L100.0100, L501.0900, L500.4050, L3100.5800, L3100.5500, L400.2010 ####[facility] [address] [place], [address] Phosphorus measurementOrdere d By: Nahomi Lobato on 05-11-2024 Phosphorus Level 4.2 mg/dL 2.5-4.9 [facility] Platelet countOrdered By: Cody Lobato on 05-11-2024 Platelets (Bld) [#/Vol] 165 10*3/uL 150-450 [facility] Potassium measurementOrdered By: Nahomi Lobato on 05-11-2024 Potassium [Moles/Vol] 3.3 mmol/L Low 3.5-5.1 [facility] Comment on above: Order Comment: DR. Nusrat UPTON GETS CBCD CMP PROCRE UA C3 C4 DNADR. LOBATO GETS RENAL PROCRE Performed By: #### L 3100.5700, L501.2300, L100.0100, L501.0900, L500.4050, L3100.5800, L3100.5500, L400.2010 ####[facility] [address] [place] [place], [address] Protein Test strip Ql (U)Ord ered By: Nahomi Lobato on 05-11-2024 Protein Ql (U) 100 mg/dl High Negative [facility] Protein+Creatinine Ratio,Uri neon 05-11-2024 PROT:CRE RATIO 3802 mg/g CRE High 0-200 [facility] Comment on above: Order Comment: DR. Nusrat UPTON GETS CBCD CMP PROCRE UA C3 C4 DNADR. LOBATO GETS RENAL PROCRE Performed By: #### L 3100.5700, L501.2300, L100.0100, L501.0900, L500.4050, L3100.5800, L3100.5500, L400.2010 ####[facility] [address] [place], [address] Protein (U) [Mass/Vol] 80.6 mg/dL High <11.9 [facility] Comment on above: Order Comment: DR. Nusrat UPTON GETS CBCD CMP PROCRE UA C3 C4 DNADRHenny LOBATO GETS RENAL PROCRE Performed By: #### L 3100.5700, L501.2300, L100.0100, L501.0900, L500.4050, L3100.5800, L3100.5500, L400.2010 ####[facility] [address] [place], [address] UR CREAT 21.20 mg/dL Normal NO RANGE EST. [facility] Comment on above: Order Comment: DR. Nusrat UPTON GETS CBCD CMP PROCRE UA C3 C4 DNADR. LOBATO GETS RENAL PROCRE Performed By: #### L 3100.5700, L501.2300, L100.0100, L501.0900, L500.4050, L3100.5800, L3100.5500, L400.2010 ####[facility] [address] [place], [address] Protein/Creatinine (U) [Mass ratio]Ordered By: Nahomi Lobato on 05-11-2024 Urine Protein/Creatinine Ratio 3802 mg/g CRE High 0-200 [facility] RBC Auto (Bld) [#/Vol]Ordere d By: Nahomi Lobato on 05-11-2024 RBC (Bld) [#/Vol] 3.52 10*6/uL Low 4.2-5.4 [facility] Random urine protein measure mentOrdered By: Nahomi Lobato on 05-11-2024 Protein (U) [Mass/Vol] 80.6 mg/dL High 0.0-11.8 [facility] Serum anion gap measurementO rdered By: Nahomi Lobato on 05-11-2024 Anion gap [Moles/Vol] 8 mmol/L 5-15 [facility] Serum globulin measurementOr dered By: Nahomi Lobato on 05-11-2024 Globulin (S) [Mass/Vol] 4.2 g/dL Normal 2.2-4.2 [facility] Comment on above: Order Comment: DR. Nusrat UPTON GETS CBCD CMP PROCRE UA C3 C4 DNADR. LUIS ALFREDO GETS RENAL PROCRE Performed By: #### L 3100.5700, L501.2300, L100.0100, L501.0900, L500.4050, L3100.5800, L3100.5500, L400.2010 ####[facility] [address] [place], [address] Serum or plasma alanine oconnor otransferase (ALT) measurementOrdered By: Nahomi Lobato on 05-11-2024 ALT [Catalytic activity/Vol] 20 U/L Normal 13-56 [facility] Comment on above: Order Comment: DR. Nusrat UPTON GETS CBCD CMP PROCRE UA C3 C4 DNADR. LUIS ALFREDO GETS RENAL PROCRE Performed By: #### L 3100.5700, L501.2300, L100.0100, L501.0900, L500.4050, L3100.5800, L3100.5500, L400.2010 ####[facility] [address] [place], [address] Serum or plasma albumin leona urement (mass/volume)Ordered By: Nahomi Lobato on 05-11-2024 Albumin [Mass/Vol] 3.2 g/dL Normal 3.2-5.0 [facility] Comment on above: Order Comment: DR. Nusrat UPTON GETS CBCD CMP PROCRE UA C3 C4 DNADR. LUIS ALFREDO GETS RENAL PROCRE Performed By: #### L 3100.5700, L501.2300, L100.0100, L501.0900, L500.4050, L3100.5800, L3100.5500, L400.2010 ####[facility] [address] [place], [address] Serum or plasma alkaline trinidad sphatase measurementOrdered By: Nahomi Lobato on 05-11-2024 ALP [Catalytic activity/Vol] 110 U/L 45-117 [facility] Serum or plasma calcium leona urement (mass/volume)Ordered By: Nahomi Lobato on 05-11-2024 Calcium [Mass/Vol] 8.7 mg/dL 8.5-10.1 [facility] Serum or plasma creatinine m easurement (mass/volume)Ordered By: Nahomi Lobato on 05-11-2024 Creatinine [Mass/Vol] 0.94 mg/dL Normal 0.55-1.02 [facility] Comment on above: The validity of the calculated GFR & GFRAA in patients over 70 years has not been determined. Clinical correlation is essential. Order Comment: DR. Nusrat UPTON GETS CBCD CMP PROCRE UA C3 C4 DNADRHenny LOBATO GETS RENAL PROCRE Result Comment: The validity of the calculated GFR GFRAA in patients over 70 years has not been determined. Clinical correlation is essential. Performed By: #### L 3100.5700, L501.2300, L100.0100, L501.0900, L500.4050, L3100.5800, L3100.5500, L400.2010 ####[facility] [address] [place], [place], [phone] Serum or plasma urea nitroge n measurement (mass/volume)Ordered By: Nahomi Lobato on 05-11-2024 Urea nitrogen [Mass/Vol] 7 mg/dL Normal 7-18 [facility] Comment on above: Order Comment: DR. Nusrat UPTON GETS CBCD CMP PROCRE UA C3 C4 DNADRHenny LOBATO GETS RENAL PROCRE Performed By: #### L 3100.5700, L501.2300, L100.0100, L501.0900, L500.4050, L3100.5800, L3100.5500, L400.2010 ####[facility] [address] [place], [place], [phone] Sodium levelOrdered By: Tawanda Lobato on 05-11-2024 Sodium [Moles/Vol] 140 mmol/L Normal 136-145 [facility] Comment on above: Order Comment: DR. Nusrat UPTON GETS CBCD CMP PROCRE UA C3 C4 DNADRHenny LOBATO GETS RENAL PROCRE Performed By: #### L 3100.5700, L501.2300, L100.0100, L501.0900, L500.4050, L3100.5800, L3100.5500, L400.2010 ####[facility] [address] [place], [place], [phone] Total proteinOrdered By: Melo Lobato on 05-11-2024 Protein [Mass/Vol] 7.4 g/dL 6.4-8.2 [facility] Urinalysis, Routine (Dipstic k)on 05-11-2024 BILIRUBIN URINE Negative Normal Negative [facility] Comment on above: Order Comment: DR. Nusrat UPTON GETS CBCD CMP PROCRE UA C3 C4 DNADR. LUIS ALFREDO GETS RENAL PROCRECLEAN CATCH Performed By: #### L 3100.5700, L501.2300, L100.0100, L501.0900, L500.4050, L3100.5800, L3100.5500, L400.2010 ####[facility] [address] [place], [place], [phone] Clarity (U) Clear Normal Clear [facility] Comment on above: Order Comment: DR. Nusrat UPTON GETS CBCD CMP PROCRE UA C3 C4 DNADR. LUIS ALFREDO GETS RENAL PROCRECLEAN CATCH Performed By: #### L 3100.5700, L501.2300, L100.0100, L501.0900, L500.4050, L3100.5800, L3100.5500, L400.2010 ####[facility] [address] [place], [address] Color (U) Yellow Normal Yellow [facility] Comment on above: Order Comment: DR. Nusrat UPTON GETS CBCD CMP PROCRE UA C3 C4 DNADR. LUIS ALFREDO GETS RENAL PROCRECLEAN CATCH Performed By: #### L 3100.5700, L501.2300, L100.0100, L501.0900, L500.4050, L3100.5800, L3100.5500, L400.2010 ####[facility] [address] [place], [place], [phone] GLUCOSE, UR Normal Normal Normal [facility] Comment on above: Order Comment: DR. Nusrat UPTON GETS CBCD CMP PROCRE UA C3 C4 DNADR. LUIS ALFREDO GETS RENAL PROCRECLEAN CATCH Performed By: #### L 3100.5700, L501.2300, L100.0100, L501.0900, L500.4050, L3100.5800, L3100.5500, L400.2010 ####[facility] [address] [place] [place], [address] KETONE UR Negative Normal Negative [facility] Comment on above: Order Comment: DR. Nusrat UPTON GETS CBCD CMP PROCRE UA C3 C4 DNADR. LUIS ALFREDO GETS RENAL PROCRECLEAN CATCH Performed By: #### L 3100.5700, L501.2300, L100.0100, L501.0900, L500.4050, L3100.5800, L3100.5500, L400.2010 ####[facility] [address] [place], [place], [phone] LEUK ESTERASE 25 /ul Abnormal Negative [facility] Comment on above: Order Comment: DR. Nusrat UPTON GETS CBCD CMP PROCRE UA C3 C4 DNADR. LUIS ALFREDO GETS RENAL PROCRECLEAN CATCH Performed By: #### L 3100.5700, L501.2300, L100.0100, L501.0900, L500.4050, L3100.5800, L3100.5500, L400.2010 ####[facility] [address] [place], [place], [phone] Nitrite Ql (U) Negative Normal Negative [facility] Comment on above: Order Comment: DR. Nusrat UPTON GETS CBCD CMP PROCRE UA C3 C4 DNADR. LUIS ALFREDO GETS RENAL PROCRECLEAN CATCH Performed By: #### L 3100.5700, L501.2300, L100.0100, L501.0900, L500.4050, L3100.5800, L3100.5500, L400.2010 ####[facility] [address] [place], [place], [phone] OCCULT BLOOD-UR Negative Normal Negative [facility] Comment on above: Order Comment: DR. Nusrat UPTON GETS CBCD CMP PROCRE UA C3 C4 DNADR. LUIS ALFREDO GETS RENAL PROCRECLEAN CATCH Performed By: #### L 3100.5700, L501.2300, L100.0100, L501.0900, L500.4050, L3100.5800, L3100.5500, L400.2010 ####[facility] [address] [place], [place], [phone] pH UR 6.5 Normal 5.0 - 8.0 [facility] Comment on above: Order Comment: DR. Nusrat UPTON GETS CBCD CMP PROCRE UA C3 C4 DNADR. LUIS ALFREDO GETS RENAL PROCRECLEAN CATCH Performed By: #### L 3100.5700, L501.2300, L100.0100, L501.0900, L500.4050, L3100.5800, L3100.5500, L400.2010 ####[facility] [address] [place], [place], [id number] PROT DIPSTX 100 mg/dl Abnormal Negative [facility] Comment on above: Order Comment: DR. Nusrat UPTON GETS CBCD CMP PROCRE UA C3 C4 DNADR. LUIS ALFREDO GETS RENAL PROCRECLEAN CATCH Performed By: #### L 3100.5700, L501.2300, L100.0100, L501.0900, L500.4050, L3100.5800, L3100.5500, L400.2010 ####[facility] [address] [place], [place], [id number] SP.GR. DIPSTX 1.010 Normal 1.002-1.030 [facility] Comment on above: Order Comment: DR. Nusrat UPTON GETS CBCD CMP PROCRE UA C3 C4 DNADR. LUIS ALFREDO GETS RENAL PROCRECLEAN CATCH Performed By: #### L 3100.5700, L501.2300, L100.0100, L501.0900, L500.4050, L3100.5800, L3100.5500, L400.2010 ####[facility] [address] [place], [address] UROBILI Normal Normal Normal [facility] Comment on above: Order Comment: DR. Nusrat UPTON GETS CBCD CMP PROCRE UA C3 C4 DNADR. LUIS ALFREDO GETS RENAL PROCRECLEAN CATCH Performed By: #### L 3100.5700, L501.2300, L100.0100, L501.0900, L500.4050, L3100.5800, L3100.5500, L400.2010 ####[facility] [address] [place], [address] Urine blood detectionOrdered By: Nahomi Lobato on 05-11-2024 Urine Occult Blood Negative Negative [facility] Urine clarityOrdered By: Melo Lobato on 05-11-2024 Clarity (U) Clear Clear [facility] Urine color determinationOrd ered By: Nahomi Lobato on 05-11-2024 Color (U) Yellow Yellow [facility] Urine creatinine measurement (mass/volume)Ordered By: Nahomi Lobato on 05-11-2024 Creatinine (U) [Mass/Vol] 21.20 mg/dL NO RANGE EST. [facility] Urine leukocyte esterase det ection by dipstickOrdered By: Nahomi Lobato on 05-11-2024 Leukocyte esterase Test strip Ql (U) 25 /ul High Negative [facility] Urine pHOrdered By: Tila Lobato on 05-11-2024 pH (U) 6.5 [pH] 5.0 - 8.0 [facility] Urine specific gravity measu rementOrdered By: Nahomi Lobato on 05-11-2024 Specific gravity (U) [Rel density] 1.010 1.002-1.030 [facility] Urobilinogen Ql (U)Ordered B y: Nahomi Lobato on 05-11-2024 Urine Urobilinogen Normal mg/dl Normal [facility] White blood cell (WBC) count Ordered By: Nahomi Lobato on 05-11-2024 WBC (Bld) [#/Vol] 4.7 10*3/uL 4.4-11.0 [facility] Thin prep Papanicolaou smear with manual screeningOrdered By: Nahomi Lobato on 09-23-2023 Protein (U) [Mass/Vol] 58.4 mg/dL 0.0-11.8 [facility] Urine creatinine measurement (mass/volume)Ordered By: Nahomi Lobato on 09-23-2023 Creatinine (U) [Mass/Vol] 84.40 mg/dL NO RANGE EST. [facility] Urine protein/creatinine mas s ratioOrdered By: Nahomi Lobato on 09-23-2023 Protein/Creatinine (U) [Mass ratio] 692 mg/g CRE 0-200 [facility] Basophil percentageOrdered B y: Roosevelt Ahmadi on 09-22-2023 Bilirubin [Mass/Vol] 0.30 mg/dL 0.20-1.00 [facility] Comment on above: For patients on eltr ombopag therapy, use of Dimension Hunker TBIL is not recommended. Chloride [Moles/Vol] 109 mmol/L 98-107 [facility] Glucose [Mass/Vol] 104 mg/dL 74-106 [facility] Comment on above: Fasting Glucose resu lt from 100 to 125 mg/dL suggests IMPAIRED HOMEOSTASIS per A.D.A. criteria. Hemoglobin (Bld) [Mass/Vol] 9.4 g/dL 12.0-15.0 [facility] Potassium [Moles/Vol] 4.6 mmol/L 3.5-5.1 [facility] Protein [Mass/Vol] 7.1 g/dL 6.4-8.2 [facility] Sodium [Moles/Vol] 134 mmol/L 136-145 [facility] WBC (Bld) [#/Vol] 4.1 10*3/uL 4.4-11.0 [facility] Determination of erythrocyte mean corpuscular volume (MCV)Ordered By: Roosevelt Ahmadi on 09-22-2023 MCV (RBC) [Entitic vol] 95.0 fL 81-99 [facility] Erythrocyte distribution wid th ratioOrdered By: Roosevelt Ahmadi on 09-22-2023 Erythrocyte distribution width (RBC) [Ratio] 13.3 % 11.6-14.6 [facility] Erythrocyte distribution wid th standard deviationOrdered By: Roosevelt Ahmadi on 09-22-2023 Erythrocyte distribution width (RBC) [Entitic vol] 45.6 fL 35.1-43.9 [facility] Hematocrit Auto (Bld) [Volum e fraction]Ordered By: Roosevelt Ahmadi on 09-22-2023 Hematocrit (Bld) [Volume fraction] 28.5 % 37-47 [facility] Laboratory - Chemistry and C hemistry - challengeOrdered By: Roosevelt Ahmadi on 09-22-2023 Albumin/Globulin [Mass ratio] 0.8 {ratio} 0.9-2.4 [facility] ALP [Catalytic activity/Vol] 74 U/L 45-117 [facility] ALT [Catalytic activity/Vol] 18 U/L 13-56 [facility] CO2 [Moles/Vol] 20.0 mmol/L 21.0-32.0 [facility] Globulin (S) [Mass/Vol] 4.0 g/dL 2.2-4.2 [facility] Urea nitrogen/Creatinine [Mass ratio] 17.6 mg/mg 10-20 [facility] Laboratory - Hematology and Cell countsOrdered By: Roosevelt Ahmadi on 09-22-2023 MCH (RBC) [Entitic mass] 31.3 pg 27.0-32.0 [facility] MCHC (RBC) [Mass/Vol] 33.0 g/dL 32-36 [facility] Platelet mean volume (Bld) [Entitic vol] 9.5 fL 6.2-12.0 [facility] Platelets (Bld) [#/Vol] 195 10*3/uL 150-450 [facility] No Panel InformationOrdered By: Roosevelt Ahmadi on 09-22-2023 Estimated Creatinine Clearance Calc 44.46 ml/min [facility] Estimated GFR (MDRD) Amer 59 mL/min >60 [facility] Comment on above: GFR Calc Estimated GFR (MDRD) Non-Af Amer 49 mL/min >60 [facility] Comment on above: Non- GFR Calc RBC Auto (Bld) [#/Vol]Ordere d By: Roosevelt Ahmadi on 09-22-2023 RBC (Bld) [#/Vol] 3.00 10*6/uL 4.2-5.4 [facility] Serum or plasma calcium leona urement (mass/volume)Ordered By: Roosevelt Ahmadi on 09-22-2023 Calcium [Mass/Vol] 8.6 mg/dL 8.5-10.1 [facility] Serum or plasma creatinine m easurement (mass/volume)Ordered By: Roosevelt Ahmadi on 09-22-2023 Creatinine [Mass/Vol] 1.19 mg/dL 0.55-1.02 [facility] Comment on above: The validity of the calculated GFR & GFRAA in patients over 70 years has not been determined. Clinical correlation is essential. Serum or plasma urea nitroge n measurement (mass/volume)Ordered By: Roosevelt Ahmadi on 09-22-2023 Urea nitrogen [Mass/Vol] 21 mg/dL 7-18 [facility] Thin prep Papanicolaou smear with manual screeningOrdered By: Roosevelt Ahmadi on 09-22-2023 Thin prep Papanicolaou smear with manual screening 3.1 g/dL 3.2-5.0 [facility] Thin prep Papanicolaou smear with manual screening 32 U/L 15-37 [facility] Thin prep Papanicolaou smear with manual screening 5 5-15 [facility] No Panel InformationOrdered By: Roosevelt Ahmadi on 09-21-2023 Activated Clotting Time 325 sec 74-137 [facility] Absolute lymphocyte countOrd ered By: Jazmin Enriquez on 09-16-2023 Lymphocytes Auto (Unsp spec) [#/Vol] 0.60 10*3/uL 0.83-4.51 [facility] Activated partial thrombopla stin time (aPTT) in platelet poor plasma by coagulation aOrdered By: Jazmin Enriquez on 09-16-2023 aPTT Coag (PPP) [Time] 53.9 s 24.1-36.2 [facility] Automated lymphocyte count a s percentage of total leukocytesOrdered By: Jazmin Enriquez on 09-16-2023 Lymphocytes/100 WBC Auto (Unsp spec) 17.4 % 19-41 [facility] Basophil percentageOrdered B y: Jazmin Enriquez on 09-16-2023 Basophil percentage 4.0 mg/dL 2.5-4.9 [facility] Basophils/100 WBC (Bld) 0.6 % 0-1 [facility] Chloride [Moles/Vol] 106 mmol/L 98-107 [facility] Eosinophils/100 WBC (Bld) 0.9 % 0-5 [facility] Glucose [Mass/Vol] 83 mg/dL 74-106 [facility] Hemoglobin (Bld) [Mass/Vol] 10.4 g/dL 12.0-15.0 [facility] Monocytes/100 WBC (Bld) 17.4 % 0-10 [facility] Neutrophils (Bld) [#/Vol] 2.2 10*3/uL 2.0-7.7 [facility] Neutrophils/100 WBC (Bld) 63.4 % 47-70 [facility] Potassium [Moles/Vol] 5.2 mmol/L 3.5-5.1 [facility] Sodium [Moles/Vol] 131 mmol/L 136-145 [facility] WBC (Bld) [#/Vol] 3.4 10*3/uL 4.4-11.0 [facility] Determination of erythrocyte mean corpuscular volume (MCV)Ordered By: Jazmin Enriquez on 09-16-2023 MCV (RBC) [Entitic vol] 95.5 fL 81-99 [facility] Erythrocyte distribution wid th ratioOrdered By: Jazmin Enriquez on 09-16-2023 Erythrocyte distribution width (RBC) [Ratio] 13.2 % 11.6-14.6 [facility] Erythrocyte distribution wid th standard deviationOrdered By: Jazmin Enriquez on 09-16-2023 Erythrocyte distribution width (RBC) [Entitic vol] 45.5 fL 35.1-43.9 [facility] Hematocrit Auto (Bld) [Volum e fraction]Ordered By: Jazmin Enriquez on 09-16-2023 Hematocrit (Bld) [Volume fraction] 31.6 % 37-47 [facility] Immature granulocytes/100 WB C Auto (Bld)Ordered By: Jazmin Enriquez on 09-16-2023 Immature granulocytes/100 WBC (Bld) 0.300 % 0.0-0.9 [facility] Comment on above: IG% - Immature Granu locytes (promyelocytes, myelocytes and metamyelocytes) > 1% indicates that a LEFT SHIFT is Present. Laboratory - Chemistry and C hemistry - challengeOrdered By: Jazmin Enriquez on 09-16-2023 CO2 [Moles/Vol] 21.0 mmol/L 21.0-32.0 [facility] Urea nitrogen/Creatinine [Mass ratio] 13.7 mg/mg 10-20 [facility] Laboratory - CoagulationOrde red By: Jazmin Enriquez on 09-16-2023 INR Coag (Bld) [Relative time] 1.2 {INR} [facility] PT Coag (PPP) [Time] 15.0 s 11.7-14.9 [facility] Laboratory - Hematology and Cell countsOrdered By: Jazmin Enriquez on 09-16-2023 MCH (RBC) [Entitic mass] 31.4 pg 27.0-32.0 [facility] MCHC (RBC) [Mass/Vol] 32.9 g/dL 32-36 [facility] Nucleated RBC/100 WBC (Bld) [Ratio] 0 % 0-5 [facility] Platelet mean volume (Bld) [Entitic vol] 9.6 fL 6.2-12.0 [facility] Platelets (Bld) [#/Vol] 218 10*3/uL 150-450 [facility] No Panel InformationOrdered By: Jazmin Enriquez on 09-16-2023 Estimated GFR (MDRD) Amer 57 mL/min >60 [facility] Comment on above: GFR Calc Estimated GFR (MDRD) Non-Af Amer 47 mL/min >60 [facility] Comment on above: Non- GFR Calc RBC Auto (Bld) [#/Vol]Ordere d By: Jazmin Enriquez on 09-16-2023 RBC (Bld) [#/Vol] 3.31 10*6/uL 4.2-5.4 [facility] Serum or plasma calcium leona urement (mass/volume)Ordered By: Jazmin Enriquez on 09-16-2023 Calcium [Mass/Vol] 9.1 mg/dL 8.5-10.1 [facility] Serum or plasma creatinine m easurement (mass/volume)Ordered By: Jazmin Enriquez on 09-16-2023 Creatinine [Mass/Vol] 1.24 mg/dL 0.55-1.02 [facility] Comment on above: The validity of the calculated GFR & GFRAA in patients over 70 years has not been determined. Clinical correlation is essential. Serum or plasma urea nitroge n measurement (mass/volume)Ordered By: Jazmin Enriquez on 09-16-2023 Urea nitrogen [Mass/Vol] 17 mg/dL 7-18 [facility] Thin prep Papanicolaou smear with manual screeningOrdered By: Jazmin Enriquez on 09-16-2023 Protein (U) [Mass/Vol] 62.2 mg/dL 0.0-11.8 [facility] Thin prep Papanicolaou smear with manual screening 3.5 g/dL 3.2-5.0 [facility] Thin prep Papanicolaou smear with manual screening 4 5-15 [facility] Urine creatinine measurement (mass/volume)Ordered By: Jazmin Enriquez on 09-16-2023 Creatinine (U) [Mass/Vol] 94.20 mg/dL NO RANGE EST. [facility] Urine protein/creatinine mas s ratioOrdered By: Jazmin Enriquez on 09-16-2023 Protein/Creatinine (U) [Mass ratio] 660 mg/g CRE 0-200 [facility] 24 hour urine protein measur ement (mass/time)Ordered By: Nahomi Lobato on 09-14-2023 Protein (24H U) [Mass/Time] 188.1 mg/24HR 0-151 [facility] Creatinine clearanceOrdered By: Nahomi Lobato on 09-14-2023 Creatinine renal clearance Unsp time (U+S/P) [Vol/Time] 17 ml/min 100-200 [facility] Laboratory - Specimen inform ationOrdered By: Nahomi Lobato on 09-14-2023 Collection duration (U) 24.0 HOURS 24.0-24.0 [facility] Comment on above: *Additional results available. Contact laboratory/see report* Laboratory - UrinalysisOrder ed By: Nahomi Lobato on 09-14-2023 Protein (U) [Mass/Vol] 20.9 mg/dL 0.0-11.8 [facility] No Panel InformationOrdered By: Nahomi Lobato on 09-14-2023 Timed Urine Volume 900 mL [facility] Comment on above: *Additional results available. Contact laboratory/see report* Basophil percentageOrdered B y: Roosevelt Ahmadi on 08-14-2023 Bilirubin [Mass/Vol] 0.40 mg/dL 0.20-1.00 [facility] Comment on above: For patients on eltr ombopag therapy, use of Dimension Hunker TBIL is not recommended. Chloride [Moles/Vol] 113 mmol/L 98-107 [facility] Cholesterol [Mass/Vol] 126 mg/dL <200 [facility] Comment on above: <200 mg/dL Desirable 200-240 mg/dL Borderline >240 mg/dL High Risk Glucose [Mass/Vol] 88 mg/dL 74-106 [facility] Hemoglobin (Bld) [Mass/Vol] 11.2 g/dL 12.0-15.0 [facility] Potassium [Moles/Vol] 4.6 mmol/L 3.5-5.1 [facility] Protein [Mass/Vol] 7.5 g/dL 6.4-8.2 [facility] Sodium [Moles/Vol] 138 mmol/L 136-145 [facility] Triglyceride [Mass/Vol] 155 mg/dL <199 [facility] Comment on above: The drugs N-Acetylcy steine and Metamizole may falsely depress this assay.Serum Triglycerides Reference Interval Normal <150 mg/dL Borderline high 150 - 199 mg/dL High 200 - 499 mg/dL Very High > or = 500 mg/dL WBC (Bld) [#/Vol] 4.9 10*3/uL 4.4-11.0 [facility] Determination of erythrocyte mean corpuscular volume (MCV)Ordered By: Roosevelt Ahmadi on 08-14-2023 MCV (RBC) [Entitic vol] 96.1 fL 81-99 [facility] Erythrocyte distribution wid th ratioOrdered By: Roosevelt Ahmadi on 08-14-2023 Erythrocyte distribution width (RBC) [Ratio] 13.3 % 11.6-14.6 [facility] Erythrocyte distribution wid th standard deviationOrdered By: Roosevelt Ahmadi on 08-14-2023 Erythrocyte distribution width (RBC) [Entitic vol] 47.3 fL 35.1-43.9 [facility] Hematocrit Auto (Bld) [Volum e fraction]Ordered By: Roosevelt Ahmadi on 08-14-2023 Hematocrit (Bld) [Volume fraction] 34.3 % 37-47 [facility] Laboratory - Chemistry and C hemistry - challengeOrdered By: Roosevelt Ahmadi on 08-14-2023 Albumin/Globulin [Mass ratio] 0.7 {ratio} 0.9-2.4 [facility] ALP [Catalytic activity/Vol] 72 U/L 45-117 [facility] ALT [Catalytic activity/Vol] 19 U/L 13-56 [facility] Cholesterol in HDL [Mass/Vol] 30 mg/dL >40 [facility] Comment on above: The drugs N-Acetylcy steine and Metamizole may falsely depress this assay. Reference Range HDL <40 mg/dL Low HDL Cholesterol HDL >or= 60 mg/dL High HDL Cholesterol Cholesterol in LDL [Mass/Vol] 65 mg/dL 0-130 [facility] CO2 [Moles/Vol] 17.0 mmol/L 21.0-32.0 [facility] Globulin (S) [Mass/Vol] 4.4 g/dL 2.2-4.2 [facility] Urea nitrogen/Creatinine [Mass ratio] 17.5 mg/mg 10-20 [facility] Laboratory - Hematology and Cell countsOrdered By: Roosevelt Ahmadi on 08-14-2023 MCH (RBC) [Entitic mass] 31.4 pg 27.0-32.0 [facility] MCHC (RBC) [Mass/Vol] 32.7 g/dL 32-36 [facility] Platelet mean volume (Bld) [Entitic vol] 9.5 fL 6.2-12.0 [facility] Platelets (Bld) [#/Vol] 239 10*3/uL 150-450 [facility] No Panel InformationOrdered By: Roosevelt Ahmadi on 08-14-2023 Estimated Creatinine Clearance Calc 50.22 ml/min [facility] Estimated GFR (MDRD) Amer 62 mL/min >60 [facility] Comment on above: GFR Calc Estimated GFR (MDRD) Non-Af Amer 52 mL/min >60 [facility] Comment on above: Non- GFR Calc VLDL Cholesterol 31 mg/dL 5-40 [facility] RBC Auto (Bld) [#/Vol]Ordere d By: Roosevelt Ahmadi on 08-14-2023 RBC (Bld) [#/Vol] 3.57 10*6/uL 4.2-5.4 [facility] Serum or plasma calcium leona urement (mass/volume)Ordered By: Roosevelt Ahmadi on 08-14-2023 Calcium [Mass/Vol] 9.0 mg/dL 8.5-10.1 [facility] Serum or plasma creatinine m easurement (mass/volume)Ordered By: Roosevelt Ahmadi on 08-14-2023 Creatinine [Mass/Vol] 1.14 mg/dL 0.55-1.02 [facility] Comment on above: The validity of the calculated GFR & GFRAA in patients over 70 years has not been determined. Clinical correlation is essential. Serum or plasma urea nitroge n measurement (mass/volume)Ordered By: Roosevelt Ahmadi on 08-14-2023 Urea nitrogen [Mass/Vol] 20 mg/dL 7-18 [facility] Thin prep Papanicolaou smear with manual screeningOrdered By: Roosevelt Ahmadi on 08-14-2023 Thin prep Papanicolaou smear with manual screening 3.1 g/dL 3.2-5.0 [facility] Thin prep Papanicolaou smear with manual screening 27 U/L 15-37 [facility] Thin prep Papanicolaou smear with manual screening 8 5-15 [facility] Base excessOrdered By: Rosie Ahmadi on 08-13-2023 Base excess Calc (BldV) [Moles/Vol] -9 mmol/L -1.0-3.5 [facility] Base excess Calc (BldV) [Moles/Vol] -10 mmol/L -2-2 [facility] Basophil percentageOrdered B y: Roosevelt Ahmadi on 08-13-2023 Basophil percentage 17 mmol/L [facility] Basophils/100 WBC (Bld) 98 % 95-99 [facility] CO2 (BldV) [Moles/Vol]Ordere d By: Roosevelt Ahmadi on 08-13-2023 CO2 [Moles/Vol] 18 mmol/L 23-33 [facility] Laboratory - Chemistry and C hemistry - challengeOrdered By: Roosevelt Ahmadi on 08-13-2023 HCO3 (Bld) [Moles/Vol] 17 mmol/L 22- [facility] Measurement, pHOrdered By: Regulo Ahmadi on 08-13-2023 pH (Unsp spec) 7.37 [pH] 7.35-7.45 [facility] No Panel InformationOrdered By: Roosevelt Ahmadi on 08-13-2023 Blood Gas Sample Site Not entered [facility] Blood Gas Specimen Type ITALO [facility] Oxygen Delivery Device Not entered [facility] Arterial Blood Partial Pressure CO2 27.5 mmHg 35-45 [facility] Arterial Blood Partial Pressure O2 101 mmHG 75-100 [facility] Blood Gas Bicarbonate Actual 15.8 mmol/L [facility] Blood Gas Vent Mode Not entered [facility] Activated Clotting Time 298 sec 74-137 [facility] PCO2 venousOrdered By: Rosie Ahmadi on 08-13-2023 CO2 (BldV) [Partial pressure] 30.9 mm[Hg] 41-51 [facility] PO2 venousOrdered By: Roosevelt Ahmadi on 08-13-2023 Oxygen (BldV) [Partial pressure] 37 mm[Hg] 25-40 [facility] Venous blood pH measurementO rdered By: Roosevelt Ahmadi on 08-13-2023 pH (BldV) 7.34 [pH] 7.32-7.42 [facility] Vital signsOrdered By: Rosie Ahmadi on 08-13-2023 Oxygen saturation in Blood 68 % 50-70 [facility] Absolute lymphocyte countOrd ered By: Aixa Ibanez on 08-03-2023 Lymphocytes Auto (Unsp spec) [#/Vol] 0.76 10*3/uL 0.83-4.51 [facility] Automated lymphocyte count a s percentage of total leukocytesOrdered By: Aixa Ibanez on 08-03-2023 Lymphocytes/100 WBC Auto (Unsp spec) 15.0 % 19-41 [facility] Basophil percentageOrdered B y: Aixa Ibanez on 08-03-2023 Basophils/100 WBC (Bld) 0.4 % 0-1 [facility] Bilirubin [Mass/Vol] 0.30 mg/dL 0.20-1.00 [facility] Comment on above: For patients on eltr ombopag therapy, use of Dimension [place]er TBIL is not recommended. Chloride [Moles/Vol] 110 mmol/L 98-107 [facility] Eosinophils/100 WBC (Bld) 0.6 % 0-5 [facility] Glucose [Mass/Vol] 102 mg/dL 74-106 [facility] Comment on above: Fasting Glucose resu lt from 100 to 125 mg/dL suggests IMPAIRED HOMEOSTASIS per A.D.A. criteria. Hemoglobin (Bld) [Mass/Vol] 10.9 g/dL 12.0-15.0 [facility] Monocytes/100 WBC (Bld) 14.2 % 0-10 [facility] Neutrophils (Bld) [#/Vol] 3.5 10*3/uL 2.0-7.7 [facility] Neutrophils/100 WBC (Bld) 69.4 % 47-70 [facility] Potassium [Moles/Vol] 4.1 mmol/L 3.5-5.1 [facility] Protein [Mass/Vol] 7.6 g/dL 6.4-8.2 [facility] Sodium [Moles/Vol] 135 mmol/L 136-145 [facility] WBC (Bld) [#/Vol] 5.1 10*3/uL 4.4-11.0 [facility] Bilirubin Test strip Ql (U)O rdered By: Aixa Ibanez on 08-03-2023 Bilirubin Ql (U) Negative Negative [facility] Determination of erythrocyte mean corpuscular volume (MCV)Ordered By: Aixa Ibanez on 08-03-2023 MCV (RBC) [Entitic vol] 97.4 fL 81-99 [facility] Erythrocyte distribution wid th ratioOrdered By: Aixa Ibanez on 08-03-2023 Erythrocyte distribution width (RBC) [Ratio] 13.6 % 11.6-14.6 [facility] Erythrocyte distribution wid th standard deviationOrdered By: Aixa Ibanez on 08-03-2023 Erythrocyte distribution width (RBC) [Entitic vol] 48.2 fL 35.1-43.9 [facility] Hematocrit Auto (Bld) [Volum e fraction]Ordered By: Aixa Ibanez on 08-03-2023 Hematocrit (Bld) [Volume fraction] 33.8 % 37-47 [facility] Immature granulocytes/100 WB C Auto (Bld)Ordered By: Aixa Ibanez on 08-03-2023 Immature granulocytes/100 WBC (Bld) 0.400 % 0.0-0.9 [facility] Comment on above: IG% - Immature Granu locytes (promyelocytes, myelocytes and metamyelocytes) > 1% indicates that a LEFT SHIFT is Present. Ketones Test strip Ql (U)Ord ered By: Aixa Ibanez on 08-03-2023 Ketones Ql (U) Negative Negative [facility] Laboratory - Chemistry and C hemistry - challengeOrdered By: Aixa Ibanez on 08-03-2023 Albumin/Globulin [Mass ratio] 0.7 {ratio} 0.9-2.4 [facility] ALP [Catalytic activity/Vol] 69 U/L 45-117 [facility] ALT [Catalytic activity/Vol] 26 U/L 13-56 [facility] CO2 [Moles/Vol] 20.0 mmol/L 21.0-32.0 [facility] Globulin (S) [Mass/Vol] 4.4 g/dL 2.2-4.2 [facility] Urea nitrogen/Creatinine [Mass ratio] 17.3 mg/mg 10-20 [facility] Laboratory - Hematology and Cell countsOrdered By: Aixa Ibanez on 08-03-2023 MCH (RBC) [Entitic mass] 31.4 pg 27.0-32.0 [facility] MCHC (RBC) [Mass/Vol] 32.2 g/dL 32-36 [facility] Nucleated RBC/100 WBC (Bld) [Ratio] 0 % 0-5 [facility] Platelet mean volume (Bld) [Entitic vol] 9.4 fL 6.2-12.0 [facility] Platelets (Bld) [#/Vol] 239 10*3/uL 150-450 [facility] Nitrite Test strip Ql (U)Ord ered By: Aixa Ibanez on 08-03-2023 Nitrite Ql (U) Negative Negative [facility] No Panel InformationOrdered By: Aixa Ibanez on 08-03-2023 Complement C3 93 mg/dL 82-167 [facility] Comment on above: Performed at: - [facility] [address] [id number] Director: Moreno Marroquin PhD, Phone: [phone] Estimated GFR (MDRD) Amer 69 mL/min >60 [facility] Comment on above: GFR Calc Estimated GFR (MDRD) Non-Af Amer 57 mL/min >60 [facility] Comment on above: Non- GFR Calc Protein Test strip Ql (U)Ord ered By: Aixa Ibanez on 08-03-2023 Protein Ql (U) 100 mg/dl Negative [facility] RBC Auto (Bld) [#/Vol]Ordere d By: Aixa Ibanez on 08-03-2023 RBC (Bld) [#/Vol] 3.47 10*6/uL 4.2-5.4 [facility] Serum DNA double strand anti body assay (units/volume)Ordered By: Aixa Ibanez on 08-03-2023 DNA double strand Ab Qn (S) 1 [IU]/mL 0-9 [facility] Comment on above: Negative <5 Equivoca l 5 - 9 Positive >9Performed at: - [facility] [address] [id number] Director: Moreno Marroquin PhD, Phone: [phone] Serum or plasma calcium leona urement (mass/volume)Ordered By: Aixa Ibanez on 08-03-2023 Calcium [Mass/Vol] 8.8 mg/dL 8.5-10.1 [facility] Serum or plasma complement C 4 measurement (mass/volume)Ordered By: Aixa Ibanez on 08-03-2023 Complement C4 [Mass/Vol] 29 mg/dL 12-38 [facility] [facility] Serum or plasma creatinine m easurement (mass/volume)Ordered By: Aixa Ibanez on 08-03-2023 Creatinine [Mass/Vol] 1.04 mg/dL 0.55-1.02 [facility] Comment on above: The validity of the calculated GFR & GFRAA in patients over 70 years has not been determined. Clinical correlation is essential. Serum or plasma urea nitroge n measurement (mass/volume)Ordered By: Aixa Ibanez on 08-03-2023 Urea nitrogen [Mass/Vol] 18 mg/dL 7-18 [facility] Thin prep Papanicolaou smear with manual screeningOrdered By: Aixa Ibanez on 08-03-2023 Protein (U) [Mass/Vol] 82.7 mg/dL 0.0-11.8 [facility] Thin prep Papanicolaou smear with manual screening 3.2 g/dL 3.2-5.0 [facility] Thin prep Papanicolaou smear with manual screening 30 U/L 15-37 [facility] Thin prep Papanicolaou smear with manual screening 5 5-15 [facility] Urine blood detectionOrdered By: Aixa Ibanez on 08-03-2023 RBC Ql (U) Negative Negative [facility] Urine clarityOrdered By: Kingsley Ibanez on 08-03-2023 Clarity (U) Clear Clear [facility] Urine color determinationOrd ered By: Aixa Ibanez on 08-03-2023 Color (U) Yellow Yellow [facility] Urine creatinine measurement (mass/volume)Ordered By: Aixa Ibanez on 08-03-2023 Creatinine (U) [Mass/Vol] 77.60 mg/dL NO RANGE EST. [facility] Urine glucose detectionOrder ed By: Aixa Ibanez on 08-03-2023 Glucose Ql (U) Normal mg/dl Normal [facility] Urine leukocyte esterase det ection by dipstickOrdered By: Aixa Ibanez on 08-03-2023 Leukocyte esterase Test strip Ql (U) Negative Negative [facility] Urine pHOrdered By: Aixa fang on 08-03-2023 pH (U) 6.0 [pH] 5.0 - 8.0 [facility] Urine protein/creatinine mas s ratioOrdered By: Aixa Ibanez on 08-03-2023 Protein/Creatinine (U) [Mass ratio] 1066 mg/g CRE 0-200 [facility] Urine specific gravity measu rementOrdered By: Aixa Ibanez on 08-03-2023 Specific gravity (U) [Rel density] 1.015 1.002-1.030 [facility] Urine urobilinogen measureme ntOrdered By: Aixa Ibanez on 08-03-2023 Urobilinogen Ql (U) Normal mg/dl Normal [facility] Basophil percentageOrdered B y: Nahomi Lobato on 07-14-2023 Basophil percentage 3.2 mg/dL 2.5-4.9 [facility] Chloride [Moles/Vol] 107 mmol/L 98-107 [facility] Glucose [Mass/Vol] 109 mg/dL 74-106 [facility] Comment on above: Fasting Glucose resu lt from 100 to 125 mg/dL suggests IMPAIRED HOMEOSTASIS per A.D.A. criteria. Hemoglobin (Bld) [Mass/Vol] 10.7 g/dL 12.0-15.0 [facility] Potassium [Moles/Vol] 3.8 mmol/L 3.5-5.1 [facility] Sodium [Moles/Vol] 134 mmol/L 136-145 [facility] WBC (Bld) [#/Vol] 8.5 10*3/uL 4.4-11.0 [facility] Determination of erythrocyte mean corpuscular volume (MCV)Ordered By: Nahomi Lobato on 07-14-2023 MCV (RBC) [Entitic vol] 98.3 fL 81-99 [facility] Erythrocyte distribution wid th ratioOrdered By: Nahomi Lobato on 07-14-2023 Erythrocyte distribution width (RBC) [Ratio] 13.4 % 11.6-14.6 [facility] Erythrocyte distribution wid th standard deviationOrdered By: Nahomi Lobato on 07-14-2023 Erythrocyte distribution width (RBC) [Entitic vol] 48.0 fL 35.1-43.9 [facility] Hematocrit Auto (Bld) [Volum e fraction]Ordered By: Nahomi Lobato on 07-14-2023 Hematocrit (Bld) [Volume fraction] 33.8 % 37-47 [facility] Laboratory - Chemistry and C hemistry - challengeOrdered By: Nahomi Lobato on 07-14-2023 CO2 [Moles/Vol] 25.0 mmol/L 21.0-32.0 [facility] Urea nitrogen/Creatinine [Mass ratio] 20.7 mg/mg 10-20 [facility] Laboratory - Hematology and Cell countsOrdered By: Nahomi Lobato on 07-14-2023 MCH (RBC) [Entitic mass] 31.1 pg 27.0-32.0 [facility] MCHC (RBC) [Mass/Vol] 31.7 g/dL 32-36 [facility] Platelet mean volume (Bld) [Entitic vol] 9.0 fL 6.2-12.0 [facility] Platelets (Bld) [#/Vol] 302 10*3/uL 150-450 [facility] No Panel InformationOrdered By: Nahomi Lobato on 07-14-2023 Estimated GFR (MDRD) Amer 76 mL/min >60 [facility] Comment on above: GFR Calc Estimated GFR (MDRD) Non-Af Amer 63 mL/min >60 [facility] Comment on above: Non- GFR Calc RBC Auto (Bld) [#/Vol]Ordere d By: Nahomi Lobato on 07-14-2023 RBC (Bld) [#/Vol] 3.44 10*6/uL 4.2-5.4 [facility] Serum or plasma calcium leona urement (mass/volume)Ordered By: Nahomi Lobato on 07-14-2023 Calcium [Mass/Vol] 9.0 mg/dL 8.5-10.1 [facility] Serum or plasma creatinine m easurement (mass/volume)Ordered By: Nahomi Lobato on 07-14-2023 Creatinine [Mass/Vol] 0.96 mg/dL 0.55-1.02 [facility] Comment on above: The validity of the calculated GFR & GFRAA in patients over 70 years has not been determined. Clinical correlation is essential. Serum or plasma urea nitroge n measurement (mass/volume)Ordered By: Nahomi Lobato on 07-14-2023 Urea nitrogen [Mass/Vol] 20 mg/dL 7-18 [facility] Thin prep Papanicolaou smear with manual screeningOrdered By: Nahomi Lobato on 07-14-2023 Protein (U) [Mass/Vol] 52.8 mg/dL 0.0-11.8 [facility] Thin prep Papanicolaou smear with manual screening 3.0 g/dL 3.2-5.0 [facility] Urine creatinine measurement (mass/volume)Ordered By: Nahomi Lobato on 07-14-2023 Creatinine (U) [Mass/Vol] 13.80 mg/dL NO RANGE EST. [facility] Urine protein/creatinine mas s ratioOrdered By: Nahomi Lobato on 07-14-2023 Protein/Creatinine (U) [Mass ratio] 3826 mg/g CRE 0-200 [facility] Activated partial thrombopla stin time (aPTT) in platelet poor plasma by coagulation aOrdered By: Nahomi Lobato on 06-24-2023 aPTT Coag (PPP) [Time] 41.8 s 24.1-36.2 [facility] Basophil percentageOrdered B y: Nahomi Lobato on 06-24-2023 Basophil percentage 3.7 mg/dL 2.5-4.9 [facility] Chloride [Moles/Vol] 107 mmol/L 98-107 [facility] Glucose [Mass/Vol] 102 mg/dL 74-106 [facility] Comment on above: Fasting Glucose resu lt from 100 to 125 mg/dL suggests IMPAIRED HOMEOSTASIS per A.D.A. criteria. Hemoglobin (Bld) [Mass/Vol] 11.7 g/dL 12.0-15.0 [facility] Potassium [Moles/Vol] 3.7 mmol/L 3.5-5.1 [facility] Sodium [Moles/Vol] 138 mmol/L 136-145 [facility] WBC (Bld) [#/Vol] 7.9 10*3/uL 4.4-11.0 [facility] Determination of erythrocyte mean corpuscular volume (MCV)Ordered By: Nahomi Lobato on 06-24-2023 MCV (RBC) [Entitic vol] 101.1 fL 81-99 [facility] Erythrocyte distribution wid th ratioOrdered By: Nahomi Lobato on 06-24-2023 Erythrocyte distribution width (RBC) [Ratio] 14.1 % 11.6-14.6 [facility] Erythrocyte distribution wid th standard deviationOrdered By: Nahomi Lobato on 06-24-2023 Erythrocyte distribution width (RBC) [Entitic vol] 52.4 fL 35.1-43.9 [facility] Erythrocyte sedimentation ra teOrdered By: Nahomi Lobato on 06-24-2023 ESR (Bld) [Velocity] 11 mm/h 0-30 [facility] Hematocrit Auto (Bld) [Volum e fraction]Ordered By: Nahomi Lobato on 06-24-2023 Hematocrit (Bld) [Volume fraction] 37.5 % 37-47 [facility] International normalized rat io (INR) calculationOrdered By: Nahomi Lobato on 06-24-2023 INR Coag (PPP) [Relative time] 1.0 {INR} [facility] Laboratory - Chemistry and C hemistry - challengeOrdered By: Nahomi Lobato on 06-24-2023 CO2 [Moles/Vol] 26.0 mmol/L 21.0-32.0 [facility] Urea nitrogen/Creatinine [Mass ratio] 20.6 mg/mg 10-20 [facility] Laboratory - CoagulationOrde red By: Nahomi Lobato on 06-24-2023 PT Coag (PPP) [Time] 13.2 s 11.7-14.9 [facility] Laboratory - Hematology and Cell countsOrdered By: Nahomi Lobato on 06-24-2023 MCH (RBC) [Entitic mass] 31.5 pg 27.0-32.0 [facility] MCHC (RBC) [Mass/Vol] 31.2 g/dL 32-36 [facility] Platelets (Bld) [#/Vol] 318 10*3/uL 150-450 [facility] No Panel InformationOrdered By: Nahomi Lobato on 06-24-2023 Estimated GFR (MDRD) Amer 67 mL/min >60 [facility] Comment on above: GFR Calc Estimated GFR (MDRD) Non-Af Amer 56 mL/min >60 [facility] Comment on above: Non- GFR Calc Platelet mean volume Aries-Ec ker (Bld) [Entitic vol]Ordered By: Nahomi Lobato on 06-24-2023 Platelet mean volume (Bld) [Entitic vol] 9.1 fL 6.2-12.0 [facility] RBC Auto (Bld) [#/Vol]Ordere d By: Nahomi Lobato on 06-24-2023 RBC (Bld) [#/Vol] 3.71 10*6/uL 4.2-5.4 [facility] Serum or plasma calcium leona urement (mass/volume)Ordered By: Nahomi Lobato on 06-24-2023 Calcium [Mass/Vol] 8.7 mg/dL 8.5-10.1 [facility] Serum or plasma creatinine m easurement (mass/volume)Ordered By: Nahomi Lobato on 06-24-2023 Creatinine [Mass/Vol] 1.07 mg/dL 0.55-1.02 [facility] Comment on above: The validity of the calculated GFR & GFRAA in patients over 70 years has not been determined. Clinical correlation is essential. Serum or plasma urea nitroge n measurement (mass/volume)Ordered By: Nahomi Lobato on 06-24-2023 Urea nitrogen [Mass/Vol] 22 mg/dL 7-18 [facility] Thin prep Papanicolaou smear with manual screeningOrdered By: Nahomi Lobato on 06-24-2023 Thin prep Papanicolaou smear with manual screening 3.0 g/dL 3.2-5.0 [facility] Absolute lymphocyte countOrd ered By: Juan Norwood on 06-02-2023 Lymphocytes Auto (Unsp spec) [#/Vol] 1.12 10*3/uL 0.83-4.51 [facility] Basophil percentageOrdered B y: Juan Norwood on 06-02-2023 Basophils/100 WBC (Bld) 0.1 % 0-1 [facility] Chloride [Moles/Vol] 111 mmol/L 98-107 [facility] Eosinophils/100 WBC (Bld) 0.1 % 0-5 [facility] Glucose [Mass/Vol] 114 mg/dL 74-106 [facility] Comment on above: Fasting Glucose resu lt from 100 to 125 mg/dL suggests IMPAIRED HOMEOSTASIS per A.D.A. criteria. Lactate [Moles/Vol] 1.4 mmol/L 0.4-2.0 [facility] Neutrophils (Bld) [#/Vol] 8.8 10*3/uL 2.0-7.7 [facility] Neutrophils/100 WBC (Bld) 83.3 % 47-70 [facility] Potassium [Moles/Vol] 4.6 mmol/L 3.5-5.1 [facility] Sodium [Moles/Vol] 136 mmol/L 136-145 [facility] WBC (Bld) [#/Vol] 10.6 10*3/uL 4.4-11.0 [facility] Blood erythrocytes count (nu mber/volume)Ordered By: Juan Norwood on 06-02-2023 RBC (Bld) [#/Vol] 3.48 10*6/uL 4.2-5.4 [facility] Blood hemoglobin measurement (mass/volume)Ordered By: Juan Norwood on 06-02-2023 Hemoglobin (Bld) [Mass/Vol] 10.8 g/dL 12.0-15.0 [facility] Blood lymphocytes/100 leukoc ytesOrdered By: Juan Norwood on 06-02-2023 Lymphocytes/100 WBC (Bld) 10.6 % 19-41 [facility] Blood monocytes/100 leukocyt esOrdered By: Juan Norwood on 06-02-2023 Monocytes/100 WBC (Bld) 5.5 % 0-10 [facility] Blood platelet mean volumeOr dered By: Juna Norwood on 06-02-2023 Platelet mean volume (Bld) [Entitic vol] 9.5 fL 6.2-12.0 [facility] Determination of erythrocyte mean corpuscular volume (MCV)Ordered By: Juan Norwood on 06-02-2023 MCV (RBC) [Entitic vol] 99.1 fL 81-99 [facility] Hematocrit Auto (Bld) [Volum e fraction]Ordered By: Juan Norwood on 06-02-2023 Hematocrit (Bld) [Volume fraction] 34.5 % 37-47 [facility] Laboratory - Chemistry and C hemistry - challengeOrdered By: Juan Norwood on 06-02-2023 CO2 [Moles/Vol] 20.0 mmol/L 21.0-32.0 [facility] Urea nitrogen/Creatinine [Mass ratio] 24.5 mg/mg 10-20 [facility] Laboratory - Hematology and Cell countsOrdered By: Juan Norwood on 06-02-2023 Erythrocyte distribution width (RBC) [Entitic vol] 51.6 fL 35.1-43.9 [facility] Erythrocyte distribution width (RBC) [Ratio] 14.6 % 11.6-14.6 [facility] Immature granulocytes/100 WBC (Bld) 0.400 % 0.0-0.9 [facility] Comment on above: IG% - Immature Granu locytes (promyelocytes, myelocytes and metamyelocytes) > 1% indicates that a LEFT SHIFT is Present. MCH (RBC) [Entitic mass] 31.0 pg 27.0-32.0 [facility] Nucleated RBC/100 WBC (Bld) [Ratio] 0 % 0-5 [facility] MCHC Auto (RBC) [Mass/Vol]Or dered By: Juan Norwood on 06-02-2023 MCHC (RBC) [Mass/Vol] 31.3 g/dL 32-36 [facility] No Panel InformationOrdered By: Juan Norwood on 06-02-2023 Estimated GFR (MDRD) Amer 41 mL/min >60 [facility] Comment on above: GFR Calc Estimated GFR (MDRD) Non-Af Amer 34 mL/min >60 [facility] Comment on above: Non- GFR Calc Platelets bldOrdered By: Bridget Norwood on 06-02-2023 Platelets (Bld) [#/Vol] 197 10*3/uL 150-450 [facility] Serum or plasma calcium leona urement (mass/volume)Ordered By: Juan Norwood on 06-02-2023 Calcium [Mass/Vol] 8.2 mg/dL 8.5-10.1 [facility] Serum or plasma creatinine m easurement (mass/volume)Ordered By: Juan Norwood on 06-02-2023 Creatinine [Mass/Vol] 1.63 mg/dL 0.55-1.02 [facility] Comment on above: The validity of the calculated GFR & GFRAA in patients over 70 years has not been determined. Clinical correlation is essential. Serum or plasma urea nitroge n measurement (mass/volume)Ordered By: Juan Norwood on 06-02-2023 Urea nitrogen [Mass/Vol] 40 mg/dL 7-18 [facility] Thin prep Papanicolaou smear with manual screeningOrdered By: Juan Norwood on 06-02-2023 Thin prep Papanicolaou smear with manual screening 5 5-15 [facility] Serum Scl-70 extractable nuc lear antibody assay (units/volume)Ordered By: Jonathan Clarke on 05-29-2023 SCL-70 extractable nuclear Ab Qn (S) <0.2 AI 0.0-0.9 [facility] Comment on above: Performed at: [address] [id number] Director: Moreno Marroquin PhD, Phone: [phone] Absolute lymphocyte countOrd ered By: Aixa Ibanez on 05-26-2023 Lymphocytes Auto (Unsp spec) [#/Vol] 1.08 10*3/uL 0.83-4.51 [facility] Basophil percentageOrdered B y: Aixa Ibanez on 05-26-2023 Basophils/100 WBC (Bld) 0.4 % 0-1 [facility] Bilirubin [Mass/Vol] 0.30 mg/dL 0.20-1.00 [facility] Comment on above: For patients on eltr ombopag therapy, use of Dimension Hunker TBIL is not recommended. Chloride [Moles/Vol] 108 mmol/L 98-107 [facility] Eosinophils/100 WBC (Bld) 0.4 % 0-5 [facility] Glucose [Mass/Vol] 99 mg/dL 74-106 [facility] Neutrophils (Bld) [#/Vol] 3.2 10*3/uL 2.0-7.7 [facility] Neutrophils/100 WBC (Bld) 65.4 % 47-70 [facility] Potassium [Moles/Vol] 4.0 mmol/L 3.5-5.1 [facility] Protein [Mass/Vol] 8.7 g/dL 6.4-8.2 [facility] Sodium [Moles/Vol] 137 mmol/L 136-145 [facility] WBC (Bld) [#/Vol] 4.9 10*3/uL 4.4-11.0 [facility] Bilirubin Test strip Ql (U)O rdered By: Aixa Ibanez on 05-26-2023 Bilirubin Ql (U) Negative Negative [facility] Blood erythrocytes count (nu mber/volume)Ordered By: Aixa Ibanez on 05-26-2023 RBC (Bld) [#/Vol] 3.48 10*6/uL 4.2-5.4 [facility] Blood hemoglobin measurement (mass/volume)Ordered By: Aixa Ibanez on 05-26-2023 Hemoglobin (Bld) [Mass/Vol] 10.5 g/dL 12.0-15.0 [facility] Blood lymphocytes/100 leukoc ytesOrdered By: Aixa Ibanez on 05-26-2023 Lymphocytes/100 WBC (Bld) 21.9 % 19-41 [facility] Blood monocytes/100 leukocyt esOrdered By: Aixa Ibanez on 05-26-2023 Monocytes/100 WBC (Bld) 11.5 % 0-10 [facility] Blood platelet mean volumeOr dered By: Aixa Ibanez on 05-26-2023 Platelet mean volume (Bld) [Entitic vol] 10.8 fL 6.2-12.0 [facility] Determination of erythrocyte mean corpuscular volume (MCV)Ordered By: Aixa Ibanez on 05-26-2023 MCV (RBC) [Entitic vol] 99.4 fL 81-99 [facility] Hematocrit Auto (Bld) [Volum e fraction]Ordered By: Aixa Ibanez on 05-26-2023 Hematocrit (Bld) [Volume fraction] 34.6 % 37-47 [facility] Ketones Test strip Ql (U)Ord ered By: Aixa Ibanez on 05-26-2023 Ketones Ql (U) Negative Negative [facility] Laboratory - Chemistry and C hemistry - challengeOrdered By: Aixa Ibanez on 05-26-2023 ALP [Catalytic activity/Vol] 91 U/L 45-117 [facility] ALT [Catalytic activity/Vol] 25 U/L 13-56 [facility] CO2 [Moles/Vol] 22.0 mmol/L 21.0-32.0 [facility] Globulin (S) [Mass/Vol] 5.7 g/dL 2.2-4.2 [facility] Urea nitrogen/Creatinine [Mass ratio] 16.4 mg/mg 10-20 [facility] Laboratory - Hematology and Cell countsOrdered By: Aixa Ibanez on 05-26-2023 Erythrocyte distribution width (RBC) [Entitic vol] 50.6 fL 35.1-43.9 [facility] Erythrocyte distribution width (RBC) [Ratio] 14.0 % 11.6-14.6 [facility] Immature granulocytes/100 WBC (Bld) 0.400 % 0.0-0.9 [facility] Comment on above: IG% - Immature Granu locytes (promyelocytes, myelocytes and metamyelocytes) > 1% indicates that a LEFT SHIFT is Present. MCH (RBC) [Entitic mass] 30.2 pg 27.0-32.0 [facility] Nucleated RBC/100 WBC (Bld) [Ratio] 0 % 0-5 [facility] MCHC Auto (RBC) [Mass/Vol]Or dered By: Aixa Ibanez on 05-26-2023 MCHC (RBC) [Mass/Vol] 30.3 g/dL 32-36 [facility] Nitrite Test strip Ql (U)Ord ered By: Aixa Ibanez on 05-26-2023 Nitrite Ql (U) Negative Negative [facility] No Panel InformationOrdered By: Aixa Ibanez on 05-26-2023 Estimated GFR (MDRD) Amer 61 mL/min >60 [facility] Comment on above: GFR Calc Estimated GFR (MDRD) Non-Af Amer 51 mL/min >60 [facility] Comment on above: Non- GFR Calc Platelets bldOrdered By: Kingsley Ibanez on 05-26-2023 Platelets (Bld) [#/Vol] 199 10*3/uL 150-450 [facility] Protein Test strip Ql (U)Ord ered By: Aixa Ibanez on 05-26-2023 Protein Ql (U) 100 mg/dl Negative [facility] Qualitative QuantiFERON-TB g old in tube testOrdered By: Aixa Ibanez on 05-26-2023 M. tuberculosis tuberculin stim IFN-g Ql (Bld) 0.38 IU/mL . [facility] Serum DNA double strand anti body assay (units/volume)Ordered By: Aixa Ibanez on 05-26-2023 DNA double strand Ab Qn (S) 5 [IU]/mL 0-9 [facility] Comment on above: Negative <5 Equivoca l 5 - 9 Positive >9Performed at: [facility] [address] [id number] Director: Moreno Marroquin PhD, Phone: [phone] Serum or plasma albumin leona urement (mass/volume)Ordered By: Aixa Ibanez on 05-26-2023 Albumin [Mass/Vol] 3.0 g/dL 3.2-5.0 [facility] Serum or plasma albumin/glob ulin mass ratioOrdered By: Aixa Ibanez on 05-26-2023 Albumin/Globulin [Mass ratio] 0.5 {ratio} 0.9-2.4 [facility] Serum or plasma calcium leona urement (mass/volume)Ordered By: Aixa Ibanez on 05-26-2023 Calcium [Mass/Vol] 8.9 mg/dL 8.5-10.1 [facility] Serum or plasma complement C 3 measurement (mass/volume)Ordered By: Aixa Ibanez on 05-26-2023 Complement C3 [Mass/Vol] 81 mg/dL 82-167 [facility] Comment on above: Performed at: [facility] [address] [id number] Director: Moreno Marroquin PhD, Phone: [phone] Serum or plasma complement C 4 measurement (mass/volume)Ordered By: Aixa Ibanez on 05-26-2023 Complement C4 [Mass/Vol] 19 mg/dL 12-38 [facility] Serum or plasma creatinine m easurement (mass/volume)Ordered By: Aixa Ibanez on 05-26-2023 Creatinine [Mass/Vol] 1.16 mg/dL 0.55-1.02 [facility] Comment on above: The validity of the calculated GFR & GFRAA in patients over 70 years has not been determined. Clinical correlation is essential. Serum or plasma urea nitroge n measurement (mass/volume)Ordered By: Aixa Ibanez on 05-26-2023 Urea nitrogen [Mass/Vol] 19 mg/dL 7-18 [facility] Thin prep Papanicolaou smear with manual screeningOrdered By: Aixa Ibanez on 05-26-2023 Thin prep Papanicolaou smear with manual screening 38 U/L 15-37 [facility] Thin prep Papanicolaou smear with manual screening 7 5-15 [facility] Thin prep Papanicolaou smear with manual screening Comment . [facility] Comment on above: QuantiFERON-TB Gold Plus is a qualitative indirect test forM tuberculosis infection (including disease) and isintended for use in conjunction with risk assessment,radiography, and other medical and diagnostic evaluations.The QuantiFERON-TB Gold Plus result is determined bysubtracting the Nil value from either TB antigen (Ag)value. The Mitogen tube serves as a control for the test. Thin prep Papanicolaou smear with manual screening 0.42 IU/mL . [facility] Thin prep Papanicolaou smear with manual screening 1.19 IU/mL . [facility] Thin prep Papanicolaou smear with manual screening 0.30 IU/mL . [facility] Thin prep Papanicolaou smear with manual screening Indeterminate Negative [facility] Comment on above: Mitogen (positive co ntrol) gave low response. This mayoccur due to suboptimal pre-analytical handling.The specimen received for QuantiFERON testing was incubatedby the ordering institution. Specific procedures outlinedin our Directory of Services and in the package insert forthe QuantiFERON Gold (In Tube) test must be followed toenable for proper stimulation of cells for the productionof interferon gamma. Chemiluminescence immunoassaymethodology Urine blood detectionOrdered By: Aixa Ibanez on 05-26-2023 RBC Ql (U) 10 /ul Negative [facility] Urine clarityOrdered By: Kingsley Ibanez on 05-26-2023 Clarity (U) Clear Clear [facility] Urine color determinationOrd ered By: Aixa Ibanez on 05-26-2023 Color (U) Yellow Yellow [facility] Urine creatinine measurement (mass/volume)Ordered By: Aixa Ibanez on 05-26-2023 Creatinine (U) [Mass/Vol] 85.40 mg/dL NO RANGE EST. [facility] Urine glucose detectionOrder ed By: Aixa Ibanez on 05-26-2023 Glucose Ql (U) Normal mg/dl Normal [facility] Urine leukocyte esterase det ection by dipstickOrdered By: Aixa Ibanez on 05-26-2023 Leukocyte esterase Test strip Ql (U) 25 /ul Negative [facility] Urine pHOrdered By: Aixa fang on 05-26-2023 pH (U) 6.0 [pH] 5.0 - 8.0 [facility] Urine protein measurement (m ass/volume)Ordered By: Aixa Ibanez on 05-26-2023 Protein (U) [Mass/Vol] 204.4 mg/dL 0.0-11.8 [facility] Urine protein/creatinine mas s ratioOrdered By: Aixa Ibanez on 05-26-2023 Protein/Creatinine (U) [Mass ratio] 2393 mg/g CRE 0-200 [facility] Urine specific gravity measu rementOrdered By: Aixasoto Ibanez on 05-26-2023 Specific gravity (U) [Rel density] 1.015 1.002-1.030 [facility] Urobilinogen Auto test strip Ql (U)Ordered By: Aixa Ibanez on 05-26-2023 Urobilinogen Ql (U) Normal mg/dl Normal [facility] Absolute lymphocyte countOrd ered By: Nahomi Lobato on 05-11-2023 Lymphocytes Auto (Unsp spec) [#/Vol] 0.99 10*3/uL 0.83-4.51 [facility] Basophil percentageOrdered B y: Nahomi Lobato on 05-11-2023 Basophil percentage 3.9 mg/dL 2.5-4.9 [facility] Basophils/100 WBC (Bld) 0.7 % 0-1 [facility] Bilirubin [Mass/Vol] 0.30 mg/dL 0.20-1.00 [facility] Comment on above: For patients on eltr ombopag therapy, use of Dimension Hunker TBIL is not recommended. Chloride [Moles/Vol] 107 mmol/L 98-107 [facility] Eosinophils/100 WBC (Bld) 0.5 % 0-5 [facility] Glucose [Mass/Vol] 91 mg/dL 74-106 [facility] Neutrophils (Bld) [#/Vol] 2.6 10*3/uL 2.0-7.7 [facility] Neutrophils/100 WBC (Bld) 62.5 % 47-70 [facility] Potassium [Moles/Vol] 4.5 mmol/L 3.5-5.1 [facility] Protein [Mass/Vol] 8.7 g/dL 6.4-8.2 [facility] Sodium [Moles/Vol] 136 mmol/L 136-145 [facility] WBC (Bld) [#/Vol] 4.2 10*3/uL 4.4-11.0 [facility] Bilirubin Test strip Ql (U)O rdered By: Nahomi Lobato on 05-11-2023 Bilirubin Ql (U) Negative Negative [facility] Blood erythrocytes count (nu mber/volume)Ordered By: Nahomi Lobato on 05-11-2023 RBC (Bld) [#/Vol] 3.56 10*6/uL 4.2-5.4 [facility] Blood hemoglobin measurement (mass/volume)Ordered By: Nahomi Lobato on 05-11-2023 Hemoglobin (Bld) [Mass/Vol] 11.3 g/dL 12.0-15.0 [facility] Blood lymphocytes/100 leukoc ytesOrdered By: Nahomi Lobato on 05-11-2023 Lymphocytes/100 WBC (Bld) 23.8 % 19-41 [facility] Blood monocytes/100 leukocyt esOrdered By: Nahomi Lobato on 05-11-2023 Monocytes/100 WBC (Bld) 12.0 % 0-10 [facility] Blood platelet mean volumeOr dered By: Nahomi Lobato on 05-11-2023 Platelet mean volume (Bld) [Entitic vol] 10.5 fL 6.2-12.0 [facility] Determination of erythrocyte mean corpuscular volume (MCV)Ordered By: Nahomi Lobato on 05-11-2023 MCV (RBC) [Entitic vol] 102.0 fL 81-99 [facility] Hematocrit Auto (Bld) [Volum e fraction]Ordered By: Nahomi Lobato on 05-11-2023 Hematocrit (Bld) [Volume fraction] 36.3 % 37-47 [facility] Ketones Test strip Ql (U)Ord ered By: Nahomi Lobato on 05-11-2023 Ketones Ql (U) Negative Negative [facility] Laboratory - Chemistry and C hemistry - challengeOrdered By: Nahomi Lobato on 05-11-2023 ALP [Catalytic activity/Vol] 101 U/L 45-117 [facility] ALT [Catalytic activity/Vol] 22 U/L 13-56 [facility] CO2 [Moles/Vol] 24.0 mmol/L 21.0-32.0 [facility] Globulin (S) [Mass/Vol] 5.8 g/dL 2.2-4.2 [facility] Urea nitrogen/Creatinine [Mass ratio] 13.5 mg/mg 10-20 [facility] Laboratory - Hematology and Cell countsOrdered By: Nahomi Lobato on 05-11-2023 Erythrocyte distribution width (RBC) [Entitic vol] 51.9 fL 35.1-43.9 [facility] Erythrocyte distribution width (RBC) [Ratio] 13.8 % 11.6-14.6 [facility] Immature granulocytes/100 WBC (Bld) 0.500 % 0.0-0.9 [facility] Comment on above: IG% - Immature Granu locytes (promyelocytes, myelocytes and metamyelocytes) > 1% indicates that a LEFT SHIFT is Present. MCH (RBC) [Entitic mass] 31.7 pg 27.0-32.0 [facility] Nucleated RBC/100 WBC (Bld) [Ratio] 0 % 0-5 [facility] MCHC Auto (RBC) [Mass/Vol]Or dered By: Nahomi Lobato on 05-11-2023 MCHC (RBC) [Mass/Vol] 31.1 g/dL 32-36 [facility] Nitrite Test strip Ql (U)Ord ered By: Nahomi Lobato on 05-11-2023 Nitrite Ql (U) Negative Negative [facility] No Panel InformationOrdered By: Nahomi Lobato on 05-11-2023 Anti-Nuclear Antibody Screen Positive Negative [facility] Comment on above: Performed at: [address] [id number] Director: Moreno Marroquin PhD, Phone: [phone] Estimated GFR (MDRD) Amer 64 mL/min >60 [facility] Comment on above: GFR Calc Estimated GFR (MDRD) Non-Af Amer 53 mL/min >60 [facility] Comment on above: Non- GFR Calc Platelets bldOrdered By: Melo grisel Luis Alfredo on 05-11-2023 Platelets (Bld) [#/Vol] 208 10*3/uL 150-450 [facility] Protein Test strip Ql (U)Ord ered By: Nahomi Lobato on 05-11-2023 Protein Ql (U) 100 mg/dl Negative [facility] Qualitative QuantiFERON-TB g old in tube testOrdered By: Nahomi Lobato on 05-11-2023 M. tuberculosis tuberculin stim IFN-g Ql (Bld) 0.29 IU/mL . [facility] Serum DNA double strand anti body assay (units/volume)Ordered By: Nahomi Lobato on 05-11-2023 DNA double strand Ab Qn (S) 4 [IU]/mL 0-9 [facility] Comment on above: Negative <5 Equivoca l 5 - 9 Positive >9 Serum or plasma albumin leona urement (mass/volume)Ordered By: Nahomi Lobato on 05-11-2023 Albumin [Mass/Vol] 2.9 g/dL 3.2-5.0 [facility] Serum or plasma albumin/glob ulin mass ratioOrdered By: Nahomi Lobato on 05-11-2023 Albumin/Globulin [Mass ratio] 0.5 {ratio} 0.9-2.4 [facility] Serum or plasma calcium leona urement (mass/volume)Ordered By: Nahomi Lobato on 05-11-2023 Calcium [Mass/Vol] 8.6 mg/dL 8.5-10.1 [facility] Serum or plasma complement C 3 measurement (mass/volume)Ordered By: Nahomi Lobato on 05-11-2023 Complement C3 [Mass/Vol] 76 mg/dL 82-167 [facility] Comment on above: Performed at: [address] [id number] Director: Moreno Marroquin PhD, Phone: [phone] Serum or plasma complement C 4 measurement (mass/volume)Ordered By: Nahomi Lobato on 05-11-2023 Complement C4 [Mass/Vol] 17 mg/dL 12-38 [facility] Serum or plasma creatinine m easurement (mass/volume)Ordered By: Nahomi Lobato on 05-11-2023 Creatinine [Mass/Vol] 1.11 mg/dL 0.55-1.02 [facility] Comment on above: The validity of the calculated GFR & GFRAA in patients over 70 years has not been determined. Clinical correlation is essential. Serum or plasma urea nitroge n measurement (mass/volume)Ordered By: Nahomi Lobato on 05-11-2023 Urea nitrogen [Mass/Vol] 15 mg/dL 7-18 [facility] Thin prep Papanicolaou smear with manual screeningOrdered By: Nahomi Lobato on 05-11-2023 Thin prep Papanicolaou smear with manual screening 35 U/L 15-37 [facility] Thin prep Papanicolaou smear with manual screening 5 5-15 [facility] Thin prep Papanicolaou smear with manual screening Comment . [facility] Comment on above: QuantiFERON-TB Gold Plus is a qualitative indirect test forM tuberculosis infection (including disease) and isintended for use in conjunction with risk assessment,radiography, and other medical and diagnostic evaluations.The QuantiFERON-TB Gold Plus result is determined bysubtracting the Nil value from either TB antigen (Ag)value. The Mitogen tube serves as a control for the test. Thin prep Papanicolaou smear with manual screening 0.33 IU/mL . [facility] Thin prep Papanicolaou smear with manual screening 0.38 IU/mL . [facility] Thin prep Papanicolaou smear with manual screening 0.24 IU/mL . [facility] Thin prep Papanicolaou smear with manual screening Indeterminate Negative [facility] Comment on above: Mitogen (positive co ntrol) gave low response. This mayoccur due to suboptimal pre-analytical handling.The specimen received for QuantiFERON testing was incubatedby the ordering institution. Specific procedures outlinedin our Directory of Services and in the package insert forthe QuantiFERON Gold (In Tube) test must be followed toenable for proper stimulation of cells for the productionof interferon gamma. Chemiluminescence immunoassaymethodology Urine blood detectionOrdered By: Nahomi Lobato on 05-11-2023 RBC Ql (U) Negative Negative [facility] Urine clarityOrdered By: Melo Lobato on 05-11-2023 Clarity (U) Sl. Cloudy Clear [facility] Urine color determinationOrd ered By: Nahomi Lobato on 05-11-2023 Color (U) Yellow Yellow [facility] Urine creatinine measurement (mass/volume)Ordered By: Nahomi Lobato on 05-11-2023 Creatinine (U) [Mass/Vol] 59.50 mg/dL NO RANGE EST. [facility] Urine glucose detectionOrder ed By: Nahomi Lobato on 05-11-2023 Glucose Ql (U) Normal mg/dl Normal [facility] Urine leukocyte esterase det ection by dipstickOrdered By: Nahomi Lobato on 05-11-2023 Leukocyte esterase Test strip Ql (U) Negative Negative [facility] Urine pHOrdered By: Tila Lobato on 05-11-2023 pH (U) 6.5 [pH] 5.0 - 8.0 [facility] Urine protein measurement (m ass/volume)Ordered By: Nahomi Lobato on 05-11-2023 Protein (U) [Mass/Vol] 97.5 mg/dL 0.0-11.8 [facility] Urine protein/creatinine mas s ratioOrdered By: Nahomi Lobato on 05-11-2023 Protein/Creatinine (U) [Mass ratio] 1639 mg/g CRE 0-200 [facility] Urine specific gravity measu rementOrdered By: Nahomi Lobato on 05-11-2023 Specific gravity (U) [Rel density] 1.015 1.002-1.030 [facility] Urobilinogen Auto test strip Ql (U)Ordered By: Nahomi Lobato on 05-11-2023 Urobilinogen Ql (U) Normal mg/dl Normal [facility] Urine creatinine measurement (mass/volume)Ordered By: Nahomi Lobato on 05-05-2023 Creatinine (U) [Mass/Vol] 39.60 mg/dL NO RANGE EST. [facility] Urine protein measurement (m ass/volume)Ordered By: Nahomi Lobato on 05-05-2023 Protein (U) [Mass/Vol] 49.3 mg/dL 0.0-11.8 [facility] Urine protein/creatinine mas s ratioOrdered By: Nahomi Lobato on 05-05-2023 Protein/Creatinine (U) [Mass ratio] 1245 mg/g CRE 0-200 [facility] Absolute lymphocyte countOrd ered By: Aixa Ibanez on 02-24-2023 Lymphocytes Auto (Unsp spec) [#/Vol] 0.73 10*3/uL 0.83-4.51 [facility] Basophil percentageOrdered B y: Aixa Ibanez on 02-24-2023 Basophils/100 WBC (Bld) 0.4 % 0-1 [facility] Bilirubin [Mass/Vol] 0.30 mg/dL 0.20-1.00 [facility] Comment on above: For patients on eltr ombopag therapy, use of Dimension Hunker TBIL is not recommended. Chloride [Moles/Vol] 111 mmol/L 98-107 [facility] Eosinophils/100 WBC (Bld) 0.9 % 0-5 [facility] Glucose [Mass/Vol] 88 mg/dL 74-106 [facility] Neutrophils (Bld) [#/Vol] 3.3 10*3/uL 2.0-7.7 [facility] Neutrophils/100 WBC (Bld) 72.8 % 47-70 [facility] Potassium [Moles/Vol] 4.6 mmol/L 3.5-5.1 [facility] Protein [Mass/Vol] 7.2 g/dL 6.4-8.2 [facility] Sodium [Moles/Vol] 138 mmol/L 136-145 [facility] WBC (Bld) [#/Vol] 4.6 10*3/uL 4.4-11.0 [facility] Bilirubin Test strip Ql (U)O rdered By: Aixa Ibanez on 02-24-2023 Bilirubin Ql (U) Negative Negative [facility] Blood erythrocytes count (nu mber/volume)Ordered By: Aixa Ibanez on 02-24-2023 RBC (Bld) [#/Vol] 3.09 10*6/uL 4.2-5.4 [facility] Blood hemoglobin measurement (mass/volume)Ordered By: Aixa Ibanez on 02-24-2023 Hemoglobin (Bld) [Mass/Vol] 9.8 g/dL 12.0-15.0 [facility] Blood lymphocytes/100 leukoc ytesOrdered By: Aixa Ibanez on 02-24-2023 Lymphocytes/100 WBC (Bld) 15.9 % 19-41 [facility] Blood monocytes/100 leukocyt esOrdered By: Aixa Ibanez on 02-24-2023 Monocytes/100 WBC (Bld) 9.8 % 0-10 [facility] Blood platelet mean volumeOr dered By: Aixa Ibanez on 02-24-2023 Platelet mean volume (Bld) [Entitic vol] 9.7 fL 6.2-12.0 [facility] Determination of erythrocyte mean corpuscular volume (MCV)Ordered By: Aixa Ibanez on 02-24-2023 MCV (RBC) [Entitic vol] 103.6 fL 81-99 [facility] Dilute Jake's viper venom timeOrdered By: Aixa Ibanez on 02-24-2023 dRVVT Coag (PPP) [Time] 94.6 s 0.0-47.0 [facility] Comment on above: TEST RESULTS LIMITSd RVVT Mix 77.9 High sec 0.0-40.4dRVVT Confirm 2.2 High ratio 0.8-1.2 TESTING PERFORMED AT [facility]. ORIGINAL REPORT ON FILE IN LAB CONTAINS ADDITIONAL TEST SITE INFORMATION. Previous reported result: 94.6 secEdited by: XAVIER on 03/17/23:1628 AMENDED REPORT 03/17/23 162 DRVVT previously reported as: 94.6 H sec Erythrocyte sedimentation ra teOrdered By: Aixa Ibanez on 02-24-2023 ESR (Bld) [Velocity] 18 mm/h 0-30 [facility] Hematocrit Auto (Bld) [Volum e fraction]Ordered By: Aixa Ibanez on 02-24-2023 Hematocrit (Bld) [Volume fraction] 32.0 % 37-47 [facility] Ketones Test strip Ql (U)Ord ered By: Aixa Ibanez on 02-24-2023 Ketones Ql (U) Negative Negative [facility] Laboratory - Chemistry and C hemistry - challengeOrdered By: Aixa Ibanez on 02-24-2023 ALP [Catalytic activity/Vol] 83 U/L 45-117 [facility] ALT [Catalytic activity/Vol] 34 U/L 13-56 [facility] CO2 [Moles/Vol] 23.0 mmol/L 21.0-32.0 [facility] Globulin (S) [Mass/Vol] 4.3 g/dL 2.2-4.2 [facility] Urea nitrogen/Creatinine [Mass ratio] 18.0 mg/mg 10-20 [facility] Laboratory - Hematology and Cell countsOrdered By: Aixa Ibanez on 02-24-2023 Erythrocyte distribution width (RBC) [Entitic vol] 58.4 fL 35.1-43.9 [facility] Erythrocyte distribution width (RBC) [Ratio] 15.2 % 11.6-14.6 [facility] Immature granulocytes/100 WBC (Bld) 0.200 % 0.0-0.9 [facility] Comment on above: IG% - Immature Granu locytes (promyelocytes, myelocytes and metamyelocytes) > 1% indicates that a LEFT SHIFT is Present. MCH (RBC) [Entitic mass] 31.7 pg 27.0-32.0 [facility] Nucleated RBC/100 WBC (Bld) [Ratio] 0 % 0-5 [facility] Laboratory - Miscellaneous t estsOrdered By: Aixa Ibanez on 02-24-2023 Service comment (Unsp spec) [Interp] Comment . [facility] Comment on above: Results are consiste nt with the presence of a lupusanticoagulant.NOTE: Only persistent lupus anticoagulants are thought angela of clinical significance. For this reason, repeattesting in 12 or more weeks after an initial positiveresult should be considered to confirm or refute thepresence of a lupus anticoagulant, depending on clinicalpresentation. Results of lupus anticoagulant tests may befalsely positive in the presence of certain anticoagulanttherapies.Performed at: [facility] [id number] [place], [place] [id number] Director: Paulette Garcia MD, Phone: [phone] MCHC Auto (RBC) [Mass/Vol]Or dered By: Aixa Ibanez on 02-24-2023 MCHC (RBC) [Mass/Vol] 30.6 g/dL 32-36 [facility] Nitrite Test strip Ql (U)Ord ered By: Aixa Ibanez on 02-24-2023 Nitrite Ql (U) Negative Negative [facility] No Panel InformationOrdered By: Aixa Ibanez on 02-24-2023 Estimated GFR (MDRD) Amer 73 mL/min >60 [facility] Comment on above: GFR Calc Estimated GFR (MDRD) Non-Af Amer 60 mL/min >60 [facility] Comment on above: Non- GFR Calc Hepatitis B Surface Antigen Non-Reactive Nonreactive [facility] Hepatitis C Antibody Non-Reactive Nonreactive [facility] Comment on above: Non Reactive: < 0.8 Equivocal: >/= 0.8 to < 1.0 Reactive: >/= 1.0The CDC recommends that a reactive/equivocal HCV antibody result be followed up by the HCV Nucleic Acid Amplificationtest (352493) Hexagonal Phase Phospholipid 54 sec 0-11 [facility] Miscellaneous Test See comment [facility] Comment on above: TEST RESULTS LIMITSP T and PTTINR 1.1 0.9-1.2 Reference interval is for non-anticoagulated patients. Suggested INR therapeutic range for Vitamin K antagonist therapy: Standard Dose (moderate intensity therapeutic range): 2.0 - 3.0 Higher intensity therapeutic range 2.5 - 3.5Prothrombin Time 11.4 sec 9.1-12.0aPTT 46 High sec 24-33This test has not been validated for monitoring unfractionated heparin therapy. aPTT-based therapeutic ranges for unfractionated heparin therapy have not been established. For general guidelines on Heparin monitoring, refer to the [facility] Directory of Services. TESTING PERFORMED AT [facility]. ORIGINAL REPORT ON FILE IN LAB CONTAINS ADDITIONAL TEST SITE INFORMATION. Miscellaneous Test Comment MAILED SPECIMEN [facility] Platelets bldOrdered By: Kingsley Ibanez on 02-24-2023 Platelets (Bld) [#/Vol] 148 10*3/uL 150-450 [facility] Protein Test strip Ql (U)Ord ered By: Aixa Ibanez on 02-24-2023 Protein Ql (U) 15 mg/dl Negative [facility] Serum hepatitis B virus surf anay antibody IgG detectionOrdered By: Aixa Ibanez on 02-24-2023 HBV surface IgG Ql (S) Non-Reactive [facility] Comment on above: Non Reactive: Incons istent with immunity less than <10 mIU/mL Reactive: Consistent with immunity greater than or equal to 10 mIU/mL Serum or plasma C reactive p rotein measurement (mass/volume)Ordered By: Aixa Ibanez on 02-24-2023 CRP [Mass/Vol] 16.00 mg/L 0.0-3.0 [facility] Comment on above: C-Reactive Protein ( CRP) provides useful information for thediagnosis, therapy and monitoring of inflammatory processesand associated diseases. For the evaluation of Relative Riskfor Cardiovascular Disease, a High Sensitivity CRP (HSCRP)should be ordered. Serum or plasma albumin leona urement (mass/volume)Ordered By: Aixa Ibanez on 02-24-2023 Albumin [Mass/Vol] 2.9 g/dL 3.2-5.0 [facility] Serum or plasma albumin/glob ulin mass ratioOrdered By: Aixa Ibanez on 02-24-2023 Albumin/Globulin [Mass ratio] 0.7 {ratio} 0.9-2.4 [facility] Serum or plasma calcium leona urement (mass/volume)Ordered By: Aixa Ibanez on 02-24-2023 Calcium [Mass/Vol] 8.5 mg/dL 8.5-10.1 [facility] Serum or plasma creatinine m easurement (mass/volume)Ordered By: Aixa Ibanez on 02-24-2023 Creatinine [Mass/Vol] 1.00 mg/dL 0.55-1.02 [facility] Comment on above: The validity of the calculated GFR & GFRAA in patients over 70 years has not been determined. Clinical correlation is essential. Serum or plasma urea nitroge n measurement (mass/volume)Ordered By: Aixa Ibanez on 02-24-2023 Urea nitrogen [Mass/Vol] 18 mg/dL 7-18 [facility] Thin prep Papanicolaou smear with manual screeningOrdered By: Aixa Ibanez on 02-24-2023 Thin prep Papanicolaou smear with manual screening 26 U/L 15-37 [facility] Thin prep Papanicolaou smear with manual screening 4 5-15 [facility] Thin prep Papanicolaou smear with manual screening 55.2 sec 0.0-47.6 [facility] Thin prep Papanicolaou smear with manual screening 1.14 Ratio 0.00-1.34 [facility] Thin prep Papanicolaou smear with manual screening 108.4 sec 0.0-43.5 [facility] Thin prep Papanicolaou smear with manual screening 100.3 sec 0.0-40.5 [facility] Thin prep Papanicolaou smear with manual screening Comment: . [facility] Comment on above: Results are consiste nt with the presence of a lupus anticoagulant. As onlypersistent lupus anticoagulant (LA) positivity meets laboratory diagnosticcriteria for antiphospholipid syndrome, repeat testing in 12 or more weeksis recommended, ideally in the absence of anticoagulant therapy.Important Note: The results of LA testing are not valid for patientsreceiving heparin, direct Xa inhibitor (e.g., rivaroxaban, apixaban) ordirect thrombin inhibitor (e.g., dabigatran) therapy. These drugs may causefalse positive LA results but will not interfere with anticardiolipin andbeta-2 glycoprotein 1 antibody testing. Thrombin time in platelet po or plasmaOrdered By: Aixa Ibanez on 02-24-2023 Thrombin time Coag (PPP) [Time] 17.1 sec 0.0-23.0 [facility] Urine blood detectionOrdered By: Aixa Ibanez on 02-24-2023 RBC Ql (U) Negative Negative [facility] Urine clarityOrdered By: Kingsley Ibanez on 02-24-2023 Clarity (U) Clear Clear [facility] Urine color determinationOrd ered By: Aixa Ibanez on 02-24-2023 Color (U) Yellow Yellow [facility] Urine creatinine measurement (mass/volume)Ordered By: Aixa Ibanez on 02-24-2023 Creatinine (U) [Mass/Vol] 27.90 mg/dL NO RANGE EST. [facility] Urine glucose detectionOrder ed By: Aixa Ibanez on 02-24-2023 Glucose Ql (U) Normal mg/dl Normal [facility] Urine leukocyte esterase det ection by dipstickOrdered By: Aixa Ibanez on 02-24-2023 Leukocyte esterase Test strip Ql (U) Negative Negative [facility] Urine pHOrdered By: Aixa fang on 02-24-2023 pH (U) 6.5 [pH] 5.0 - 8.0 [facility] Urine protein measurement (m ass/volume)Ordered By: Aixa Ibanez on 02-24-2023 Protein (U) [Mass/Vol] 19.7 mg/dL 0.0-11.8 [facility] Urine protein/creatinine mas s ratioOrdered By: Aixa Ibanez on 02-24-2023 Protein/Creatinine (U) [Mass ratio] 706 mg/g CRE 0-200 [facility] Urine specific gravity measu rementOrdered By: Aixa Ibanez on 02-24-2023 Specific gravity (U) [Rel density] 1.010 1.002-1.030 [facility] Urobilinogen Auto test strip Ql (U)Ordered By: Aixa Ibanez on 02-24-2023 Urobilinogen Ql (U) Normal mg/dl Normal [facility] Basophil percentageOrdered B y: Jessica Stathopoulos on 08-18-2022 Bilirubin [Mass/Vol] 0.40 mg/dL 0.20-1.00 [facility] Comment on above: For patients on eltr ombopag therapy, use of Dimension Hunker TBIL is not recommended. Chloride [Moles/Vol] 110 mmol/L 98-107 [facility] Cholesterol [Mass/Vol] 154 mg/dL <200 [facility] Comment on above: <200 mg/dL Desirable 200-240 mg/dL Borderline >240 mg/dL High Risk Glucose [Mass/Vol] 105 mg/dL 74-106 [facility] Comment on above: Fasting Glucose resu lt from 100 to 125 mg/dL suggests IMPAIRED HOMEOSTASIS per A.D.A. criteria. Potassium [Moles/Vol] 4.5 mmol/L 3.5-5.1 [facility] Protein [Mass/Vol] 8.4 g/dL 6.4-8.2 [facility] Sodium [Moles/Vol] 139 mmol/L 136-145 [facility] Triglyceride [Mass/Vol] 279 mg/dL <199 [facility] Comment on above: The drugs N-Acetylcy steine and Metamizole may falsely depress this assay.Serum Triglycerides Reference Interval Normal <150 mg/dL Borderline high 150 - 199 mg/dL High 200 - 499 mg/dL Very High > or = 500 mg/dL WBC (Bld) [#/Vol] 3.1 10*3/uL 4.4-11.0 [facility] Blood erythrocytes count (nu mber/volume)Ordered By: Jessica Hassan on 08-18-2022 RBC (Bld) [#/Vol] 3.02 10*6/uL 4.2-5.4 [facility] Blood hemoglobin measurement (mass/volume)Ordered By: Jessica Hassan on 08-18-2022 Hemoglobin (Bld) [Mass/Vol] 10.0 g/dL 12.0-15.0 [facility] Blood platelet mean volumeOr dered By: Jessica Hassan on 08-18-2022 Platelet mean volume (Bld) [Entitic vol] 10.0 fL 6.2-12.0 [facility] Determination of erythrocyte mean corpuscular volume (MCV)Ordered By: Jessica Hassan on 08-18-2022 MCV (RBC) [Entitic vol] 104.6 fL 81-99 [facility] Hematocrit Auto (Bld) [Volum e fraction]Ordered By: Jessica Hassan on 08-18-2022 Hematocrit (Bld) [Volume fraction] 31.6 % 37-47 [facility] Laboratory - Chemistry and C hemistry - challengeOrdered By: Jessica Hassan on 08-18-2022 ALP [Catalytic activity/Vol] 74 U/L 45-117 [facility] ALT [Catalytic activity/Vol] 19 U/L 13-56 [facility] CO2 [Moles/Vol] 24.0 mmol/L 21.0-32.0 [facility] Globulin (S) [Mass/Vol] 5.0 g/dL 2.2-4.2 [facility] Urea nitrogen/Creatinine [Mass ratio] 16.3 mg/mg 10-20 [facility] Laboratory - Hematology and Cell countsOrdered By: Jessica Hassan on 08-18-2022 Erythrocyte distribution width (RBC) [Entitic vol] 51.8 fL 35.1-43.9 [facility] Erythrocyte distribution width (RBC) [Ratio] 13.5 % 11.6-14.6 [facility] MCH (RBC) [Entitic mass] 33.1 pg 27.0-32.0 [facility] MCHC Auto (RBC) [Mass/Vol]Or dered By: Jessica Hassan on 08-18-2022 MCHC (RBC) [Mass/Vol] 31.6 g/dL 32-36 [facility] No Panel InformationOrdered By: Jessica Hassan on 08-18-2022 Estimated GFR (MDRD) Amer 70 mL/min >60 [facility] Comment on above: GFR Calc Estimated GFR (MDRD) Non-Af Amer 58 mL/min >60 [facility] Comment on above: Non- GFR Calc Platelets bldOrdered By: Newton Hassan on 08-18-2022 Platelets (Bld) [#/Vol] 173 10*3/uL 150-450 [facility] Serum or plasma albumin leona urement (mass/volume)Ordered By: Jessica Hassan on 08-18-2022 Albumin [Mass/Vol] 3.4 g/dL 3.2-5.0 [facility] Serum or plasma albumin/glob ulin mass ratioOrdered By: Jessicaluis fernando Hassan on 08-18-2022 Albumin/Globulin [Mass ratio] 0.7 {ratio} 0.9-2.4 [facility] Serum or plasma calcium leona urement (mass/volume)Ordered By: Jessica Hassan on 08-18-2022 Calcium [Mass/Vol] 9.3 mg/dL 8.5-10.1 [facility] Serum or plasma cholesterol in HDL measurement (mass/volume)Ordered By: Jessica Mo on 08-18-2022 Cholesterol in HDL [Mass/Vol] 33 mg/dL >40 [facility] Comment on above: The drugs N-Acetylcy steine and Metamizole may falsely depress this assay. Reference Range HDL <40 mg/dL Low HDL Cholesterol HDL >or= 60 mg/dL High HDL Cholesterol Serum or plasma cholesterol in VLDL measurement (mass/volume)Ordered By: Jessica Hassan on 08-18-2022 Cholesterol in VLDL [Mass/Vol] 56 mg/dL 5-40 [facility] Serum or plasma creatinine m easurement (mass/volume)Ordered By: Jessicaluis fernando Hassan on 08-18-2022 Creatinine [Mass/Vol] 1.04 mg/dL 0.55-1.02 [facility] Comment on above: The validity of the calculated GFR & GFRAA in patients over 70 years has not been determined. Clinical correlation is essential. Serum or plasma low density lipoprotein (LDL) cholesterol measurement (mass/volume)Ordered By: Jessica Hassan on 08-18-2022 Cholesterol in LDL [Mass/Vol] 65 mg/dL 0-130 [facility] Serum or plasma urea nitroge n measurement (mass/volume)Ordered By: Jessica Thierryencompass healthcarlos on 08-18-2022 Urea nitrogen [Mass/Vol] 17 mg/dL 7-18 [facility] Thin prep Papanicolaou smear with manual screeningOrdered By: Jessicaluis fernando Hassan on 08-18-2022 Thin prep Papanicolaou smear with manual screening 23 U/L 15-37 [facility] Thin prep Papanicolaou smear with manual screening 5 5-15 [facility] Whole blood hemoglobin A1c/t otal hemoglobin ratio (mass fraction)Ordered By: Jessica Hassan on 08-18-2022 HbA1c (Bld) [Mass fraction] 5.1 % 3.8-5.6 [facility] Comment on above: Normal < 5.7 % Predi abetic 5.7 - 6.4 % Diabetic >or= 6.5 % Please note range changes. Culture, urineon 09-10-2021 Bacteria identified Cx Nom (U) Presumptive E. coli [facility] Work Phone: Basophil percentageon 2021 Chloride [Moles/Vol] 106 mmol/L 98-107 [facility] Work Phone: Glucose [Mass/Vol] 92 mg/dL 74-106 [facility] Work Phone: Potassium [Moles/Vol] 4.4 mmol/L 3.5-5.1 [facility] Work Phone: Sodium [Moles/Vol] 136 mmol/L 136-145 [facility] Work Phone: Laboratory - Chemistry and C hemistry - challengeon 07-19-2021 CO2 [Moles/Vol] 25.0 mmol/L 21.0-32.0 [facility] Work Phone: Urea nitrogen/Creatinine [Mass ratio] 15.4 mg/mg 10-20 [facility] Work Phone: No Panel Informationon 07-19 Estimated GFR (MDRD) Amer 70 mL/min >60 [facility] Work Phone: Comment on above: GFR Calc Estimated GFR (MDRD) Non-Af Amer 58 mL/min >60 [facility] Work Phone: Comment on above: Non- GFR Calc Urine Microalbumin/Creatinin e Ratio 34.6 mg/g CRE <30 [facility] Work Phone: Serum or plasma calcium leona urement (mass/volume)on 07-19-2021 Calcium [Mass/Vol] 8.7 mg/dL 8.5-10.1 [facility] Work Phone: Serum or plasma creatinine m easurement (mass/volume)on 07-19-2021 Creatinine [Mass/Vol] 1.04 mg/dL 0.55-1.02 [facility] Work Phone: Comment on above: The validity of the calculated GFR & GFRAA in patients over 70 years has not been determined. Clinical correlation is essential. Serum or plasma urea nitroge n measurement (mass/volume)on 07-19-2021 Urea nitrogen [Mass/Vol] 16 mg/dL 7-18 [facility] Work Phone: Thin prep Papanicolaou smear with manual screeningon 07-19-2021 Thin prep Papanicolaou smear with manual screening 5 5-15 [facility] Work Phone: Thin prep Papanicolaou smear with manual screening 47.1 mg/L NO RANGE EST. [facility] Work Phone: Urine creatinine measurement (mass/volume)on 07-19-2021 Creatinine (U) [Mass/Vol] 136.00 mg/dL NO RANGE EST. [facility] Work Phone: CBCon 02-02-2017 Basophils Auto #/vol (Bld) 0.0 X103 Normal 0.0 - 0.1 [facility] Comment on above: Performed By: #### 2 [id number] ####[facility] [address] [place] [address] Other Comment: COMPL ETE BLOOD COUNT Basophils/100 WBC Auto (Bld) 0.4 % Normal 0.0 - 2.0 [facility] Comment on above: Performed By: #### 2 [id number] ####[facility] [address] [place] [address] Other Comment: COMPL ETE BLOOD COUNT Eosinophils 0.1 X103 Normal 0.0 - 0.2 [facility] Comment on above: Performed By: #### 2 [id number] ####[facility] [address] [place] [address] Other Comment: COMPL ETE BLOOD COUNT Eosinophils/100 leukocytes 2.9 % Normal 0.0 - 8.0 [facility] Comment on above: Performed By: #### 2 [id number] ####[facility] [address] [place] [address] Other Comment: COMPL ETE BLOOD COUNT Erythrocyte distribution width Auto Ratio (RBC) 12.6 % Normal 11.5 - 15.5 [facility] Comment on above: Performed By: #### 2 [id number] ####[facility] [address] [place] [address] Other Comment: COMPL ETE BLOOD COUNT Erythrocyte morphology NOT INDICATED Normal [facility] Comment on above: Performed By: #### 2 [id number] ####[facility] [address] [place] [address] Other Comment: COMPL ETE BLOOD COUNT Erythrocytes (RBC) 3.50 X106 Low 4.20 - 5.40 [facility] Comment on above: Performed By: #### 2 [id number] ####[facility] [address] [place] [address] Other Comment: COMPL ETE BLOOD COUNT Hematocrit (HCT) 34.2 % Low 37.0 - 47.0 [facility] Comment on above: Performed By: #### 2 [id number] ####[facility] [address] [place] [address] Other Comment: COMPL ETE BLOOD COUNT Hemoglobin mass conc (Bld) 11.8 g/dL Low 12.0 - 16.0 [facility] Comment on above: Performed By: #### 2 [id number] ####[facility] [address] [place] [address] Other Comment: COMPL ETE BLOOD COUNT Lymphocytes 0.6 X103 Low 1.3 - 2.9 [facility] Comment on above: Performed By: #### 2 [id number] ####[facility] [address] [place] [address] Other Comment: COMPL ETE BLOOD COUNT Lymphocytes/100 leukocytes 21.5 % Normal 20.0 - 46.0 [facility] Comment on above: Performed By: #### 2 [id number] ####[facility] [address] [place] [address] Other Comment: COMPL ETE BLOOD COUNT MANUAL DIFF NOT INDICATED Normal [facility] Comment on above: Result Comment: {CD] Performed By: #### 2 [id number] ####[facility] [address] [place] [address] Other Comment: COMPL ETE BLOOD COUNT MCH 33.6 pg High 27.0 - 31.0 [facility] Comment on above: Performed By: #### 2 [id number] ####[facility] [address] [place] [address] Other Comment: COMPL ETE BLOOD COUNT MCHC mass conc (RBC) 34.4 g/dL Normal 32.0 - 36.0 [facility] Comment on above: Performed By: #### 2 [id number] ####[facility] [address] [place] [address] Other Comment: COMPL ETE BLOOD COUNT MCV 97.7 fL Normal 81.0 - 99.0 [facility] Comment on above: Performed By: #### 2 [id number] ####[facility] [address] [place] [address] Other Comment: COMPL ETE BLOOD COUNT Monocytes 0.4 X103 Normal 0.3 - 0.8 [facility] Comment on above: Performed By: #### 2 [id number] ####[facility] [address] [place] [address] Other Comment: COMPL ETE BLOOD COUNT Monocytes/100 leukocytes 15.1 % High 0.0 - 12.0 [facility] Comment on above: Performed By: #### 2 [id number] ####[facility] [address] [place] [address] Other Comment: COMPL ETE BLOOD COUNT Neutrophils 1.7 X103 Normal 1.6 - 4.8 [facility] Comment on above: Performed By: #### 2 [id number] ####[facility] [address] [place] [address] Other Comment: COMPL ETE BLOOD COUNT Platelet mean volume (PMV) 7.7 fL Normal 7.4 - 10.4 [facility] Comment on above: Performed By: #### 2 [id number] ####[facility] [address] [place] [address] Other Comment: COMPL ETE BLOOD COUNT PLTS 187 X103 Normal 130 - 400 [facility] Comment on above: Performed By: #### 2 [id number] ####[facility] [address] [place] [address] Other Comment: COMPL ETE BLOOD COUNT Segmented Neutrophils/100 leukocytes 60.1 % Normal 42.0 - 66.0 [facility] Comment on above: Performed By: #### 2 [id number] ####[facility] [address] [place] [address] Other Comment: COMPL ETE BLOOD COUNT WBC (Leukocytes) 2.9 X103 Low 4.8 - 10.8 [facility] Comment on above: Performed By: #### 2 [id number] ####[facility] [address] [place] [address] Other Comment: COMPL ETE BLOOD COUNT CBCon 12-05-2016 Basophils Auto #/vol (Bld) 0.0 X103 Normal 0.0 - 0.1 [facility] Comment on above: Performed By: #### 2 [id number] ####[facility] [address] [place] [address] Other Comment: COMPL ETE BLOOD COUNT Basophils/100 WBC Auto (Bld) 0.6 % Normal 0.0 - 2.0 [facility] Comment on above: Performed By: #### 2 [id number] ####[facility] [address] [place] [address] Other Comment: COMPL ETE BLOOD COUNT Eosinophils 0.1 X103 Normal 0.0 - 0.2 [facility] Comment on above: Performed By: #### 2 [id number] ####[facility] [address] [place] [address] Other Comment: COMPL ETE BLOOD COUNT Eosinophils/100 leukocytes 3.0 % Normal 0.0 - 8.0 [facility] Comment on above: Performed By: #### 2 [id number] ####[facility] [address] [place] [address] Other Comment: COMPL ETE BLOOD COUNT Erythrocyte distribution width Auto Ratio (RBC) 12.8 % Normal 11.5 - 15.5 [facility] Comment on above: Performed By: #### 2 [id number] ####[facility] [address] [place] [address] Other Comment: COMPL ETE BLOOD COUNT Erythrocyte morphology NOT INDICATED Normal [facility] Comment on above: Performed By: #### 2 [id number] ####[facility] [address] [place] [address] Other Comment: COMPL ETE BLOOD COUNT Erythrocytes (RBC) 3.65 X106 Low 4.20 - 5.40 [facility] Comment on above: Performed By: #### 2 [id number] ####[facility] [address] [place] [address] Other Comment: COMPL ETE BLOOD COUNT Hematocrit (HCT) 36.5 % Low 37.0 - 47.0 [facility] Comment on above: Performed By: #### 2 [id number] ####[facility] [address] [place] [address] Other Comment: COMPL ETE BLOOD COUNT Hemoglobin mass conc (Bld) 12.3 g/dL Normal 12.0 - 16.0 [facility] Comment on above: Performed By: #### 2 [id number] ####[facility] [address] [place] [address] Other Comment: COMPL ETE BLOOD COUNT Lymphocytes 0.5 X103 Low 1.3 - 2.9 [facility] Comment on above: Performed By: #### 2 [id number] ####[facility] [address] [place] [address] Other Comment: COMPL ETE BLOOD COUNT Lymphocytes/100 leukocytes 20.3 % Normal 20.0 - 46.0 [facility] Comment on above: Performed By: #### 2 [id number] ####[facility] [address] [place] [address] Other Comment: COMPL ETE BLOOD COUNT MANUAL DIFF NOT INDICATED Normal [facility] Comment on above: Result Comment: {CD] Performed By: #### 2 [id number] ####[facility] [address] [place] [address] Other Comment: COMPL ETE BLOOD COUNT MCH 33.6 pg High 27.0 - 31.0 [facility] Comment on above: Performed By: #### 2 [id number] ####[facility] [address] [place] [address] Other Comment: COMPL ETE BLOOD COUNT MCHC mass conc (RBC) 33.7 g/dL Normal 32.0 - 36.0 [facility] Comment on above: Performed By: #### 2 [id number] ####[facility] [address] [place] [address] Other Comment: COMPL ETE BLOOD COUNT MCV 99.9 fL High 81.0 - 99.0 [facility] Comment on above: Performed By: #### 2 [id number] ####[facility] [address] [place] [address] Other Comment: COMPL ETE BLOOD COUNT Monocytes 0.4 X103 Normal 0.3 - 0.8 [facility] Comment on above: Performed By: #### 2 [id number] ####[facility] [address] [place] [address] Other Comment: COMPL ETE BLOOD COUNT Monocytes/100 leukocytes 17.7 % High 0.0 - 12.0 [facility] Comment on above: Performed By: #### 2 [id number] ####[facility] [address] [place] [address] Other Comment: COMPL ETE BLOOD COUNT Neutrophils 1.4 X103 Low 1.6 - 4.8 [facility] Comment on above: Performed By: #### 2 [id number] ####[facility] [address] [place] [address] Other Comment: COMPL ETE BLOOD COUNT Platelet mean volume (PMV) 7.9 fL Normal 7.4 - 10.4 [facility] Comment on above: Performed By: #### 2 [id number] ####[facility] [address] [place] [address] Other Comment: COMPL ETE BLOOD COUNT PLTS 156 X103 Normal 130 - 400 [facility] Comment on above: Performed By: #### 2 [id number] ####[facility] [address] [place] [address] Other Comment: COMPL ETE BLOOD COUNT Segmented Neutrophils/100 leukocytes 58.4 % Normal 42.0 - 66.0 [facility] Comment on above: Performed By: #### 2 [id number] ####[facility] [address] [place] [address] Other Comment: COMPL ETE BLOOD COUNT WBC (Leukocytes) 2.4 X103 Low 4.8 - 10.8 [facility] Comment on above: Performed By: #### 2 [id number] ####[facility] [address] [place] [address] Other Comment: COMPL ETE BLOOD COUNT Culture, urine Bacteria identified Cx Nom (U) Presumptive E. coli [facility] Work Phone: Vital Signs Date Time Vital Sign Value Performing Clinician Faci lity 12-13-2024 13:03-0400 Body height 157.48 cm Juice Cochran MD Work Phone: [facility] 12-13-2024 13:03-0400 Body mass index (BMI) [Ratio] 25.6 kg/m2 Juice Cochran MD Work Phone: [facility] 12-13-2024 13:03-0400 Body weight 63.5 kg Juice Cochran MD Work Phone: [facility] 12-13-2024 13:03-0400 Diastolic blood pressure 61 mm[Hg] Juice Cochran MD Work Phone: [facility] 12-13-2024 13:03-0400 Heart rate 78 /min Juice Cochran MD Work Phone: [facility] 12-13-2024 13:03-0400 Respiratory rate 18 /min Juice Cochran MD Work Phone: [facility] 12-13-2024 13:03-0400 Systolic blood pressure 129 mm[Hg] Juice Cochran MD Work Phone: [facility] 12-12-2024 09:05-0400 Body mass index (BMI) [Ratio] 26.5 kg/m2 Juice Cochran MD Work Phone: [facility] 12-12-2024 09:05-0400 Body temperature 97.5 [degF] Juice Cochran MD Work Phone: [facility] 12-12-2024 09:05-0400 Body weight 65.77 kg Juice Cochran MD Work Phone: [facility] 12-12-2024 09:05-0400 Diastolic blood pressure 54 mm[Hg] Juice Cochran MD Work Phone: [facility] 12-12-2024 09:05-0400 Heart rate 80 /min Juice Cochran MD Work Phone: [facility] 12-12-2024 09:05-0400 Respiratory rate 16 /min Juice Cochran MD Work Phone: [facility] 12-12-2024 09:05-0400 SaO2% (BldA) [Mass fraction] 100 % Juice Cochran MD Work Phone: [facility] 12-12-2024 09:05-0400 Systolic blood pressure 125 mm[Hg] Juice Cochran MD Work Phone: [facility] 07-07-2024 12:13-0500 Body temperature 98.9 [degF] Juice Cochran MD Work Phone: [facility] 07-07-2024 12:13-0500 Diastolic blood pressure 54 mm[Hg] Juice Cochran MD Work Phone: [facility] 07-07-2024 12:13-0500 Heart rate 76 /min Juice Cochran MD Work Phone: [facility] 07-07-2024 12:13-0500 Inhaled oxygen flow rate 4 L/min Juice Cochran MD Work Phone: [facility] 07-07-2024 12:13-0500 Respiratory rate 16 /min Juice Cochran MD Work Phone: [facility] 07-07-2024 12:13-0500 SaO2% (BldA) [Mass fraction] 99 % Juice Cochran MD Work Phone: [facility] 07-07-2024 12:13-0500 Systolic blood pressure 97 mm[Hg] Juice Cochran MD Work Phone: [facility] 07-07-2024 06:36-0500 Body height 157.48 cm Juice Cochran MD Work Phone: [facility] 07-07-2024 06:36-0500 Body mass index (BMI) [Ratio] 24.1 kg/m2 Juice Cochran MD Work Phone: [facility] 07-07-2024 06:36-0500 Body weight 59.87 kg Juice Cochran MD Work Phone: [facility] 06-02-2024 15:03-0500 Body temperature 98.3 [degF] Juice Cochran MD Work Phone: [facility] 06-02-2024 15:03-0500 Diastolic blood pressure 69 mm[Hg] Juice Cochran MD Work Phone: [facility] 06-02-2024 15:03-0500 Heart rate 73 /min Juice Cochran MD Work Phone: [facility] 06-02-2024 15:03-0500 Respiratory rate 15 /min Juice Cochran MD Work Phone: [facility] 06-02-2024 15:03-0500 SaO2% (BldA) [Mass fraction] 96 % Juice Cochran MD Work Phone: [facility] 06-02-2024 15:03-0500 Systolic blood pressure 127 mm[Hg] Juice Cochran MD Work Phone: [facility] 06-02-2024 12:17-0500 Inhaled oxygen flow rate 2 L/min Juice Cochran MD Work Phone: [facility] 06-02-2024 10:35-0500 Body mass index (BMI) [Ratio] 39.1 kg/m2 Juice Cochran MD Work Phone: [facility] 06-02-2024 10:35-0500 Body weight 97 kg Juice Cochran MD Work Phone: [facility] 05-24-2024 08:04-0500 Body mass index (BMI) [Ratio] 24.7 kg/m2 Juice Cochran MD Work Phone: [facility] 05-24-2024 08:04-0500 Body temperature 97.2 [degF] Juice Cochran MD Work Phone: [facility] 05-24-2024 08:04-0500 Body weight 61.23 kg Juice Cochran MD Work Phone: [facility] 05-24-2024 08:04-0500 Diastolic blood pressure 78 mm[Hg] Juice Cochran MD Work Phone: [facility] 05-24-2024 08:04-0500 Heart rate 86 /min Juice Cochran MD Work Phone: [facility] 05-24-2024 08:04-0500 Respiratory rate 16 /min Juice Cochran MD Work Phone: [facility] 05-24-2024 08:04-0500 SaO2% (BldA) [Mass fraction] 98 % Juice Cochran MD Work Phone: [facility] 05-24-2024 08:04-0500 Systolic blood pressure 151 mm[Hg] Juice Cochran MD Work Phone: [facility] 05-11-2024 13:53-0500 Body mass index (BMI) [Ratio] 25.9 kg/m2 Juice Cochran MD Work Phone: [facility] 05-11-2024 13:53-0500 Body weight 64.41 kg Juice Cochran MD Work Phone: [facility] 05-11-2024 13:53-0500 Diastolic blood pressure 79 mm[Hg] Juice Cochran MD Work Phone: [facility] 05-11-2024 13:53-0500 Heart rate 81 /min Juice Cochran MD Work Phone: [facility] 05-11-2024 13:53-0500 Respiratory rate 16 /min Juice Cochran MD Work Phone: [facility] 05-11-2024 13:53-0500 Systolic blood pressure 157 mm[Hg] Juice Cochran MD Work Phone: [facility] 09-22-2023 08:55-0400 Body temperature 97.6 [degF] DO Judy Millie Work Phone: [facility] 09-22-2023 08:55-0400 Diastolic blood pressure 56 mm[Hg] DO Judy Millie Work Phone: [facility] 09-22-2023 08:55-0400 Heart rate 79 /min DO Judy Millie Work Phone: [facility] 09-22-2023 08:55-0400 Respiratory rate 14 /min DO Judy Millie Work Phone: [facility] 09-22-2023 08:55-0400 SaO2% (BldA) [Mass fraction] 95 % DO Judy Millie Work Phone: [facility] 09-22-2023 08:55-0400 Systolic blood pressure 97 mm[Hg] DO Judy Millie Work Phone: [facility] 09-22-2023 02:31-0400 Body mass index (BMI) [Ratio] 26.2 kg/m2 DO Judy Millie Work Phone: [facility] 09-22-2023 02:31-0400 Body weight 64.9 kg DO Judy Millie Work Phone: [facility] 09-21-2023 14:09-0400 Body height 157.48 cm DO Judy Millie Work Phone: [facility] 09-11-2023 10:04-0400 Body height 157.48 cm DO Judy Millie Work Phone: [facility] 09-11-2023 10:04-0400 Body mass index (BMI) [Ratio] 26.9 kg/m2 DO Judy Millie Work Phone: [facility] 09-11-2023 10:04-0400 Body weight 66.67 kg DO Judy Millie Work Phone: [facility] 09-11-2023 10:04-0400 Respiratory rate 18 /min DO Judy Millie Work Phone: [facility] 09-09-2023 13:17-0400 Body mass index (BMI) [Ratio] 26.4 kg/m2 DO Judy Millie Work Phone: [facility] 09-09-2023 13:17-0400 Body temperature 98.6 [degF] DO Judy Millie Work Phone: [facility] 09-09-2023 13:17-0400 Body weight 65.31 kg DO Judy Millie Work Phone: [facility] 09-09-2023 13:17-0400 Diastolic blood pressure 52 mm[Hg] DO Judy Millie Work Phone: [facility] 09-09-2023 13:17-0400 Heart rate 85 /min DO Judy Millie Work Phone: [facility] 09-09-2023 13:17-0400 Respiratory rate 11 /min DO Judy Millie Work Phone: [facility] 09-09-2023 13:17-0400 SaO2% (BldA) [Mass fraction] 97 % DO Judy Millie Work Phone: [facility] 09-09-2023 13:17-0400 Systolic blood pressure 122 mm[Hg] DO Judy Millie Work Phone: [facility] 08-14-2023 09:23-0500 Body temperature 97.7 [degF] DO Judy Millie Work Phone: [facility] 08-14-2023 09:23-0500 Diastolic blood pressure 57 mm[Hg] DO Judy Millie Work Phone: [facility] 08-14-2023 09:23-0500 Heart rate 80 /min DO Judy Millie Work Phone: [facility] 08-14-2023 09:23-0500 Respiratory rate 16 /min DO Judy Millie Work Phone: [facility] 08-14-2023 09:23-0500 SaO2% (BldA) [Mass fraction] 100 % DO Judy Millie Work Phone: [facility] 08-14-2023 09:23-0500 Systolic blood pressure 116 mm[Hg] DO Judy Millie Work Phone: [facility] 08-13-2023 10:39-0500 Body height 157 cm DO Judy Millie Work Phone: [facility] 08-13-2023 10:39-0500 Body weight 79.83 kg DO Judy Millie Work Phone: [facility] 08-12-2023 11:07-0500 Body mass index (BMI) [Ratio] 32.3 kg/m2 DO Judy Millie Work Phone: [facility] 07-28-2023 05:48-0500 Body height 157.48 cm DO Judy Millie Work Phone: [facility] 07-28-2023 05:48-0500 Body mass index (BMI) [Ratio] 26.3 kg/m2 DO Judy Millie Work Phone: [facility] 07-28-2023 05:48-0500 Body temperature 98 [degF] DO Judy Millie Work Phone: [facility] 07-28-2023 05:48-0500 Body weight 65.31 kg DO Judy Millie Work Phone: [facility] 07-28-2023 05:48-0500 Diastolic blood pressure 74 mm[Hg] DO Judy Millie Work Phone: [facility] 07-28-2023 05:48-0500 Heart rate 90 /min DO Judy Millie Work Phone: [facility] 07-28-2023 05:48-0500 Respiratory rate 20 /min DO Judy Millie Work Phone: [facility] 07-28-2023 05:48-0500 SaO2% (BldA) [Mass fraction] 99 % DO Judy Millie Work Phone: [facility] 07-28-2023 05:48-0500 Systolic blood pressure 123 mm[Hg] DO Judy Millie Work Phone: [facility] 06-29-2023 11:50-0500 Diastolic blood pressure 58 mm[Hg] DO Judy Millie Work Phone: [facility] 06-29-2023 11:50-0500 Heart rate 96 /min DO Judy Millie Work Phone: [facility] 06-29-2023 11:50-0500 Respiratory rate 16 /min DO Judy Millie Work Phone: [facility] 06-29-2023 11:50-0500 SaO2% (BldA) [Mass fraction] 97 % DO Judy Millie Work Phone: [facility] 06-29-2023 11:50-0500 Systolic blood pressure 124 mm[Hg] DO Judy Millie Work Phone: [facility] 06-29-2023 09:17-0500 Body height 157.48 cm DO Judy Millie Work Phone: [facility] 06-29-2023 09:17-0500 Body mass index (BMI) [Ratio] 25.2 kg/m2 DO Judy Millie Work Phone: [facility] 06-29-2023 09:17-0500 Body temperature 97.7 [degF] DO Judy Millie Work Phone: [facility] 06-29-2023 09:17-0500 Body weight 62.59 kg DO Judy Mlilie Work Phone: [facility] 06-23-2023 13:49-0500 Body temperature 98.9 [degF] DO Judy Millie Work Phone: [facility] 06-23-2023 13:49-0500 Body weight 65.77 kg DO Judy Millie Work Phone: [facility] 06-23-2023 13:49-0500 Diastolic blood pressure 76 mm[Hg] DO Judy Millie Work Phone: [facility] 06-23-2023 13:49-0500 Heart rate 100 /min DO Judy Millie Work Phone: [facility] 06-23-2023 13:49-0500 Respiratory rate 16 /min DO Judy Millie Work Phone: [facility] 06-23-2023 13:49-0500 Systolic blood pressure 142 mm[Hg] DO Judy Millie Work Phone: [facility] 06-02-2023 17:19-0500 Diastolic blood pressure 55 mm[Hg] DO Judy Millie Work Phone: [facility] 06-02-2023 17:19-0500 Heart rate 92 /min DO Judy Millie Work Phone: [facility] 06-02-2023 17:19-0500 Respiratory rate 15 /min DO Judy Millie Work Phone: [facility] 06-02-2023 17:19-0500 SaO2% (BldA) [Mass fraction] 95 % DO Judy Millie Work Phone: [facility] 06-02-2023 17:19-0500 Systolic blood pressure 107 mm[Hg] DO Judy Millie Work Phone: [facility] 06-02-2023 14:34-0500 Body height 157.48 cm DO Judy Millie Work Phone: [facility] 06-02-2023 14:34-0500 Body temperature 96.7 [degF] DO Judy Millie Work Phone: [facility] 05-20-2023 10:59-0500 Body height 157.48 cm DO Judy Millie Work Phone: [facility] 05-20-2023 10:59-0500 Body mass index (BMI) [Ratio] 25.9 kg/m2 DO Judy Millie Work Phone: [facility] 05-20-2023 10:59-0500 Body weight 64.41 kg DO Judy Millie Work Phone: [facility] 05-20-2023 10:59-0500 Diastolic blood pressure 70 mm[Hg] DO Judy Millie Work Phone: [facility] 05-20-2023 10:59-0500 Heart rate 86 /min DO Judy Millie Work Phone: [facility] 05-20-2023 10:59-0500 Respiratory rate 20 /min DO Judy Millie Work Phone: [facility] 05-20-2023 10:59-0500 Systolic blood pressure 107 mm[Hg] DO Judy Millie Work Phone: [facility] 04-09-2023 07:54-0400 Body height 157.48 cm DO Judy Millie Work Phone: [facility] 04-09-2023 07:54-0400 Body mass index (BMI) [Ratio] 26.5 kg/m2 DO Judy Millie Work Phone: [facility] 04-09-2023 07:54-0400 Body temperature 96.9 [degF] DO Judy Millie Work Phone: [facility] 04-09-2023 07:54-0400 Body weight 65.88 kg DO Judydianna Brandtnger Work Phone: [facility] 04-09-2023 07:54-0400 Diastolic blood pressure 74 mm[Hg] DO Judy Millie Work Phone: [facility] 04-09-2023 07:54-0400 Respiratory rate 16 /min DO Judy Millie Work Phone: [facility] 04-09-2023 07:54-0400 SaO2% (BldA) [Mass fraction] 96 % DO Judy Millie Work Phone: [facility] 04-09-2023 07:54-0400 Systolic blood pressure 130 mm[Hg] DO Judy Millie Work Phone: [facility] 2023 13:37-0400 Body height 157.48 cm DO Judy Brandtnger Work Phone: [facility] 2023 13:37-0400 Body weight 65.31 kg DO Judy Brandtnger Work Phone: [facility] 2023 13:37-0400 Heart rate 88 /min DO Judydianna Brandtnger Work Phone: [facility] 2023 13:37-0400 Inhaled oxygen flow rate 2 L/min DO Judydianna Brandtnger Work Phone: [facility] 2023 13:37-0400 SaO2% (BldA) [Mass fraction] 96 % DO Judydianna Brandtnger Work Phone: [facility] 02-26-2023 06:38-0400 Body height 157.48 cm DO Judydianna Brandtnger Work Phone: [facility] 02-26-2023 06:38-0400 Body mass index (BMI) [Ratio] 28.1 kg/m2 DO Judy Millie Work Phone: [facility] 02-26-2023 06:38-0400 Body temperature 97.6 [degF] DO Judy Blandoner Work Phone: [facility] 02-26-2023 06:38-0400 Body weight 69.85 kg DO Judy Blandoner Work Phone: [facility] 02-26-2023 06:38-0400 Diastolic blood pressure 62 mm[Hg] DO Judy Blandoner Work Phone: [facility] 02-26-2023 06:38-0400 Heart rate 71 /min DO Judy Blandoner Work Phone: [facility] 02-26-2023 06:38-0400 Respiratory rate 20 /min DO Judy Blandoner Work Phone: [facility] 02-26-2023 06:38-0400 SaO2% (BldA) [Mass fraction] 96 % DO Judy Pinto Work Phone: [facility] 02-26-2023 06:38-0400 Systolic blood pressure 123 mm[Hg] DO Judy Pinto Work Phone: [facility] Encounters Encounter Date Encounter Type Care Provider Facility Start: 04-21-2025 ambulatory Mahsa Shaw [place] Start: 04-19-2025 End: 04-19-2025 ambulatory Juice Cochran Facility[place] Start: 02-20-2025 End: 02-20-2025 ambulatory Juice Cochran MD Work Phone: -[facility] Start: 02-20-2025 End: 02-20-[address] Nahomi Lobato DO -[facility] Work Phone: Start: 02-20-2025 End: 02-20-2025 ambulatory Nahomi Lobato Facility:[facility] Start: 01-30-2025 End: 01-30-2025 ambulatory Juice Cochran MD Work Phone: -[facility] Start: 01-30-2025 End: 01-30-[address] Aixa Ibanez MD -[facility] Work Phone: Start: 01-30-2025 End: 01-30-2025 ambulatory Chalon Sammie Facility:[facility] Start: 12-13-2024 End: 12-13-2024 Patient encounter procedure Dereje PRECIADO -[facility] Work Phone: Start: 12-13-2024 End: 12-13-2024 ambulatory Juice Cochran MD Work Phone: -[facility] Start: 12-12-2024 End: 12-12-2024 Patient encounter procedure Kim OBRIENC -[facility] Work Phone: Start: 12-12-2024 End: 12-12-2024 ambulatory Juice Cochran MD Work Phone: -[facility] Start: 12-01-2024 End: 12-01-2024 ambulatory Juice Cochran MD Work Phone: -Pulmonary Services/Neurology Start: 12-01-2024 End: 12-01-2024 Patient encounter procedure Kim Hudson NP-C -Pulmonary Services/Neurology Work Phone: Start: 12-01-2024 End: 12-01-2024 ambulatory Chalon Sammie Facility:[facility] Start: 11-28-2024 End: 11-28-2024 ambulatory Juice Cochran MD Work Phone: -Pulmonary Services/Neurology Start: 11-28-2024 End: 11-28-2024 Patient encounter procedure Kim QUIROZ -Pulmonary Services/Neurology Work Phone: Start: 11-28-2024 End: 11-28-2024 ambulatory Chalon Sammie [place] Start: 11-07-2024 End: 11-07-2024 ambulatory Juice Cochran MD Work Phone: [facility] Work Phone: Start: 11-07-2024 End: 11-07-[address] Aixa Ibanez MD -[facility] Work Phone: Start: 11-07-2024 End: 11-07-2024 ambulatory Juice Cochran Facility:[facility] Start: 08-02-2024 End: 08-02-2024 ambulatory Juice Cochran MD Work Phone: [facility] Work Phone: Start: 08-02-2024 End: 08-02-[address] Nahomi Lobato DO -[facility] Work Phone: Start: 08-02-2024 End: 08-02-2024 ambulatory Juice Cochran MD Work Phone: [facility] Work Phone: Start: 08-02-2024 End: 08-02-[address] Juice Cochran MD -Outpatient Breast Imaging Work Phone: Start: 08-02-2024 End: 08-02-2024 ambulatory Nahomi Lobato Facility:[facility] Start: 07-07-2024 End: 07-07-2024 Admission to same day surgery center Dr. Rakan Gamino DP -[facility] Start: 07-07-2024 End: 07-07-2024 ambulatory Rakan Gamino Facility:[facility] Start: 06-29-2024 End: 06-29-2024 ambulatory Juice Cochran Facility:[facility] Start: 06-29-2024 End: 06-29-2024 Non-patient / Non-visit Dr. Matthew Alicia MD -[facility] Work Phone: Start: 06-23-2024 ambulatory Roosevelt Ahmadi Facility:[facility] Start: 06-23-2024 Non-patient / Non-visit Dr. Roosevelt collins MD -[facility] Start: 06-23-2024 End: 06-23-2024 Patient encounter procedure Andres Aguilar NP-C -Cardiovascular Services Work Phone: Start: 06-23-2024 End: 06-23-2024 ambulatory Andres Aguilar NP Facility:[facility] Start: 06-02-2024 End: 06-02-2024 Emergency department patient visit Dr. 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) Start: 05-30-2024 End: 05-30-2024 Telephone encounter Amanda Bates [facility] Comment on above: New PH Referral Start: 05-24-2024 End: 05-24-2024 ambulatory Juice Cochran [place] Start: 05-24-2024 End: 05-24-2024 Patient encounter procedure Kim Hudson RESIDENTIAL CAREGIVER-C -[facility] Work Phone: Start: 05-11-2024 End: 05-11-2024 ambulatory Andres Aguilar NP [place] Start: 05-11-2024 End: 05-11-2024 Patient encounter procedure Andres Aguilar RESIDENTIAL CAREGIVER-C -[facility] Work Phone: Start: 05-11-2024 End: 05-11-2024 ambulatory Nahoim Lobato Facility:[facility] Start: 09-23-2023 End: 09-23-2023 ambulatory DO Judy Pinto Work Phone: [facility] Work Phone: Start: 09-23-2023 End: 09-23-2023 Patient encounter procedure DO Judy Pinto Work Phone: [facility]-Laboratory, Specimen Work Phone: Start: 09-22-2023 End: 09-22-2023 Non-patient / Non-visit DO Judy Pinto Work Phone: [facility] Work Phone: Start: 09-21-2023 End: 09-22-2023 Evaluation and management of inpatient DO Judy Pinto Work Phone: [facility]-Progressive Care Unit Work Phone: Start: 09-21-2023 End: 09-22-2023 observation encounter DO Judy Pinto Work Phone: [facility] Work Phone: Start: 09-16-2023 End: 09-16-2023 ambulatory DO Judy Pinto Work Phone: [facility] Work Phone: Start: 09-16-2023 End: 09-16-2023 Patient encounter procedure DO Judy Pinto Work Phone: [facility] Work Phone: Start: 09-11-2023 End: 10-06-2023 ambulatory DO Judy Pinto Work Phone: [facility] Work Phone: Start: 09-11-2023 End: 10-06-2023 Discharged Recurring DO Judy Pinto Work Phone: [facility]-Cardiac Rehab Work Phone: Start: 09-11-2023 Registered Recurring DO Alisa Pinto Work Phone: [facility]-Cardiac Rehab Work Phone: Start: 09-11-2023 End: 09-11-2023 Patient encounter procedure DO Judy Pinto Work Phone: [facility] Work Phone: Start: 09-09-2023 End: 09-09-2023 ambulatory DO Judy Pinto Work Phone: [facility] Work Phone: Start: 09-09-2023 End: 09-09-2023 Patient encounter procedure DO Judy Pinto Work Phone: [facility]-Cardiac Rehab Work Phone: Start: 08-17-2023 Non-patient / Non-visit DO Tanisha zimmermanaleyda Millie Work Phone: [facility] Work Phone: Start: 08-14-2023 Non-patient / Non-visit DO Tanisha Pinto Work Phone: [facility] Start: 08-13-2023 Non-patient / Non-visit DO Tanisha Pinto Work Phone: [facility] Work Phone: Start: 08-13-2023 End: 08-14-2023 observation encounter DO Judy Pinto Work Phone: [facility] Work Phone: Start: 08-13-2023 End: 08-14-2023 Evaluation and management of inpatient DO Judy Pinto Work Phone: [facility]-Progressive Care Unit Work Phone: Start: 08-04-2023 End: 08-04-2023 Patient encounter procedure DO Judy Pinto Work Phone: [facility] Work Phone: Start: 08-03-2023 End: 08-03-2023 ambulatory DO Judy Pinto Work Phone: [facility] Work Phone: Start: 08-03-2023 End: 08-03-2023 Patient encounter procedure DO Judy Pinto Work Phone: [facility] Work Phone: Start: 07-29-2023 End: 07-29-2023 Patient encounter procedure DO Judy Pinto Work Phone: [facility]-Outpatient Breast Imaging Work Phone: Start: 07-28-2023 End: 07-28-2023 Patient encounter procedure DO Judy Pinto Work Phone: [facility] Work Phone: Start: 07-14-2023 Non-patient / Non-visit DO Tanisha Pinto Work Phone: [facility] Work Phone: Start: 07-14-2023 End: 07-14-2023 ambulatory DO Judy Pinto Work Phone: [facility] Work Phone: Start: 07-14-2023 End: 07-14-2023 Patient encounter procedure DO Judy Pinto Work Phone: [facility] Work Phone: Start: 07-14-2023 Non-patient / Non-visit DO Tanisha Pinto Work Phone: [facility] Start: 07-14-2023 End: 07-14-2023 ambulatory DO Judy Pinto Work Phone: [facility] Work Phone: Start: 07-14-2023 End: 07-14-2023 Patient encounter procedure DO Judy Pinto Work Phone: [facility]-Cardiovascula r Services Work Phone: Start: 06-29-2023 Non-patient / Non-visit DO Tanisha Pinto Work Phone: [facility] Start: 06-29-2023 End: 06-29-2023 ambulatory DO Judy Pinto Work Phone: [facility] Work Phone: Start: 06-29-2023 End: 06-29-2023 Patient encounter procedure DO Judy Pinto Work Phone: [facility]-Cat Scan, [facility] Work Phone: Start: 06-24-2023 End: 06-24-2023 ambulatory DO Judy Pinto Work Phone: [facility] Work Phone: Start: 06-24-2023 End: 06-24-2023 Patient encounter procedure DO Judy Pinto Work Phone: [facility] Work Phone: Start: 06-23-2023 End: 06-23-2023 Patient encounter procedure DO Judy Pinto Work Phone: [facility] Vascular Surgery Work Phone: Start: 06-02-2023 End: 06-02-2023 Emergency department patient [facility] Start: 05-29-2023 End: 05-29-2023 ambulatory DO Judy Pinto Work Phone: [facility] Work Phone: Start: 05-29-2023 End: 05-29-2023 Patient encounter procedure DO Judy Pinto Work Phone: [facility] Work Phone: Start: 05-26-2023 End: 05-26-2023 ambulatory DO Judy Pinto Work Phone: [facility] Work Phone: Start: 05-26-2023 End: 05-26-2023 Patient encounter procedure DO Judy Pinto Work Phone: [facility] Work Phone: Start: 05-20-2023 End: 05-20-2023 Patient encounter procedure DO Judy Pinto Work Phone: [facility] Work Phone: Start: 05-14-2023 Non-patient / Non-visit DO Tanisha Pinto Work Phone: [facility] Start: 05-11-2023 End: 05-11-2023 ambulatory DO Judy Pinto Work Phone: [facility] Work Phone: Start: 05-11-2023 End: 05-11-2023 Patient encounter procedure DO Judy Pinto Work Phone: [facility]-Laboratory, [place] Work Phone: Start: 05-05-2023 End: 05-05-2023 ambulatory DO Judy Pinto Work Phone: [facility] Work Phone: Start: 05-05-2023 End: 05-05-2023 Patient encounter procedure DO Judy Pinto Work Phone: [facility] Office [address] [place] [address] Start: 04-27-2023 End: 04-27-2023 ambulatory DO Judy Pinto Work Phone: [facility] Work Phone: Start: 04-27-2023 End: 04-27-2023 Patient encounter procedure DO Judy Pinto Work Phone: [facility]-Nuclear Medicine, [facility] Work Phone: Start: 04-09-2023 End: 04-09-2023 Patient encounter procedure DO Judy Pinto Work Phone: [facility]-Pulmonary Medicine [facility] Work Phone: Start: 03-24-2023 Non-patient / Non-visit DO Tanisha Pinto Work Phone: [facility] Start: 03-23-2023 End: 03-23-2023 ambulatory DO Judy Pinto Work Phone: [facility] Work Phone: Start: 03-23-2023 End: 03-23-2023 Patient encounter procedure DO Judy Pinto Work Phone: [facility]-Pulmonary Services/Neurology Work Phone: Start: 03-20-2023 Non-patient / Non-visit DO Tanisha Pinto Work Phone: [facility] Start: 2023 End: 2023 ambulatory DO Judy Pinto Work Phone: [facility] Work Phone: Start: 2023 End: 2023 Patient encounter procedure DO Judy Blandoner Work Phone: [facility]-Pulmonary Services/Neurology Work Phone: Start: 03-17-2023 Non-patient / Non-visit DO Tanisha Pinto Work Phone: [facility] Start: 03-17-2023 End: 03-17-2023 ambulatory DO Judy Pinto Work Phone: [facility] Work Phone: Start: 03-17-2023 End: 03-17-2023 Patient encounter procedure DO Judy Blandoner Work Phone: [facility]-Cardiovascula r Services Work Phone: Start: 02-26-2023 End: 02-26-2023 ambulatory DO Judy Pinto Work Phone: [facility] Work Phone: Start: 02-26-2023 End: 02-26-2023 Patient encounter procedure DO Judy Blandoner Work Phone: [facility]-Radiology, [facility] Work Phone: Start: 02-26-2023 End: 02-26-2023 Patient encounter procedure DO Judy Blandoner Work Phone: [facility]-Pulmonary Medicine [facility] Work Phone: Start: 02-24-2023 End: 02-24-2023 ambulatory DO Judy Susana Millie Work Phone: [facility] Work Phone: Start: 02-24-2023 End: 02-24-2023 Patient encounter procedure DO Judy Pinto Work Phone: [facility] Work Phone: Start: 09-01-2022 End: 09-01-2022 ambulatory [facility] Work Phone: Start: 09-01-2022 End: 09-01-2022 Patient encounter procedure [facility]-Cat Scan, [facility] Start: 08-18-2022 End: 08-18-2022 Patient encounter procedure [facility] Start: 07-28-2022 End: 07-28-2022 ambulatory [facility] Work Phone: Start: 07-28-2022 End: 07-28-2022 Patient encounter procedure [facility]-Outpatient Breast Imaging Start: 02-13-2022 End: 02-13-2022 ambulatory [facility] Work Phone: Start: 02-13-2022 End: 02-13-2022 Patient encounter procedure [facility]-Laboratory, Specimen Start: 11-28-2021 End: 11-28-2021 [facility] Start: 09-10-2021 End: 09-10-2021 [facility] Start: 07-19-2021 End: 07-19-2021 Patient encounter procedure [facility] Start: 02-02-2017 End: 02-02-2017 Ambulatory [facility]LL[facility] GODFREY [facility] Start: 12-05-2016 End: 12-05-2016 Ambulatory [facility]FRE[facility] Procedures Date Procedure Procedure Detail Performing Clinician Start: 02-20-2025 Serum inorganic phos phate measurement Juice Cochran MD Work Phone: Start: 01-30-2025 C>3< complement assay C tere Cochran MD Work Phone: Comment on above: Performed at: [facility] [employer] [address] [id number] Director: Moreno Marroquin PhD, Phone: [phone] Start: 01-30-2025 Urnls dip stick/tabl et reagent auto microscopy Juice Cochran MD Work Phone: Start: 11-07-2024 C>3< complement assay C tere Cochran MD Work Phone: Comment on above: Performed at: [facility] [employer] [address] [id number] Director: Moreno Marroquin PhD, Phone: [phone] Start: 11-07-2024 Urnls dip stick/tabl et reagent auto microscopy Juice Cochran MD Work Phone: Start: 08-02-2024 C>3< complement assay C tere Cochran MD Work Phone: Comment on above: Performed at: [facility] [employer] [address] [id number] Director: Moreno Marroquin PhD, Phone: [phone] Start: 08-02-2024 Urnls dip stick/tabl et reagent auto microscopy Juice Cochran MD Work Phone: Start: 08-02-2024 Screening mammography C tere Cochran MD Work Phone: Start: 07-07-2024 Fluoroscopic guidance C tere Cochran MD Work Phone: Start: 07-07-2024 X-ray of ankle, two views Juice Cochran MD Work Phone: Start: 06-23-2024 Cardiovascular stres s test using pharmacologic stress agent Juice Cochran MD Work Phone: Start: 06-02-2024 MRI of lower extremity Juice Cochran MD Work Phone: Start: 06-02-2024 X-ray of ankle, two views Juice Cochran MD Work Phone: Start: 06-02-2024 X-ray of ankle, thre e or more views Juice Cochran MD Work Phone: Start: 07-29-2023 Screening mammography D O Judy Pinto Work Phone: Start: 07-14-2023 Cardiovascular stres s test using pharmacologic stress agent DO Judy Pinto Work Phone: Start: 06-29-2023 Biopsy/Inj or Needle Placement DO Judy Pinto Work Phone: Start: 06-02-2023 Plain chest X-ray DO Nathaniel Pinto Work Phone: Start: 06-02-2023 Plain x-ray of hand DO Judy Pinto Work Phone: Start: 04-27-2023 Pulmonary ventilatio n perfusion study DO Judy Pinto Work Phone: Start: 02-26-2023 Plain chest X-ray DO Nathaniel Pinto Work Phone: Start: 09-01-2022 CT of chest Start: 07-28-2022 Screening mammography Start: 11-28-2021 Plain chest X-ray Start: 09-10-2021 Urine culture H/O: section History of C-sectio n Comment on above: x2 H/O: hysterectomy Hx of hysterectomy H/O: surgery Status post biop sy of kidney DO Judy Pinto Work Phone: Urine culture Plan of Treatment Date Care Activity Detail Author Start: 2038 RSV Vaccine (1 - 1-dose 75+ series) RSV Vaccine (1 - 1-dose 75+ series) [facility] Start: 12-13-2024 Hepatic function panel [facility] Start: 07-07-2024 Anes open proc bones lower leg/ankle/foot nos ANESTH LOWER LEG BONE SURG [facility] Start: 07-07-2024 Application short leg splint calf foot APPLICATION LOWER LEG SPLINT [facility] Start: 07-07-2024 Diagnostic bone marrow aspirations DX BONE MARROW ASPIRATIONS [facility] Start: 07-07-2024 Open treatment bimalleolar ankle fracture TREATMENT OF ANKLE FRACTURE [facility] Start: 07-07-2024 Patient discharge [facility] Start: 06-02-2024 [facility] Start: 06-02-2024 Closed tx bimalleolar ankle fracture w/manj TREATMENT OF ANKLE FRACTURE [facility] Start: 05-24-2024 Patient referral [facility] Work Phone: Start: 02-07-2024 Covid-19 Vaccine () Covid-19 Vaccine () [facility] Start: 02-07-2024 Influenza vaccination Influenza Vaccine (#1) [facility] Start: 09-22-2023 Patient discharge [facility] Start: 09-22-2023 [facility] Start: 09-21-2023 Following clinical pathway protocol [facility] Start: 09-21-2023 Admission procedure [facility] Start: 09-21-2023 Ambulation without limitation [facility] Start: 09-21-2023 Cardiac monitoring [facility] Start: 09-21-2023 Cardiac rehabilitation - phase 1 [facility] Start: 09-21-2023 Cardiac rehabilitation - phase 2 [facility] Start: 09-21-2023 Notification of physician [facility] Start: 09-21-2023 Oxygen therapy [facility] Start: 09-21-2023 Patient discharge [facility] Start: 09-21-2023 Taking patient vital signs [facility] Start: 09-21-2023 Vascular disease risk assessment [facility] Start: 09-21-2023 Vital signs measurements [facility] Start: 09-21-2023 End: 09-21-2023 [facility] Start: 09-09-2023 Patient referral to dietitian [facility] Start: 08-14-2023 Patient referral [facility] Work Phone: Start: 08-14-2023 Patient discharge [facility] Start: 08-14-2023 Continuous pulse oximetry [facility] Start: 08-13-2023 Following clinical pathway protocol [facility] Start: 08-13-2023 Ambulation without limitation [facility] Start: 08-13-2023 Cardiac monitoring [facility] Start: 08-13-2023 Cardiac rehabilitation - phase 1 [facility] Start: 08-13-2023 Cardiac rehabilitation - phase 2 [facility] Start: 08-13-2023 Notification of physician [facility] Start: 08-13-2023 Oxygen therapy [facility] Start: 08-13-2023 Patient discharge [facility] Start: 08-13-2023 Pulse taking [facility] Start: 08-13-2023 Taking patient vital signs [facility] Start: 08-13-2023 Vascular disease risk assessment [facility] Start: 08-13-2023 Vital signs measurements [facility] Start: 08-13-2023 End: 08-13-2023 [facility] Start: 08-13-2023 End: 08-13-2023 Admission procedure [facility] Start: 08-13-2023 Inhalation therapy procedure [facility] Start: 06-29-2023 Renal biopsy prq trocar/needle RENAL BIOPSY PERQ [facility] Start: 06-29-2023 Catheterization of vein [facility] Start: 06-29-2023 Oxygen therapy [facility] Start: 06-29-2023 Patient discharge [facility] Start: 06-29-2023 Vital signs measurements [facility] Start: 06-29-2023 Following clinical pathway protocol [facility] Start: 06-02-2023 [facility] Start: 06-02-2023 [facility] Start: 04-09-2023 Patient referral [facility] Work Phone: Start: 02-24-2023 Lupus anticoagulant assay [facility] Start: 02-08-2023 Diabetes Screening Diabetes Screening [facility] Start: 04-21-2022 Pneumococcal Vaccine: 50+ (3 of 3 - PCV20 or PCV21) Pneumococcal Vaccine: 50+ (3 of 3 - PCV20 or PCV21) [facility] Start: 2013 Shingrix Vaccine (1 of 2) Shingrix Vaccine (1 of 2) [facility] Start: 09-19-2008 Screening for malignant neoplasm of cervix Cervical Cancer Screening [facility] Start: 2008 Lipid panel Lipid Screening [facility] Start: 2008 Screening for malignant neoplasm of colon [facility] Start: 09-19-2006 Screening for malignant neoplasm of breast Mammogram Screening [facility] Start: 1982 Urine microalbumin profile DTaP,Tdap,Td Vaccine (1 - Tdap) [facility] Start: 1981 Anxiety Screening Anxiety Screening [facility] Start: 1981 Depression Screening Depression Screening [facility] Start: 1981 HIV screening HIV Screening [facility] aPTT W excess hexago nal phospholipid (StaClot LA confirm) [facility] Electrocardiographic procedure [facility] Exercise tolerance test [facility] Lipid 1996 panel - S lashon or Plasma [facility] Lupus anticoagulant neutralization platelet [Time] in Platelet poor plasma by Coagulation assay [facility] Measurement of respi ratory function [facility] Measurement of segme ntal blood pressure of artery of limb using doppler ultrasonography [facility] NM Heart Views W str ess and W radionuclide IV [facility] Partial thromboplast in time ratio [facility] Patient Education [facility] Work Phone: Patient referral [facility] Work Phone: [id number] extractable n uclear Ab [Units/volume] in Serum by Immunoassay [facility] Thrombin time [facility] US Heart [facility] Walking distance 6 minutes [address] [facility] Immunizations Immunization Date Immunization Notes Care Provider Killian alvarado 03-31-2019 influenza, injectabl e, quadrivalent, preservative free DO Judy [facility] Work Phone: [facility] 03-31-2019 influenza virus vacc ine, unspecified formulation Amanda Bates [facility] 03-11-2018 influenza, injectabl e, quadrivalent, preservative free DO Judy Blandoner Work Phone: [facility] 04-21-2017 influenza, injectabl e, quadrivalent, preservative free DO Judy Millie Work Phone: [facility] 04-21-2017 pneumococcal conjuga te vaccine, 13 valent DO [facility] Work Phone: [facility] 04-27-2014 influenza, injectabl e, quadrivalent, preservative free DO Judy Pinto Work Phone: [facility] 04-27-2014 pneumococcal polysaccharide vaccine, 23 valent DO Judy Pinto Work Phone: [facility] 04-08-2014 influenza, injectable,quadrivalent, preservative free, pediatric [facility] 04-03-2009 novel influenza-H1N1 -09, preservative-free, injectable DO Judy Brandtnger Work Phone: [facility] Payers Date Payer Category Payer Self-pay [id number] 2023 Unknown [id number] 2023 Medicare MMO MEDICARE O MEDADVANTAGE O [id number] 2023-[facility] [phone] [address] [place] [address] O [id number] [facility] [id number] Medicare MEDICARE PART A B [id number] Unknown [id number] Unknown [id number] [id number] .2.462 Unknown [id number] .2.462 Unknown [id number] 2.840.1.853759.3.579 .2.462 Unknown [id number] 2.840.1.609733.3.579 .2.462 Unknown [id number] 2.840.1.615157.3.579 .2.462 Unknown [id number] 2.16.840.1.839963.3.579 .2.462 Unknown [id number] 2.16.840.1.976415.3.579 .2.462 Unknown [id number] 2.16.840.1.461971.3.579 .2.462 Unknown [id number] 2.16.840.1.995512.3.579 .2.462 Unknown [id number] 2.16.840.1.063335.3.579 .2.462 Unknown [id number] 2.16.840.1.225678.3.579 .2.462 Unknown [id number] 2.16.840.1.794459.3.579 .2.462 Unknown [id number] 2.16.840.1.142055.3.579 .2.462 Unknown [id number] 2.16840.1.756282.3.579 .2.462 Unknown [id number] 2.16840.1.851576.3.579 .2.462 Unknown [id number] 2.16.840.1.413036.3.579 .2.462 Unknown [id number] 2.16.840.1.542538.3.579 .2.462 Unknown [id number] [id number] .2.462 Unknown [id number] [id number] .2.462 Social History Date Type Detail Facility Start: 01-24-2020 End: 09-21-2023 Tobacco smoking status [facility] Unknown if ever smoked [facility] Start: 12-13-2020 None [facility] Start: 12-13-2020 Alone [facility] Start: 12-13-2020 Cigarettes [facility] Start: 1965 Sex Assigned At Female [facility] Start: 04-25-2014 End: 06-23-2024 Tobacco smoking status NVIS Ex-smoker [facility] End: 03-17-2014 History of tobacco use Current smoker [facility] End: 03-17-2014 History of tobacco use Cigarette Smoker [facility] Start: 04-25-2014 Tobacco use and exposure Smokeless tobacco non-user [facility] Start: 01-22-2022 Alcoholic beverage intake Current non-drinker of alcohol (finding) [facility] Start: 05-15-2020 End: 01-22-2022 History of Social function [facility] Start: 05-15-2020 End: 01-22-2022 Tobacco use panel [facility] National Score (1-100), lower number is lower risk Not on file [facility] Start: 01-09-2011 Tobacco Comment Pt has smoked on & off for 20 years, currently smoking 1/2 pack daily [facility] Start: 12-17-2019 Gender identity Identifies as female gender (finding) [facility] Start: 12-17-2019 Sexual orientation Heterosexual (fin ding) [facility] Start: 08-16-2024 End: 08-16-2024 Sex Female (finding) [facility] NEGATED: Highlighted row Not [facility] Medical Equipment Procedure Code Equipment Code Equipment Original Text Equipment Identifier Dates ORIF, ankle DISTAL FIBULA PLATE FDA Star t: 07-07-2024 ORIF, ankle LOCKING SCREW FDA Start: 07-07-2024 ORIF, ankle LOCKING SCREW FDA Start: 07-07-2024 ORIF, ankle LOCKING SCREW FDA Start: 07-07-2024 ORIF, ankle NON LOCKING SCREW FDA Start: 07-07-2024 ORIF, ankle NONLOCKING SCREW FDA Start: 07-07-2024 ORIF, ankle Internal orthopa edic fixation system, plate/screw, non-bioabsorbable, sterile [id number] FDA Start: 07-07-2024 ORIF, ankle Plant polysaccha ride haemostatic agent, bioabsorbable [id number] FDA Start: 07-07-2024 ORIF, ankle Gelatin haemosta tic agent [id number] FDA Start: 07-07-2024 ORIF, ankle DISTAL FIBULA PLATE FDA Star t: 07-07-2024 ORIF, ankle LOCKING SCREW FDA Start: 07-07-2024 ORIF, ankle LOCKING SCREW FDA Start: 07-07-2024 ORIF, ankle LOCKING SCREW FDA Start: 07-07-2024 ORIF, ankle NON LOCKING SCREW FDA Start: 07-07-2024 ORIF, ankle NONLOCKING SCREW FDA Start: 07-07-2024 ORIF, ankle DISTAL FIBULA PLATE FDA Star t: 07-07-2024 ORIF, ankle LOCKING SCREW FDA Start: 07-07-2024 ORIF, ankle LOCKING SCREW FDA Start: 07-07-2024 ORIF, ankle LOCKING SCREW FDA Start: 07-07-2024 ORIF, ankle NON LOCKING SCREW FDA Start: 07-07-2024 ORIF, ankle NONLOCKING SCREW FDA Start: 07-07-2024 ORIF, ankle DISTAL FIBULA PLATE FDA Star t: 07-07-2024 ORIF, ankle LOCKING SCREW FDA Start: 07-07-2024 ORIF, ankle LOCKING SCREW FDA Start: 07-07-2024 ORIF, ankle LOCKING SCREW FDA Start: 07-07-2024 ORIF, ankle NON LOCKING SCREW FDA Start: 07-07-2024 ORIF, ankle NONLOCKING SCREW FDA Start: 07-07-2024 ORIF, ankle DISTAL FIBULA PLATE FDA Star t: 07-07-2024 ORIF, ankle LOCKING SCREW FDA Start: 07-07-2024 ORIF, ankle LOCKING SCREW FDA Start: 07-07-2024 ORIF, ankle LOCKING SCREW FDA Start: 07-07-2024 ORIF, ankle NON LOCKING SCREW FDA Start: 07-07-2024 ORIF, ankle NONLOCKING SCREW FDA Start: 07-07-2024 ORIF, ankle DISTAL FIBULA PLATE FDA Star t: 07-07-2024 ORIF, ankle LOCKING SCREW FDA Start: 07-07-2024 ORIF, ankle LOCKING SCREW FDA Start: 07-07-2024 ORIF, ankle LOCKING SCREW FDA Start: 07-07-2024 ORIF, ankle NON LOCKING SCREW FDA Start: 07-07-2024 ORIF, ankle NONLOCKING SCREW FDA Start: 07-07-2024 ORIF, ankle DISTAL FIBULA PLATE FDA Star t: 07-07-2024 ORIF, ankle LOCKING SCREW FDA Start: 07-07-2024 ORIF, ankle LOCKING SCREW FDA Start: 07-07-2024 ORIF, ankle LOCKING SCREW FDA Start: 07-07-2024 ORIF, ankle NON LOCKING SCREW FDA Start: 07-07-2024 ORIF, ankle NONLOCKING SCREW FDA Start: 07-07-2024 ORIF, ankle DISTAL FIBULA PLATE FDA Star t: 07-07-2024 ORIF, ankle LOCKING SCREW FDA Start: 07-07-2024 ORIF, ankle LOCKING SCREW FDA Start: 07-07-2024 ORIF, ankle LOCKING SCREW FDA Start: 07-07-2024 ORIF, ankle NON LOCKING SCREW FDA Start: 07-07-2024 ORIF, ankle NONLOCKING SCREW FDA Start: 07-07-2024 ORIF, ankle DISTAL FIBULA PLATE FDA Star t: 07-07-2024 ORIF, ankle LOCKING SCREW FDA Start: 07-07-2024 ORIF, ankle LOCKING SCREW FDA Start: 07-07-2024 ORIF, ankle LOCKING SCREW FDA Start: 07-07-2024 ORIF, ankle NON LOCKING SCREW FDA Start: 07-07-2024 ORIF, ankle NONLOCKING SCREW FDA Start: 07-07-2024 Drug-eluting cor onary artery stent, dbo-ezlspiauiztlp-joiuh er-coated ()[id number] FDA Start: 08-13-2023 Drug-eluting cor onary artery stent, faf-vuybybsczwbrc-hmkeq er-coated ()[id number] FDA Start: 09-21-2023 Drug-eluting cor onary artery stent, olx-ibammwpnfsvai-nhtxc er-coated ()[id number] FDA Start: 09-21-2023 Goals Date Patient Goal Desired Activity /State Functional Status Date Assessment Result Facility 09-22-2023 Functional status Ambulates [facility] Work Phone: 08-14-2023 Functional status Activity Ability Indepe ndent [facility] Work Phone: Mental Status Date Assessment Result Facility 07-07-2024 Cognitive function Voice/Name [facility] Work Phone: 07-07-2024 Cognitive function Patient Orien tation Person;Place;Time [facility] Work Phone: 06-02-2024 Cognitive function Awake;Alert;A ppropriate;Oni bustillo Commands [facility] Work Phone: 09-22-2023 Cognitive function Voice/Name [facility] Work Phone: 08-14-2023 Cognitive function Voice/Name [facility] Work Phone: 06-29-2023 Cognitive function Awake;Alert;A ppropriate;Oni bustillo [employer]osite [facility] Work Phone: Clinical Notes 03-20-2023 to 12-12-2024 Note Date & Type Note Facility 12-12-2024 Evaluation note Diagnosis Onset Date Resolution Lupus chronic December 12, 2024 2:49pm Moderate COPD (chronic obstructive pulmonary disease) chronic December 12, 2024 2 :49pm Pulmonary hypertension chronic Ju ly 2024 2:49pm Raynauds disease chronic December 2:49pm [facility] Work Phone: 1(127) 271-199507-07-2025 Evaluation note* Diagnosis Onset Date Resolution Status Admit Date Lupus chronic December 12, 2024 2:49pm Moderate COPD (chronic obstructive pulmonary disease) chronic J johnny2024 2:49pm Pulmonary hypertension chronic Ju ly 2024 2:49pm Raynauds disease chronic December 2:49pm CAD (coronary artery disease) acute December 13, 2024 12:50pm Benign essential HTN chronic December 13, 2024 12:50pm Pulmonary hypertension chronic Ju ly 2024 12:50pm [facility] Work Phone: 1(560) 134-676212-23-2024 Telephone encounter Note* Telephone Encounter - Amanda Bates - 05/30/2024 9:46 AM EST Referral requests Dr. Urbina Referring physician: Nahomi Hudson NP Address: [address] [place] [address], [address] [place] [address] Phone: [phone] Diagnosis: PH Are there epic records: No Are there care everywhere records: No Has a referral form been faxed: Yes Has patient been added to spreadsheet: No Routing: If records complete - route to [facility] for clinical team review. If records incomplete - please route to administrative services assistant. [facility]12-23-2024 Miscellaneous Notes* Telephone Encounter - Amanda Bates - 05/30/2024 9:46 AM EST Referral requests Dr. Urbina Referring physician: Nahomi Hudson NP Address: [address] [place] [address], [address] [place] [address] Phone: [phone] Diagnosis: PH Are there epic records: No Are there care everywhere records: No Has a referral form been faxed: Yes Has patient been added to spreadsheet: No Routing: If records complete - route to [facility] for clinical team review. If records incomplete - please route to administrative services assistant. [facility] Evaluation note* Diagnosis Onset Date Resolution Status Admit Date Benign essential HTN chronic Dece mber 2023 2:07pm Pulmonary hypertension chronic De cember 2023 2:07pm Shortness of breath chronic Decem greg 2023 2:07pm Stented coronary artery September 21, 2023 chroni c May 11, 2024 2:07pm Lupus chronic May 24, 2024 2:38pm Moderate COPD (chronic obstructive pulmonary disease) chronic May 24, 2 024 2:38pm Pulmonary hypertension chronic De cember 2023 2:38pm Raynauds disease chronic May 24, 2024 2:38pm Displaced bimalleolar fracture of right lower leg, initial encounter for cl acute July 07 5:24am Pain in right lower leg acute J anuary 2024 5:24am Sprain of tibiofibular ligament of right ankle, initial encounter acute July 07, 2024 5:24am [facility] Work Phone: 1(574) 632-549404-15-2024 Discharge summary Author Roosevelt Ahmadi [facility] September 21, 2023 1:41pm Note Date/Time September 21, 2023 1:[address] [facility] Medical Records Department [address] [place] [address] Instructions for Home/Discharge Instructions 09/21/23 1339 MR#: [id number] Acct: [id number] Name: DEMI DEJESUS Rep #:[id number] : 1965 58 From: Roosevelt Ahmadi MD PCP: Judy Pinto DO Status:REG S DC Discharge Instructions Diet Discharge Diet: Low fat / Low cholesterol Activity Discharge Activity: Return to Normal Activity May resume sexual activity in: No Restrictions Dressing / Incision Call your doctor if your incision/area has: Continuous Slow Oozing, Sudden Increased Bleeding, Increased Pain/ Swelling, Increased Redness, Foul Smelling Discharge and Swelling at the incision site Call your doctor if you observe: Fever of 101 or Higher, Coldness, Increased Pain, Numbness or Tingling and Change in Color Follow Up Care Please Follow Up With: Roosevelt Ahmadi MD When: 2-4 weeks Test Results: Test results from this visit will be discussed in further detail at your follow- up appointment, if applicable. Discharge Plan Admission Attending Provider: Roosevelt Ahmadi Primary Care Provider: Judy Pinto Discharge Orders/Prescriptions Prescriptions: No Action hydroxychloroquine 200 mg tablet 200 mg PO DAILY lisinopril 20 mg tablet 20 mg PO BID alendronate 70 mg tablet 70 mg PO QWEEK fluticasone propionate 50 mcg/actuation spray,suspension 2 spray intranasal DAILY Qty: 18.2 2RF Rx Instructions: administer into each nostril omeprazole 40 mg capsule,delayed release(DR/EC) 40 mg PO DAILY mecobalamin (vitamin B12) 5,000 mcg tablet,chewable 5,000 mcg PO DAILY Rectiv 0.4 % (w/w) ointment 1 inch LA QHS Benlysta 200 mg/mL auto-injector 200 mg subcut QWEEK Rx Instructions: inject into upper thigh or abdomen; rotate sites duloxetine 60 MG capsule 120 mg PO DAILY Patient Comments: mood multivitamin with folic acid 1 TABLET tablet 1 tab PO DAILY Patient Comments: supplement calcium carbonate-vitamin D3 1 TAB tablet 2 tab PO DAILY@0800 Patient Comments: supplement oxycodone-acetaminophen [Percocet] 5-325 mg tablet 1 tab PO Q8H PRN (Reason: pain) 3 Days Qty: 12 0RF gabapentin 300 mg capsule 300 mg PO BID PRN Rx Instructions: bid timolol maleate 0.5 % drops 1 drp ophthalmic (eye) DAILY PRN (Reason: raynauds) atorvastatin 10 mg Tablet 10 mg PO QHS Qty: 30 6RF amlodipine 2.5 mg Tablet 2.5 mg PO DAILY Qty: 30 6RF clopidogrel 75 mg Tablet 75 mg PO DAILY Qty: 30 11RF budesonide-formoterol [Symbicort] 160-4.5 mcg/actuation HFA aerosol inhaler 2 puff inhalation BID Qty: 3 3RF Rx Instructions: administer with spacer, rinse mouth after each use aspirin 81 mg tablet,delayed release (DR/EC) 81 mg PO DAILY Referrals / Follow Up: Judy Pinto DO [Primary Care Provider] - Disposition Disposition (needs filled in before D/C Order can be placed): Home, Self Care 09/21/23 1341<Electronically signed by Roosevelt Ahmadi MD>Roosevelt Ahmadi MD CC: Judy Pinto DO ~ Signed [facility] Work Phone: 1(275) 488-668803-07-2024 Discharge summary Author Roosevelt Galdino [facility] August 13, 2023 3:00pm Note Date/Time August 13, 2023 2:57 pm [facility] Medical Records Department [address] [place] [address] Instructions for Home/Discharge Instructions 08/13/23 1456 MR#: [id number] Acct: [id number] Name: DEMI DEJESUS Rep #:[id number] : 1965 58 From: Roosevelt Ahmadi MD PCP: Judy Pinto DO Status:REG S DC Discharge Instructions Diet Discharge Diet: Low fat / Low cholesterol Dressing / Incision Call your doctor if your incision/area has: Continuous Slow Oozing, Sudden Increased Bleeding, Increased Pain/ Swelling, Increased Redness, Foul Smelling Discharge and Swelling at the incision site Call your doctor if you observe: Fever of 101 or Higher, Coldness, Increased Pain, Numbness or Tingling and Change in Color Follow Up Care Please Follow Up With: Roosevelt Ahmadi MD When: 2-4 weeks Test Results: Test results from this visit will be discussed in further detail at your follow- up appointment, if applicable. Discharge Plan Admission Attending Provider: Roosevelt Ahmadi Primary Care Provider: Judy Pinto Discharge Orders/Prescriptions Prescriptions: New atorvastatin 10 mg Tablet 10 mg PO QHS Qty: 30 6RF amlodipine 2.5 mg Tablet 2.5 mg PO DAILY Qty: 30 6RF clopidogrel 75 mg Tablet 75 mg PO DAILY Qty: 30 11RF Continued hydroxychloroquine 200 mg tablet 200 mg PO DAILY trazodone 50 mg tablet 50 mg PO QHS lisinopril 20 mg tablet 20 mg PO BID alendronate 70 mg tablet PO fluticasone propionate 50 mcg/actuation spray,suspension 2 spray intranasal DAILY Qty: 18.2 2RF Rx Instructions: administer into each nostril omeprazole 40 mg capsule,delayed release(DR/EC) 40 mg PO DAILY mecobalamin (vitamin B12) 5,000 mcg tablet,chewable 5,000 mcg PO DAILY prednisone 20 mg tablet 20 mg PO DAILY Rectiv 0.4 % (w/w) ointment 1 inch LA QHS Benlysta 200 mg/mL auto-injector 200 mg subcut QWEEK Rx Instructions: inject into upper thigh or abdomen; rotate sites duloxetine 60 MG capsule 120 mg PO DAILY Patient Comments: mood multivitamin with folic acid 1 TABLET tablet 1 tab PO DAILY Patient Comments: supplement calcium carbonate-vitamin D3 1 TAB tablet 2 tab PO DAILY@0800 Patient Comments: supplement oxycodone-acetaminophen [Percocet] 5-325 mg tablet 1 tab PO Q8H PRN (Reason: pain) 3 Days Qty: 12 0RF gabapentin 300 mg capsule Rx Instructions: bid timolol maleate 0.5 % drops ophthalmic (eye) DAILY PRN (Reason: dry eyes) budesonide-formoterol [Symbicort] 160-4.5 mcg/actuation HFA aerosol inhaler 2 puff inhalation BID Qty: 3 3RF Rx Instructions: administer with spacer, rinse mouth after each use aspirin 81 mg tablet,delayed release (DR/EC) 81 mg PO DAILY Referrals / Follow Up: Judy Pinto, DO [Primary Care Provider] - Disposition Disposition (needs filled in before D/C Order can be placed): Home, Self Care 08/13/23 1500<Electronically signed by Roosevelt Ahmadi MD>Roosevelt Ahmadi MD CC: Judy Pinto DO ~ Signed [facility] Work Phone: 1(147) 686-249901-22-2024 Procedure [facility] 03-24-2023 Procedure [facility]10-13-2023 Procedure [facility] Author Jose Jett [facility] August 14, 2023 10:09am Note Date/Time August 14, 2023 10:0 9am [facility] Medical Records Department [address] [place] [address] Counseling Note - Pharmacy 08/14/23 1007 MR#: [id number] Acct: [id number] Name: DEMI DEJESUS Rep #:[id number] : 1965 58 From: Jose Jett PCP: Judy Pinto DO Status:ADM I NO Y [facility] has performed discharge medication reconciliation and counseling for this patient. The patient's discharge medication list was reviewed for discrepancies and discrepancies were resolved. The patient was counseled on the following discharge medications and changes in medications for homegoing were reviewed. The Reason for Use, instructions for use, and potential side effects were reviewed for all new medications. The patient's questions regarding all of their medications were answered. 1. Amlodipine 2.5 mg PO daily 2. Atorvastatin 10 mg PO QHS 3. Clopidogrel 75 mg PO daily The patient was able to verbally demonstrate an understanding of their dischargemedications. Medications at Discharge Home Medications calcium carbonate 600 mg-vitamin D3 20 mcg (800 unit) tablet 2 tab PO DAILY@ duloxetine 60 mg capsule,delayed release 120 mg PO DAILY 06/06/14 multivitamin with folic acid 400 mcg tablet 1 tab PO DAILY 06/06/14 mecobalamin (vitamin B12) 5,000 mcg chewable tablet 5,000 mcg PO DAILY 05/14/23 hydroxychloroquine 200 mg tablet 200 mg PO DAILY 12/13/23 omeprazole 40 mg capsule,delayed release 40 mg PO DAILY 05/20/23 oxycodone-acetaminophen 5 mg-325 mg tablet (Percocet) 1 tab PO Q8H PRN pain 3 days #12 tabs 06/02/23 budesonide-formoterol HFA 160 mcg-4.5 mcg/actuation aerosol inhaler (Symbicort) 2 puff inhalation BID #3 ea 06/22/23 belimumab 200 mg/mL subcutaneous auto-injector (Benlysta) 200 mg subcut QWEEK 06/23/23 nitroglycerin 0.4 % (w/w) rectal ointment (Rectiv) 1 inch LA QHS 06/23/23 prednisone 20 mg tablet 20 mg PO DAILY 06/23/23 gabapentin 300 mg capsule 300 mg PO BID PRN 06/29/23 timolol maleate 0.5 % eye drops 1 drp ophthalmic (eye) DAILY PRN raynauds 06/29/23 aspirin 81 mg tablet,delayed release 81 mg PO DAILY 07/24/23 alendronate 70 mg tablet 70 mg PO QWEEK 07/28/23 fluticasone propionate 50 mcg/actuation nasal spray,suspension 2 spray intranasal DAILY #18.2 mL 07/28/23 lisinopril 20 mg tablet 20 mg PO BID 07/28/23 trazodone 50 mg tablet 50 mg PO QHS 07/28/23 amlodipine 2.5 mg tablet 2.5 mg PO DAILY #30 tabs 08/13/23 atorvastatin 10 mg tablet 10 mg PO QHS #30 tabs 08/13/23 clopidogrel 75 mg tablet 75 mg PO DAILY #30 tabs 08/13/23 08/14/23 1009 <Electronically signed by Jose grey> Date _ Jose Sevilla Signature (if applicable): Date CC: ~ Signed [facility] Work Phone: Consult note Author Belinda Corona [facility] September 22, 2023 9:15am Note Date/Time September 22, 2023 9:1 5am [facility] Medical Records Department [address] [place] [address] Counseling Note - Pharmacy 09/22/2315 MR#: [id number] Acct: [id number] Name: DEMI DEJESUS Rep #:[id number] : 1965 58 From: Belinda Corona PCP: Judy Pinto, DO Status:ADM I NO Y Location: [place] [address] Pharmacy [place] [facility] Service has performed discharge medication reconciliation for this patient. The patient's discharge medication list was reviewed for discrepancies and discrepancies were resolved. Medications at Discharge Home Medications calcium carbonate 600 mg-vitamin D3 20 mcg (800 unit) tablet 2 tab PO DAILY@859354 duloxetine 60 mg capsule,delayed release 120 mg PO DAILY 06/06/14 multivitamin with folic acid 400 mcg tablet 1 tab PO DAILY 06/06/14 mecobalamin (vitamin B12) 5,000 mcg chewable tablet 5,000 mcg PO DAILY 05/14/23 hydroxychloroquine 200 mg tablet 200 mg PO DAILY 05/20/23 omeprazole 40 mg capsule,delayed release 40 mg PO DAILY 05/20/23 budesonide-formoterol HFA 160 mcg-4.5 mcg/actuation aerosol inhaler (Symbicort) 2 puff inhalation BID #3 ea 06/22/23 belimumab 200 mg/mL subcutaneous auto-injector (Benlysta) 200 mg subcut QWEEK 06/23/23 nitroglycerin 0.4 % (w/w) rectal ointment (Rectiv) 1 inch LA QHS 06/23/23 gabapentin 300 mg capsule 300 mg PO BID PRN 06/29/23 timolol maleate 0.5 % eye drops 1 drp ophthalmic (eye) DAILY PRN raynauds 06/29/23 aspirin 81 mg tablet,delayed release 81 mg PO DAILY 07/24/23 alendronate 70 mg tablet 70 mg PO QWEEK 07/28/23 fluticasone propionate 50 mcg/actuation nasal spray,suspension 2 spray intranasal DAILY #18.2 mL 07/28/23 lisinopril 20 mg tablet 20 mg PO BID 07/28/23 amlodipine 2.5 mg tablet 2.5 mg PO DAILY #30 tabs 08/13/23 atorvastatin 10 mg tablet 10 mg PO QHS #30 tabs 08/13/23 clopidogrel 75 mg tablet 75 mg PO DAILY #30 tabs 08/13/23 09/22/23 0915 <Electronically signed by Belinda Corona> Date _ Belinda Corona Cosigner Signature (if applicable): Date CC: ~ Signed [facility] Work Phone: evaluation noteNo assessment information available [facility] Work Phone: evaluation note* Diagnosis Onset Date Resolution Status Shortness of breath noneacti ve [facility] Work Phone: evaluation note* Diagnosis Onset Date Resolution Status Shortness of breath noneacti ve Pulmonary hypertension acute Wheeze acute COPD (chronic obstructive pulmonary disease) chronic [facility] Work Phone: evaluation note* Diagnosis Onset Date Resolution Status Shortness of breath noneacti ve Pulmonary hypertension acute [facility] Work Phone: evaluation note* Diagnosis Onset Date Resolution Status Shortness of breath noneacti ve Pulmonary hypertension chron ic Benign essential HTN chronic Dyspnea on exertion chronic Lupus chronic Pulmonary hypertension chron [facility] Work Phone: evaluation note* Diagnosis Onset Date Resolution Status Pulmonary hypertension chron ic Benign essential HTN chronic Dyspnea on exertion chronic Lupus chronic Pulmonary hypertension chron ic Raynauds disease acute Lupus chronic Lupus chronic [facility] Work Phone: Evaluation note* Diagnosis Onset Date Resolution Status Pulmonary hypertension chron ic Benign essential HTN chronic Dyspnea on exertion chronic Lupus chronic Pulmonary hypertension chron ic Raynauds disease acute Lupus chronic Lupus chronic Raynauds disease acute Lupus chronic Pulmonary hypertension chron ic [facility] Work Phone: Evaluation note* Diagnosis Onset Date Resolution Status Benign essential HTN chronic Dyspnea on exertion chronic Lupus chronic Pulmonary hypertension chron ic Raynauds disease acute Lupus chronic Lupus chronic Raynauds disease acute Lupus chronic Pulmonary hypertension chron ic [facility] Work Phone: Evaluation note* Diagnosis Onset Date Resolution Status Benign essential HTN chronic Dyspnea on exertion chronic Lupus chronic Pulmonary hypertension chron ic Raynauds disease acute Lupus chronic Lupus chronic Raynauds disease acute Lupus chronic Pulmonary hypertension chron ic Benign essential HTN chronic Pulmonary hypertension chron ic Stented coronary artery August 14, 2023 c hronic [facility] Work Phone: Evaluation note* Diagnosis Onset Date Resolution Status Raynauds disease acute Lupus chronic Lupus chronic Raynauds disease acute Lupus chronic Pulmonary hypertension chron ic Benign essential HTN chronic Pulmonary hypertension chron ic Stented coronary artery September 21, 2023 [facility] Work Phone: Evaluation note* Diagnosis OPENED IN ERROR- Primary To allow closing an encounter opened in error (used in SmartSet) [facility] this encounter [facility] Diagnosis Onset Date Resolution Status Admit Date Lupus chronic December 12, 2024 2:49pm Moderate COPD (chronic obstructive pulmonary disease) chronic J johnny 2024 2:49pm Pulmonary hypertension chronic Ju ly 2024 2:49pm Raynauds disease chronic December 2:49pm [facility] Work Phone: Hospital Discharge instructions Additional Instructions Follow-up with your physicians regarding your Raynaud's disease. Call vascular surgery for an appointment as well.[facility] Work Phone: Reason for referral (narrative)No reason for referral information availableWVeterans Health Administration Work Phone: Summary Purpose Family History No Family History Records Found Relationship Condition Age at Onset Recorded Date/T nancy mother Malignant neoplasm Unknown Chronic obstructive pulmonary disease Unk nown brother Myocardial infarction Unknown Relationship Condition Age at Onset Recorded Date/T nancy mother Malignant neoplasm Unknown Chronic obstructive pulmonary disease Unk nown brother Myocardial infarction Unknown Coronary artery disease Unknown Advance Directives No Advanced Directives Records Found Advance Directive Response Recorded Date/ Time Advance Directives No July 02, 2014 6:27am Living Will Yes January 06, 2020 1:41pm Power of Ship Design Teacher Yes January 05 1:41pm Advance Directive Response Recorded Date/ Time Advance Directives No July 02, 2014 5:27am Living Will Yes January 06, 2020 12:41pm Power of Ship Design Teacher Yes January 05 0 12:41pm Advance Directive Response Recorded Date/ Time Advance Directives No July 02, 2014 5:27am Living Will Yes June 02, 023 3:30pm Power of Ship Design Teacher No June 02, 2023 3:30pm Advance Directive Response Recorded Date/ Time Advance Directives on File No August 13, 2023 10:39am Advance Directives Yes August 12 10:39am Living Will Yes August 13, 2023 10:39am Power of Ship Design Teacher No August 12 10:39am Advance Directive Response Recorded Date/ Time Advance Directives on File No August 13, 2023 11:39am Advance Directives on File No September 09, 2023 1:17pm Advance Directives Yes August 12 11:39am Living Will Yes September 09, 2023 1:17pm Power of Ship Design Teacher Yes September 08 1:17pm Advance Directive Response Recorded Date/ Time Advance Directives on File No August 13, 2023 11:39am Advance Directives on File No September 09, 2023 1:17pm Advance Directives on File Yes September 21, 2023 9:32am Name of Medical Power of Ship Design Teacher Jeovanny Dejesus September 21, 2023 9:32am Advance Directives Yes September 20 024 9:32am Living Will Yes September 21, 2023 9:32am Power of Ship Design Teacher Yes September 20 9:32am Advance Directive Response Recorded Date/ Time Living Will No June 02 024 12:03pm Power of Ship Design Teacher No June 02, 2024 12:03pm Living Will Yes September 21, 2023 9:32am Power of Ship Design Teacher Yes September 20 9:32am Living Will No June 23 11:01am Power of Ship Design Teacher No June 23, 2024 11:01am Advance Directives Yes September 20 9:32am Advance Directive Response Recorded Date/ Time Advance Directives Yes September 20 9:32am Chief Complaint and Reason for Visit Chief Complaint SCREENING Chief Complaint SCREENING EORDER NICOTINE DEP Chief Complaint PAIN- COPY PCP Shortness of breath Reason for Visit Shortness of breath Chief Complaint PAIN- COPY PCP Shortness of breath SOB SOB Shortness of breath SOB Reason for Visit Shortness of breath Chief Complaint PAIN- COPY PCP Shortness of breath SOB SOB Shortness of breath SOB Shortness of breath Reason for Visit Shortness of breath Chief Complaint PAIN- COPY PCP Shortness of breath SOB SOB Shortness of breath SOB Shortness of breath 6 wk FU PULMONARY HYPERTENSION Reason for Visit Shortness of breath Pulmonary hypertension Wheeze COPD (chronic obstructive pulmonary disease) Chief Complaint PAIN- COPY PCP Shortness of breath SOB SOB Shortness of breath SOB Shortness of breath 6 wk FU PULMONARY HYPERTENSION Amb Documentation Reason for Visit Shortness of breath Pulmonary hypertension Chief Complaint PAIN- COPY PCP Shortness of breath SOB SOB Shortness of breath SOB Shortness of breath 6 wk FU PULMONARY HYPERTENSION Amb Documentation PULM HTN / CONSIDER RHC ? ([place]) PAIN- COPY PCP SKIN Reason for Visit Shortness of breath Pulmonary hypertension Benign essential HTN Dyspnea on exertion Lupus Pulmonary hypertension Chief Complaint PAIN- COPY PCP Shortness of breath SOB SOB Shortness of breath SOB Shortness of breath 6 wk FU PULMONARY HYPERTENSION Amb Documentation PULM HTN / CONSIDER RHC ? ([place]) PAIN- COPY PCP SKIN SOB Reason for Visit Shortness of breath Pulmonary hypertension Benign essential HTN Dyspnea on exertion Lupus Pulmonary hypertension Chief Complaint SOB SOB Shortness of breath SOB Shortness of breath 6 wk FU PULMONARY HYPERTENSION Amb Documentation PULM HTN / CONSIDER RHC ? ([place]) PAIN- COPY PCP SKIN SOB CONSULT-ER FU, RAYNAUDS SYSTEMIC LUPUS ERYTHEMOTOSUS SYSTEMIC LUPUS ERYTHEMOTOSUS Reason for Visit Pulmonary hypertensi on Benign essential HTN Dyspnea on exertion Lupus Pulmonary hypertension Raynauds disease Lupus Lupus Chief Complaint SOB Shortness of breath 6 wk FU PULMONARY HYPERTENSION Amb Documentation PULM HTN / CONSIDER RHC ? ([place]) PAIN- COPY PCP SKIN SOB CONSULT-ER FU, RAYNAUDS SYSTEMIC LUPUS ERYTHEMOTOSUS SYSTEMIC LUPUS ERYTHEMOTOSUS SOB SOB Amb Documentation Reason for Visit Pulmonary hypertensi on Benign essential HTN Dyspnea on exertion Lupus Pulmonary hypertension Raynauds disease Lupus Lupus Chief Complaint 6 wk FU PULMONARY HYPERTENSION Amb Documentation PULM HTN / CONSIDER RHC ? ([place]) PAIN- COPY PCP SKIN SOB CONSULT-ER FU, RAYNAUDS SYSTEMIC LUPUS ERYTHEMOTOSUS SYSTEMIC LUPUS ERYTHEMOTOSUS SOB SOB Amb Documentation 3 M FU SCREENING EKG for heart cath w/ KV Reason for Visit Pulmonary hypertensi on Benign essential HTN Dyspnea on exertion Lupus Pulmonary hypertension Raynauds disease Lupus Lupus Raynauds disease Lupus Pulmonary hypertension Chief Complaint PULMONARY HYPERTENSI ON Amb Documentation PULM HTN / CONSIDER RHC ? ([place]) PAIN- COPY PCP SKIN SOB CONSULT-ER FU, RAYNAUDS SYSTEMIC LUPUS ERYTHEMOTOSUS SYSTEMIC LUPUS ERYTHEMOTOSUS SOB SOB Amb Documentation 3 M FU SCREENING EKG for heart cath w/ KV CAD Reason for Visit Benign essential HTN Dyspnea on exertion Lupus Pulmonary hypertension Raynauds disease Lupus Lupus Raynauds disease Lupus Pulmonary hypertension Chief Complaint PULM HTN / CONSIDER RHC ? ([place]) PAIN- COPY PCP SKIN SOB CONSULT-ER FU, RAYNAUDS SYSTEMIC LUPUS ERYTHEMOTOSUS SYSTEMIC LUPUS ERYTHEMOTOSUS SOB SOB Amb Documentation 3 M FU SCREENING EKG for heart cath w/ KV CAD Coronary artery disease Amb Documentation PCI with coronary stent S/P [facility] 08/13 PCI W/CORONARY STENTING Reason for Visit Benign essential HTN Dyspnea on exertion Lupus Pulmonary hypertension Raynauds disease Lupus Lupus Raynauds disease Lupus Pulmonary hypertension Benign essential HTN Pulmonary hypertension Stented coronary artery Chief Complaint PAIN- COPY PCP SKIN SOB CONSULT-ER FU, RAYNAUDS SYSTEMIC LUPUS ERYTHEMOTOSUS SYSTEMIC LUPUS ERYTHEMOTOSUS SOB SOB Amb Documentation 3 M FU SCREENING EKG for heart cath w/ KV CAD Coronary artery disease Amb Documentation PCI with coronary stent S/P [facility] 08/13 PCI W/CORONARY STENTING EORDER FROM JAZMIN ENRIQUEZ CAD, GAMBLE Reason for Visit Raynauds disease Lupus Lupus Raynauds disease Lupus Pulmonary hypertension Benign essential HTN Pulmonary hypertension Stented coronary artery Chief Complaint CONSULT-ER FU, TJ UDS SYSTEMIC LUPUS ERYTHEMOTOSUS SYSTEMIC LUPUS ERYTHEMOTOSUS SOB SOB Amb Documentation 3 M FU SCREENING EKG for heart cath w/ KV CAD Coronary artery disease Amb Documentation PCI with coronary stent S/P [facility] 08/13 PCI W/CORONARY STENTING EORDER FROM JAZMIN ENRIQUEZ CAD, GAMBLE PCI Reason for Visit Raynauds disease Lupus Lupus Raynauds disease Lupus Pulmonary hypertension Benign essential HTN Pulmonary hypertension Stented coronary artery Chief Complaint Admit Date Shortness of breath May 11, 2024 2 :07pm 6 M FU May 24, 2024 2:38pm ANKLE June 02, 2024 10:35am PULM HTN June 23, 2024 6 :56am PULM HTN June 23, 2024 1 2:40pm PREOP June 29, 2024 8 :59am Open reduction and internal fixation of [place] July 07, 2024 5:24am SCREENING August 02, 2024 1:42pm Reason for Visit Admit Date Benign essential HTN May 11, 2024 2:07pm Pulmonary hypertension May 11 2:07pm Shortness of breath May 11, 2024 2 :07pm Stented coronary artery May 11 2:07pm Lupus May 24, 2024 2:38pm Moderate COPD (chronic obstructive pulmo nary disease) May 24, 2024 2:38pm Pulmonary hypertension May 24 2:38pm Raynauds disease May 24, 2024 2:38pm Displaced bimalleolar fractu re of right lower leg, initial encounter for cl July 07, 2024 5:24am Pain in right lower leg July 07 5:24am Sprain of tibiofibular ligam ent of right ankle, initial encounter July 07, 2024 5:24am Chief Complaint Admit Date SCREENING August 02, 2024 1:42pm PAIN- COPY PCP November 07, 2024 3:29p m Chief Complaint Admit Date PAIN- COPY PCP November 07, 2024 3:29p m R06.02 - Shortness of breath November 28, 2024 10:17am R06.02 - Shortness of breath December 01, 2024 12:41pm Chief Complaint Admit Date PAIN- COPY PCP November 07, 2024 3:29p m R06.02 - Shortness of breath November 28, 2024 10:17am R06.02 - Shortness of breath December 01, 2024 12:41pm follow up from testing December 12, 2024 2: 49pm Reason for Visit Admit Date Lupus December 12, 2024 2:49p m Moderate COPD (chronic obstructive pulmo nary disease) December 12, 2024 2:49pm Pulmonary hypertension December 12, 2024 2: 49pm Raynauds disease December 12, 2024 2:49p m Chief Complaint Admit Date PAIN- COPY PCP November 07, 2024 3:29p m R06.02 - Shortness of breath November 28, 2024 10:17am R06.02 - Shortness of breath December 01, 2024 12:41pm follow up from testing December 12, 2024 2: 49pm 6 M FU December 13, 2024 12:50 pm Chief Complaint Admit Date PAIN- COPY PCP November 07, 2024 3:29p m R06.02 - Shortness of breath November 28, 2024 10:17am R06.02 - Shortness of breath December 01, 2024 12:41pm follow up from testing December 12, 2024 2: 49pm 6 M FU December 13, 2024 12:50 pm PAIN/COPY PCP January 30, 2025 1: 35pm Reason for Visit Admit Date Lupus December 12, 2024 2:49p m Moderate COPD (chronic obstructive pulmo nary disease) December 12, 2024 2:49pm Pulmonary hypertension December 12, 2024 2: 49pm Raynauds disease December 12, 2024 2:49p m CAD (coronary artery disease) December 13, 2024 12:50pm Benign essential HTN December 13, 2024 12:5 0pm Pulmonary hypertension December 13, 2024 12 :50pm Chief Complaint Admit Date R06.02 - Shortness of breath November 28, 2024 10:17am R06.02 - Shortness of breath December 01, 2024 12:41pm follow up from testing December 12, 2024 2: 49pm 6 M FU December 13, 2024 12:50 pm PAIN/COPY PCP January 30, 2025 1: 35pm Additional Source Comments INFORMATION SOURCE (unrecogn ized section and content) DATE CREATED AUTHOR 12/02/2017 [facility] DATE CREATED AUTHOR AUTHOR'S ORGANIZ ATION 06/01/2024 [facility] DATE CREATED AUTHOR AUTHOR'S ORGANIZ ATION 04/20/2025 [facility] Goals (unrecognized section and content) Goals may be documented in a n alternate sectionGoals may be documented in an alternate sectionGoals may be documented in an alternate sectionGoals may be documented in an alternate sectionGoals may be documented in an alternate sectionGoals may be documented in an alternate sectionGoals may be documented in an alternate sectionGoals may be documented in an alternate sectionGoals may be documented in an alternate sectionGoals may be documented in an alternate sectionGoals may be documented in an alternate sectionGoals may be documented in an alternate sectionGoals may be documented in an alternate sectionGoals may be documented in an alternate sectionGoals may be documented in an alternate sectionGoals may be documented in an alternate sectionGoals may be documented in an alternate sectionGoals may be documented in an alternate sectionGoals may be documented in an alternate sectionGoals may be documented in an alternate sectionGoals may be documented in an alternate sectionGoals may be documented in an alternate sectionGoals may be documented in an alternate sectionGoals may be documented in an alternate sectionGoals may be documented in an alternate sectionGoals may be documented in an alternate sectionGoals may be documented in an alternate section Care Teams (unrecognized sec tion and content) Team Status: Active Member Role Status Dates Dr. Roc Crandall MD Primary Care Provider Active Team Status: Inactive Member Role Status Dates Dr. Roc Crandall MD Primary Care Provider Active Judy Pinto DO Attending Provider, Referring Pr ovider Active Team Status: Active Member Role Status Dates Judy Pinto DO Primary Care Provider Active Team Status: Inactive Member Role Status Dates Jessica Hassan , RESIDENTIAL CAREGIVER-C Attending Provider, Referr ing Provider Active Judy Pinto DO Primary Care Provider Active Team Status: Inactive Member Role Status Dates Judy Pinto DO Primary Care Provider Active Jessica Stathopoulos , RESIDENTIAL CAREGIVER-C Attending Provider, Referr ing Provider Active Team Status: Inactive Member Role Status Dates Judy Pinto DO Primary Care Provider, Referring Provider Active Dr. Siddhartha Evans MD Attending Provider Active Team Status: Active Member Role Status Dates Judy Pinto DO Primary Care Provider Active Dr. Siddhartha Evans MD Attending Provider, Referring Pr ovider Active Team Status: Inactive Member Role Status Dates Judy Pinto DO Primary Care Provider Active Dr. Aixa Ibanez MD Attending Provider, Referring Provider Active Team Status: Inactive Member Role Status Dates Judy Pinto DO Primary Care Provider Active Dr. Siddhartha Evans MD Attending Provider, Referring Pr ovider Active Team Status: Active Member Role Status Dates Judy Pinto DO Primary Care Provider Active Dr. Sadiq Beverly MD Attending Provider Active Team Status: Active Member Role Status Dates Judy Pinto , DO Primary Care Provider Active Dr. Siddhartha Evans MD Attending Provider , Referring Provider, Other Provider Active Team Status: Active Member Role Status Dates Judy Pinto , DO Primary Care Provi mindi, Attending Provider, Referring Provider Active Team Status: Active Member Role Status Dates Judy Pinto , DO Primary Care Provider Active Dr. Sadiq Beverly MD Attending Provider, Referring Pro vider Active Team Status: Active Member Role Status Dates Judy Pinto , DO Primary Care Provi mindi, Referring Provider, Other Provider Active Dr. Yadiel Heaton , DO Attending Provider Active Team Status: Inactive Member Role Status Dates Judy Pinto , DO Primary Care Provi mindi, Attending Provider, Referring Provider Active Team Status: Inactive Member Role Status Dates Judy Pinto , DO Primary Care Provider, Referring Provider Active Kim Hudson RESIDENTIAL CAREGIVER, RESIDENTIAL CAREGIVER-C Attending Provider Active Team Status: Inactive Member Role Status Dates Judy Pinto , DO Primary Care Provider Active Kim Hudson RESIDENTIAL CAREGIVER, RESIDENTIAL CAREGIVER-C Attending Provider, Referrin g Provider Active Team Status: Inactive Member Role Status Dates Judy Pinto , Primary Care Provider Active Dr. Nahomi Lobato , DO Attending Provider Active Team Status: Active Member Role Status Dates Judy Pinto , Primary Care Provider Active Yue Rivas Attending Provider Active Team Status: Inactive Member Role Status Dates Judy Pinto , Primary Care Provider Active Dr. Nahomi Lobato , DO Attending Provider, Referring P rovider Active Dr. Aixa Ibanez MD Other Provider Active Team Status: Inactive Member Role Status Dates Judy Pinto , DO Primary Care Provider, Referring Provider Active Dr. Roosevelt Ahmadi MD Attending Provider Active Team Status: Active Member Role Status Dates Judy Pinto , DO Primary Care Provider Active Dr. Jonathan Clarke MD Attending Provider, Referring P rovider Active Team Status: Inactive Member Role Status Dates Judy Pinto DO Primary Care Provider Active Juan Norwood MD Emergency Provider Active Team Status: Inactive Member Role Status Dates Judy M Millie , DO Primary Care Provider Active Dr. Jonathan Clarke MD Attending Provider, Referring P rovider Active Team Status: Inactive Member Role Status Dates Judy Susana BrandtMillie , DO Primary Care Provider, Referring Provider Active ILANA Mann Attending Provider Active Team Status: Active Member Role Status Dates Judy Susana Millie , DO Primary Care Provider Active Dr. Nahomi Lobato , DO Referring Provider, Other Provi mindi Active Sarah Franklin , RESIDENTIAL CAREGIVER-C Attending Provider Active Team Status: Inactive Member Role Status Dates Judy Susana BrandtMillie , DO Primary Care Provider Active Juan Norwood MD Attending Provider, Emergency Provid er Active Team Status: Active Member Role Status Dates Judy Pinto , DO Primary Care Provider Active Dr. Nahomi Lobato , DO Attending Provider, Referring P rovider Active Team Status: Inactive Member Role Status Judydianna Pinto , DO Primary Care Provider Active Dr. Nahomi Lobato , DO Attending Provider, Referring P rovider Active Team Status: Active Member Role Status Dates Judydianna Pinto DO Primary Care Provider Active Dr. Roosevelt Ahmadi MD Attending Provider , Referring Provider, Other Provider Active Team Status: Active Member Role Status Dates Judydianna Pinto , DO Primary Care Provider Active Mayelin Worley NP, RESIDENTIAL CAREGIVER-C Attending Provider Active Team Status: Inactive Member Role Status Judydianna Pinto DO Primary Care Provider Active Dr. Roosevelt Ahmadi MD Attending Provider, Referring Pr ovider Active Team Status: Inactive Member Role Status Judy Pinto DO Primary Care Provider Active Dr. Roosevelt Ahmadi MD Admit Provider, At tending Provider, Referring Provider Active Team Status: Inactive Member Role Status Dates Judy Susana Millie , DO Primary Care Provider, Referring Provider Active Jazmin PRECIADO, PA Attending Provider Active Team Status: Active Member Role Status Anne Pinto DO Primary Care Provider Active Dr. Roosevelt Ahmadi MD Attending Provider Active Team Status: Active Member Role Status Dates Judydianna Pinto DO Primary Care Provider Active Mayelin Awad Attending Provider Active Team Status: Active Member Role Status Dates Judy Pinto DO Primary Care Provider Active Dr. Roosevelt Ahmadi MD Attending Provider, Referring Pr ovider Active Team Status: Active Member Role Status Dates Judy Pinto DO Primary Care Provider Active Dr. Nahomi Lobato , DO Attending Provider, Referring P rovider Active Jazmin Enriquez PA, PA Other Provider Active Team Status: Inactive Member Role Status Dates Judy Pinto DO Primary Care Provider Active Dr. Nahomi Lobato DO Attending Provider, Referring P rovider Active Jazmin PRECIADO, PA Other Provider Active Team Status: Active Member Role Status Dates Judy Pinto DO Primary Care Provider Active Dr. Sadiq Beverly MD Attending Provider Active Dr. Roosevelt Ahmadi MD Referring Provider Active Loaders Relationship Specialty Start Date End Date Andres Small DO PCP - General Family Medicine 11/22/19 Kim Hudson [address] [place] [id number] Referring Vascular Medicine 05/27/24 Loaders Relationship Specialty Start Date End Date Andres Small PCP - General Family Medicine 11/22/19 Kim Hudson [address] [place] [id number] Referring Vascular Medicine 05/27/24 Team Status: Active Member Role Status Anne Cochran MD Primary Care Provider Active Team Status: Inactive Member Role Status Anne Cochran MD Primary Care Provider Active St art: May 11, 2024 End: May 11, 2024 Dr. Nahomi Lobato , Attending Provider Active Start: May 11, 2024 End: May 11, 2024 Dr. Aixa Ibanez MD Referring Provider Active Start: May 11, 2024 End: May 11, 2024 Team Status: Inactive Member Role Status Anne Cochran MD Primary Care Provider Active St art: May 11, 2024 End: May 11, 2024 Juice Cochran MD Referring Provider Active Start : May 11, 2024 End: May 11, 2024 Andres Aguilar RESIDENTIAL CAREGIVER, RESIDENTIAL CAREGIVER-C Attending Provider Active S tart: May 11, 2024 End: May 11, 2024 Team Status: Inactive Member Role Status Anne Cochran MD Primary Care Provider Active St art: May 24, 2024 End: May 24, 2024 Juice Cochran MD Referring Provider Active Start : May 24, 2024 End: May 24, 2024 Kim Hudson RESIDENTIAL CAREGIVER, RESIDENTIAL CAREGIVER-C Attending Provider Active Start: May 24, 2024 End: May 24, 2024 Team Status: Inactive Member Role Status Anne Cochran MD Primary Care Provider Active St art: June 02, 2024 End: June 02, 2024 Dr. Fox Tomlinson DO Attending Provider Active Start : June 02, 2024 End: June 02, 2024 Dr. Fox Tomlinson DO Emergency Provider Active Start : June 02, 2024 End: June 02, 2024 Team Status: Inactive Member Role Status Anne Cochran MD Primary Care Provider Active St art: June 23, 2024 End: June 23, 2024 Andres Aguilar RESIDENTIAL CAREGIVER, RESIDENTIAL CAREGIVER-C Attending Provider Active S tart: June 23, 2024 End: June 23, 2024 Andres Aguilar RESIDENTIAL CAREGIVER, RESIDENTIAL CAREGIVER-C Referring Provider Active S tart: June 23, 2024 End: June 23, 2024 Team Status: Active Member Role Status Anne Cochran MD Primary Care Provider Active St art: June 23, 2024 Andres Aguilar RESIDENTIAL CAREGIVER, RESIDENTIAL CAREGIVER-C Referring Provider Active S tart: June 23, 2024 Andres Aguilar RESIDENTIAL CAREGIVER, RESIDENTIAL CAREGIVER-C Other Provider Active Start : June 23, 2024 Dr. Roosevelt Ahmadi MD Attending Provider Active Start: June 23, 2024 Team Status: Active Member Role Status Anne Cochran MD Primary Care Provider Active St art: June 29, 2024 End: June 29, 2024 Dr. Matthew Alicia MD Attending Provider Activ e Start: June 29, 2024 End: June 29, 2024 Dr. Jarocho Stafford MD Referring Provider Active St art: June 29, 2024 End: June 29, 2024 Team Status: Inactive Member Role Status Anne Cochran MD Primary Care Provider Active St art: July 07, 2024 End: July 07, 2024 Dr. Rakan Gamino DPM Attending Provider Active Start: July 07, 2024 End: July 07, 2024 Dr. Rakan Gamino DPM Referring Provider Active Start: July 07, 2024 End: July 07, 2024 Team Status: Inactive Member Role Status Anne Cochran MD Primary Care Provider Active St art: August 02, 2024 End: August 02, 2024 Juice Cochran MD Attending Provider Active Start : August 02, 2024 End: August 02, 2024 Juice Cochran MD Referring Provider Active Start : August 02, 2024 End: August 02, 2024 Team Status: Active Member Role Status Anne Cochran MD Primary Care Provider Active St art: August 02, 2024 Dr. Nahomi Lobato DO Attending Provider Active Start: August 02, 2024 Dr. Nahomi Lobato DO Referring Provider Active Start: August 02, 2024 Dr. Aixa Ibanez MD Other Provider Active St art: August 02, 2024 Team Status: Inactive Member Role Status Anne Cochran MD Primary Care Provider Active St art: August 02, 2024 End: August 02, 2024 Dr. Nahomi Lobato DO Attending Provider Active Start: August 02, 2024 End: August 02, 2024 Dr. Nahomi Lobato DO Referring Provider Active Start: August 02, 2024 End: August 02, 2024 Dr. Aixa Ibanez MD Other Provider Active St art: August 02, 2024 End: August 02, 2024 Team Status: Inactive Member Role Status Anne Cochran MD Primary Care Provider Active St art: November 07, 2024 End: November 07, 2024 Dr. Aixa Ibanez MD Attending Provider Active Start: November 07, 2024 End: November 07, 2024 Dr. Aixa Ibanez MD Referring Provider Active Start: November 07, 2024 End: November 07, 2024 Team Status: Active Member Role/Relationship Status Anne Cochran MD Primary Care Provider Active Team Status: Inactive Member Role/Relationship Status Anne Cochran MD Primary Care Provider Active St art: November 07, 2024 End: November 07, 2024 Dr. Aixa Ibanez MD Attending Provider Active Start: November 07, 2024 End: November 07, 2024 Dr. Aixa Ibanez MD Referring Provider Active Start: November 07, 2024 End: November 07, 2024 Team Status: Inactive Member Role/Relationship Status Anne Cochran MD Primary Care Provider Active St art: November 28, 2024 End: November 28, 2024 Kim Hudson RESIDENTIAL CAREGIVER, RESIDENTIAL CAREGIVER-C Attending Provider Active Start: November 28, 2024 End: November 28, 2024 Kim Hudson RESIDENTIAL CAREGIVER, RESIDENTIAL CAREGIVER-C Referring Provider Active Start: November 28, 2024 End: November 28, 2024 Team Status: Active Member Role/Relationship Status Anne Cochran MD Primary Care Provider Active St art: December 01, 2024 Kim Hudson RESIDENTIAL CAREGIVER, RESIDENTIAL CAREGIVER-C Attending Provider Active Start: December 01, 2024 Kim Hudosn RESIDENTIAL CAREGIVER, RESIDENTIAL CAREGIVER-C Referring Provider Active Start: December 01, 2024 Team Status: Inactive Member Role/Relationship Status Anne Cochran MD Primary Care Provider Active St art: December 01, 2024 End: December 01, 2024 Kim Hudson RESIDENTIAL CAREGIVER, RESIDENTIAL CAREGIVER-C Attending Provider Active Start: December 01, 2024 End: December 01, 2024 Kim Hudson RESIDENTIAL CAREGIVER, RESIDENTIAL CAREGIVER-C Referring Provider Active Start: December 01, 2024 End: December 01, 2024 Team Status: Inactive Member Role/Relationship Status Anne Cochran MD Primary Care Provider Active St art: December 12, 2024 End: December 12, 2024 Juice Cochran MD Referring Provider Active Start : December 12, 2024 End: December 12, 2024 Kim Hudson RESIDENTIAL CAREGIVER, RESIDENTIAL CAREGIVER-C Attending Provider Active Start: December 12, 2024 End: December 12, 2024 Team Status: Inactive Member Role/Relationship Status Anne Cochran MD Primary Care Provider Active St art: December 13, 2024 End: December 13, 2024 Juice Cochran MD Referring Provider Active Start : December 13, 2024 End: December 13, 2024 ILANA Arriaza Attending Provider Active St art: December 13, 2024 End: December 13, 2024 Team Status: Inactive Member Role/Relationship Status Anne Cochran MD Primary Care Provider Active St art: January 30, 2025 End: January 30, 2025 Dr. Aixa Ibanez MD Attending Provider Active Start: January 30, 2025 End: January 30, 2025 Dr. Aixa Ibanez MD Referring Provider Active Start: January 30, 2025 End: January 30, 2025 Team Status: Active Member Role/Relationship Status Anne Cochran MD Primary care physician Active Team Status: Inactive Member Role/Relationship Status Anne Cochran MD Primary care physician Active S tart: November 28, 2024 End: November 28, 2024 Kim Hudson RESIDENTIAL CAREGIVER, RESIDENTIAL CAREGIVER-C Attending physician Active Start: November 28, 2024 End: November 28, 2024 Kim Hudson RESIDENTIAL CAREGIVER, RESIDENTIAL CAREGIVER-C Referring Provider Active Start: November 28, 2024 End: November 28, 2024 Team Status: Inactive Member Role/Relationship Status Anne Cochran MD Primary care physician Active S tart: December 01, 2024 End: December 01, 2024 Kim Hudson RESIDENTIAL CAREGIVER, RESIDENTIAL CAREGIVER-C Attending physician Active Start: December 01, 2024 End: December 01, 2024 Kim Hudson RESIDENTIAL CAREGIVER, RESIDENTIAL CAREGIVER-C Referring Provider Active Start: December 01, 2024 End: December 01, 2024 Team Status: Inactive Member Role/Relationship Status Anne Cochran MD Primary care physician Active S tart: December 12, 2024 End: December 12, 2024 Juice Cochran MD Referring Provider Active Start : December 12, 2024 End: December 12, 2024 Kim Hudson RESIDENTIAL CAREGIVER, RESIDENTIAL CAREGIVER-C Attending physician Active Start: December 12, 2024 End: December 12, 2024 Team Status: Inactive Member Role/Relationship Status Anne Cochran MD Primary care physician Active S tart: December 13, 2024 End: December 13, 2024 Juice Cochran MD Referring Provider Active Start : December 13, 2024 End: December 13, 2024 ILANA Arriaza Attending physician Active S tart: December 13, 2024 End: December 13, 2024 Team Status: Inactive Member Role/Relationship Status Anne Cochran MD Primary care physician Active S tart: January 30, 2025 End: January 30, 2025 Dr. Aixa Ibanez MD Attending physician Active Start: January 30, 2025 End: January 30, 2025 Dr. Aixa Ibanez MD Referring Provider Active Start: January 30, 2025 End: Conger 25th, 2025 Team Status: Inactive Member Role/Relationship Status Dates Juice Cochran MD Primary care physician Active S tart: February 20, 2025 End: February 20, 2025 Dr. Nahomi Lobato DO Attending physician Active Start: February 20, 2025 End: February 20, 2025 Dr. Nahomi Lobato DO Referring Provider Active Start: February 20, 2025 End: February 20, 2025 Source Comments (unrecognize d section and content) In the event this informatio n is protected by the Federal Confidentiality of Alcohol and Drug Abuse Patient Records regulations: The Federal rules restrict any use of the information to criminally investigate or prosecute any alcohol or drug abuse patient.[facility] HealthcareIn the event this information is protected by the Federal Confidentiality of Alcohol and Drug Abuse Patient Records regulations: The Federal rules restrict any use of the information to criminally investigate or prosecute any alcohol or drug abuse patient.[facility] Reason for Visit (unrecogniz ed section and content) Reason Comments New Referral FOR RECORDS PERTAINING TO PATIENTS WHO ARE [...] BE BASED ON THE PRIMARY CLINICAL RECORDS. [employer] [facility]. provides no warranty or guarantee of the accuracy or completeness of information in this document.
[2025-04-28 17:50] LABS: Hematocrit 36.1 % (37-47); Hemoglobin 12.1 g/dL (12.0-15.0); Immature Granulocytes Count 0.030 X10^3/uL (0.0-0.0); Mean Corp Hgb Conc 33.5 g/dL (32-36); Mean Corpuscular Volume 93.0 fL (81-99); Mean Platelet Vol. 10.2 fl (6.2-12.0); NRBC Flagged by Analyzer 0 % (0-5); POSITIVE DIFFERENTIAL YES; Platelet Count 206 K/mm3 (150-450); RBC Distribution Width CV 15.4 % (11.6-14.6); RBC Distribution Width SD 52.6 fl (35.1-43.9); Red Blood Count 3.88 M/mm3 (4.2-5.4); White Blood Count 4.0 K/mm3 (4.4-11.0)
[2025-04-28 18:33] LABS: AST(SGOT) 25 U/L (<=31); Alanine Aminotransfer ALT/SGPT 15 U/L (<=34); Albumin, Serum 3.8 g/dL (3.4-4.8); Alkaline Phosphatase 110 U/L (35-104); Anion Gap 11 (5-15); BUN 22 mg/dL (4-19); BUN/Creat Ratio 21.3 RATIO (10-20); Calcium,Total 9.3 mg/dL (7.6-11.0); Carbon Dioxide 18.6 mmol/L (21.0-32.0); Chloride 105 mmol/L (98-108); Globulin 3.4 g/dL (2.2-4.2); Glucose 101 mg/dL (70-99); Potassium 3.6 mmol/L (3.3-5.1)
[2025-04-28 19:07] LABS: Color, Urine Yellow (Yellow); Glucose, Dipstick Normal (Normal); Ketone-Dipstick Negative (Negative); Leukocyte Esterase-Dipstick Negative /ul (Negative); Nitrite-Dipstick Negative (Negative); Occult Blood-Urine Negative /ul (Negative); Protein-Dipstick 30 mg/dl (Negative); Specific Gravity, Urine 1.015 (1.002-1.030); Urine Bilirubin Dipstick Negative (Negative)
[2025-04-28 19:22] LABS: Creatinine, Urine (random) 70.50 mg/dL (28.00-217.00); Protein, Urine (Random) 22.9 mg/dL (0.0-12.0); Protein:Creat Ratio 325 mg/g CRE (0-200)
[2025-05-01 17:08] LABS: Anti-dsDNA Ab 3 IU/mL (0-9)
== END | disposition home or self-care (01) ==
LOC: MTLAB 14:30
PROVIDERS: PCP Nurse Practitioner Family; Referring Provider Internal Medicine Rheumatology; Visit Provider Internal Medicine Rheumatology
DX: M06.4 Inflammatory polyarthropathy (principal); I27.20 Pulmonary hypertension, unspecified; M32.9 Systemic lupus erythematosus, unspecified; Z79.899 Other long term (current) drug therapy; M79.7 Fibromyalgia; M35.00 Sjogren syndrome, unspecified
CPT/HCPCS: 36415; 80053; 81002; 82570; 84156; 85025; 86160; 86225

== ENCOUNTER → 2025-06-05 | Outpatient (CLI) | payer MEDICARE, SELFPAY ==
[2025-04-19 13:31] VITALS: BMI 26.3
--- NOTE | 2025-06-05 17:15 | RAD_ITS ---
PROCEDURE: LUMBAR SPINE 2 OR 3 VIEWS 06/05/2025 REASON FOR EXAM: ACUTE ON CHRONIC PAIN TECHNIQUE: Procedure Code: RADSPLL Modality: DX Procedure: LUMBAR SPINE 2 OR 3 VIEWS COMPARISON: None FINDINGS: There is anatomic alignment of the lumbar spine in the lateral view. No acute or chronic fracture, pars defect or spondylolisthesis, there is a lumbarized S1 vertebral body. Disc spaces well-preserved Prevertebral soft tissues show peripheral calcifications in the abdominal aorta without aneurysm. Retained stool noted in the colon, no demonstrated fracture in the visualized pelvis RAD/Lumbar Spine 2 or 3 Views IMPRESSION: Unremarkable lumbar spine Reading Location: [id number]
--- NOTE | 2025-06-05 17:15 | RAD_ITS ---
PROCEDURE: THORACIC SPINE 2 VIEWS 06/05/2025 REASON FOR EXAM: ACUTE ON CHRONIC BACK PAIN TECHNIQUE: Procedure Code: RADSPT2 Modality: DX Procedure: THORACIC SPINE 2 VIEWS COMPARISON: 04/20/2025 FINDINGS: There is anatomic alignment of the thoracic spine. No acute or chronic fracture, paraspinal mass, or absent pedicle. Disc spaces are well-preserved Prevertebral soft tissues are unremarkable aside from calcified valvular annular within the heart RAD/Thoracic Spine 2 Views IMPRESSION: Unremarkable thoracic spine Reading Location: [id number]
== END | disposition home or self-care (01) ==
LOC: MTRAD 17:10
PROVIDERS: PCP Family Medicine; Referring Provider Family Medicine; Visit Provider Family Medicine
DX: G89.21 Chronic pain due to trauma (principal)
CPT/HCPCS: 72070; 72100